=== PATIENT | female | born 2000 | race Caucasian/White ===

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

== ENCOUNTER 2023-08-31 21:05 | Emergency (ER) | payer OTHER, SELFPAY ==
[2023-08-31 21:06] VITALS: BP 123/74; PULSE 107; RESP 18; TEMP 35.8; O2SAT 98; BMI 25.9
--- NOTE | 2023-08-31 22:01 | EDS_ITS ---
HPI History of Present Illness Chief Complaint: Abd Pain PFSH PFSH Medical History Asperger syndrome Gastroparesis IBS (irritable bowel syndrome) Home Medications ergocalciferol (vitamin D2) 1,250 mcg (50,000 unit) capsule (Vitamin D2) 1,000 unit PO Q7D 09/26/18 [History Last Taken 09/20/18] melatonin 1 mg tablet 10 mg PO QHS PRN sleep 09/26/18 [History Last Taken 09/25/18] omega-3 fatty acids-fish oil 300 mg-1,000 mg capsule 1 ea PO QHS 09/26/18 [History Last Taken 09/25/18] tizanidine 4 mg tablet 4 mg PO QHS 09/26/18 [History Last Taken 09/25/18] vitamin B complex (Vitamins B Complex capsule) 1 ea PO QHS 09/26/18 [History Last Taken 09/25/18] hydroxyzine HCl 25 mg tablet 25 mg Q6H PRN PRN Anxiety 09/26/21 [History Last Taken Unknown] Allergy/AdvReac Type Severity Reaction Status Date / Time honey Allergy Unknown Verified 08/31/23 21:06 prochlorperazine Allergy Vomiting Verified 08/31/23 21:06 [From Compazine] nitrofurantoin AdvReac Vomiting Verified 08/31/23 21:06 [From Macrobid] Surgical History Hx of appendectomy Social History current occupational status: student Smoking Status: Never smoker EXAM Physical Exam Const Vital Signs: 08/31/23 21:06 08/31/23 23:05 Temperature 96.5 F L Temperature Source Temporal Pulse Rate 107 H 95 Respiratory Rate 18 16 Blood Pressure 123/74 H Blood Pressure Mean 90 Pulse Ox 98 97 Oxygen Delivery Method Room Air Room Air MDM MDM MDM Narrative Medical decision making narrative: HISTORY OF PRESENT ILLNESS: 23-year-old female presents with abdominal pain. Patient states she thinks her IUD may be displaced. States she got her IUD placed in [place] in the summer. States she has got lower pelvic pain that occurred today. No trauma. No recent sexual intercourse. No vaginal bleeding or discharge. No dysuria, hematuria, frequency or urgency. Denies any back pain. Denies any fever. Reports history of appendectomy in the past REVIEW OF SYSTEMS: Pertinent positives: Abdominal pain Pertinent negatives: Nausea, vomiting, fever, bowel or bladder changes, vaginal bleeding or discharge, sexual activity PHYSICAL EXAM: Nursing triage notes reviewed, Vital signs reviewed Constitutional: please see mdm HENT: MMM Eyes: Pupils equal round and reactive to light, Extraocular muscles intact Neck: No stridor, no JVD, full neck ROM Lungs: Clear to auscultation, No wheezing or rales. No increased work of breathing, no conversational dyspnea, no accessory muscle use, no nasal flaring. No respiratory distress noted Heart: Regular rate and rhythm, No murmurs, No rubs and No gallops, 2+ distal pulses (radial, femoral, posterior tibial) in all extremities Abdomen: Soft, there is no tenderness, rigidity, rebound or guarding, no obvious peritoneal signs, no palpable pulsatile abdominal masses, no auscultated ab dominal bruit : No CVAT, pelvic exam performed with electric frying pan repairer nurse Gurdeep RN present. Pelvic exam with white vaginal discharge, normal-appearing vaginal mucosa, cervical os closed, noted blue string of IUD hanging out of cervical os. No bleeding or trauma noted. Swabs were obtained. Extremities: No edema Neuro: No focal neurological deficits, cranial nerves II through XII intact, 5/5 strength in all extremities. Intact sensation to light touch in all extremities, 2+ reflexes bilateral patella tendons. Normal gait. No ataxia. Skin: No rash or lesions noted MEDICAL DECISION MAKING: Chief Complaint: Abdominal pain External records reviewed: CT scan of the abdomen pelvis in 2019 shows acute appendicitis Factors affecting care: History of appendicitis [facility] Narrative: Patient was initially hemodynamically stable, afebrile, nontoxic-appearing. Exam unremarkable for obvious peritoneal signs. Pelvic exam showed no evidence of infections, bleeding trauma, showed blue string of IUD. I considered the following differential diagnosis: Nephrolithiasis, , pyelonephritis, uterine rupture ALL IMAGES (IF OBTAINED) HAVE BEEN PERSONALLY REVIEWED AND INTERPRETED BY MYSELF. CBC without leukocytosis to suggest severe systemic inflammation, severe anemia, no thrombocytopenia. BMP without evidence of significant electrolyte abnormalities, no anion gap, no acute kidney injury. No evidence of metabolic acidosis. No evidence of endorgan hypoperfusion LFTs show no evidence of hepatobiliary pathology. Urine test is negative Urinalysis shows no evidence of urinary inflammation suggestive of UTI CT scan of the abdomen pelvis reveals no acute process I would have obtained a pelvic ultrasound to further characterize position of IUD however would not have ultrasound available at this [facility] The synthesis of the patient's history, physical exam, labs images suggest no acute life or limb threatening etiology. Strict return precaution discussed the patient Outpatient [facility] follow-up was arranged. Will communicate patient if results of gonorrhea chlamydia testing are positive. Patient is often sexually active since May and as such I have a low suspicion for STD. The patient and/or family, caregivers express understanding. The patient and/or family, caregivers agrees with the plan. Shared decision making: I will have a discussion with the patient and or visitors regarding risk/benefits of further testing or admission. They will be made aware of of the risk/benefits inherent in this decision they will be given the opportunity to voice understanding. Total critical care time today provided was at least 0 minutes. This excludes separately billable procedures. Critical care time (if documented) is secondary to the patient having high probability of clinically significant/life threatening deterioration in the patient's condition which required my urgent intervention. Impression: 1. Pelvic pain 2. History of IUD Dispo: Discharge home This note was generated with [employer] dictation software. It may contain incorrect words, spelling, and punctuation that were not noted in review of the chart prior to signing. Lab Data Labs: Laboratory Results - last 24 hr 08/31/23 08/31/23 22:12 22:30 WBC 9.4 RBC 4.31 Hgb 12.7 Hct 38.6 MCV 89.6 MCH 29.5 MCHC 32.9 RDW Std Deviation 39.3 RDW Coeff of Jake 11.9 Plt Count 280 MPV 9.4 Immature Gran % (Auto) 0.300 Neut % (Auto) 66.8 Lymph % (Auto) 24.8 [place] % (Auto) 6.2 Eos % (Auto) 1.3 Baso % (Auto) 0.6 Absolute Neuts (auto) 6.3 Absolute Lymphs (auto) 2.32 Nucleated RBC % 0 Sodium 139 Potassium 3.6 Chloride 107 Carbon Dioxide 27.0 Anion Gap 5 BUN 8 Creatinine 0.68 Estim Creat Clear Calc 124.59 Est GFR (MDRD) Af Amer 140 Est GFR (MDRD) Non-Af 115 BUN/Creatinine Ratio 11.7 Glucose 107 H Calcium 9.0 Total Bilirubin 0.50 AST 11 L ALT 18 Alkaline Phosphatase 82 Total Protein 7.3 Albumin 3.8 Globulin 3.5 Albumin/Globulin Ratio 1.1 Serum , Qual NEGATIVE Urine Color Yellow Urine Clarity Clear Urine pH 7.0 Ur Specific [place] 1.005 Urine Protein Negative Urine Glucose (UA) Normal Urine Ketones Negative Urine Occult Blood Negative Urine Nitrite Negative Urine Bilirubin Negative Urine Urobilinogen Normal Ur Leukocyte Esterase 25 H Urine RBC 0 SEEN Urine WBC 0-5 SEEN Ur Squamous Epith Cells 0-5 SEEN Urine Bacteria 0 SEEN Urine Mucus 0 SEEN Radiography Diagnostic Testing: Clinical Impression(s) from Imaging Studies Abdomen/Pelvis CT 08/31/23 22:19 IMPRESSION: Increased stool. No acute disease. Electronically Signed: Sampson Patel MD at 0:17 EST Reading Location ID and State: [facility] / [place] Tel , Service support , Discharge Plan Triage Chief Complaint: Abd Pain ED Provider: Norbert Gold Dx/Rx/DC Orders Instructions: ED Pelvic Pain, Unknown Cause Prescriptions: No Action tizanidine 4 MG tablet 4 mg PO QHS ergocalciferol (vitamin D2) [Vitamin D2] 50,000 UNIT capsule 1,000 unit PO Q7D vitamin B complex [Vitamins B Complex] 1 EACH capsule 1 ea PO QHS melatonin 1 MG tablet 10 mg PO QHS PRN (Reason: sleep) omega-3 fatty acids-fish oil 1 EACH capsule 1 ea PO QHS hydroxyzine HCl 25 mg tablet 25 mg Q6H PRN PRN (Reason: Anxiety) Primary Care Provider: Travis Siddiqi Referrals: Tricia Barnes MD [Med Staff - Active Staff] - Activity Restrictions/Additional Instructions: Thank you for trusting us with your care today! Please take Tylenol (2 pills, 650 mg), ibuprofen (2 pills, 400 mg) every 6 hours as needed for pain and fever control. Please return to the emergency department if your symptoms change or worsen. Please follow with OBGYN (Dr. Barnes) at the number and location provided for further outpatient evaluation and management. Disposition Disposition: Home, Self Care
--- NOTE | 2023-08-31 22:19 | CT_ITS ---
STUDY: CT ABDOMEN AND PELVIS WITH CONTRAST REASON FOR EXAM: Female, 23 years old. lower abdominal pain RADIATION DOSAGE (If Supplied By Facility): CTDIvol = ( 10.18 ) mGy, DLP = ( 830.99 ) mGycm TECHNIQUE: Transaxial images were obtained from the dome of the diaphragm to the symphysis pubis without oral contrast. IV 100mL Isovue-370 was administered. Sagittal and coronal images were reconstructed. Individualized dose optimization techniques were used for this CT. COMPARISON: Abdominal ultrasound October 25, 2018. CT abdomen and pelvis September 26, 2018. FINDINGS: The visualized lung bases are unremarkable. The visualized portions of the heart are within normal limits. Normal liver. Normal gallbladder and extrahepatic biliary system. Normal spleen. Normal pancreas. Normal bilateral adrenal glands. Normal right kidney. Normal left kidney. Normal visualized stomach. Normal small intestine. Increased stool in the colon. Appendix appears to be surgically absent. Normal abdominal aorta. Normal inferior vena cava. Normal retroperitoneum. Normal urinary bladder. IUD in the body of the uterus. 2 cm left adnexal cyst. Normal abdominal wall. 11 millimeters sclerotic lesion left iliac bone. CT/Abdomen/Pelvis W IV Cont ONLY IMPRESSION: Increased stool. No acute disease. Electronically Signed: Sampson Patel MD at 0:17 EST ,
[2023-08-31 22:20] LABS: Bacteria 0 SEEN /hpf (None Seen); Mucous, Urine 0 SEEN /hpf (<or=2+); Red Blood Cells-Urine 0 SEEN /hpf (0-5)
[2023-08-31 22:21] LABS: Color, Urine Yellow (Yellow); Glucose, Dipstick Normal (Normal); Ketone-Dipstick Negative (Negative); Leukocyte Esterase-Dipstick 25 /ul (Negative); Nitrite-Dipstick Negative (Negative); Occult Blood-Urine Negative /ul (Negative); Protein-Dipstick Negative (Negative); Specific Gravity, Urine 1.005 (1.002-1.030); Urine Bilirubin Dipstick Negative (Negative); Urine Clarity Clear (Clear); Urine Urobilinogen Normal (Normal)
[2023-08-31] MEDS: Acetaminophen 325 MG Tablet 650 MG PO (22:29)
[2023-08-31 22:31] LABS: Squamous Epithelial Cells - UA 0-5 SEEN /hpf (5-10); White Blood Cells 0-5 SEEN /hpf (0-5)
[2023-08-31] MEDS: 0.9% Normal Saline (500mL Bag) 500 ML 999 ML IV (22:32)
--- OUTSIDE RECORDS SUMMARY | 2023-08-31 22:34 | XMS RPT_ITS | CCD ---
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
[2023-08-31 22:37] LABS: Absolute Lymphocyte Count 2.32 X10^3/uL (0.83-4.51); Absolute Neutrophil Count 6.3 X10^3/uL (2.0-7.7); Basophil# 0.06 X10^3/uL; Basophil% 0.6 % (0-1); Eosinophil# 0.12 X10^3/uL; Eosinophils% 1.3 % (0-5); Hematocrit 38.6 % (37-47); Hemoglobin 12.7 g/dL (12.0-15.0); Lymphocyte # 2.32 X10^3/ul (0.83-4.51); Lymphocyte % 24.8 % (19-41); Mean Corp Hgb Conc 32.9 g/dL (32-36); Mean Corpuscular Hgb 29.5 pg (27.0-32.0); Mean Corpuscular Volume 89.6 fL (81-99); Mean Platelet Vol. 9.4 fl (6.2-12.0); Monocyte# 0.58 X10^3/uL; Monocyte% 6.2 % (0-10); NRBC Flagged by Analyzer 0 % (0-5); Neutrophil # 6.26 X10^3/uL (2.7-7.7); Neutrophil % 66.8 % (47-70); Platelet Count 280 K/mm3 (150-450); RBC Distribution Width CV 11.9 % (11.6-14.6); RBC Distribution Width SD 39.3 fl (35.1-43.9); Red Blood Count 4.31 M/mm3 (4.2-5.4); White Blood Count 9.4 K/mm3 (4.4-11.0)
[2023-08-31 22:47] LABS: Internal QC Validated? YES +Cl - CLEAR BKGD; Pregnancy, Serum, hCG Quali. NEGATIVE Negative
[2023-08-31 22:54] LABS: ALB/GLOB Ratio 1.1 RATIO (0.9-2.4); AST(SGOT) 11 U/L (15-37); Alanine Aminotransfer ALT/SGPT 18 U/L (13-56); Albumin, Serum 3.8 g/dL (3.2-5.0); Alkaline Phosphatase 82 U/L (45-117); Anion Gap 5 (5-15); BUN 8 mg/dL (7-18); BUN/Creat Ratio 11.7 RATIO (10-20); Chloride 107 mmol/L (98-107); Creatinine, Serum 0.68 mg/dL (0.55-1.02); EST Glomerular Filtration Rate 115 mL/min (>60); Est Glom Filt Rate - Afr Amer 140 mL/min (>60); Estimated Creatinine Clearance 124.59 ml/min; Globulin 3.5 g/dL (2.2-4.2); Glucose 107 mg/dL (74-106); Potassium 3.6 mmol/L (3.5-5.1); Protein, Total 7.3 g/dL (6.4-8.2); Sodium Level 139 mmol/L (136-145)
[2023-08-31] MEDS: Ketorolac 15 MG/ML Vial IV (22:58)
[2023-08-31 23:05] VITALS: PULSE 95; RESP 16; O2SAT 97
[2023-09-01 00:58] VITALS: BP 120/76; PULSE 81; RESP 16; TEMP 36.6; O2SAT 99
== END 2023-09-01 00:59 | disposition home or self-care (01) ==
PROVIDERS: Emergency Provider Emergency Medicine; PCP Family Medicine; Visit Provider Emergency Medicine
DX: R10.2 Pelvic and perineal pain (principal); Z90.49 Acquired absence of other specified parts of digestive tract; Z97.5 Presence of (intrauterine) contraceptive device
CPT/HCPCS: 74177; 80053; 81001; 84703; 85025; 87210; 87491; 87591; 96361; 96374; 99283; J7030; Q9967; A4216

== ENCOUNTER 2023-09-22 14:34 | Emergency (ER) | payer OTHER, SELFPAY ==
[2023-09-22 14:37] VITALS: BP 145/127; PULSE 80; RESP 18; TEMP 36.3; O2SAT 95; BMI 26.2
--- NOTE | 2023-09-22 14:45 | EDS_ITS ---
<Statement entered by Chelo Welsh MD - 09/22/23 15:22> I have personally performed a face to face assessment of the patient and have reviewed the WILLIE Note. Patient presents with urinary frequency and burning consistent with UTI. She states symptoms started this morning. She states this does feel similar to prior UTIs. She has had no fever or chills. No significant back pain. Patient sitting upright in bed no acute distress. Nontoxic-appearing. Head and neck examination unremarkable. Heart is regular rate and rhythm. Lung sounds are clear. Abdomen is soft and nontender. Back examination reveals no CVA tenderness. Urinalysis reveals 2+ bacteria and positive nitrites. Urine test is negative. Patient will be treated with a course of Keflex, first dose given here. Urine has been sent for culture. Return instructions given. HPI History of Present Illness Chief Complaint: Complaint Narrative Narrative: Patient is a 23-year-old female with history of IBS, who presents to the emergency department for concern for UTI. Patient's last menstrual cycle was 2 weeks ago, patient does have IUD placed. Patient states that she had sexual intercourse yesterday, she states she did not clean herself well enough. Patient states she is having burning, frequency and is here for evaluation. She denies any back pain, nausea or vomiting or fever or chills [facility] Medical History (Updated 09/22/23 @ 15:17 by PATRICIA Pratt) Asperger syndrome Gastroparesis IBS (irritable bowel syndrome) Recurrent urinary tract infection Home Medications ergocalciferol (vitamin D2) 1,250 mcg (50,000 unit) capsule (Vitamin D2) 1,000 unit PO Q7D 09/26/18 [History Last Taken 09/20/18] omega-3 fatty acids-fish oil 300 mg-1,000 mg capsule 1 ea PO QHS 09/26/18 [History Last Taken 09/25/18] tizanidine 4 mg tablet 4 mg PO QHS 09/26/18 [History Last Taken 09/25/18] vitamin B complex (Vitamins B Complex capsule) 1 ea PO QHS 09/26/18 [History Last Taken 09/25/18] cephalexin 500 mg capsule 500 mg PO BID #10 caps 09/22/23 [Rx Last Taken Unknown] Allergy/AdvReac Type Severity Reaction Status Date / Time Food Allergies: Uncoded Allergy Other Verified 09/22/23 14:36 honey Allergy Rash Verified 09/22/23 14:36 prochlorperazine Allergy Vomiting Verified 09/22/23 14:36 [From Compazine] nitrofurantoin AdvReac Vomiting Verified 09/22/23 14:36 [From Macrobid] Surgical History Hx of appendectomy Social History (Updated 09/22/23 @ 14:55 by Alis Deshpande) household members: none housing: other current occupational status: student Smoking Status: Never smoker ROS ROS ED ROS Narrative Constitutional: Negative for fever, chills, weight loss, weakness Eyes: Negative for vision loss, vision change, double vision ENT: Negative for any sore throat, ear pain, congestion Cardiovascular: Negative for any chest pain, tightness, palpitations Respiratory: Negative for any cough, sputum production, hemoptysis, dyspnea, dyspnea on exertion, orthopnea Gastrointestinal: Negative for any abdominal pain, nausea, vomiting, diarrhea, constipation, blood in stool, blood in vomit : Negative for any retention, blood in urine. Positive urinary frequency, Muscle skeletal: Negative for any neck pain, back pain Neurological: Negative for any headache, syncope, dizziness Skin: Negative for any rashes, itching, abrasions, lacerations Psychiatric: Negative for any depression, anxiety, stress, suicidal ideation, homicidal ideation Hematologic: Negative for any excessive bruising, easy bleeding EXAM Physical Exam Narrative Exam Narrative: Vital signs reviewed. HEET: Head normocephalic atraumatic, TMs clear bilaterally. Posterior pharynx is clear, moist mucous membranes. Nares clear bilaterally. Neck: Supple with no lymphadenopathy or tenderness. No signs of meningismus. Cardiac: Regular rate and rhythm no murmurs gallops or rubs, equal peripheral pulses bilaterally. Respiratory: Lungs clear to auscultation bilaterally. No chest tenderness. Abdomen: Soft, nontender, nondistended. No abdominal bruit or pulsatile masses. No hepatosplenomegaly Extremities: No peripheral edema, no signs of gross trauma or deformity. Active full range of motion of all extremities. Neuro: Cranial nerves II through XII intact, no focal neurological deficits. Skin: Clean dry and intact with no rash, purpura, petechiae, vesicles or pustules. Backs/flank: No CVA tenderness, no midline spinal tenderness, no deformity. Psych: Normal mood and affect. No SI, HI or acute psychosis. Const Vital Signs: 09/22/23 14:37 Temperature 97.3 F L Temperature Source Temporal Pulse Rate 80 Respiratory Rate 18 Blood Pressure 145/127 H Blood Pressure Mean 133 Pulse Ox 95 Oxygen Delivery Method Room Air Positive well nourished and well developed General Appearance ED: well developed [facility] Lab Data Labs: Laboratory Results - last 24 hr 09/22/23 14:45 Urine Color Yellow Urine Clarity Clear Urine pH 7.0 Ur Specific [place] 1.005 Urine Protein Negative Urine Glucose (UA) Normal Urine Ketones Negative Urine Occult Blood Negative Urine Nitrite Positive H Urine Bilirubin 1 H Urine Urobilinogen 1 H Ur Leukocyte Esterase Negative Urine RBC 0 SEEN Urine WBC 0-5 SEEN Ur Squamous Epith Cells 0 SEEN Ur Transition Epith Cell 0-5 SEEN Urine Bacteria 2+ Urine Mucus 0 SEEN Urine Test Negative Treatment and Re-Evaluation :: Differential diagnosis includes however is not limited to: Pyelonephritis, obstructing uropathy, UTI, STD Patient appears to be in no obvious respiratory distress, patient's vital signs are stable. Patient presents to the emergency department with complaints of dysuria, urinary frequency, UTI-like symptoms. She believes this is secondary to not cleansing herself enough after sexual intercourse. She is not concerned for any STDs. Patient states that she would like her urine tested. Patient will receive a urinalysis, urine . Patient will be reevaluated Patient's urinalysis was positive for infection with 2+ bacteria, positive n itrites. This will be sent for culture. Patient's not . Patient be started on Keflex, she will be given her first dose here prior to discharge. If the culture does come back that the Keflex is not sensitive, she will get a different antibiotic. All questions were answered, she was given red flag signs and reasons to return, patient stable for discharge Discharge Plan Triage Chief Complaint: Complaint ED Midlevel Provider: Eder Johnson ED Provider: Chelo Welsh Dx/Rx/DC Orders Clinical Impression: UTI (urinary tract infection) Instructions: Urinary Tract Infections in Women Prescriptions: New cephalexin 500 mg capsule 500 mg PO BID Qty: 10 0RF No Action tizanidine 4 MG tablet 4 mg PO QHS ergocalciferol (vitamin D2) [Vitamin D2] 50,000 UNIT capsule 1,000 unit PO Q7D vitamin B complex [Vitamins B Complex] 1 EACH capsule 1 ea PO QHS omega-3 fatty acids-fish oil 1 EACH capsule 1 ea PO QHS Primary Care Provider: Travis Siddiqi Referrals: Travis Siddiqi, [Primary Care Provider] - Activity Restrictions/Additional Instructions: Take antibiotics until finished Disposition Disposition: Home, Self Care
[2023-09-22 15:04] LABS: Mucous, Urine 0 SEEN /hpf (<or=2+); Red Blood Cells-Urine 0 SEEN /hpf (0-5); Squamous Epithelial Cells - UA 0 SEEN /hpf (5-10)
[2023-09-22 15:08] LABS: Color, Urine Yellow (Yellow); Glucose, Dipstick Normal (Normal); Ketone-Dipstick Negative (Negative); Leukocyte Esterase-Dipstick Negative /ul (Negative); Nitrite-Dipstick Positive (Negative); Occult Blood-Urine Negative /ul (Negative); Protein-Dipstick Negative (Negative); Specific Gravity, Urine 1.005 (1.002-1.030); Urine Clarity Clear (Clear); Urine Urobilinogen 1 mg/dl (Normal)
[2023-09-22 15:10] LABS: Urine Bilirubin Dipstick 1 mg/dL (Negative)
[2023-09-22 15:13] LABS: Bacteria 2+ /hpf (None Seen); Internal QC Validated? YES +Cl - CLEAR BKGD; Pregnancy, Urine Negative Negative; Record Kit Lot#,Urine Preg 718086; Transitional Epithelial - Ur 0-5 SEEN /hpf (0-5); White Blood Cells 0-5 SEEN /hpf (0-5)
[2023-09-22] MEDS: Cephalexin 250 MG Capsule 500 MG PO (15:31)
[2023-09-22 15:33] VITALS: BP 111/72; PULSE 70; RESP 16; TEMP 37; O2SAT 99
== END 2023-09-22 15:34 | disposition home or self-care (01) ==
PROVIDERS: Nurse Practitioner; Emergency Provider Emergency Medicine; PCP Family Medicine; Visit Provider Emergency Medicine
DX: N39.0 Urinary tract infection, site not specified (principal); Z97.5 Presence of (intrauterine) contraceptive device
CPT/HCPCS: 81001; 81025; 87086; 87088; 99282

== ENCOUNTER 2023-10-22 20:58 | Emergency (ER) | payer OTHER, SELFPAY ==
[2023-10-22 20:59] VITALS: BP 124/84; PULSE 73; RESP 16; TEMP 36.6; O2SAT 98; BMI 20.7
--- NOTE | 2023-10-22 21:46 | EDS_ITS ---
HPI History of Present Illness Chief Complaint: Ear Problem Detail of Chief Complaint: Bilateral ear pain right greater than left Informant: patient Onset/Context/Timing Onset: Weeks Context: Sudden Onset Timing: Continuous and Waxes and wanes Quality: Pain Location: Both ears Current Severity: Mild Maximum Severity: Moderate Worsened by: Nothing specific Relieved by: Nothing Associated Symptoms Associated Symptoms: History of grinding teeth and completed 2 courses of antibiotics Narrative Narrative: Patient is a 23-year-old female who presents with bilateral ear pain. Right is greater than left. She denies fever, chills night sweats (rheumatic fever, heart murmur mitral prolapse. She does have problems with the enamel of her teeth diagnosed by a dentist. She does grind her teeth. Prior similar symptoms: Yes Recent Illness/Hospitalization: Yes PFSH PFSH Medical History Asperger syndrome Gastroparesis IBS (irritable bowel syndrome) Lichen sclerosus Marijuana use Recurrent urinary tract infection Home Medications tizanidine 4 mg tablet 4 mg PO QHS 09/26/18 [History Last Taken 09/25/18] albuterol sulfate 90 mcg/actuation aerosol inhaler 2 inh inhalation Q4H PRN shortness of breath or wheezing 10/22/23 [History Last Taken Unknown] clobetasol 0.025 % topical cream 1 applic topical DAILY 10/22/23 [History Last Taken Unknown] diphenhydramine HCl 25 mg capsule (Allergy (diphenhydramine)) 12.5 mg PO QHS sleep 10/22/23 [History Last Taken Unknown] vitamin A 2,500 unit-vit C 100 mg-biotin 2,500 [id number] capsule (Esdx-Bttl-Fdhn (vit A,G-dvpajt-Rl-Cu)) 1 cap PO DAILY 10/22/23 [History Last Taken Unknown] Allergy/AdvReac Type Severity Reaction Status Date / Time Food Allergies: Uncoded Allergy Other Verified 10/22/23 20:59 honey Allergy Rash Verified 10/22/23 20:59 prochlorperazine Allergy Vomiting Verified 10/22/23 20:59 [From Compazine] nitrofurantoin AdvReac Vomiting Verified 10/22/23 20:59 [From Macrobid] Surgical History Hx of appendectomy Social History household members: none housing: other current occupational status: student Smoking Status: Current every day smoker tobacco type: cigarettes and e-cigare ttes ROS ROS ED Constitutional Constitutional ED: Denies chills, fever(s) or subjective Eyes Eyes: Denies blurry vision, change in vision or diplopia ENT ENT ED: Reports other Details: Does complain of congestion has history of allergies. ; Denies ear pain, rhinorrhea or sore throat Gastrointestinal Gastrointestinal: Reports nausea and vomiting Neurologic Neurologic: Denies headache(s) EXAM Physical Exam Const Vital Signs: 10/22/23 20:59 Temperature 97.8 F Temperature Source Temporal Pulse Rate 73 Respiratory Rate 16 Blood Pressure 124/84 H Blood Pressure Mean 97 Pulse Ox 98 Positive well nourished and well developed General Appearance ED: well developed and NAD HEENT Reports moist mucous membranes HEENT Narrative: Ears normal. TMs normal. External auditory canal normal. No discomfort with opening closing of her mouth over the TMJ joint. Patient does have dental caries noted. There is no peridental swelling. There is no abnormality the posterior pharynx. There is no tenderness with palpation of the mandible. There is no cervical or submandibular lymphadenopathy. Trachea is midline. Eyes PERRL and EOMs intact bilaterally Neck no lymphadenopathy, supple and no JVD Neck Narrative: There is no stridor. Resp normal respiratory effort Cardio regular rate, regular rhythm, S1 normal heart sound, S2 normal heart sound and no murmurs Extremity normal to inspection Neuro oriented x3 and CN's II-XII intact bilaterally Skin no rashes or lesions noted, no wounds and skin turgor normal MDM MDM MDM Narrative Medical decision making narrative: Patient was told she has dental caries. This may be due to grinding of her teeth. She see her dentist to have a mouth block made. There is no abnormality of her ears. Discharge Plan Triage Chief Complaint: Ear Problem ED Provider: Brian Chavez Dx/Rx/DC Orders Clinical Impression: Bruxism (teeth grinding), Acute pain of both ears, Dental caries extending into dentine Instructions: Bruxism, ED Dental Cavity, ED Pain, Acute, Uncertain Cause Prescriptions: No Action tizanidine 4 MG tablet 4 mg PO QHS Yttz-Fvrx-Jzvi(vit A,C-biotin) 2,500 unit-100 mg-2,500 mcg capsule 1 cap PO DAILY albuterol sulfate 90 mcg/actuation HFA aerosol inhaler 2 inh inhalation Q4H PRN (Reason: shortness of breath or wheezing) clobetasol 0.025 % cream 1 applic topical DAILY Patient Comments: takes every other day diphenhydramine HCl [Allergy (diphenhydramine)] 25 mg capsule 12.5 mg PO QHS Primary Care Provider: Travis Siddiqi Referrals: Travis Siddiqi DO [Primary Care Provider] - Dentist,Your [STAFF PHYSICIAN] - 1 Week Disposition Disposition: Home, Self Care
[2023-10-22 21:55] VITALS: BP 110/80; PULSE 60; RESP 14; TEMP 36.8; O2SAT 100
== END 2023-10-22 21:57 | disposition home or self-care (01) ==
PROVIDERS: Emergency Provider Emergency Medicine; PCP Family Medicine; Visit Provider Emergency Medicine
DX: K02.9 Dental caries, unspecified (principal); F45.8 Other somatoform disorders; H92.03 Otalgia, bilateral; F17.210 Nicotine dependence, cigarettes, uncomplicated; F17.290 Nicotine dependence, other tobacco product, uncomplicated
CPT/HCPCS: 99282

== ENCOUNTER → 2024-02-18 | Outpatient (CLI) | payer OTHER, SELFPAY ==
[2024-02-18 15:04] LABS: ALB/GLOB Ratio 1.1 RATIO (0.9-2.4); AST(SGOT) 14 U/L (15-37); Alanine Aminotransfer ALT/SGPT 22 U/L (13-56); Albumin, Serum 3.8 g/dL (3.2-5.0); Alkaline Phosphatase 77 U/L (45-117); Anion Gap 8 (5-15); BUN 10 mg/dL (7-18); BUN/Creat Ratio 15.1 RATIO (10-20); Calcium,Total 9.4 mg/dL (8.5-10.1); Chloride 103 mmol/L (98-107); Cholesterol 162 mg/dL (200); Creatinine, Serum 0.66 mg/dL (0.55-1.02); EST Glomerular Filtration Rate 118 mL/min (>60); Est Glom Filt Rate - Afr Amer 143 mL/min (>60); Globulin 3.5 g/dL (2.2-4.2); Glucose 100 mg/dL (74-106); High Density Lipoprotein 52 mg/dL; Protein, Total 7.3 g/dL (6.4-8.2); Sodium Level 135 mmol/L (136-145); Triglycerides 82 mg/dL; Very Low Density Lipoprotein 16 mg/dL (5-40)
== END | disposition home or self-care (01) ==
LOC: LAB 12:27
PROVIDERS: PCP Family Medicine; Referring Provider Family Medicine; Visit Provider Family Medicine
DX: Z00.00 Encounter for general adult medical examination without abnormal findings (principal)
CPT/HCPCS: 36415; 80053; 80061

== ENCOUNTER 2024-03-19 11:53 | Emergency (ER) | payer OTHER, SELFPAY ==
[2024-03-19 11:56] VITALS: BP 109/85; PULSE 84; RESP 16; TEMP 36.9; O2SAT 98; BMI 29.4
--- NOTE | 2024-03-19 12:33 | EDS_ITS ---
HPI History of Present Illness Chief Complaint: Cold Sx Informant: patient [facility] Medical History Asperger syndrome Gastroparesis IBS (irritable bowel syndrome) Lichen sclerosus Marijuana use Recurrent urinary tract infection Home Medications ?Medication ?Instructions ?Recorded ?Last Taken ?Type tizanidine 4 mg tablet 4 mg PO QHS 09/26/18 09/25/18 History albuterol sulfate 90 mcg/actuation 2 inh inhalation Q4H PRN shortness 10/22/23 Unknown History aerosol inhaler of breath or wheezing clobetasol 0.025 % topical cream 1 applic topical DAILY 10/22/23 Unknown History diphenhydramine HCl 25 mg capsule 12.5 mg PO QHS sleep 10/22/23 Unknown History (Allergy (diphenhydramine)) vitamin A 2,500 unit-vit C 100 1 cap PO DAILY 10/22/23 Unknown History mg-biotin 2,500 yzu-jfek-namyov capsule (Plkb-Efwe-Goyd (vit A,D-jahgqs-Vf-Cu)) Allergy/AdvReac Type Severity Reaction Status Date / Time Food Allergies: Uncoded Allergy Other Verified 03/19/24 11:55 honey Allergy Rash Verified 03/19/24 11:55 prochlorperazine (From Allergy Vomiting Verified 03/19/24 11:55 Compazine) nitrofurantoin (From AdvReac Vomiting Verified 03/19/24 11:55 Macrobid) Surgical History Hx of appendectomy Social History household members: none housing: other current occupational status: student Smoking Status: Former smoker EXAM Physical Exam Const Vital Signs: 03/19/24 11:54 03/19/24 11:56 Temperature 98.4 F Temperature Source Oral Pulse Rate 84 Respiratory Rate 16 Respiratory Effort Normal Non-Labored Respiratory Pattern Normal Blood Pressure 109/85 H Blood Pressure Mean 93 Pulse Ox 98 Oxygen Delivery Method Room Air Discharge Plan Triage Chief Complaint: Cold Sx ED Provider: Izabela Harrison Dx/Rx/DC Orders Prescriptions: No Action tizanidine 4 MG tablet 4 mg PO QHS Uhhf-Mlsi-Xwjt(vit A,C-biotin) 2,500 unit-100 mg-2,500 mcg capsule 1 cap PO DAILY albuterol sulfate 90 mcg/actuation HFA aerosol inhaler 2 inh inhalation Q4H PRN (Reason: shortness of breath or wheezing) clobetasol 0.025 % cream 1 applic topical DAILY Patient Comments: takes every other day diphenhydramine HCl [Allergy (diphenhydramine)] 25 mg capsule 12.5 mg PO QHS Primary Care Provider: Travis Siddiqi Referrals: Travis Siddiqi DO [Primary Care Provider] - Print Language: Indonesian
--- NOTE | 2024-03-19 12:33 | EX.ED.DYSGE1 ---
HPI History of Present Illness Chief Complaint: Cold Sx Informant: patient Narrative Narrative: Patient is a 23-year-old female with history of some long COVID complications (patient states she most recent COVID in November or December of this year and now she has purposely take deep breaths to get her lungs open up all of the way). She is presenting with a couple days of URI symptoms now worsening cough and sputum production. Patient states on Saturday she had a sore throat and laryngitis. This was 5 days ago. Yesterday she developed a dry cough. This morning she woke up with severe hacking cough and has been productive of green sputum. She denies any fever. Has been complaining of nausea from her coughing as well as headache. Denies any vomiting or diarrhea. Does feel short of breath. Came in via EMS. No other complaints or concerns at this time. [facility] Medical History Lichen sclerosus Marijuana use Recurrent urinary tract infection Asperger syndrome IBS (irritable bowel syndrome) Gastroparesis Home Medications ?Medication ?Instructions ?Recorded ?Last Taken ?Type tizanidine 4 mg tablet 4 mg PO QHS 09/26/18 09/25/18 History albuterol sulfate 90 mcg/actuation 2 inh inhalation Q4H PRN shortness 10/22/23 Unknown History aerosol inhaler of breath or wheezing clobetasol 0.025 % topical cream 1 applic topical DAILY 10/22/23 Unknown History diphenhydramine HCl 25 mg capsule 12.5 mg PO QHS sleep 10/22/23 Unknown History (Allergy (diphenhydramine)) vitamin A 2,500 unit-vit C 100 1 cap PO DAILY 10/22/23 Unknown History mg-biotin 2,500 jth-cccf-qeeyzr capsule (Ntas-Odvk-Rzls (vit A,V-naegso-Mj-Cu)) benzonatate 100 mg capsule 200 mg (2 x 100 mg) PO TID PRN 03/19/24 Unknown Rx cough #20 caps Allergy/AdvReac Type Severity Reaction Status Date / Time Food Allergies: Uncoded Allergy Other Verified 03/19/24 11:55 honey Allergy Rash Verified 03/19/24 11:55 prochlorperazine (From Allergy Vomiting Verified 03/19/24 11:55 Compazine) nitrofurantoin (From AdvReac Vomiting Verified 03/19/24 11:55 Macrobid) Surgical History Hx of appendectomy Social History household members: none housing: other current occupational status: student Smoking Status: Former smoker ROS ROS ED Constitutional Constitutional ED: Denies chills or fever(s) Eyes Eyes: Denies change in vision ENT ENT ED: Reports sore throat and other Details: Nasal congestion ; Denies rhinorrhea Cardiovascular Cardiovascular: Reports other Details: Reports lung pain ; Denies chest pain Respiratory/Chest Respiratory/Chest: Reports cough and dyspnea Gastrointestinal Gastrointestinal: Reports nausea; Denies abdominal pain, diarrhea or vomiting Musculoskeletal Musculoskeletal: Denies arthralgias or myalgias Neurologic Neurologic: Reports headache(s); Denies paresthesias or weakness Psychiatric Psychiatric: Reports anxiety EXAM Physical Exam Const Vital Signs: 03/19/24 11:54 03/19/24 11:56 03/19/24 12:49 Temperature 98.4 F Temperature Source Oral Pulse Rate 84 88 Respiratory Rate 16 18 Respiratory Effort Normal Non-Labored Respiratory Pattern Normal Normal Blood Pressure 109/85 H Blood Pressure Mean 93 Pulse Ox 98 Oxygen Delivery Method Room Air Positive well nourished and well developed General Appearance ED: well developed and NAD HEENT Reports moist mucous membranes HEENT Narrative: Normal external ears. Normal oropharynx. Normal tonsils. Eyes PERRL and EOMs intact bilaterally Neck supple and no JVD Chest Wall inspection of chest normal and palpation of chest normal Resp normal respiratory effort Resp Narrative: Intermittent harsh cough. Mildly coarse breath sounds more pronounced at the right lung base Auscultation: Negative for rhonchi, wheezes or diminished lung sounds Cardio regular rate and regular rhythm GI normal to inspection, nondistended, normoactive bowel sounds and non-tender Palpation: Negative for tender or guarding Extremity normal to inspection Neuro oriented x3 Sensorium / Orientation: alert Motor Exam: Negative for general weakness Psych mental status grossly normal Mood & Affect: anxious Skin no rashes or lesions noted and no wounds MDM MDM MDM Narrative Medical decision making narrative: Patient is evaluated for worsening cough and sputum production. She is nontoxic-appearing looks like she does not feel good. Differential includes viral syndrome, COVID-19 infection, pneumonia, pneumothorax and pleural effusion. Patient be given Motrin (states she is active for ) as well as an albuterol treatment. Patient feels significantly improved after albuterol treatment. She does have albuterol inhaler at home. I do not appreciate any wheezing I wonder she does have a component of cough variant asthma/reactive airway. She states she prefers not have a steroids as it messes with her mood. Given that she is not wheezing I feel be fine to defer steroids at this time. Her COVID test is negative. Two-view chest x-ray viewed by myself as well as radiology does not show any acute infiltrate. Patient was discharged home with a prescription for Tessalon Perles for her cough. Counseled that I believe this is viral and I do not think she requires antibiotics. She will follow-up outpatient with her primary care doctor. Is given return precautions. Discharged home in stable condition Lab Data Attestation: I reviewed the patient's lab results. Radiography Diagnostic Testing: Clinical Impression(s) from Imaging Studies Chest X-Ray 03/19/24 13:00 IMPRESSION: Normal x-ray examination of the chest. Electronically Signed: Shane Huddleston MD at 13:26 EDT , Discharge Plan Triage Chief Complaint: Cold Sx ED Provider: Izabela Harrison Dx/Rx/DC Orders Clinical Impression: Cough, Bronchitis, Acute viral syndrome Instructions: ED Bronchitis, No Antibiotic (Adult), ED URI, Viral, No Abx (Adult) Prescriptions: New benzonatate 100 mg capsule 200 mg PO TID PRN (Reason: cough) Qty: 20 0RF No Action tizanidine 4 MG tablet 4 mg PO QHS Qenb-Pmtu-Flag(vit A,C-biotin) 2,500 unit-100 mg-2,500 mcg capsule 1 cap PO DAILY albuterol sulfate 90 mcg/actuation HFA aerosol inhaler 2 inh inhalation Q4H PRN (Reason: shortness of breath or wheezing) clobetasol 0.025 % cream 1 applic topical DAILY Patient Comments: takes every other day diphenhydramine HCl [Allergy (diphenhydramine)] 25 mg capsule 12.5 mg PO QHS Primary Care Provider: Travis Siddiqi Referrals: Travis Siddiqi DO [Primary Care Provider] - Activity Restrictions/Additional Instructions: Alternate ibuprofen and Tylenol for discomfort associated with coughing or your symptoms. I suspect you have a viral syndrome however your COVID test is negative today thankfully. There is no signs of pneumonia on your chest x-ray or based on your lab work. Please use your inhaler at home as needed for shortness of breath or coughing. Follow-up with your primary care doctor. Return if you have a progression or worsening your symptoms or further concerns. Not be surprised if this developing into a bronchitis. If that is the case you can expect to have cough for 2 to 3 weeks Print Language: Romansh Disposition Disposition: Home, Self Care
[2024-03-19] MEDS: Albuterol 2.5 MG/3 ML VIAL.NEB. INHALATION (12:45)
[2024-03-19] MEDS: Ibuprofen 600 MG Tablet PO (12:48)
[2024-03-19 12:49] VITALS: PULSE 88; RESP 18
--- NOTE | 2024-03-19 12:49 | ED.RN ---
this rn attempts to medicate patient with prescribed ibuprofen 600 mg. pt states i get really sick if i dont take it with food. this rn states understanding and says that staff can get her some crackers to eat as well. this rn asks if pt can take the med while this rn is at bedside and this rn states it shouldn't matter if you take the pill before or after the crackers as long as there is something in your stomach. pt replies rudely it does matter- i take ibuprofen every single day for pain. this rn obtains saltine crackers for pt. respiratory at bedside attempting to administer breathing treatment as pt is eating crackers. pt still does not take medication and RT Winnie asks pt if she can take the medication to start her breathing tx. pt states to RT i dont think her response was very justified. What do you think? RT notifies this rn of encounter.
--- NOTE | 2024-03-19 13:00 | RAD_ITS ---
STUDY: X-RAY CHEST REASON FOR EXAM: Female, 23 years old. Cough TECHNIQUE: PA and lateral views of the chest. COMPARISON: Comparison is made with prior study dated October 29, 2021. FINDINGS: The lungs are clear and expanded. There is no demonstrated pleural abnormality. Normal size heart. Normal mediastinum and amadeo. Normal visualized pulmonary arteries. Normal visualized aortic arch and descending thoracic aorta. Normal visualized thoracic spine. Normal visualized ribs, clavicles, and shoulders. There is no demonstrated abnormality of the visualized soft tissue structures of the upper abdomen. RAD/Chest PA and Lateral IMPRESSION: Normal x-ray examination of the chest. Electronically Signed: Shane Huddleston MD at 13:26 EDT ,
[2024-03-19 14:43] VITALS: BP 126/74; PULSE 86; RESP 18; TEMP 36.5; O2SAT 99
== END 2024-03-19 14:43 | disposition home or self-care (01) ==
PROVIDERS: Emergency Provider Emergency Medicine; PCP Family Medicine; Referring Provider Emergency Medicine; Visit Provider Emergency Medicine
DX: J20.8 Acute bronchitis due to other specified organisms (principal); U09.9 Post COVID-19 condition, unspecified; R51.9 Headache, unspecified; R11.0 Nausea; Z11.52 Encounter for screening for COVID-19; K58.9 Irritable bowel syndrome, unspecified; Z79.899 Other long term (current) drug therapy; Z87.891 Personal history of nicotine dependence
CPT/HCPCS: 71046; 87631; 94640; 99282

== ENCOUNTER 2024-04-26 17:25 | Emergency (ER) | payer OTHER, SELFPAY ==
[2024-04-26 17:26] VITALS: BP 143/89; PULSE 68; RESP 16; TEMP 36.8; O2SAT 98; BMI 28.2
--- NOTE | 2024-04-26 17:31 | EX.ED.GENINJ ---
HPI History of Present Illness Chief Complaint: Head Injury [facility] Medical History Lichen sclerosus Marijuana use Recurrent urinary tract infection Asperger syndrome IBS (irritable bowel syndrome) Gastroparesis Home Medications ?Medication ?Instructions ?Recorded ?Last Taken ?Type tizanidine 4 mg tablet 4 mg PO QHS 09/26/18 09/25/18 History albuterol sulfate 90 mcg/actuation 2 inh inhalation Q4H PRN shortness 10/22/23 Unknown History aerosol inhaler of breath or wheezing clobetasol 0.025 % topical cream 1 applic topical DAILY 10/22/23 Unknown History diphenhydramine HCl 25 mg capsule 12.5 mg PO QHS sleep 10/22/23 Unknown History (Allergy (diphenhydramine)) vitamin A 2,500 unit-vit C 100 1 cap PO DAILY 10/22/23 Unknown History mg-biotin 2,500 hjm-lqoh-kdsawz capsule (Twhi-Jccj-Agkl (vit A,B-djtini-Ib-Cu)) benzonatate 100 mg capsule 200 mg (2 x 100 mg) PO TID PRN 03/19/24 Unknown Rx cough #20 caps metoclopramide HCl 5 mg tablet 5 mg PO Q8H PRN headache #20 tabs 04/26/24 Unknown Rx (Reglan) Allergy/AdvReac Type Severity Reaction Status Date / Time Food Allergies: Uncoded Allergy Other Verified 04/26/24 17:25 honey Allergy Rash Verified 04/26/24 17:25 prochlorperazine (From Allergy Vomiting Verified 04/26/24 17:25 Compazine) nitrofurantoin (From AdvReac Vomiting Verified 04/26/24 17:25 Macrobid) Surgical History Hx of appendectomy Social History household members: none housing: other current occupational status: student Smoking Status: Former smoker EXAM Physical Exam Const Vital Signs: 04/26/24 17:26 Temperature 98.2 F Temperature Source Oral Pulse Rate 68 Respiratory Rate 16 Blood Pressure 143/89 H Blood Pressure Mean 107 Pulse Ox 98 Oxygen Delivery Method Room Air MDM MDM MDM Narrative Medical decision making narrative: HISTORY OF PRESENT ILLNESS: 24-year-old female presents with concern for head injury. She states she was attempting her pants and hit her head against a brick wall. No loss of conscious or vomiting noted. No blood thinners. No history of brain bleeding. No focal numbness weakness or loss sensation. She complains of nausea, headache and photophobia. REVIEW OF SYSTEMS: Pertinent positives: Head injury Pertinent negatives: Focal weakness, loss of vision, slurred speech PHYSICAL EXAM: Nursing triage notes reviewed, Vital signs reviewed Primary Survey Airway: Intact Breathing: Bilateral breath sounds Circulation: Palpable bilateral femorals, Palpable bilateral radial, Palpable bilateral DP and Palpable bilateral PT Disability / Spine precautions GCS Score: Eye Openin Verbal Response: 5 Motor Response: 6 Secondary Survey Constitutional: Please see MDM Head: Atraumatic, Midface stable, NO jaw malocclusion, No Cephalohematoma, and No Lacerations noted Eye: Pupils equal round and reactive to light, Extraocular muscles intact and No periorbital ecchymosis or stepoff, no evidence of entrapment ENT: Oropharynx clear, no lacerations, no hemotympanum, no raccoon eyes or persaud sign Cervical spine / Neck: No cervical spine bony tenderness, crepitance, or stepoff deformity Trachea midline Lungs: Clear to auscultation, No asymmetric rise and No crepitus, no flail chest Cardiac: Regular rate and rhythm and No murmurs Abdomen: Soft, Nontender and No rebound Pelvis: Pelvis stable to compression : No evidence of genital injury Back: No midline bony tenderness to thoracic/lumbar/sacral spines Neuro: At baseline, intact strength and sensation in bilateral upper and lower extremities. 2+ patellar reflexes bilaterally. Extremities: NO gross Deformities Psych: Normal affect Nursing triage notes reviewed, Vital signs reviewed MEDICAL DECISION MAKING: Chief Complaint: Head injury External records reviewed: Reviewed medications, no blood thinners noted Factors affecting care: None Social determinants of health: none History obtained from others: friends Consults: none [facility] Narrative: Patient was hemodynamically stable, afebrile and nontoxic-appearing. Primary secondary trauma surveys concern for the fall I considered the following differential diagnosis: ICH, concussion, GCS was greater than 14, no signs of basilar skull fracture, no palpable skull fracture, no altered mental status, no scalp hematoma noted, no loss conscious, no vomiting, no severe headache, there is no severe mechanism (ie MVC with patient ejection, of another passenger, rollover, fall from >3 feet). Advanced imaging of the brain is not indicated at this time. The patient's history and physical exam were not consistent with ICH or other intracranial bleeding. No indication for advanced imaging per DONTAEARN. Discussed risk and benefits with patient and her friend. Patient was alert and orient x 3 neck past medical medicines and agreed with foregoing imaging at this time. Patient was treated with oral Reglan and given Reglan for home-going to treat headache. Given school excuse. Strict return precautions were discussed. The patient and/or family, caregivers express understanding. The patient and/or family, caregivers agrees with the plan. Shared decision making: I will have a discussion with the patient and or visitors regarding risk/benefits of further testing or admission. They will be made aware of of the risk/benefits inherent in this decision they will be given the opportunity to voice understanding. Total critical care time today provided was at least 0 minutes. This excludes separately billable procedures. Critical care time (if documented) is secondary to the patient having high probability of clinically significant/life threatening deterioration in the patient's condition which required my urgent intervention. Impression: 1. Acute headache 2. Closed head injury 3. Concussion Dispo: Discharge This note was generated with [employer] dictation software. It may contain incorrect words, spelling, and punctuation that were not noted in review of the chart prior to signing. Discharge Plan Triage Chief Complaint: Head Injury ED Provider: Norbert Gold Dx/Rx/DC Orders Instructions: ED Concussion, ED Head Injury (Adult) Prescriptions: New metoclopramide HCl [Reglan] 5 mg tablet 5 mg PO Q8H PRN Qty: 20 0RF No Action tizanidine 4 MG tablet 4 mg PO QHS Mexf-Gzyn-Tqzo(vit A,C-biotin) 2,500 unit-100 mg-2,500 mcg capsule 1 cap PO DAILY albuterol sulfate 90 mcg/actuation HFA aerosol inhaler 2 inh inhalation Q4H PRN (Reason: shortness of breath or wheezing) clobetasol 0.025 % cream 1 applic topical DAILY Patient Comments: takes every other day diphenhydramine HCl [Allergy (diphenhydramine)] 25 mg capsule 12.5 mg PO QHS benzonatate 100 mg capsule 200 mg PO TID PRN (Reason: cough) Qty: 20 0RF Stand Alone Forms: ED Work / School Excuse Primary Care Provider: Travis Siddiqi Referrals: Travis Siddiqi, [Primary Care Provider] - Activity Restrictions/Additional Instructions: Thank you for trusting us with your care today! Your history and physical exam were not consistent with a life-threatening intracranial process such as bleeding in the brain. Please take Tylenol (2 pills, 650 mg), ibuprofen (2 pills, 400 mg) every 6 hours as needed for pain and fever control. Please take Reglan as needed for nausea and vomiting. Please return to the emergency department if your symptoms change or worsen. Please follow with your primary care physician for further outpatient evaluation and management. Print Language: Slovenian Disposition Disposition: Home, Self Care Discharge Date/Time: 04/26/24 17:59
[2024-04-26] MEDS: Ibuprofen 200 MG Tablet 400 MG PO (17:53)
[2024-04-26] MEDS: Metoclopramide 5 MG TABLET PO (17:53)
== END 2024-04-26 17:59 | disposition home or self-care (01) ==
PROVIDERS: Emergency Provider Emergency Medicine; PCP Family Medicine; Visit Provider Emergency Medicine
DX: S06.0X0A Concussion without loss of consciousness, initial encounter (principal); W22.01XA Walked into wall, initial encounter; Z79.899 Other long term (current) drug therapy; Z87.891 Personal history of nicotine dependence
CPT/HCPCS: 99283

== ENCOUNTER 2024-04-30 18:28 | Emergency (ER) | payer OTHER, SELFPAY ==
[2024-04-30 18:29] VITALS: BP 122/83; PULSE 74; RESP 18; TEMP 35.8; O2SAT 99; BMI 28.2
--- OUTSIDE RECORDS SUMMARY | 2024-04-30 21:04 | XMS RPT_ITS | CCD ---
Author Organization [facility] Care Team Providers Care Talent Acquisition Director Name Role Phone Zoe Meier Primary Care Provider [phone] KATLYN GIBSON Attending Unavailable KATLYN GIBSON Primary Care Unavailable KATLYN GIBSON Admitting Unavailable Doc RECEIVING CHECKER-TURBINE OPERATOR, [facility] Primary Care Provider Unavail able Zoe Meier MD Primary Care Provider SELF Referring Unavailable ZOE MEIER Primary Care Unavailable Unavailable Primary Care Provider Unavailabl e Allergies Allergy Classification Reported Allergen(s) Allergy Type Date of Onset Reaction(s) Facility (6 sources) Honey; Translations: [HONEY] Drug Allergy 10-25-19 12 Unknown, Other: See Comments, Other (See Comments) [facility] (5 sources) Nitrofurantoin; Translations: [NITROFURANTOIN] Drug Allergy 11-27-19 19 Vomiting [facility] (5 sources) Prochlorperazine; Translations: [PROCHLORPERAZINE] Drug Allergy 02-17-20 19 Dystonia [facility] (1 source) Lactose (non-medical use) Propensity to adverse reactions 12-02-19 19 Other (See Comments) [facility] (1 source) Nitrofurantoin Drug Allergy 11-27-19 19 Nausea And Vomiting [facility] (1 source) Prochlorperazine Edisylate Propensity to adverse reactions 02-17-20 19 Dystonia [facility] Work Phone: Medications Current Medications Medication Drug Class(es) Dates Sig (Normalized) Sig (Original) acetaminophen 325 mg oral tablet (1 source) Start: 09-27-2018 take 2 tablets by mouth every six hours as needed for pain acetaminophen (TYLENOL) 325 MG tablet Take 2 Tabs (650 mg) by mouth every 6 hours as needed for Pain Do not take with percocet 0 09/27/2018 Active [id number] 200 actuat albuterol 0.09 mg/actuat metered dose inhaler (3 sources) beta2-Adrenergic Agonist Start: 10-27-2020 albuterol HFA (PROVENTIL HFA, VENTOLIN HFA) 90 mcg/actuation inhaler 10/27/2020 Active Start: 10-27-2020 take 2 puff(s) by in halation every four hours as needed for cough albuterol 108 (90 Base) MCG/ACT inhaler Inhale 2 Puffs into the lungs every 4 hours as needed for Wheezing, Shortness of Breath or Cough Use with spacer. 1 Each 0 10/27/2020 Active ascorbic acid 500 mg oral tablet (1 source) Vitamin C take 1 tablet by mouth twice daily ascorbic acid (VITAMIN C) 500 MG tablet Take 500 mg by mouth 2 times daily 0 Active B Complex Vitamins (B COMPLEX 100 PO) (1 source) B Complex Vitami ns (B COMPLEX 100 PO) Take by mouth 0 Active Calcium Citrate (1 source) End: CALCIUM CITRATE PO Take by mouth 0 09/28/2021 Discontinued (* Remove (Not on AVS)) CALCIUM CITRATE-VITAMIN D3 PO (1 source) End: CALCIUM CITRATE-VITAMIN D3 PO Take 375 mg by mouth Takes two of these to equal 750 mg- this pill has magnesium and vitamin d 0 09/28/2021 Discontinued (* Remove (Not on AVS)) cetirizine hydrochloride 10 mg oral tablet (3 sources) Histamine-1 Receptor Antagonist Start: take 1 tablet by mouth once daily as needed cetirizine (ZYRTEC) 10 mg tablet TAKE 1 TABLET BY MOUTH ONCE DAILY NEEDED FOR ALLERGIES 10/24/2020 Active ferrous sulfate 325 mg oral tablet (2 sources) take 1 tablet by mouth once daily at breakfast ferrous sulfate 325 mg (65 mg iron) tablet Take 325 mg by mouth daily with breakfast. Active fluticasone / salmeterol (2 sources) Corticosteroid, beta2-Adrenergic Agonist Start: fluticasone-salmetero l (WIXELA INHUB) 250-50 mcg/dose inhaler 11/06/2023 Active gabapentin 100 mg oral capsule (2 sources) Anti-epileptic Agent take 3 capsules by mouth once daily at bedtime gabapentin (NEURONTIN) 100 mg capsule Take 300 mg by mouth daily at bedtime. Active 12 hr guaiFENesin 600 mg extended release oral tablet (1 source) Start: End: take 1 tablet by mouth twice daily as needed guaiFENesin (MUCINEX) 600 mg 12 hr tablet Indications: URI, acute Take 1 tablet by mouth two times a day as needed for cold/allergy symptoms (cough) for up to 7 days. 14 tablet 03/18/2024 03/25/2024 Active ibuprofen 400 mg oral tablet (1 source) Nonsteroidal Anti-inflammatory Drug Start: take 1 tablet by mouth every six hours as needed for pain Ibuprofen (MOTRIN) 400 MG tablet Take 1 Tab (400 mg) by mouth every 6 hours as needed for Pain or Fever 0 09/27/2018 Active levonorgestrel 0.811037 mg/hr intrauterine system (3 sources) Progestin, Progestin-containin g Intrauterine Device levonorgestrel (KYLEENA) 17.5 mcg/24 hr (5 yrs) 19.5 mg IUD Take by intrauterine route. Active Levonorgestrel ( KYLEENA) 19.5 MG IUD by Intrauterine route 0 Active magnesium gluconate 250 mg oral tablet (1 source) magnesium glucon ate (MAGONATE) 250 MG TABS Take 250 mg by mouth 0 Active melatonin 10 mg oral tablet (1 source) take 1 tablet by mouth at bedtime melatonin 10 MG TABS tablet Take 10 mg by mouth At bedtime 0 Active 24 hr mirabegron 25 mg extended release oral tablet (4 sources) beta3-Adrenergic Agonist Start: 2019 take 1 tablet by mouth once daily mirabegron (MYRBETRIQ) 25 mg Tb24 Take 1 tablet by mouth once daily. 30 tablet 11 04/06/2020 Active Comment on above: Take 1 tablet by radha th once daily. mometasone furoate 0.05 mg/actuat metered dose nasal spray (1 source) Corticosteroid Start: 2018 End: 2021 take 1 spray(s) by inhalation once daily as needed mometasone (NASONEX) 50 MCG/ACT nasal spray 1 [place] by Each Nare route daily as needed for Other (allergies) 1 Inhaler 11 05/27/2019 09/28/2021 Discontinued (* Remove (Not on AVS)) montelukast 10 mg oral tablet (1 source) Leukotriene Receptor Antagonist Start: 2020 End: 2021 take 1 tablet by mouth once daily montelukast (SINGULAIR) 10 MG tablet Take 1 Tablet (10 mg) by mouth daily 30 Tablet 5 01/04/2021 09/28/2021 Discontinued (* Remove (Not on AVS)) Multiple Vitamin (MULTI-VITAMIN DAILY PO) (1 source) Multiple Vitamin (MULTI-VITAMIN DAILY PO) Take by mouth daily. 0 Active Multiple Vitamins-Minerals (ZINC PO) (1 source) Multiple Vitamins-Minerals (ZINC PO) Take 50 mg by mouth 0 Active olopatadine 1 mg/ml ophthalmic solution (1 source) Histamine-1 Receptor Inhibitor Start: 2018 End: 2021 take 1 drop(s) into the eye(s) twice daily as needed olopatadine (PATANOL) 0.1 % ophthalmic solution instill 1 Drop into both eyes 2 times daily as needed for Allergies 5 mL 11 05/27/2019 09/28/2021 Discontinued (* Remove (Not on AVS)) [place] 3 1200 MG CAPS (1 source) [place] 3 1200 MG CAPS Take 500 mg by mouth 0 Active pentosan polysulfate 100 mg oral capsule (1 source) Glycosaminoglycan Start: 2019 End: 2021 take 1 capsule by mouth once daily Pentosan Polysulfate Sodium (ELMIRON) 100 MG CAPS Take 100 mg by mouth daily 90 Each 3 07/08/2019 09/28/2021 Discontinued (* Remove (Not on AVS)) plecanatide 3 mg oral tablet (1 source) Start: 2018 End: 2021 take 1 tablet by mouth once daily Plecanatide 3 MG TABS Take 3 mg by mouth daily 30 Tab 2 06/22/2019 09/28/2021 Discontinued (* Remove (Not on AVS)) Probiotic Product (PROBIOTIC FORMULA PO) (1 source) Probiotic Produc t (PROBIOTIC FORMULA PO) Take by mouth daily. 0 Active Spacer/Aero-Holding Chambers (OPTICHAMBER CHELSEA) MISC DEVICE (1 source) Start: 2020 Spacer/Aero-Holding Chambers (RAMONAHAMBER CHELSEA) MISC DEVICE 1 Each by Other route Use as directed with metered-dose inhaler. 1 Each 0 10/27/2020 Active SUMAtriptan 25 mg oral tablet (3 sources) Serotonin-1b and Serotonin-1d Receptor Agonist Start: 2018 SUMAtriptan (IMITREX) 25 mg tablet 07/31/2018 Active tiZANidine 4 mg oral tablet (3 sources) Central alpha-2 Adrenergic Agonist Start: 2016 tiZANidine (ZANAFLEX) 4 mg tablet Take 4 mg by mouth. 02/12/2017 Active triamcinolone acetonide 0.001 mg/mg topical ointment (1 source) Corticosteroid Start: 2017 triamcinolone (KENALOG) 0.1 % ointment Apply by topical route BID to affected area x 2 weeks, then qd x 2 weeks, then 2x/week 0 03/17/2018 Active UNABLE TO FIND (1 source) End: 2021 UNABLE TO FIND Cranberry supplement 0 09/28/2021 Discontinued (* Remove (Not on AVS)) VITAMIN D PO (1 source) VITAMIN D PO Nick e by mouth 0 Active Completed/Discontinued Medications Medication Drug Class(es) Dates Sig (Normalized) Sig (Original) predniSONE 20 mg oral tablet (2 sources) Start: 03-14-2024 End: 03-19-2024 take 2 tablets by mouth once daily predniSONE (DELTASONE) 20 mg tablet Indications: URI, acute Take 2 tablets by mouth once daily for 5 days. 10 tablet 03/14/2024 03/18/2024 Discontinued (Adverse Reaction) Problems Active Problems Problem Classification Problem Date Documented Da te Episodic/Chronic Anxiety disorders (1 source) Anxiety state; Translations: [Generalized anxiety disorder] Chronic Genitourinary symptoms and ill-defined conditions (1 source) Increased frequency of urination; Translations: [Urinary frequency] Episodic Headache; including migraine (1 source) Migraine with aura; Translations: [Migraine with aura, not intractable, without status migrainosus] Onset: 12-29-2018 12-29-2018 Chronic Lymphadenitis (1 source) Generalized enlarged lymph nodes; Translations: [GENERALIZED ENLARGED LYMPH NODES] Onset: 01-11-2021 Episodic Malaise and fatigue (2 sources) Other fatigue; Translations: [OTHER FATIGUE] Onset: 01-11-2021 Episodic Mood disorders (1 source) Dysthymia; Translations: [Dysthymic disorder] Onset: 12-12-2017 12-12-2017 Chronic Nausea and vomiting (1 source) Nausea; Translations: [Nausea] Episodic Other gastrointestinal disorders (1 source) Irritable bowel syndrome; Translations: [Irritable bowel syndrome without diarrhea] Onset: 12-12-2017 12-12-2017 Chronic Other nervous system disorders (1 source) Numbness; Translations: [Anesthesia of skin] Episodic Other non-traumatic joint disorders (1 source) Pain in right hip; Translations: [PAIN IN RIGHT HIP] Onset: 01-11-2021 Episodic Other nutritional; endocrine; and metabolic disorders (1 source) Lactase deficiency; Translations: [Lactose intolerance, unspecified] Onset: 12-01-2018 12-01-2018 Chronic Other upper respiratory infections (2 sources) Acute upper respiratory infection; Translations: [Acute upper respiratory infection, unspecified] 03-14-2024 Episodic Spondylosis; intervertebral disc disorders; other back problems (3 sources) Backache; Translations: [Other dorsalgia] Onset: 09-01-2018 Episodic Urinary tract infections (1 source) Chronic interstitial cystitis; Translations: [Interstitial cystitis] Chronic Past or Other Problems Problem Classification Problem Date Documented Da te Episodic/Chronic Abdominal pain (1 source) Abdominal pain; Translations: [Unspecified abdominal pain] Onset: 11-20-2018 11-20-2018 Episodic Appendicitis and other appendiceal conditions (2 sources) Appendicitis; Translations: [Unspecified appendicitis] Onset: 09-26-2018 Resolved: 11-20-2018 09-27-2018 Episodic Other gastrointestinal disorders (1 source) Small bowel bacterial overgrowth syndrome; Translations: [Other specified diseases of intestine] Onset: 07-01-2018 07-01-2018 Episodic Other nutritional; endocrine; and metabolic disorders (1 source) Overweight in childhood; Translations: [Body mass index (BMI) pediatric, 85th percentile to less than 95th percentile for age] Onset: 12-12-2017 12-12-2017 Episodic Results Test Name Value Interpretation Reference Range Facility CNOVon 03-14-2024 CNOV Office Visit ([facility] ) -------- DEBORAH JAMISON ([id number]) 4 F Date Time Provider Department 03/14/24 2:45 PM BRUNO RAMOS [facility] During your visit today, we recorded the following information about you: Temperature Pulse Respiration Blood pressure 98.7 degrees 99/minute 18/minute 110/78 Weight 72.8 kg Bruno Ramos APRN.[facility] 03/14/2024 3:06 PM Signed Subjective HPI HPI Deborah Jamison is a 23 year old female who presents today for CC of cough, congestion, loss voice. This started 2 days ago. Has tried otc medication for relief. Symptoms are worsened by nothing. Risk factors hx of long covid. Denies possibility of being . nonsmoker. .Patient presents with: Cough: Cough and no voice x 2 days PAST MEDICAL HISTORY Diagnosis Date Anxiety Asperger's disorder Bladder infection GERD (gastroesophageal reflux disease) IBS (irritable bowel syndrome) IC (interstitial cystitis) Migraines UTI (urinary tract infection) PAST SURGICAL HISTORY Procedure Laterality Date APPENDECTOMY 2019 EXCISION LINGUAL FRENUM FRENECTOMY ALLERGIES Honey, Nitrofurantoin, and Prochlorperazine MEDICATIONS gabapentin (NEURONTIN) 100 mg capsule Take 300 mg by mouth daily at bedtime. tiZANidine (ZANAFLEX) 4 mg tablet Take 4 mg by mouth. SUMAtriptan (IMITREX) 25 mg tablet levonorgestrel (KYLEENA) 17.5 mcg/24 hr (5 yrs) 19.5 mg IUD Take by intrauterine route. fluticasone-salmeterol (WIXELA INHUB) 250-50 mcg/dose inhaler ferrous sulfate 325 mg (65 mg iron) tablet Take 325 mg by mouth daily with breakfast. albuterol HFA (PROVENTIL HFA, VENTOLIN HFA) 90 mcg/actuation inhaler cetirizine (ZYRTEC) 10 mg tablet TAKE 1 TABLET BY MOUTH ONCE DAILY NEEDED FOR ALLERGIES predniSONE (DELTASONE) 20 mg tablet Take 2 tablets by mouth once daily for 5 days. mirabegron (MYRBETRIQ) 25 mg Tb24 Take 1 tablet by mouth once daily. (Patient not taking: Reported on 03/14/2024) FAMILY HISTORY Problem Relation Age of Onset Hypertension Maternal Grandmother Hypertension Maternal Grandfather Breast Cancer Paternal Grandmother Hypertension Paternal Grandmother Prostate Cancer Paternal Grandfather Thyroid Cancer Paternal Grandfather Diabetes Paternal Grandfather Hypertension Paternal Grandfather Social History Tobacco Use Smoking status: Never Smokeless tobacco: Never Vaping Use Vaping status: Never Used Substance Use Topics Alcohol use: Never Review of Systems Constitutional: Negative for fever. HENT: Positive for congestion. Negative for ear pain, nosebleeds and sore throat. Respiratory: Positive for cough. Negative for shortness of breath and wheezing. Musculoskeletal: Negative for neck pain. Skin: Negative for itching and rash. Objective Blood pressure 110/78, pulse 99, temperature 37.1 ?C (98.7 ?F), temperature source Tympanic, resp. rate 18, weight 72.8 kg (160 lb 7.9 oz), SpO2 97%. Physical Exam Constitutional: General: She is not in acute distress. Appearance: She is not toxic-appearing or diaphoretic. HENT: Head: Normocephalic and atraumatic. Cardiovascular: Rate and Rhythm: Normal rate and regular rhythm. Heart sounds: Normal heart sounds, S1 normal and S2 normal. Pulmonary: Effort: Pulmonary effort is normal. Breath sounds: Normal breath sounds. Lymphadenopathy: Cervical: No cervical adenopathy. Right cervical: No superficial cervical adenopathy. Left cervical: No superficial cervical adenopathy. Neurological: Mental Status: She is alert and oriented to person, place, and time. Gait: Gait is intact. ASSESSMENT/PLAN: 1. URI, acute - ICD9: 465.9, ICD10: J06.9 - Discussed viral etiology and rationale for treatment. - Symptomatic treatment with prn analgesia - Supportive care with fluids and rest - Follow up in 3-5 days if symptoms persist or sooner if worsening of symptoms Declines covid testing. - PREDNISONE 20 MG TABLET Bruno Ramos APRN.TURBINE OPERATOR Referring Provider: SELF [200] Allergies As of Date: 03/14/2024 Noted Allergy Reaction HONEY 10/25/2011 16 - Unknown 14 - Other: See Comments Comments: + on allergy testing + on allergy testing NITROFURANTOIN 11/26/2018 11 - Vomiting Comments: FEVER, MUSCLE SPASMS FEVER, MUSCLE SPASMS PROCHLORPERAZINE 02/16/2019 13 - Dystonia Comments: Other reaction(s): Dystonia Per mother @ 02/16/49 GI visit. Per mother @ 02/16/49 GI visit. Date Reviewed: 03/14/2024 Reviewed by: Tatianna Bertrand LPN - Fully Assessed Reason for Visit: Cough [28] Cmt: Cough and no voice x 2 days Primary Visit Diagnosis:URI, acute [J06.9] Order(s):predniSONE (DELTASONE) 20 mg tabletTake 2 tablets by mouth once daily for 5 days.Disp: 10 tabletRfl: 0 Prescriptions as of 03/14/2024 - gabapentin (NEURONTIN) 100 mg capsule Take 300 mg by mouth daily at bedtime. - tiZANidine (ZANAFLEX) 4 mg tablet Take 4 mg by mouth. - SUMAtripta (more content not included)... Normal [facility] US THYROIDon 10-16-2021 US THYROID ORIGINAL EXAMINATION: ULTRASOUND OF THE THYROID WITH COLOR DOPPLER FLOW EVALUATION10/14/2021 4:07 pm ULTRASOUND OF THE THYROID: COMPARISON: None HISTORY: ORDERING SYSTEM PROVIDED HISTORY: Reason for Exam: right side neck/thyroid pain., chills and fatigue FINDINGS: The right and left lobes are 4.1 x 1.1 x 1.1 cm and 3.8 x 1.3 x 1.1 cm. The isthmus is 0.2 cm. The gland is homogeneous with normal vascularity. No suspicious focal thyroid abnormality is seen. Estimated total number of nodules greater than or equal to 1 cm: 0 IMPRESSION: Normal thyroid ultrasound. Interpreted by: Lb Wilson MD Preliminary Report By: Lb Wilson MD Electronically signed By Lb Wilson MD Dictated Date: 10/16/2021 9:51:40 AM Prelim Date: 10/16/2021 9:54:04 AM Sign Date: 10/16/2021 9:54:04 AM Ordering Provider: EDMAR Love [facility] [place] Comp Metabolic Panelon 09-28 Albumin [Mass/Vol] 4.9 g/dL Normal 3.5-5.0 [facility] Comment on above: Order Comment: Relea se to patient->[id number]&BloodReason for preventing automatic release->OtherRelease to patient->Manual release [id number]&UrineRelease to patient->[id number]&Urine Performed By: #### C MP ####[address] [phone] ALP [Catalytic activity/Vol] 97 U/L Normal 35-104 [facility] Comment on above: Order Comment: Relea se to patient->[id number]&BloodReason for preventing automatic release->OtherRelease to patient->Manual release [id number]&UrineRelease to patient->[id number]&Urine Performed By: #### C MP ####[address] [phone] ALT [Catalytic activity/Vol] 11 U/L Normal 0-34 [facility] Comment on above: Order Comment: Relea se to patient->[id number]&BloodReason for preventing automatic release->OtherRelease to patient->Manual release [id number]&UrineRelease to patient->[id number]&Urine Performed By: #### C MP ####[address] [phone] AST [Catalytic activity/Vol] 16 U/L Normal 0-31 [facility] Comment on above: Order Comment: Relea se to patient->[id number]&BloodReason for preventing automatic release->OtherRelease to patient->Manual release [id number]&UrineRelease to patient->[id number]&Urine Performed By: #### C MP ####[address] [phone] Bili,Total 0.2 mg/dL Normal 0.0-1.0 [facility] Comment on above: Order Comment: Relea se to patient->[id number]&BloodReason for preventing automatic release->OtherRelease to patient->Manual release [id number]&UrineRelease to patient->[id number]&Urine Performed By: #### C MP ####[address] [phone] Calcium [Mass/Vol] 9.5 mg/dL Normal 7.6-11.0 [facility] Comment on above: Order Comment: Relea se to patient->[id number]&BloodReason for preventing automatic release->OtherRelease to patient->Manual release [id number]&UrineRelease to patient->[id number]&Urine Performed By: #### C MP ####[address] [phone] CO2 [Moles/Vol] 21.8 mmol/L Low 22.0-29.0 [facility] Comment on above: Order Comment: Relea se to patient->[id number]&BloodReason for preventing automatic release->OtherRelease to patient->Manual release [id number]&UrineRelease to patient->[id number]&Urine Performed By: #### C MP ####[address] [phone] Creatinine [Mass/Vol] 0.57 mg/dL Normal 0.50-1.00 [facility] Comment on above: Order Comment: Relea se to patient->[id number]&BloodReason for preventing automatic release->OtherRelease to patient->Manual release [id number]&UrineRelease to patient->Sfdpvkfzz58585&Urine Performed By: #### C MP ####[address] [phone] Glucose [Mass/Vol] 103 mg/dL High 70-99 [facility] Comment on above: Order Comment: Relea se to patient->[id number]&BloodReason for preventing automatic release->OtherRelease to patient->Manual release [id number]&UrineRelease to patient->[id number]&Urine Result Comment: Bridgettet fatou for Diagnosis of Diabetes: Fasting Specimen (no caloric intake for at least 8 hours): <100 mg/dL Normal 100-125 mg/dL Increased risk for Diabetes >125 mg/dL Diagnostic for Diabetes Random Glucose (any time of day without regard to last meal): > or = 200 mg/dL plus Classic Symptoms of Diabetes Performed By: #### C MP ####[address] [phone] Protein [Mass/Vol] 7.7 g/dL Normal 5.9-8.4 [facility] Comment on above: Order Comment: Relea se to patient->[id number]&BloodReason for preventing automatic release->OtherRelease to patient->Manual release [id number]&UrineRelease to patient->[id number]&Urine Performed By: #### C MP ####[address] [phone] Urea nitrogen [Mass/Vol] 6 mg/dL Normal 4-19 [facility] Comment on above: Order Comment: Relea se to patient->Ucfluhret72868&BloodReason for preventing automatic release->OtherRelease to patient->Manual release [id number]&UrineRelease to patient->Jkjahotfv27815&Urine Performed By: #### C MP ####[address] [phone] Chloride [Moles/Vol] 105 mmol/L Normal 96-108 [facility] Comment on above: Order Comment: Relea se to patient->Lvwsybxda63376&BloodReason for preventing automatic release->OtherRelease to patient->Manual release [id number]&UrineRelease to patient->Mvhakwcyd02790&Urine Performed By: #### C MP ####[address] [phone] Potassium [Moles/Vol] 4.0 mmol/L Normal 3.3-5.1 [facility] Comment on above: Order Comment: Relea se to patient->Oaapgnpql98914&BloodReason for preventing automatic release->OtherRelease to patient->Manual release [id number]&UrineRelease to patient->Fhmdsgnau89794&Urine Performed By: #### C MP ####[address] [phone] Sodium [Moles/Vol] 139 mmol/L Normal 133-145 [facility] Comment on above: Order Comment: Relea se to patient->Dxkvejkmg80829&BloodReason for preventing automatic release->OtherRelease to patient->Manual release [id number]&UrineRelease to patient->Ulkbvmjcw11508&Urine Performed By: #### C MP ####[address] [phone] Complete Blood Counton 09-28 Differential Complete Automated Normal [facility] Comment on above: Order Comment: Relea se to patient->Automatic 76936&Blood Reason for preventing automatic release->Other Release to patient->Manual release only [id number]&Urine Release to patient->Automatic [id number]&Urine Performed By: #### C BC #### [address] [address] Basophils/100 WBC (Bld) 0.50 % Normal 0.00-1.00 [facility] Comment on above: Order Comment: Relea se to patient->Automatic 86891&Blood Reason for preventing automatic release->Other Release to patient->Manual release only 31951&Urine Release to patient->Automatic 86065&Urine Performed By: #### C BC #### [address] [address] Eosinophils/100 WBC (Bld) 1.60 % Normal 0.00-3.00 [facility] Comment on above: Order Comment: Relea se to patient->Automatic 47604&Blood Reason for preventing automatic release->Other Release to patient->Manual release only 04571&Urine Release to patient->Automatic 91217&Urine Performed By: #### C BC #### [address] [address] Erythrocyte distribution width (RBC) [Ratio] 12.1 % Normal 0.0-14.4 [facility] Comment on above: Order Comment: Relea se to patient->Automatic 40587&Blood Reason for preventing automatic release->Other Release to patient->Manual release only 25305&Urine Release to patient->Automatic 53049&Urine Performed By: #### C BC #### [place] [address] Hematocrit (Bld) [Volume fraction] 40.9 % Normal 36.0-44.0 [facility] Comment on above: Order Comment: Relea se to patient->Automatic 26536&Blood Reason for preventing automatic release->Other Release to patient->Manual release only 83396&Urine Release to patient->Automatic 90449&Urine Performed By: #### C BC #### [place] [address] Hemoglobin (Bld) [Mass/Vol] 13.8 g/dL Normal 12.0-15.0 [facility] Comment on above: Order Comment: Relea se to patient->Automatic 21027&Blood Reason for preventing automatic release->Other Release to patient->Manual release only 82943&Urine Release to patient->Automatic 23577&Urine Performed By: #### C BC #### [place] [address] Immature granulocytes/100 WBC (Bld) 0.30 % Normal [facility] Comment on above: Order Comment: Relea se to patient->Automatic 52731&Blood Reason for preventing automatic release->Other Release to patient->Manual release only 94231&Urine Release to patient->Automatic 11893&Urine Result Comment: [place] ture Granulocyte Percent includes promyelocytes, myelocytes, and metamyelocytes. IG% > 1.0 indicates a left shift is present. With automated differentials, bands are included in the neutrophil count and not in the Immature Granulocyte Percent. Performed By: #### C BC #### [place] [id number] Lymphocytes/100 WBC (Bld) 27.8 % Normal 24.0-44.0 [facility] Comment on above: Order Comment: Relea se to patient->Automatic 56146&Blood Reason for preventing automatic release->Other Release to patient->Manual release only 70775&Urine Release to patient->Automatic 30640&Urine Performed By: #### C BC #### [place] [phone] MCH (RBC) [Entitic mass] 29.7 pg Normal 26.0-34.0 [facility] Comment on above: Order Comment: Relea se to patient->Automatic 10606&Blood Reason for preventing automatic release->Other Release to patient->Manual release only 62908&Urine Release to patient->Automatic 92706&Urine Performed By: #### C BC #### [place] [id number] MCHC 33.7 % Normal 31.0-37.0 [facility] Comment on above: Order Comment: Relea se to patient->Automatic 37930&Blood Reason for preventing automatic release->Other Release to patient->Manual release only 19928&Urine Release to patient->Automatic 47295&Urine Performed By: #### C BC #### [place] [address] MCV (RBC) [Entitic vol] 88.0 fL Normal 80.0-100.0 [facility] Comment on above: Order Comment: Relea se to patient->Automatic 23944&Blood Reason for preventing automatic release->Other Release to patient->Manual release only 12695&Urine Release to patient->Automatic 14971&Urine Performed By: #### C BC #### [address] [id number] Monocytes/100 WBC (Bld) 5.40 % Normal 3.00-6.00 [facility] Comment on above: Order Comment: Relea se to patient->Automatic 80476&Blood Reason for preventing automatic release->Other Release to patient->Manual release only 17954&Urine Release to patient->Automatic 84686&Urine Performed By: #### C BC #### [address] [id number] Neutrophils (Bld) [#/Vol] 6.4 10*3/uL Normal 2.0-7.2 [facility] Comment on above: Order Comment: Relea se to patient->Automatic 30249&Blood Reason for preventing automatic release->Other Release to patient->Manual release only 59632&Urine Release to patient->Automatic 41494&Urine Performed By: #### C BC #### [address] [id number] Neutrophils/100 WBC (Bld) 64.4 % Normal 35.0-66.0 [facility] Comment on above: Order Comment: Relea se to patient->Automatic 58947&Blood Reason for preventing automatic release->Other Release to patient->Manual release only 71842&Urine Release to patient->Automatic 68131&Urine Performed By: #### C BC #### [place] [address] Nucleated RBC/100 WBC (Bld) [Ratio] 0.0 % Normal -1.0-0.0 [facility] Comment on above: Order Comment: Relea se to patient->Automatic 80478&Blood Reason for preventing automatic release->Other Release to patient->Manual release only 35167&Urine Release to patient->Automatic 71590&Urine Performed By: #### C BC #### [address] [address] Platelet mean volume (Bld) [Entitic vol] 9.7 fL Normal [facility] Comment on above: Order Comment: Relea se to patient->Automatic 82589&Blood Reason for preventing automatic release->Other Release to patient->Manual release only 87849&Urine Release to patient->Automatic 07452&Urine Result Comment: MPV is platelet range and age dependent Performed By: #### C BC #### [facility] [place] [address] [place] [address] Platelets (Bld) [#/Vol] 314 10*3/uL Normal 150-450 [facility] Comment on above: Order Comment: Relea se to patient->Automatic 64303&Blood Reason for preventing automatic release->Other Release to patient->Manual release only 63280&Urine Release to patient->Automatic 09367&Urine Performed By: #### C BC #### [place] [address] RBC 4.65 10E12/L Normal 4.00-4.90 [facility] Comment on above: Order Comment: Relea se to patient->Automatic 42707&Blood Reason for preventing automatic release->Other Release to patient->Manual release only 63017&Urine Release to patient->Automatic 26315&Urine Performed By: #### C BC #### [place] [address] WBC (Bld) [#/Vol] 9.9 10*3/uL Normal 4.5-11.0 [facility] Comment on above: Order Comment: Relea se to patient->Automatic 33923&Blood Reason for preventing automatic release->Other Release to patient->Manual release only 95713&Urine Release to patient->Automatic 21742&Urine Performed By: #### C BC #### [place] [address] ED Provider Progress Noteon 09-28-2021 [employer] Adjuster Authentication Interface Message Text Deborah Jamison : 2000 No chief complaint on file. Allergies Allergen Reactions Compazine [Prochlorperazine Edisylate] Dystonia Per mother @ 02/16/49 GI visit. Honey Other (See Comments) + on allergy testing Lactose Intolerance (Gi) Other (See Comments) Lactase deficiency Macrobid [Nitrofurantoin Monohyd Macro] Nausea And Vomiting FEVER, MUSCLE SPASMS DOS: 09/27/2021 Deborah is a 21 yo F with a history of ASD (high functioning), IBS, chronic pain, anxiety, depression, migraine DONALD who presents with her mother with several complaints which have come and gone since yesterday. 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 She was taken to the ED in [place] via squad and was treated with Ativan for a panic attack and discharged home. She feels like she has been more irritable in general recently and her mom agrees. Today she has experienced a lot symptoms inc: palpitations, intermittent abdominal pain, numbness in UE and LE, neck pain/pressure, chattering of her teeth, uncontrolled movement in UE and LE. Review of Systems Constitutional: Positive for activity change and fatigue. Negative for fever. HENT: Positive for facial swelling and trouble swallowing. Negative for congestion. Eyes: Negative for photophobia, discharge and visual disturbance. Respiratory: Negative for cough, chest tightness and shortness of breath. Cardiovascular: Positive for palpitations. Negative for leg swelling. Gastrointestinal: Positive for abdominal pain. Negative for abdominal distention, diarrhea and nausea. Endocrine: Negative. Genitourinary: Negative. Musculoskeletal: Positive for myalgias and neck pain. Negative for neck stiffness. Skin: Negative. Neurological: Positive for tremors, light-headedness and numbness. Negative for seizures, syncope and weakness. Hematological: Negative for adenopathy. Does not bruise/bleed easily. Psychiatric/Behavioral: Positive for agitation and dysphoric mood. Negative for hallucinations, self-injury and suicidal ideas. The patient is not hyperactive. Past Medical History: Diagnosis Date Acute appendicitis 09/27/2018 Anxiety Asperger syndrome Autism Chronic constipation Constipation Depression Gastroparesis Headache Irritable bowel syndrome Lichen sclerosus of female genitalia Lyme disease [place] eye Small intestinal bacterial overgrowth Urinary tract infection Past Surgical History: Procedure Laterality Date ESOPHAGOSCOPY N/A 11/26/2018 ENDOSCOPY (UPPER AND COLONOSCOPY) with biopsies and disaccharidases [place] [facility] [place] LAPAROSCOPIC APPENDECTOMY N/A 09/27/2018 LAPAROSCOPIC APPENDECTOMY performed by Lemuel Iyer MD at [facility] OR TONGUE SURGERY Pediatric History Patient Parents/Guardians Deborah Jamison (Self/Guardian) Shelley Marr (Mother) ESTELA JAMISON (Father) Other Topics Concern Interpersonal relationships Not Asked Poor school performance Not Asked Reading difficulties Not Asked Speech difficulties Not Asked Writing difficulties Not Asked Inadequate sleep Not Asked Excessive TV viewing Not Asked Excessive video game use Not Asked Inadequate exercise Not Asked Sports related Not Asked Poor diet Not Asked Second-hand smoke exposure Not Asked Alcohol/drug concerns Not Asked Violence concerns Not Asked Poor oral hygiene Not Asked Bike safety Not Asked Vehicle safety Not Asked Behavioral problems Not Asked Sad or not enjoying activities Not Asked Suicidal thoughts Not Asked Social History Narrative Lives at home with mother, two siblings, and pets (2 dogs, 3 cats, a rabbit, 6 chickens, and a snake) ED Triage Vitals Date and Time Temp Temp src Pulse Resp BP SpO2 Weight User 09/27/21 2102 36.8 C (98.2 F) Temporal 86 16 122/70 100 % 73 kg MJS Physical Exam Constitutional: General: She is not in acute distress. Appearance: She is normal weight. She is not ill-appearing, toxic-appearing or diaphoretic. HENT: Head: Normocephalic and atraumatic. Right Ear: External ear normal. Left Ear: External ear normal. Nose: Nose normal. Mouth/Throat: Mouth: Mucous membranes are moist. Eyes: General: No scleral icterus. Conjunctiva/sclera: Conjunctivae normal. Neck: Musculoskeletal: Normal range of motion and neck supple. No muscular tenderness. Vascular: No carotid bruit. Cardiovascular: Rate and Rhythm: Normal rate and regular rhythm. Heart sounds: No murmur heard. Pulmonary: Effort: Pulmonary effort is normal. No respiratory distress. Breath sounds: No wheezing. There is no cough present. Abdominal: General: Abdomen is flat. Bowel sounds are normal. There is no distension. Palpations: Abdomen is soft. There is no mass. Tenderness: There is no abdominal tenderness. There is no guarding. Musculoskeletal: Genera (more content not included)... Normal [facility] HCG,Urineon 09-28-2021 Beta HCG ( test) Ql (U) Negative Normal [facility] Comment on above: Order Comment: Relea se to patient->Automatic 66103&Blood Reason for preventing automatic release->Other Release to patient->Manual release only 86526&Urine Release to patient->Automatic 34661&Urine Result Comment: Nonp regnant females and males-Negative females-Positive Performed By: #### H CGUR #### [place] [id number] RFILM Respiratory Panel Film Arrayon 09-28-2021 Respiratory Panel Film Array SNOMED code Not detected Normal [facility] Comment on above: Order Comment: Is th is a pre-procedure screening test?- >NoRelease to patient->[id number]&Nasopharyngeal Performed By: #### R FILE ####[place] [phone] Date of Symptom Onset [id number] Normal [facility] Comment on above: Order Comment: Is th is a pre-procedure screening test?- >NoRelease to patient->[id number]&Nasopharyngeal Performed By: #### R FILE ####[place] [phone] Employed in Healthcare setting? No Normal [facility] Comment on above: Order Comment: Is th is a pre-procedure screening test?- >NoRelease to patient->Mtomikuxz57084&Nasopharyngeal Performed By: #### R FILE ####[place] [phone] Hospitalized? Yes Normal [facility] Comment on above: Order Comment: Is th is a pre-procedure screening test?- >NoRelease to patient->Janhsnswp13897&Nasopharyngeal Performed By: #### R FILE ####[place] [phone] ICU? No Normal [facility] Comment on above: Order Comment: Is th is a pre-procedure screening test?- >NoRelease to patient->Eotoziylx15196&Nasopharyngeal Performed By: #### R FILE ####[place] [phone] ? Unknown Normal [facility] Comment on above: Order Comment: Is th is a pre-procedure screening test?- >NoRelease to patient->Bkrgqljvq31940&Nasopharyngeal Performed By: #### R FILE ####[address] [phone] Resident in congrega care setting? No Normal [facility] Comment on above: Order Comment: Is th is a pre-procedure screening test?- >NoRelease to patient->Csdlqhkua73723&Nasopharyngeal Performed By: #### R FILE ####[address] [phone] SARS-CoV-2 (COVID-19) RNA [place]+probe Ql (Unsp spec) No Normal [facility] Comment on above: Order Comment: Is th is a pre-procedure screening test?- >NoRelease to patient->Gbboelvuv64975&Nasopharyngeal Performed By: #### R FILE ####[address] [phone] Symptomatic as defined by CDC? Yes Normal [facility] Comment on above: Order Comment: Is th is a pre-procedure screening test?- >NoRelease to patient->[id number]&Nasopharyngeal Performed By: #### R FILE ####[address] [phone] Respiratory Panel Film Array on 09-28-2021 Respiratory pathogens DNA and RNA panel [place]+non-probe (Nph) See Below [facility] Comment on above: Source: NPH Collect ed: 09/27/21 23:07 Site: Received : 09/28/21 00:16 Respiratory Panel Film Array FINAL 09/28/21 01:23 - NEGATIVE: No SARS-CoV-2 detected. NEGATIVE: No respiratory pathogens were detected. - The Film Array Respiratory Panel detects DNA or RNA for the following organisms: Adenovirus HWWO-2-AkQ-2 Coronavirus 229E Coronavirus HKU1 Coronavirus NL63 Coronavirus OC43 Human metapneumovirus Rhinovirus/Enterovirus Influenza A virus(targets H1, H3, and H1-2009) Influenza B virus Parainfluenza Virus 1 Parainfluenza Virus 2 Parainfluenza Virus 3 Parainfluenza Virus 4 Respiratory Syncytial virus (RSV) Bordetella parapertussis Bordetella pertussis Chlamydia pneumoniae Mycoplasma pneumoniae - Comment: Negative results do not preclude SARS-CoV-2 infection and should not be used as the sole basis for treatment or other patient management decisions. Negative results must be combined with clinical observations, patient history, and epidemiological information. - Method: The [employer] Respiratory Panel 2.1 (RP2.1) is a multiplexed nucleic acid test intended for the simultaneous qualitative detection and differentiation of nucleic acids from multiple viral and bacterial respiratory organisms, including nucleic acid from Severe Acute Respiratory Syndrome Coronavirus 2 (SARS-CoV-2). This test is FDA [place] authorized. [facility] TSHon 09-28-2021 TSH 2.450 uIU/mL Normal 0.500-4.300 [facility] Comment on above: Order Comment: Relea se to patient->[id number]&BloodReason for preventing automatic release->OtherRelease to patient->Manual release [id number]&UrineRelease to patient->[id number]&Urine Performed By: #### T SH ####[address] [phone] Urinalysis,Automatedon 09-28 Bacteria Moderate Normal [facility] Comment on above: Order Comment: Relea se to patient->Kuurlmrtl48666&BloodReason for preventing automatic release->OtherRelease to patient->Manual release [id number]&UrineRelease to patient->Vsenqmuvl88745&Urine Performed By: #### U FMIC ####[address] [phone] Mucous Small Normal [facility] Comment on above: Order Comment: Relea se to patient->Mnbmdddjp50050&BloodReason for preventing automatic release->OtherRelease to patient->Manual release cits64639&UrineRelease to patient->Wguqrtuep95003&Urine Performed By: #### U FMIC ####[address] [phone] RBC (U) [#/Vol] 0.0 /uL Normal 0.0-20.0 [facility] Comment on above: Order Comment: Relea se to patient->Tfjjlxmvd62581&BloodReason for preventing automatic release->OtherRelease to patient->Manual release [id number]&UrineRelease to patient->Gdxfzzgpr39178&Urine Performed By: #### U FMIC ####[address] [phone] Squamous Epithelial Cells 12 /uL Normal 0-20 [facility] Comment on above: Order Comment: Relea se to patient->Xuwimljyv37672&BloodReason for preventing automatic release->OtherRelease to patient->Manual release nwrw12395&UrineRelease to patient->Vvngwvapg41439&Urine Performed By: #### U FMIC ####[address] [phone] WBC (U) [#/Vol] 0.0 /uL Normal 0.0-20.0 [facility] Comment on above: Order Comment: Relea se to patient->Sjjwmxnwv81057&BloodReason for preventing automatic release->OtherRelease to patient->Manual release [id number]&UrineRelease to patient->Eittvtiry22686&Urine Performed By: #### U FMIC ####[address] [phone] Urinalysis,Completeon 2021 Volume 12 ml Normal 12 [facility] Comment on above: Order Comment: Relea se to patient->Automatic 14433&Blood Reason for preventing automatic release->Other Release to patient->Manual release only 60820&Urine Release to patient->Automatic 63998&Urine Performed By: #### U ACOM #### [address] [phone] Bilirubin,urine Negative Normal Negative [facility] Comment on above: Order Comment: Relea se to patient->Automatic 99014&Blood Reason for preventing automatic release->Other Release to patient->Manual release only 48233&Urine Release to patient->Automatic 42754&Urine Performed By: #### U ACOM #### [address] [address] Character Clear Normal [facility] Comment on above: Order Comment: Relea se to patient->Automatic 79670&Blood Reason for preventing automatic release->Other Release to patient->Manual release only 35382&Urine Release to patient->Automatic 76734&Urine Performed By: #### U ACOM #### [place] [address] Color (U) Straw Normal [facility] Comment on above: Order Comment: Relea se to patient->Automatic 53756&Blood Reason for preventing automatic release->Other Release to patient->Manual release only 95862&Urine Release to patient->Automatic 65067&Urine Performed By: #### U ACOM #### [place] [address] Glucose Ql (U) Negative Normal Negative [facility] Comment on above: Order Comment: Relea se to patient->Automatic 86881&Blood Reason for preventing automatic release->Other Release to patient->Manual release only 73190&Urine Release to patient->Automatic 87743&Urine Performed By: #### U ACOM #### [place] [address] Ketones Ql (U) Negative Normal Negative [facility] Comment on above: Order Comment: Relea se to patient->Automatic 58459&Blood Reason for preventing automatic release->Other Release to patient->Manual release only 85602&Urine Release to patient->Automatic 27213&Urine Performed By: #### U ACOM #### [address] [address] Leukocyte esterase Test strip Ql (U) Negative Normal Negative [facility] Comment on above: Order Comment: Relea se to patient->Automatic 31552&Blood Reason for preventing automatic release->Other Release to patient->Manual release only 64074&Urine Release to patient->Automatic 82314&Urine Performed By: #### U ACOM #### [place] [address] Nitrite Ql (U) Negative Normal Negative [facility] Comment on above: Order Comment: Relea se to patient->Automatic 39451&Blood Reason for preventing automatic release->Other Release to patient->Manual release only 70131&Urine Release to patient->Automatic 85142&Urine Performed By: #### U ACOM #### [place] [address] pH, Urine 8.0 Normal 5.0-8.0 [facility] Comment on above: Order Comment: Relea se to patient->Automatic 94959&Blood Reason for preventing automatic release->Other Release to patient->Manual release only 81449&Urine Release to patient->Automatic 60262&Urine Performed By: #### U ACOM #### [place] [address] Protein,Ur Negative Normal Neg.-Trace [facility] Comment on above: Order Comment: Relea se to patient->Automatic 45140&Blood Reason for preventing automatic release->Other Release to patient->Manual release only 46985&Urine Release to patient->Automatic 05707&Urine Performed By: #### U ACOM #### [place] [address] Specific gravity (U) [Rel density] 1.002 Low 1.005-1.030 [facility] Comment on above: Order Comment: Relea se to patient->Automatic 09270&Blood Reason for preventing automatic release->Other Release to patient->Manual release only 61143&Urine Release to patient->Automatic 23245&Urine Performed By: #### U ACOM #### [place] [address] Urobilinogen (U) [Mass/Vol] 0.2 mg/dL Normal Negative [facility] Comment on above: Order Comment: Relea se to patient->Automatic 82110&Blood Reason for preventing automatic release->Other Release to patient->Manual release only 03699&Urine Release to patient->Automatic 93318&Urine Performed By: #### U ACOM #### [place] [phone] Complete Blood Counton 09-27 Basophils/100 WBC (Bld) 0.5 % 0.00 - 1.00 % [facility] Differential Complete Automated [facility] Eosinophils/100 WBC (Bld) 1.60 % 0.00 - 3.00 % [facility] Erythrocyte distribution width (RBC) [Ratio] 12.1 % 0.0 - 14.4 % [facility] Hematocrit (Bld) [Volume fraction] 40.9 % 36.0 - 44.0 % [facility] Hemoglobin (Bld) [Mass/Vol] 13.8 g/dL 12.0 - 15.0 g/dl [facility] Immature granulocytes/100 WBC (Bld) 0.3 % [facility] Comment on above: Immature Granulocyte Percent includes promyelocytes, myelocytes, and metamyelocytes. IG% > 1.0 indicates a left shift is present. With automated differentials, bands are included in the neutrophil count and not in the Immature Granulocyte Percent. Lymphocytes/100 WBC (Bld) 27.8 % 24.0 - 44.0 % [facility] MCH (RBC) [Entitic mass] 29.7 pg 26.0 - 34.0 pg [facility] MCHC 33.7 % 31.0 - 37.0 % [facility] MCV (RBC) [Entitic vol] 88.0 fL 80.0 - 100.0 fl [facility] Monocytes/100 WBC (Bld) 5.40 % 3.00 - 6.00 % [facility] Neutrophils (Bld) [#/Vol] 6.4 10*3/uL [facility] Neutrophils/100 WBC (Bld) 64.4 % 35.0 - 66.0 % [facility] Nucleated RBC/100 WBC (Bld) [Ratio] 0 % -1.0 - 0.0 % [facility] Platelet mean volume (Bld) [Entitic vol] 9.7 fL [facility] Comment on above: MPV is platelet range and age dependent Platelets (Bld) [#/Vol] 314 10*3/uL [facility] RBC (Bld) [#/Vol] 4.65 10*6/uL [facility] WBC (Bld) [#/Vol] 9.9 10*3/uL [facility] Release to patient->Automatic Reason for preventing automatic release->Other Release to patient->Manual release only Release to patient->Automatic ACH LAB [facility] Comprehensive metabolic pane angelina 09-27-2021 Albumin [Mass/Vol] 4.9 g/dL 3.5 - 5.0 g/dL [facility] ALP [Catalytic activity/Vol] 97 U/L 35 - 104 U/L [facility] ALT [Catalytic activity/Vol] 11 U/L 0 - 34 U/L [facility] AST [Catalytic activity/Vol] 16 U/L 0 - 31 U/L [facility] Bilirubin [Mass/Vol] 0.2 mg/dL 0.0 - 1.0 mg/dL [facility] Calcium [Mass/Vol] 9.5 mg/dL 7.6 - 11. 0 mg/dL [facility] Chloride [Moles/Vol] 105 mmol/L 96 - 108 mmol/L [facility] CO2 [Moles/Vol] 21.8 mmol/L Low 22.0 - 29.0 mmol/L [facility] Creatinine [Mass/Vol] 0.57 mg/dL 0.50 - 1.00 mg/dL [facility] Glucose [Mass/Vol] 103 mg/dL High 70 - 99 mg/dL [place] Comment on above: Criteria for Diagnos is of Diabetes: Fasting Specimen (no caloric intake for at least 8 hours): <100 mg/dL Normal 100-125 mg/dL Increased risk for Diabetes >125 mg/dL Diagnostic for Diabetes Random Glucose (any time of day without regard to last meal): > or = 200 mg/dL plus Classic Symptoms of Diabetes Interpretation and review of laboratory results Abnormal [facility] Potassium [Moles/Vol] 4.0 mmol/L 3.3 - 5.1 mmol/L [facility] Protein [Mass/Vol] 7.7 g/dL 5.9 - 8.4 g/dL [facility] Sodium [Moles/Vol] 139 mmol/L 133 - 145 mmol/L [facility] Urea nitrogen [Mass/Vol] 6 mg/dL 4 - 19 mg/dL [facility] Release to patient->Automatic Reason for preventing automatic release->Other Release to patient->Manual release only Release to patient->Automatic [facility] HCG, Urineon 09-27-2021 Beta HCG ( test) Ql (U) Negative mIU/mL [facility] Comment on above: Non females and males-Negative females-Positive Release to patient->Automatic Reason for preventing automatic release->Other Release to patient->Manual release only Release to patient->Automatic [facility] No Panel Informationon 09-27 Release to patient->Automatic Reason for preventing automatic release->Other Release to patient->Manual release only Release to patient->Automatic [facility] TSHon 09-27-2021 TSH Qn 2.450 m[IU]/L [facility] Release to patient->Automatic Reason for preventing automatic release->Other Release to patient->Manual release only Release to patient->Automatic [facility] Urinalysis, Automated-[place] n 09-27-2021 Bacteria Ur Moderate /uL [facility] Mucous Ur Small [facility] RBC, Urine 0.0 /uL 0.0 - 20.0 /uL [facility] Squamous Epithelial Cells Ur 12 /uL 0 - 20 /uL [facility] WBC UR 0.0 /uL 0.0 - 20.0 /uL [facility] Urinalysis, Complete (Chemis try & Micro)on 09-27-2021 Bilirubin Ur Negative Negative mg/dL [facility] Character Clear [facility] Color Ur Straw [facility] Glucose Ur Negative Negative mg/dL [facility] Hemoglobin Ur 2+ Abnormal Negative RBC's/uL [facility] Interpretation and review of laboratory results Abnormal [facility] Ketones Ur Negative Negative mg/dL [facility] Leukocyte Esterase Ur Negative Negative leuk/ul [facility] Nitrite Ql (U) Negative Negative mg/dl [facility] pH Ur 8.0 [facility] Protein Ur Negative Neg.-Trace mg/dL [facility] Specific gravity (U) [Rel density] 1.002 Low [facility] Urobilinogen (U) [Mass/Vol] 0.2 mg/dL Negative [facility] Volume Ur 12 ml 12 [facility] XR Chest PA and Lateral and AP lateral-decubituson 09-27-2021 IMPRESSION: No acute radiographic abnormality. Yarn Examiner: VALE Transcribe Date/Time: Sep 27 2021 10:57P Dictated by : MARYELLEN TIM DO This examination was interpreted and the report reviewed and electronically signed by: MARYELLEN TIM DO on Sep 27 2021 11:03PM EST [id number] [facility] * * *Final Report* * * DATE OF EXAM: Sep 27 2021 10:21PM RODRIGUEZ 5291 - XR CHEST 2V FRONTAL/LAT C / PROCEDURE REASON: shortness of breath * * * * Physician Interpretation * * * * EXAMINATION: CHEST RADIOGRAPH (2 VIEW FRONTAL \T\ LATERAL) CLINICAL HISTORY: Shortness of breath. MQ: XC2_6 EXAM DATE/TIME: 09/27/2021 10:21 PM COMPARISON: No relevant prior studies available. RESULT: Lines, tubes, and devices: None. Lungs and pleura: No consolidation. No pleural effusion. No pneumothorax. Cardiomediastinal silhouette: Normal cardiomediastinal silhouette. Bones and soft tissues: Unremarkable. [facility] Maryellen Tim D O - 09/27/2021 * * *Final Report* * * DATE OF EXAM: Sep 27 2021 10:21PM RODRIGUEZ 5291 - XR CHEST 2V FRONTAL/LAT C / PROCEDURE REASON: shortness of breath * * * * Physician Interpretation * * * * EXAMINATION: CHEST RADIOGRAPH (2 VIEW FRONTAL \T\ LATERAL) CLINICAL HISTORY: Shortness of breath. MQ: XC2_6 EXAM DATE/TIME: 09/27/2021 10:21 PM COMPARISON: No relevant prior studies available. RESULT: Lines, tubes, and devices: None. Lungs and pleura: No consolidation. No pleural effusion. No pneumothorax. Cardiomediastinal silhouette: Normal cardiomediastinal silhouette. Bones and soft tissues: Unremarkable. IMPRESSION: No acute radiographic abnormality. Yarn Examiner: VALE Transcribe Date/Time: Sep 27 2021 10:57P Dictated by : MARYELLEN TIM DO This examination was interpreted and the report reviewed and electronically signed by: MARYELLEN TIM DO on Sep 27 2021 11:03PM EST [id number] [facility] Radiology Study observation (narrative) [facility] XR Chest PA and Lateral and AP lateral-decubitusOrdered By: Maryellen Tim on 09-27-2021 [facility] Work Phone: Progress Noteon 09-19-2021 Crop Adjuster Authentication Interface Message Text Deborah Jamison is a 21 y.o. female here for follow-up. History of Present Illness 10/18/2020 Neck 70% better after PT. Worked the knots out. Tizanidine helps too. She takes ibuprofen once every other day for numbness in trap. Fatigue is better too. Headaches stable, 1x/month. Better with sumatriptan and ibuprofen. [place] teeth out within last 3 months and that did aggravate things a little. 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 Applied to college ([employer]) and got accepted. Wants to get degree in neuroscience and molecular biology. Wants to do research in pain management. New symptoms she told me about she's been having -- Nausea, fatigue, facial rash - rheum referral was made by her PCP. Today: Feels like she's managing okay. Walking campus and getting out of bed can get hard. PS 5-12/01. Is it a bed issue. Started using icy hot, lavender oil, heating pad. Tizanidine 4 mg qhs is working. It's a night and day difference. Sleep issues because of anxiety. Anxiety not well managed. Afraid it will get worse again. Natalya of like a partial panic attack, makes her neck work. Hydroxyzine p[rescribed by PCP. Just got on it 3-4 months ago. Trouble finding therapists, looked mostly in [place]. Looking to get set up elsewhere for Rheum - scheduled with Dr. Cadena in [place]. Neck is better and it's the first winter the joint hasn't come out of place. Scheduled with for headaches. Sumatriptan works well. History History Length: 53.3 cm Weight: 3.856 kg One: 9 Five: 9 Delivery Method: , Unspecified Gestation Age: 40 wks Hospital Name: [place], [place] -no NICU stay Past Medical History Past Medical History: Diagnosis Date Acute appendicitis 09/27/2018 Anxiety Asperger syndrome Autism Chronic constipation Constipation Depression Gastroparesis Headache Irritable bowel syndrome Lichen sclerosus of female genitalia Lyme disease [place] [facility] Small intestinal bacterial overgrowth Urinary tract infection Past Surgical History Past Surgical History: Procedure Laterality Date ESOPHAGOSCOPY N/A 11/26/2018 ENDOSCOPY (UPPER AND COLONOSCOPY) with biopsies and disaccharidases [place] [facility] [place] LAPAROSCOPIC APPENDECTOMY N/A 09/27/2018 LAPAROSCOPIC APPENDECTOMY performed by Lemuel Iyer MD at [facility] OR TONGUE SURGERY Allergies Allergies Allergen Reactions Compazine [Prochlorperazine Edisylate] Dystonia Per mother @ 02/16/49 GI visit. Honey Other (See Comments) + on allergy testing Lactose Intolerance (Gi) Other (See Comments) Lactase deficiency Macrobid [Nitrofurantoin Monohyd Macro] Nausea And Vomiting FEVER, MUSCLE SPASMS Medications Outpatient Encounter Medications as of 09/19/2021 Medication Sig Dispense Refill tiZANidine (ZANAFLEX) 2 MG tablet TAKE 1 TABLET AT BEDTIME (Patient taking differently: 4 mg TAKE 1 TABLET AT BEDTIME) 90 Tablet 3 albuterol 108 (90 Base) MCG/ACT inhaler Inhale 2 Puffs into the lungs every 4 hours as needed for Wheezing, Shortness of Breath or Cough Use with spacer. 1 Each 0 Spacer/Aero-Holding Chambers (ARJUN TRAN) MISC DEVICE 1 Each by Other route Use as directed with metered-dose inhaler. 1 Each 0 cetirizine (ZYRTEC) 10 MG tablet TAKE 1 TABLET BY MOUTH ONCE DAILY NEEDED FOR ALLERGIES 30 Tablet 11 Multiple Vitamins-Minerals (ZINC PO) Take 50 mg by mouth ascorbic acid (VITAMIN C) 500 MG tablet Take 500 mg by mouth 2 times daily VITAMIN D PO Take by mouth Levonorgestrel (KYLEENA) 19.5 MG IUD by Intrauterine route acetaminophen (TYLENOL) 325 MG tablet Take 2 Tabs (650 mg) by mouth every 6 hours as needed for Pain Do not take with percocet Ibuprofen (MOTRIN) 400 MG tablet Take 1 Tab (400 mg) by mouth every 6 hours as needed for Pain or Fever SUMAtriptan (IMITREX) 25 MG tablet Take 1 Tab (25 mg) by mouth as needed for Migraine 16 Each 3 magnesium gluconate (MAGONATE) 250 MG TABS Take 250 mg by mouth [place] 3 1200 MG CAPS Take 500 mg by mouth B Complex Vitamins (B COMPLEX 100 PO) Take by mouth triamcinolone (KENALOG) 0.1 % ointment Apply by topical route BID to affected area x 2 weeks, then qd x 2 weeks, then 2x/week melatonin 10 MG TABS tablet Take 10 mg by mouth At bedtime Multiple Vitamin (MULTI-VITAMIN DAILY PO) Take by mouth daily. Probiotic Product (PROBIOTIC FORMULA PO) Take by mouth daily. montelukast (SINGULAIR) 10 MG tablet Take 1 Tablet (10 mg) by mouth daily (Patient not taking: Reported on 09/19/2021) 30 Tablet 5 Pentosan Polysulfate Sodium (ELMIRON) 100 MG CAPS Take 100 mg by mouth daily (Patient not taking: Reported on 09/19/2021) 90 Each 3 Plecanatide 3 MG TABS Take 3 mg by mouth daily (Patient not taking: Reported on 09/19/2021) 30 Tab 2 mometasone (NASONEX) 50 MCG/ACT nasal spray 1 [place] by Each Nare route daily as needed for Other (allergies) (Patient not taking: Reported on 09/19/2021) 1 (more content not included)... Normal [facility] ENA1on 01-19-2021 Centromere <0.2 Normal <1.0 [facility] ([place]) Comment on above: Result Comment: Nega tive Negative: <1.0 AI Positive: >0.9 AI Test performed using the Multiplex Flow Immunoassay technology. Performed By: [place] [address] Certified Nurse Operating Room: Brett Ordonez III, M.D. CLIA#: [id number] Phone#: Performed By: #### T HYAB, C3C4A, DNA, ENA1 #### [address] [address] Chromatin Antibody <0.2 Normal <1.0 [facility] ([place]) Comment on above: Result Comment: Nega tive Negative: <1.0 AI Positive: >0.9 AI Test performed using the Multiplex Flow Immunoassay technology. Performed By: [place] [address] Certified Nurse Operating Room: Brett Ordonez III, M.D. CLIA#: [id number] Phone#: Performed By: #### T HYAB, C3C4A, DNA, ENA1 #### [address] [address] CARLEEN-1 Ab <0.2 Normal <1.0 [facility] ([place]) Comment on above: Result Comment: Nega tive Negative: <1.0 AI Positive: >0.9 AI Test performed using the Multiplex Flow Immunoassay technology. Performed By: [place] [address] Certified Nurse Operating Room: Brett Ordonez III, M.D. CLIA#: [id number] Phone#: Performed By: #### T HYAB, C3C4A, DNA, ENA1 #### [address] [address] Ribosomal VMWARE ENGINEER 0.2 AI Normal <1.0 [facility] ([place]) Comment on above: Result Comment: Nega tive Negative: <1.0 AI Positive: >0.9 AI Test performed using the Multiplex Flow Immunoassay technology. Performed By: [place] [address] Certified Nurse Operating Room: Brett Ordonez III, M.D. CLIA#: [id number] Phone#: Performed By: #### T HYAB, C3C4A, DNA, ENA1 #### [address] [address] VMWARE ENGINEER Antibody <0.2 Normal <1.0 [facility] ([place]) Comment on above: Result Comment: Nega tive Negative: <1.0 AI Positive: >0.9 AI Test performed using the Multiplex Flow Immunoassay technology. Performed By: [place] [address] Certified Nurse Operating Room: Brett Ordonez III, M.D. CLIA#: [id number] Phone#: Performed By: #### T HYAB, C3C4A, DNA, ENA1 #### [place] [id number] Scleroderma IgG Ab <0.2 Normal <1.0 [facility] ([place]) Comment on above: Result Comment: Nega tive Negative: <1.0 AI Positive: >0.9 AI Test performed using the Multiplex Flow Immunoassay technology. Performed By: [place] [address] Certified Nurse Operating Room: Brett Ordonez III, M.D. CLIA#: [id number] Phone#: Performed By: #### T HYAB, C3C4A, DNA, ENA1 #### [address] [address] Sm Antibody <0.2 Normal <1.0 [facility] ([place]) Comment on above: Result Comment: Nega tive Negative: <1.0 AI Positive: >0.9 AI Test performed using the Multiplex Flow Immunoassay technology. Performed By: [place] [address] Certified Nurse Operating Room: Brett Ordonez III, M.D. CLIA#: [id number] Phone#: Performed By: #### T HYAB, C3C4A, DNA, ENA1 #### [address] [address] SS-A Ab <0.2 Normal <1.0 [facility] ([place]) Comment on above: Result Comment: Nega tive Negative: <1.0 AI Positive: >0.9 AI Test performed using the Multiplex Flow Immunoassay technology. Performed By: [place] [id number] Certified Nurse Operating Room: Brett Ordonez III, M.D. CLIA#: [id number] Phone#: Performed By: #### T HYAB, C3C4A, DNA, ENA1 #### [address] [address] SS-B Ab <0.2 Normal <1.0 [facility] ([place]) Comment on above: Result Comment: Nega tive Negative: <1.0 AI Positive: >0.9 AI Test performed using the Multiplex Flow Immunoassay technology. Performed By: [address] [address] Certified Nurse Operating Room: Brett Ordonez III, M.D. CLIA#: [id number] Phone#: Performed By: #### T HYAB, C3C4A, DNA, ENA1 #### [address] [address] DNAon 01-18-2021 ds DNA Ab Neg 10 Normal Neg 10 [facility] ([place]) Comment on above: Result Comment: DNA Screen and Titer methodology is an immunofluorescent technique utilizing Crithidia luciliae Substrate. Performed By: #### T HYAB, C3C4A, DNA, ENA1 #### [address] [address] XR PELVIS 1 OR 2 VIEWSon XR PELVIS 1 OR 2 VIEWS ORIGINAL EXAMINATION: ONE XRAY VIEW OF THE PELVIS01/17/2021 1:59 pm PELVIS 1 or 2 VIEWS HISTORY: ORDERING SYSTEM PROVIDED HISTORY: Reason for Exam: RIGHT HIP PAIN FINDINGS: The pelvic ring is intact. The sacral wings and SI joints are intact. The iliac, ischial, and pubic bones show no disruption. The hips as seen on the AP views of the pelvis are unremarkable. An IUD is incidentally noted. IMPRESSION: No fracture or other acute postraumatic changes. Interpreted by: Alejandro Amin Preliminary Report By: Alejandro Amin Electronically signed By Alejandro Amin Dictated Date: 01/17/2021 9:57:11 PM Prelim Date: 01/17/2021 10:00:06 PM Sign Date: 01/17/2021 10:00:06 PM Ordering Provider: KATLYN Love [facility] ([place]) [id number] 01-17-2021 Complement C3A 140.0 mg/dL Normal 82.0-160.0 [facility] ([place]) Comment on above: Result Comment: No te - New Reference Range in effect 20 Performed By: #### T HYAB, C3C4A, DNA, ENA1 #### [address] [address] Complement C4A 30.0 mg/dL Normal 16.0-38.0 [facility] ([place]) Comment on above: Performed By: #### T HYAB, C3C4A, DNA, ENA1 #### [address] [address] THYABon 01-17-2021 anti-Thyroid Peroxidase <28 Normal 0-60 [facility] ([place]) Comment on above: Result Comment: No te - New Reference Range in effect 20 Performed By: #### T HYAB, C3C4A, DNA, ENA1 #### [address] [address] Thyroglobulin Ab Qn [IU]/mL Normal 15-60 [facility] ([place]) Comment on above: Result Comment: No te - New Reference Range in effect 20 Performed By: #### T HYAB, C3C4A, DNA, ENA1 #### [address] [address] CCP IgG Abon 01-12-2021 Cyclic Citrullinated Peptide AB 4 Units Normal 0-19 [facility] Comment on above: Result Comment: INTE RPRETIVE INFORMATION: Cyclic Citrullinated Peptide Antibody, IgG 19 Units or less ................... Negative 20-39 Units ........................ Weak Positive 40-59 Units ........................ Moderate Positive 60 Units or greater ................ Strong Positive Anti-cyclic citrullinated peptide (anti-CCP), IgG antibodies are present in about 69-83 percent of patients with rheumatoid arthritis (RA) and have specificities of 93-95 percent. These autoantibodies may be present in the preclinical phase of disease, are associated with future RA development, and may predict radiographic joint destruction. Patients with weak positive results should be monitored and testing repeated. Performed By: [facility] [address] [place] [address] [employer] Worker: Simi Lakhani MD Performed By: #### C CPIGG #### [facility] [address] [place] [address] ANAon 01-11-2021 Antinuclear Antibodies, IFA Positive Abnormal [facility] Comment on above: Order Comment: Perfo rmed at: [facility] [id number] Certified Nurse Operating Room: Juan Jose Thomas PhD, Phone: [phone] Result Comment: Nega tive <1:80 Borderline 1:80 Positive >1:80 Performed By: #### A NA #### [facility] RESULTS Centriole Pattern Normal [facility] Comment on above: Order Comment: Perfo rmed at: [facility] [id number] Certified Nurse Operating Room: Juan Jose Thomas PhD, Phone: [phone] Performed By: #### A NA #### [facility] RESULTS Centromere Pattern Normal [facility] Comment on above: Order Comment: Perfo rmed at: [facility] [id number] Certified Nurse Operating Room: Juan Jose Thomas PhD, Phone: [phone] Performed By: #### A NA #### [facility] RESULTS Homogeneous Pattern Normal [facility] Comment on above: Order Comment: Perfo rmed at: [facility] [id number] Certified Nurse Operating Room: Juan Jose Thomas PhD, Phone: [phone] Performed By: #### A NA #### [facility] RESULTS Midbody Pattern [facility] Comment on above: Order Comment: Perfo rmed at: [facility] [place] [address] Certified Nurse Operating Room: Juan Jose Thomas PhD, Phone: [phone] Performed By: #### A NA #### [facility] RESULTS Note: Comment [facility] Comment on above: Order Comment: Perfo rmed at: [facility] [place] [id number] Certified Nurse Operating Room: Juan Jose Thomas PhD, Phone: [phone] Result Comment: A po sitive SUNNI result may occur in healthy individuals (low titer) or be associated with a variety of diseases. See interpretation chart which is not all inclusive: . Pattern Antigen Detected Suggested Disease Association Homogeneous DNA(ds,ss), SLE - High titers Nucleosomes, Histones Drug-induced SLE Speckled Sm, VMWARE ENGINEER, SCL-70, SLE,MCTD,PSS (diffuse form), SS-A/SS-B Sjogrens Nucleolar SCL-70, PM-1/SCL High titers Scleroderma, PM/DM Centromere Centromere PSS (limited form) w/Crest syndrome variable Nuclear Dot [id number] Primary Biliary Cirrhosis Nuclear GP210, Primary Biliary Cirrhosis Membrane murali A,B,C Performed By: #### A NA #### [facility] RESULTS Nucear Membrane Pattern [facility] Comment on above: Order Comment: Perfo rmed at: [facility] [id number] Certified Nurse Operating Room: Juan Jose Thomas PhD, Phone: [phone] Performed By: #### A NA #### [facility] RESULTS Nuceolar Pattern [facility] Comment on above: Order Comment: Perfo rmed at: [facility] LabWeixinhai[address] [id number] Certified Nurse Operating Room: Juan Jose Thomas PhD, Phone: [phone] Performed By: #### A NA #### [facility] RESULTS Nuclear Dot Pattern Normal [facility] Comment on above: Order Comment: Perfo rmed at: [facility] [id number] Certified Nurse Operating Room: Juan Jose Thomas PhD, Phone: [phone] Performed By: #### A NA #### [facility] RESULTS PCNA Pattern [facility] Comment on above: Order Comment: Perfo rmed at: [facility] [id number] Certified Nurse Operating Room: Juan Jose Thomas PhD, Phone: [phone] Performed By: #### A NA #### [facility] RESULTS Speckled Pattern 1:[address] [facility] Comment on above: Order Comment: Perfo rmed at: [place] [address] Certified Nurse Operating Room: Juan Jose Thomas PhD, Phone: [phone] Result Comment: Dens e Fine Speckled pattern is noted. This pattern suggests the presence of DFS70 antibody which has a low prevalence in systemic autoimmune rheumatic diseases. Performed By: #### A NA #### [facility] RESULTS Spindle Apparatus Pattern Normal [facility] Comment on above: Order Comment: Perfo rmed at: [place] [address] Certified Nurse Operating Room: Juan Jose Thomas PhD, Phone: [phone] Performed By: #### A NA #### [facility] RESULTS Sjogrens Abs SS-A/SS-Bon Sjogren's Anti-SS-A <0.2 Normal 0.0-0.9 [facility] Comment on above: Order Comment: Perfo rmed at: [facility] [place] [address] Certified Nurse Operating Room: Juan Jose Thomas PhD, Phone: [phone] Performed By: #### S RAO #### [facility] RESULTS Sjogren's Anti-SS-B <0.2 Normal 0.0-0.9 [facility] Comment on above: Order Comment: Perfo rmed at: [facility] [place] [address] Certified Nurse Operating Room: Juan Jose Thomas PhD, Phone: [phone] Performed By: #### S RAO #### [facility] RESULTS C-Reactive Proteinon 021 CRP [Mass/Vol] mg/L Normal <=9.9 [facility] Comment on above: Performed By: #### F REET4, TSH, CRPR #### [facility] [address] [place] [address] CBC with Diffon 01-09-2021 BA# 0.1 x(10)3/cumm Normal 0.0-0.1 [facility] Comment on above: Performed By: #### R F #### [facility] [address] [place] [address] Basophils/100 WBC (Bld) 0.9 % Normal 0.0-1.0 [facility] Comment on above: Performed By: #### R F #### [facility] [address] [place] [address] EO# 0.0 x(10)3/cumm Normal 0.0-0.4 [facility] Comment on above: Performed By: #### R F #### [facility] [address] [place] [address] Eosinophils/100 WBC (Bld) 0.7 % Normal 0.0-6.1 [facility] Comment on above: Performed By: #### R F #### [facility] [address] [place], [place] [id number] Erythrocyte distribution width (RBC) [Ratio] 12.6 % Normal 11.1-15.3 [facility] Comment on above: Performed By: #### R F #### [facility] [address] [place] [address] Hematocrit (Bld) [Volume fraction] 40.2 % Normal 34.6-45.0 [facility] Comment on above: Performed By: #### R F #### [facility] [address] [place] [address] Hemoglobin (Bld) [Mass/Vol] 13.9 g/dL Normal 11.5-15.5 [facility] Comment on above: Performed By: #### R F #### [facility] [address] [place] [address] LY# 1.3 x(10)3/cumm Normal 0.8-2.9 [facility] Comment on above: Performed By: #### R F #### [facility] [address] [place] [address] Lymphocytes/100 WBC (Bld) 19.9 % Normal 12.2-42.6 [facility] Comment on above: Performed By: #### R F #### [facility] [address] [place], [place] [id number] MCH (RBC) [Entitic mass] 30.9 pg Normal 27.2-33.6 [facility] Comment on above: Performed By: #### R F #### [facility] [address] [place] [address] [id number] MCHC (RBC) [Mass/Vol] 34.5 g/dL Normal 32.9-35.3 [facility] Comment on above: Performed By: #### R F #### [facility] [address] [place], [place] [phone] MCV (RBC) [Entitic vol] 89.5 fL Normal 81.3-96.7 [facility] Comment on above: Performed By: #### R F #### [facility] [address] [place], [place] [phone] MO# 0.3 x(10)3/cumm Normal 0.2-0.8 [facility] Comment on above: Performed By: #### R F #### [facility] [address] [place] [address] 29180 Monocytes/100 WBC (Bld) 4.1 % Normal 3.3-11.6 [facility] Comment on above: Performed By: #### R F #### [facility] [address] [place], [place] [phone] NE# 4.9 x(10)3/cumm Normal 1.3-7.4 [facility] Comment on above: Performed By: #### R F #### [facility] [address] [place], [place] [phone] Neutrophils/100 WBC (Bld) 74.4 % Normal 44.9-78.8 [facility] Comment on above: Performed By: #### R F #### [facility] [address] [place] [address] 98342 Platelet mean volume (Bld) [Entitic vol] 8.2 fL Normal 6.4-10.0 [facility] Comment on above: Performed By: #### R F #### [facility] [address] [place], [place] [id number] PLT 261 x(10)3/cumm Normal 138-367 [facility] Comment on above: Performed By: #### R F #### [facility] [address] [place] [address] [facility] Comment on above: Performed By: #### R F #### [facility] [address] [place], [place] [id number] RBC 4.49 X(10)6/cumm Normal 3.90-5.10 [facility] Comment on above: Performed By: #### R F #### [facility] [address] [place], [place] [phone] RBC Morph cont Normal [facility] Comment on above: Performed By: #### R F #### [facility] [address] [place] [address] RBC morphology finding Nom (Bld) Normal [facility] Comment on above: Performed By: #### R F #### [facility] [address] [place], [place] [phone] WBC 6.6 x(10)3/cumm Normal 3.6-10.3 [facility] Comment on above: Performed By: #### R F #### [facility] [address] [place], [place] [phone] WBC Morph Normal [facility] Comment on above: Performed By: #### R F #### [facility] [address] [place], [place] [phone] Comprehensive Metabolic Pane angelina 01-09-2021 Albumin [Mass/Vol] 5.0 g/dL Normal 3.5-5.2 [facility] Comment on above: Performed By: #### C MP #### [facility] [address] [place], [place] [phone] ALP [Catalytic activity/Vol] 83 U/L Normal 35-129 [facility] Comment on above: Performed By: #### C MP #### [facility] [address] [place] [address] [phone] ALT [Catalytic activity/Vol] 11 U/L Normal <=41 [facility] Comment on above: Performed By: #### C MP #### [facility] [address] [place] [address] 43664 Anion gap [Moles/Vol] 12 mmol/L Normal 8-15 [facility] Comment on above: Performed By: #### C MP #### [facility] [address] [place] [address] 79209 AST [Catalytic activity/Vol] 16 U/L Normal <=40 [facility] Comment on above: Performed By: #### C MP #### [facility] [address] [place] [address] 28472 Bili, Total 0.4 mg/dL Normal <=1.2 [facility] Comment on above: Performed By: #### C MP #### [facility] [address] [place] [address] 61228 Calcium [Mass/Vol] 10.0 mg/dL Normal 8.6-10.6 [facility] Comment on above: Performed By: #### C MP #### [facility] [address] [place] [address] 35140 Chloride [Moles/Vol] 103 mmol/L Normal 98-107 [facility] Comment on above: Performed By: #### C MP #### [facility] [address] [place] [address] 21868 CO2 [Moles/Vol] 23 mmol/L Normal 22-29 [facility] Comment on above: Performed By: #### C MP #### [facility] [address] [place] [address] 44825 Creatinine [Mass/Vol] 0.6 mg/dL Normal 0.5-1.2 [facility] Comment on above: Performed By: #### C MP #### [facility] [address] [place] [address] 96384 eGFR Normal >=60 [facility] Comment on above: Performed By: #### C MP #### [facility] [address] [place] [address] 50561 eGFR -Amer Normal >=60 [facility] Comment on above: Performed By: #### C MP #### [facility] [address] [place], [place] [phone] Glucose [Mass/Vol] 101 mg/dL Normal 74-109 [facility] Comment on above: Performed By: #### C MP #### [facility] [address] [place], [place] [phone] Potassium [Moles/Vol] 4.7 mmol/L Normal 3.4-5.1 [facility] Comment on above: Performed By: #### C MP #### [facility] [address] [place], [place] [phone] Prot Total 7.6 g/dL Normal 6.4-8.3 [facility] Comment on above: Performed By: #### C MP #### [facility] [address] [place], [place] [phone] Sodium [Moles/Vol] 138 mmol/L Normal 136-145 [facility] Comment on above: Performed By: #### C MP #### [facility] [address] [place], [place] [phone] Urea nitrogen [Mass/Vol] 8 mg/dL Normal 6-23 [facility] Comment on above: Performed By: #### C MP #### [facility] [address] [place], [place] [phone] Free T4on 01-09-2021 Biotin Interference Samples should not b e taken from patients receiving therapy with high biotin doses (i.e. >5mg/day) until at least 8 hours following the last biotin administration. Normal [facility] Comment on above: Performed By: #### F REET4, TSH, CRPR #### [place] [id number] Free T4 [Mass/Vol] 1.28 ng/dL Normal 0.93-1.70 [facility] Comment on above: Performed By: #### F REET4, TSH, CRPR #### [place] [id number] Rheumatoid Factor (Quant)on 01-09-2021 Rheumatoid Factor <12 Normal <=13 [facility] Comment on above: Performed By: #### R F #### [place] [address] Sed Rate - Westergrenon 07- Sed Rate 12 mm/hr Normal 0-20 [facility] Comment on above: Performed By: #### E SR #### [place] [address] TSHon 01-09-2021 TSH 2.29 uIU/mL Normal 0.27-4.20 [facility] Comment on above: Performed By: #### F REET4, TSH, CRPR #### [place] [address] Urinalysison 01-09-2021 Bili Qual Negative Normal [facility] Comment on above: Performed By: #### U A #### [place] [address] [facility] Comment on above: Performed By: #### U A #### [place] [address] Color (U) Yellow Normal [facility] Comment on above: Performed By: #### U A #### [place] [id number] Glucose Ql (U) Norm Normal [facility] Comment on above: Performed By: #### U A #### [place] [address] Hemoglobin Ql (U) 10 Farahn/uL Abnormal NEGATIVE [facility] Comment on above: Performed By: #### U A #### [place] [id number] Ketones Ql (U) Negative Normal [facility] Comment on above: Performed By: #### U A #### [place] [address] Leukocytes 100 Leuk/uL Abnormal NEGATIVE [facility] Comment on above: Performed By: #### U A #### [facility] [address] [place] [address] Nitrite Ql (U) Negative Normal NEGATIVE [facility] Comment on above: Performed By: #### U A #### [facility] [address] [place] [address] pH (U) 7 [pH] Normal 5.0-9.0 [facility] Comment on above: Performed By: #### U A #### [facility] [address] [place] [address] Prot Urine Negative Normal NEGATIVE [facility] Comment on above: Performed By: #### U A #### [place] [address] SG 1.005 Normal 1.005-1.030 [facility] Comment on above: Performed By: #### U A #### [place] [address] Urobilinogen Norm Normal NORMAL [facility] Comment on above: Performed By: #### U A #### [place] [address] XR CHEST 2 VIEWSon XR CHEST 2 VIEWS ORIGINAL XR XR CHEST 2 VIEWS, Clinical Statement: CHEST PAIN SOB, Comparison: 05/27/2020 Findings: No consolidation, pneumothorax, pleural fluid, or vascular congestion is seen. Heart size and mediastinal contours are within normal limits for age and projection. No acute skeletal abnormality. IMPRESSION: No acute cardiopulmonary process. Interpreted By: Lb Wilson MD Preliminary Report By: Lb Wilson MD Electronically Signed By: Lb Wilson MD Dictated Date: 11/02/2020 1:28:22 PM Prelim Date: 11/02/2020 1:28:22 PM Sign Date: 11/02/2020 1:28:36 PM Ordering Provider:Deisy Mtz [facility] [place] Progress Noteon 10-27-2020 Crop Adjuster Authentication Interface Message Text Patient ID: Deborah Jamison is a 20 y.o. female. Her chief complaint(s) include: Cough (sick x 8 days total, seen 5/3for cough, headache, congested, runny nose, cough is worse, short of breath this am, has had SOB for 4 years but getting worse) Assessment 1. Reactive airway disease with acute exacerbation, unspecified asthma severity, unspecified whether persistent 2. Disorder of respiratory system 3. Cough 4. Chest discomfort Plan Deborah was seen today for cough. Diagnoses and all orders for this visit: Reactive airway disease with acute exacerbation, unspecified asthma severity, unspecified whether persistent - Discontinue: albuterol 108 (90 Base) MCG/ACT inhaler; Inhale 2 Puffs into the lungs every 4 hours as needed for Wheezing, Shortness of Breath or Cough Use with spacer. - Discontinue: Spacer/Aero-Holding Chambers (OPTICHAMBER CHESLEA) MISC DEVICE; 1 Each by Other route Use as directed with metered-dose inhaler. - Aerosol/OptiChamber/Disk us Teaching - X-Ray Chest Pa(ap) & Lateral; Future - AMB Referral To Pulmonary Medicine; Future - albuterol 108 (90 Base) MCG/ACT inhaler; Inhale 2 Puffs into the lungs every 4 hours as needed for Wheezing, Shortness of Breath or Cough Use with spacer. - Spacer/Aero-Holding Chambers (OPTICHAMBER CHELSEA) MISC DEVICE; 1 Each by Other route Use as directed with metered-dose inhaler. Disorder of respiratory system - Pulse Ox, Single Cough - Discontinue: albuterol 108 (90 Base) MCG/ACT inhaler; Inhale 2 Puffs into the lungs every 4 hours as needed for Wheezing, Shortness of Breath or Cough Use with spacer. - Discontinue: Spacer/Aero-Holding Chambers (OPTICHAMBER CHELSEA) MISC DEVICE; 1 Each by Other route Use as directed with metered-dose inhaler. - Aerosol/OptiChamber/Disk us Teaching - X-Ray Chest Pa(ap) & Lateral; Future - AMB Referral To Pulmonary Medicine; Future - albuterol 108 (90 Base) MCG/ACT inhaler; Inhale 2 Puffs into the lungs every 4 hours as needed for Wheezing, Shortness of Breath or Cough Use with spacer. - Spacer/Aero-Holding Chambers (OPTICHAMBER CHELSEA) MISC DEVICE; 1 Each by Other route Use as directed with metered-dose inhaler. Chest discomfort - Discontinue: albuterol 108 (90 Base) MCG/ACT inhaler; Inhale 2 Puffs into the lungs every 4 hours as needed for Wheezing, Shortness of Breath or Cough Use with spacer. - Discontinue: Spacer/Aero-Holding Chambers (OPTICHAMBER CHELSEA) MISC DEVICE; 1 Each by Other route Use as directed with metered-dose inhaler. - Aerosol/OptiChamber/Disk us Teaching - X-Ray Chest Pa(ap) & Lateral; Future - AMB Referral To Pulmonary Medicine; Future - albuterol 108 (90 Base) MCG/ACT inhaler; Inhale 2 Puffs into the lungs every 4 hours as needed for Wheezing, Shortness of Breath or Cough Use with spacer. - Spacer/Aero-Holding Chambers (OPTICHAMBER CHELSEA) MISC DEVICE; 1 Each by Other route Use as directed with metered-dose inhaler. No follow-ups on file. Family history of Asthma Suspect follow up pulmonology Reviewed differential including anxiety vs RAD Patient feels getting relief from albuterol nebulizer Reviewed signs of distress retractions increase work of breathing no relieve after albuterol increase use of albuterol and when to seek emergency medical care Subjective HPI Comments: Waking up congested in chest the last couple month so short of breath for 45 min could not breath left like passing out. Has had SOB in the past my lungs get agitated in the past that I get short of breath but not this bad. I was tested for asthma but since everything has gotten worse I don't think that was accurate. I want to see a chief of field operations again. She is unaccompanied. No freelance interpreter/translator was used. Chest Pain This problem is recurrent. The duration has been 4 months. The onset has been variable. The course is unchanging. The patient's symptoms have included fatigue, congestion, cough, shortness of breath, wheezing and difficulty breathing. The patient's symptoms have included no decreased appetite, no decreased fluid intake, no difficulty sleeping, no rhinorrhea, no sore throat, no right ear pain, no bilateral ear pain, no abdominal pain, no diarrhea, no rash and no vomiting. The symptoms are described as moderate. The symptoms are aggravated by activity. There have been no previous interventions. Review of Systems Cardiovascular: Positive for chest pain. Objective Vital Signs 10/27/20 1542 Pulse: 82 Resp: 18 Temp: 36.7 C (98.1 F) TempSrc: Temporal SpO2: 98% Weight: 69.8 kg There is no height or weight on file to calculate BMI. Physical Exam Nursing note reviewed. Constitutional: She appears well. She is active. No distress. HENT: Head: Atraumatic. Ears: Right Ear: Tympanic membrane and external ear normal. Left Ear: Tympanic membrane and external ear normal. Nose: Nose normal. Mouth/Throat: Mucous membranes are moist. No phary (more content not included)... Normal [facility] COSAR SARS-CoV-2 (COVID-19) RT-PCR, Qualitativeon 10-26-2020 SARS-CoV-2 (COVID-19) RT-PCR, Qualitative Not detected Normal [facility] Comment on above: Order Comment: Is th is a pre-procedure screening test?->No Is this specimen being sent to an external lab?->No [id number]&Nasopharyngeal^\S\^Nose&Nose Performed By: #### E LRG2 #### [place] [address] COSAR SARS-CoV-2 (COVID-19) RT-PCR, Qualitativeon 10-24-2020 Date of Symptom Onset [id number] Normal [facility] Comment on above: Order Comment: Is th is a pre-procedure screening test?->No Is this specimen being sent to an external lab?->No [id number]&Nasopharyngeal^\S\^Nose&Nose Performed By: #### E LRG2 #### [place] [address] Employed in Healthcare setting? No Normal [facility] Comment on above: Order Comment: Is th is a pre-procedure screening test?->No Is this specimen being sent to an external lab?->No [id number]&Nasopharyngeal^\S\^Nose&Nose Performed By: #### E LRG2 #### [place] [address] First COVID-19 test? No Normal [facility] Comment on above: Order Comment: Is th is a pre-procedure screening test?->No Is this specimen being sent to an external lab?->No [id number]&Nasopharyngeal^\S\^Nose&Nose Performed By: #### E LRG2 #### [place] [address] Hospitalized? No Normal [facility] Comment on above: Order Comment: Is th is a pre-procedure screening test?->No Is this specimen being sent to an external lab?->No [id number]&Nasopharyngeal^\S\^Nose&Nose Performed By: #### E LRG2 #### [place] [address] ICU? No Normal [facility] Comment on above: Order Comment: Is th is a pre-procedure screening test?->No Is this specimen being sent to an external lab?->No [id number]&Nasopharyngeal^\S\^Nose&Nose Performed By: #### E LRG2 #### [place] [address] ? Unknown Normal [facility] Comment on above: Order Comment: Is th is a pre-procedure screening test?->No Is this specimen being sent to an external lab?->No [id number]&Nasopharyngeal^\S\^Nose&Nose Performed By: #### E LRG2 #### [place] [address] [facility] No Normal [facility] Comment on above: Order Comment: Is th is a pre-procedure screening test?->No Is this specimen being sent to an external lab?->No [id number]&Nasopharyngeal^\S\^Nose&Nose Performed By: #### E LRG2 #### [place] [address] Symptomatic as defined by [facility]? Yes Normal [facility] Comment on above: Order Comment: Is th is a pre-procedure screening test?->No Is this specimen being sent to an external lab?->No [id number]&Nasopharyngeal^\S\^Nose&Nose Performed By: #### E LRG2 #### [facility] [address] [place] [id number] Progress Noteon 10-24-2020 Crop Adjuster Authentication Interface Message Text Patient ID: Deborah Jamison is a 20 y.o. female. Her chief complaint(s) include: Cough (nasal congestion ), Headache (nausea ), and Pharyngitis Assessment 1. Acute pharyngitis, unspecified etiology 2. Chills 3. Nausea 4. Sore throat 5. Allergic rhinitis, unspecified seasonality, unspecified trigger Plan Deborah was seen today for cough, headache and pharyngitis. Diagnoses and all orders for this visit: Acute pharyngitis, unspecified etiology - POCT rapid strep A antigen - POCT mononucleosis antibodies (Monospot) - Strep culture (Clinic Collect) Chills - SARS-CoV-2 (COVID-19) RT-PCR, Qual. Nausea - SARS-CoV-2 (COVID-19) RT-PCR, Qual. Sore throat - SARS-CoV-2 (COVID-19) RT-PCR, Qual. Allergic rhinitis, unspecified seasonality, unspecified trigger - cetirizine (ZYRTEC) 10 MG tablet; TAKE 1 TABLET BY MOUTH ONCE DAILY NEEDED FOR ALLERGIES - montelukast (SINGULAIR) 10 MG tablet; Take 1 Tablet (10 mg) by mouth daily No follow-ups on file. Encourage fluids, humidifier Call for temp 100.4 or above Supportive care Watchful waiting Honey, lemon and cinnamon for cough Reviewed signs of distress retractions increase work of breathing and when to seek emergency medical care Subjective HPI Comments: Onset headache sore throat on Saturday and then congestion and then sore throat was worse yesterday. Chills on . Nausea on Saturday. First CoVid shot on 10-05-20. 10/14 [place] and [place] 10/15 She is unaccompanied. No freelance interpreter/translator was used. Cough The onset has been acute. The pattern is persistent. The course is unchanging. The patient's symptoms have included malaise, decreased appetite, congestion, rhinorrhea, sore throat, cough, headaches and nausea. The patient's symptoms have included no fatigue, no fever, no difficulty sleeping, no eye discharge, no eye redness, no trouble swallowing, no shortness of breath, no difficulty breathing, no bilateral ear pain, no abdominal pain, no vomiting, no diarrhea and no rash. The patient has had a maximum temperature of 98 degrees. The temperature was taken orally. The patient has been exposed to no sick contacts at home . No known exposure to contact with COVID-19. The previous evaluations were prior negative test for COVID-19. The patient's past medical history is positive for allergies. The patient's past medical history is negative for wheezing, asthma, pneumonia, eczema and passive smoke exposure/ smoker. The patient's family history is positive for allergies and asthma. The patient's family history is negative for eczema. Review of Systems HENT: Positive for headaches. Objective Vital Signs 10/24/20 0911 Pulse: 92 Resp: 20 Temp: 36.2 C (97.2 F) TempSrc: Temporal Weight: 70.4 kg There is no height or weight on file to calculate BMI. Physical Exam Nursing note reviewed. Constitutional: She appears well. She is active. No distress. HENT: Head: Atraumatic. Ears: Right Ear: Tympanic membrane and external ear normal. Left Ear: Tympanic membrane and external ear normal. Nose: Nose normal. Mouth/Throat: Mucous membranes are moist. Pharynx erythema present. Eyes: Conjunctivae and EOM are normal. Pupils are equal, round, and reactive to light. Neck: Neck supple. Mild posterior cervical Cardiovascular: Normal rate, regular rhythm, S1 normal and S2 normal. Pulses are palpable. Pulmonary/Chest: Effort normal and breath sounds normal. Abdominal: Soft. Bowel sounds are normal. She exhibits no distension and no mass. There is no abdominal tenderness. Musculoskeletal: Cervical back: Neck supple. General: No deformity. Lymphadenopathy: Right posterior cervical adenopathy present. Left posterior cervical adenopathy present. Neurological: She is alert. She has normal strength. She exhibits normal muscle tone. Skin: Skin is warm. Skin is not pale and cyanotic. Findings: No rash. Vitals reviewed: Pulse 92, temperature 36.2 C (97.2 F), temperature source Temporal, resp. rate 20, weight 70.4 kg, last menstrual period 10/23/2020. Last Result POCT rapid strep A antigen Collection Time: 10/24/20 10:18 AM Result Value Ref Range Strep A Antigen None Detected None Detected Yellow Solution *Present Red Control Line *Present Clear Background *Present Lot Number [id number] POCT mononucleosis antibodies (Monospot) Collection Time: 10/24/20 10:14 AM Result Value Ref Range Monospot (Heterophile Antobodies) Negative Negative Red Control Line *Present Clear Background *Present Within Expiration *Yes Lot Number [id number] Normal [facility] Strep Cultureon 10-24-2020 Strep Culture Is this specimen dorothy ng sent to an external lab?->No Release to patient->Automatic [id number]&Throat swab^^^Throat swab&Throat swab Strep Culture: No Beta hemolytic Streptococci isolated. Source: THRSW Collected: 10/24/20 10:56 Site: Throat swab Received : 10/24/20 21:30 Strep Culture FINAL 10/26/20 09:00 No Beta hemolytic Streptococci isolated. Normal [facility] Comment on above: Performed By: #### S TREP #### [place] [address] Progress Noteon 10-18-2020 Crop Adjuster Authentication Interface Message Text Deborah Jamison is a 20 y.o. female here for follow-up. History of Present Illness Today: Neck 70% better after PT. Worked the knots out. Tizanidine helps too. She takes ibuprofen once every other day for numbness in trap. Fatigue is better too. Headaches stable, 1x/month. Better with sumatriptan and ibuprofen. [place] teeth out within last 3 months and that did aggravate things a little. 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 Applied to college ([employer]) and got accepted. Wants to get degree in neuroscience and molecular biology. Wants to do research in pain management. New symptoms she told me about she's been having -- Nausea, fatigue, facial rash - rheum referral was made by her PCP. History History Length: 53.3 cm Weight: 3.856 kg One: 9.0 Five: 9.0 Delivery Method: , Unspecified Gestation Age: 40 wks Hospital Name: [place], [place] -no NICU stay Past Medical History Past Medical History: Diagnosis Date Acute appendicitis 09/27/2018 Anxiety Asperger syndrome Autism Chronic constipation Constipation Depression Gastroparesis Headache Irritable bowel syndrome Lichen sclerosus of female genitalia Lyme disease [place] eye Small intestinal bacterial overgrowth Urinary tract infection Past Surgical History Past Surgical History: Procedure Laterality Date ESOPHAGOSCOPY N/A 11/26/2018 ENDOSCOPY (UPPER AND COLONOSCOPY) with biopsies and disaccharidases [place] [facility] [place] LAPAROSCOPIC APPENDECTOMY N/A 09/27/2018 LAPAROSCOPIC APPENDECTOMY performed by Lemuel Iyer MD at [facility] OR TONGUE SURGERY Allergies Allergies Allergen Reactions Compazine [Prochlorperazine Edisylate] Dystonia Per mother @ 02/16/49 GI visit. Honey Other (See Comments) + on allergy testing Lactose Intolerance (Gi) Other (See Comments) Lactase deficiency Macrobid [Nitrofurantoin Monohyd Macro] Nausea And Vomiting FEVER, MUSCLE SPASMS Medications Outpatient Encounter Medications as of 10/18/2020 Medication Sig Dispense Refill Multiple Vitamins-Minerals (ZINC PO) Take 50 mg by mouth ascorbic acid (VITAMIN C) 500 MG tablet Take 500 mg by mouth 2 times daily cetirizine (ZYRTEC) 10 MG tablet TAKE 1 TABLET BY MOUTH ONCE DAILY NEEDED FOR ALLERGIES 30 Tablet 0 VITAMIN D PO Take by mouth montelukast (SINGULAIR) 10 MG tablet Take 1 tablet by mouth once daily 30 Tablet 0 tiZANidine (ZANAFLEX) 2 MG tablet TAKE 1 TABLET BY MOUTH AT BEDTIME 90 Tab 1 mometasone (NASONEX) 50 MCG/ACT nasal spray 1 [place] by Each Nare route daily as needed for Other (allergies) 1 Inhaler 11 olopatadine (PATANOL) 0.1 % ophthalmic solution instill 1 Drop into both eyes 2 times daily as needed for Allergies 5 mL 11 acetaminophen (TYLENOL) 325 MG tablet Take 2 Tabs (650 mg) by mouth every 6 hours as needed for Pain Do not take with percocet Ibuprofen (MOTRIN) 400 MG tablet Take 1 Tab (400 mg) by mouth every 6 hours as needed for Pain or Fever SUMAtriptan (IMITREX) 25 MG tablet Take 1 Tab (25 mg) by mouth as needed for Migraine 16 Each 3 magnesium gluconate (MAGONATE) 250 MG TABS Take 250 mg by mouth [place] 3 1200 MG CAPS Take by mouth B Complex Vitamins (B COMPLEX 100 PO) Take by mouth triamcinolone (KENALOG) 0.1 % ointment Apply by topical route BID to affected area x 2 weeks, then qd x 2 weeks, then 2x/week melatonin 10 MG TABS tablet Take 10 mg by mouth At bedtime Multiple Vitamin (MULTI-VITAMIN DAILY PO) Take by mouth daily. Probiotic Product (PROBIOTIC FORMULA PO) Take by mouth daily. Pentosan Polysulfate Sodium (ELMIRON) 100 MG CAPS Take 100 mg by mouth daily (Patient not taking: Reported on 01/06/2020) 90 Each 3 Plecanatide 3 MG TABS Take 3 mg by mouth daily (Patient not taking: Reported on 01/06/2020) 30 Tab 2 CALCIUM CITRATE PO Take by mouth (Patient not taking: Reported on 10/07/2020) Levonorgestrel (KYLEENA) 19.5 MG IUD by Intrauterine route CALCIUM CITRATE-VITAMIN D3 PO Take 375 mg by mouth Takes two of these to equal 750 mg- this pill has magnesium and vitamin d (Patient not taking: Reported on 10/18/2020) UNABLE TO FIND Cranberry supplement (Patient not taking: Reported on 10/18/2020) No facility-administered encounter medications on file as of 10/18/2020. Family Medical History Family History Problem Relation Age of Onset ADHD Mother Allergies Mother Arthritis Mother Depression Mother Eye Problems Mother Hearing Loss Mother Muscle Disorder Mother Stomach Cancer Mother Endometriosis Mother Kidney Disease Mother Lupus Mother Raynaud's Mother Miscarriages / Stillbirths Mother ADHD Father Allergies Father Depression Father Eye Problems Father Hearing Loss Father ADHD Brother Allergies Brother High Cholesterol Maternal Aunt Depression Maternal Aunt High Blood Pressure Maternal Aunt Malignancies Maternal Aunt melanoma High Cholesterol Maternal Grandmother (more content not included)... Normal [facility] Progress Noteon 10-07-2020 Crop Adjuster Authentication Interface Message Text Patient ID: Deborah Jamison is a 20 y.o. female. Her chief complaint(s) include: Loss Of Appetite (fatigue, joint pain for the last 2 months. nauseated when eating. not sleeping well. just not feeling well and seems anxious. wondering about a rheumatology referral) Assessment 1. Fatigue, unspecified type 2. Loss of appetite 3. Myalgia 4. Rash and nonspecific skin eruption 5. Acute nonintractable headache, unspecified headache type 6. Difficulty sleeping 7. Nausea 8. Abdominal pain, unspecified abdominal location 9. Swollen lymph nodes Plan Deborah was seen today for loss of appetite. Diagnoses and all orders for this visit: Fatigue, unspecified type - AMB Referral To Rheumatology; Future Loss of appetite - AMB Referral To Rheumatology; Future Myalgia - AMB Referral To Rheumatology; Future Rash and nonspecific skin eruption - AMB Referral To Rheumatology; Future Acute nonintractable headache, unspecified headache type - AMB Referral To Rheumatology; Future Difficulty sleeping - AMB Referral To Rheumatology; Future Nausea - AMB Referral To Rheumatology; Future Abdominal pain, unspecified abdominal location - AMB Referral To Rheumatology; Future Swollen lymph nodes - AMB Referral To Rheumatology; Future Return if symptoms worsen or fail to improve. Chronic fatigue, muscle aches, and stomach issues. / Vague symptoms that may be related to something auto-immune. Discussed labs, but would like for specialist so that they are more direct. Will refer to rheumatology at this time. No weight loss noted, but with appetite issues and variable stool, would like her to touch base with her GI doctor for further testing. Recommended fluid intake and small more frequent meals and snacks. Told her to call with worsening symptoms, fevers, or any new concerns. Subjective HPI Comments: Patient notes that she has been having symptoms for the last 2 months. Better since the weather has changed. She has been having fatigue, muscle aches, and joint pain. Had an episode a month or so ago when she had swollen LAD in her neck. Was using ibuprofen as needed. Lasted 2 days. Has not been eating or drinking well. Pain with eating. Makes her feel nauseous when she does eat. Has been trying to force herself to do small volume more frequently. Anything she eats. At first was wheat and lactose. Has been doing broth some. Urinating ok, but less than normal. Constipated and loose. Will go back and forth. No fevers through all of this. Getting some facial flushing easily. Had some redness across her cheeks and nose. Lasted x 1 day. Worse with any sun exposure. Not sleeping well. Tired but unable to sleep. Mom with lupus. She is unaccompanied. Fatigue This problem is new. The duration has been 2 months. The onset has been gradual. The course is gradually improving. The patient's symptoms have included fatigue, malaise, decreased appetite, decreased fluid intake, difficulty sleeping, headaches, abdominal pain, diarrhea and rash. The patient's symptoms have included no fever, no fussiness, no eye discharge, no eye redness, no congestion, no rhinorrhea, no sore throat, no cough, no shortness of breath, no wheezing, no bilateral ear pain, no difficulty breathing and no vomiting. The location of symptoms have included the total body. The symptoms are described as moderate. The symptoms are aggravated by nothing (cool weather). The previous interventions include alternative treatment (activity and healthy eating). Primary Care Review of Systems Objective Vital Signs 10/07/20 1525 BP: 102/68 Pulse: 90 Resp: 20 Temp: 36.9 C (98.4 F) TempSrc: Temporal Weight: 69.9 kg There is no height or weight on file to calculate BMI. Physical Exam Constitutional: She appears well. She is active. No distress. HENT: Head: Atraumatic. Ears: Right Ear: Tympanic membrane and external ear normal. Tympanic membrane is not erythematous and not bulging. Left Ear: Tympanic membrane and external ear normal. Tympanic membrane is not erythematous and not bulging. Nose: Nose normal. No nasal discharge. Mouth/Throat: Mucous membranes are moist. No pharynx erythema. Oropharynx is clear. Eyes: Conjunctivae and EOM are normal. Red reflex is present bilaterally. Pupils are equal, round, and reactive to light. Right eyelid exhibits no discharge. Left eyelid exhibits no discharge. Right conjunctiva is not injected. Left conjunctiva is not injected. Neck: Neck supple. Cardiovascular: Normal rate, regular rhythm, S1 normal and S2 normal. Pulses are palpable. Heart murmur not heard. Pulmonary/Chest: Effort normal and breath sounds normal. There is normal air entry. No respiratory distress. Air movement is not decreased. She has no wheezes. Abdominal: Soft. Bowel sounds are normal. She exhibits no distension and no mass. There is no hepatosplenomegaly. There is abdominal tenderness (BL LQ, (more content not included)... Normal [facility] Max 04-07-2020 GIO Telephone (DAISY) -------- SHAHEENDEBORAH ([id number]) 4 F Date Time Provider Department 04/07/20 HIREN ORELLANA During your visit today, we recorded the following information about you: Claudette Block Ma 04/07/2020 10:12 AM Signed Deborahmars Jamison called today. : 2000 Allergies: Honey, Nitrofurantoin, and Prochlorperazine (home) Message can be left with: with patient only Reason for call: patient called asking if she get a letter stating she was here yesterday for an appointment faxed to her school. Recent Urology Surgery: None Is the patient experiencing any pain related to this call? no Any nausea/vomitting? Neither Voiding concerns: no problems w/ voiding. Patient last appointment: 04/06/2020 The patients preferred pharmacy has been captured for this encounter? not asked Claudette Haas Cma 04/07/2020 10:47 AM Signed Letter faxed. Francheska Haas Cma Allergies As of Date: 04/07/2020 Noted Allergy Reaction HONEY 10/25/2011 16 - Unknown 14 - Other: See Comments Comments: + on allergy testing + on allergy testing NITROFURANTOIN 11/26/2018 11 - Vomiting Comments: FEVER, MUSCLE SPASMS FEVER, MUSCLE SPASMS PROCHLORPERAZINE 02/16/2019 13 - Dystonia Comments: Other reaction(s): Dystonia Per mother @ 02/16/49 GI visit. Per mother @ 02/16/49 GI visit. Date Reviewed: 04/06/2020 Reviewed by: Hiren Orellana - Fully Assessed Reason for Visit: Return To Work Letter [[id number]] Prescriptions as of 04/07/2020 Sig: MIRABEGRON ER 25 MG TABLET,EX* Take 1 tablet by mouth once d* Problem List As Of Date: 04/07/2020 (None) Encounter Status:Closed by CLAUDETTE BLOCK MA on 04/07/20 [facility] CNOVon 04-06-2020 CNOV Office Visit (URONILO ) -------- DEBORAH JAMISON ([id number]) 4 F Date Time Provider Department 04/06/20 1:15 PM HIREN ORELLANA During your visit today, we recorded the following information about you: Blood pressure Weight Height 138/88 65.8 kg 1.626 m Hiren Orellana MD 04/06/2020 2:01 PM Signed NEW PATIENT HISTORY AND PHYSICAL EXAM HISTORY OF PRESENT ILLNESS: Deborah Jamison is a 20 year old female who presents as a new patient. Diagnosed with IC in [place] About 3 years ago and was placed on Elmiron Symptoms improved with Elmiron but recently stopped. Currently on Bactrim for uti. 1 uti this year. Voiding - every 15 min to an hour. Reduces water in am Nocturia x 1 Pain not leading issue. Has been on Calcium citrate and cranberry pills. History of Lyme disease. Gluten intolerance. She has been double voiding due to feeling of incomplete bladder emptying. We reviewed various treatment options. Will plan cystoscopy and hydrodistention and attempt to precert Myrbetriq. PVR = 12 ml REVIEW OF SYSTEMS: GENERAL:Fatigue, Positive for fever and chills ALLERGIC/IMMUNOLOGIC: drug allergies HEENT:sore throat RESPIRATORY: Severe COPD CARDIOVASCULAR: Negative for chest pain, leg swelling, hypertension, CHF or palpitations GASTROINTESTINAL: Constipation, diarrhea and indigestion GENITOURINARY: See HPI MUSCULOSKELETAL: back pain NEUROLOGIC:Positive for headaches: SKIN:Negative for lesions, rash, and itching MEDICATIONS: mirabegron (MYRBETRIQ) 25 mg Tb24 Take 1 tablet by mouth once daily. HISTORIES History reviewed. No pertinent past medical history. History reviewed. No pertinent family history. PAST SURGICAL HISTORY Procedure Laterality Date - APPENDECTOMY 2019 - EXCISION OF LINGUAL FRENUM (FRENECTOMY) Social History Tobacco Use - Smoking status: Not on file Substance Use Topics - Alcohol use: Not on file - Drug use: Not on file Physical Exam BP 138/88 Ht 162.6 cm (5' 4 ) Wt 65.8 kg (145 lb) BMI 24.89 kg/m? ASSESSMENT/PLAN: (N30.10) Interstitial cystitis (primary encounter diagnosis) (R35.0) Urinary frequency Plan: BLADDER SCAN Return for cystoscopy and hydrodistention. Referring Provider: ZOE MEIER [[id number]] Allergies As of Date: 04/06/2020 Noted Allergy Reaction HONEY 10/25/2011 16 - Unknown 14 - Other: See Comments Comments: + on allergy testing + on allergy testing NITROFURANTOIN 11/26/2018 11 - Vomiting Comments: FEVER, MUSCLE SPASMS FEVER, MUSCLE SPASMS PROCHLORPERAZINE 02/16/2019 13 - Dystonia Comments: Other reaction(s): Dystonia Per mother @ 02/16/49 GI visit. Per mother @ 02/16/49 GI visit. Date Reviewed: 04/06/2020 Reviewed by: Hiren Orellana - Fully Assessed Reason for Visit: New Patient [172] Primary Visit Diagnosis:Interstitial cystitis [N30.10] Other Visit Diagnosis:Urinary frequency [R35.0] Order(s):UA DIP, URINE (POC) [[id number]] Order #: [id number]. #:[id number] 13-LAB BLADDER SCAN [[id number]] Order #: [id number] mirabegron (MYRBETRIQ) 25 mg Gv12Hwih 1 tablet by mouth once daily.Disp: 30 tabletRfl: 11 Prescriptions as of 04/06/2020 Sig: MIRABEGRON ER 25 MG TABLET,EX* Take 1 tablet by mouth once d* Problem List As Of Date: 04/06/2020 (None) Prescriptions ordered this encounter Disp Refills Start End MIRABEGRON ER 25 MG TABLET,EXTENDED * 30 t* 11 04/06/2020 Route: ORAL Sig: Take 1 tablet by mouth once daily. Disposition: Return for cystoscopy and hydrodistention. Follow-up and Disposition History Recorded Encounter Status:Closed by HIREN ORELLANA MD on 04/06/20 [facility] Otheron 04-06-2020 BILIRUBIN UA (POCT) Negative Negative [facility] CLARITY UA (POCT) Clear [facility] COLOR UA (POCT) Yellow [facility] GLUCOSE UA (POCT) Negative Negative mg/dL [facility] HEMOGLOBIN/BLOOD UA (POCT) Negative Negative [facility] KETONE UA (POCT) Negative Negative mg/dL [facility] LEUKOCYTES UA (POCT) Negative Negative [facility] NITRITE UA (POCT) Negative Negative [facility] PH UA (POCT) 7.0 4.5 - 8.0 [facility] Protein Ql (U) Negative Negative mg/dL [facility] SPECIFIC GRAVITY UA (POCT) 1.020 1.005 - 1.030 [facility] UROBILINOGEN UA (POCT) 0.2 E.U./dL Normal E.U./dL [facility] PROGRESSon 04-06-2020 PROGRESS HNO ID: [id number] Author: Hiren Orellana Service: ? Author Type: Physician Type: Progress Notes Filed: 04/06/2020 2:01 PM Note Text: NEW PATIENT HISTORY AND PHYSICAL EXAM HISTORY OF PRESENT ILLNESS: Deborah Jamison is a 20 year old female who presents as a new patient. Diagnosed with IC in [place] About 3 years ago and was placed on Elmiron Symptoms improved with Elmiron but recently stopped. Currently on Bactrim for uti. 1 uti this year. Voiding - every 15 min to an hour. Reduces water in am Nocturia x 1 Pain not leading issue. Has been on Calcium citrate and cranberry pills. History of Lyme disease. Gluten intolerance. She has been double voiding due to feeling of incomplete bladder emptying. We reviewed various treatment options. Will plan cystoscopy and hydrodistention and attempt to precert Myrbetriq. PVR = 12 ml REVIEW OF SYSTEMS: GENERAL:Fatigue, Positive for fever and chills ALLERGIC/IMMUNOLOGIC: drug allergies HEENT:sore throat RESPIRATORY: Severe COPD CARDIOVASCULAR: Negative for chest pain, leg swelling, hypertension, CHF or palpitations GASTROINTESTINAL: Constipation, diarrhea and indigestion GENITOURINARY: See HPI MUSCULOSKELETAL: back pain NEUROLOGIC:Positive for headaches: SKIN:Negative for lesions, rash, and itching MEDICATIONS: mirabegron (MYRBETRIQ) 25 mg Tb24 Take 1 tablet by mouth once daily. HISTORIES History reviewed. No pertinent past medical history. History reviewed. No pertinent family history. PAST SURGICAL HISTORY Procedure Laterality Date - APPENDECTOMY 2019 - EXCISION OF LINGUAL FRENUM (FRENECTOMY) Social History Tobacco Use - Smoking status: Not on file Substance Use Topics - Alcohol use: Not on file - Drug use: Not on file Physical Exam BP 138/88 Ht 162.6 cm (5' 4 ) Wt 65.8 kg (145 lb) BMI 24.89 kg/m? ASSESSMENT/PLAN: (N30.10) Interstitial cystitis (primary encounter diagnosis) (R35.0) Urinary frequency Plan: BLADDER SCAN Return for cystoscopy and hydrodistention. Normal [facility] Jatin 01-04-2019 EMERGENCY PHYSICIAN REPORT This is a preliminary report only, as the practitioner review and authentication has not occurred. Normal [facility] [place] ER PHYSICIAN ASSESSMENT RECORDS : FlexChartData Event Time: 01/04/2019 13:15 [facility] Status: Signed [facility] Deborah Jamison [[id number] ] Mid-Level Chart (V2b) / 2000 Chart created at 01/04/2019 13:09 by Schuyler Hart Chart closed at 01/04/2019 13:11 Entry in Emergency Department at 01/04/2019 11:54, departure at 01/04/2019 13:48 Patient Name: Deborah Jamison Record Number: [id number] Date: 01/04/2019 13:09 Entered Department at: 01/04/2019 11:54 Patient Seen at: 01/04/2019 12:59 Historian: Patient PCP: Dr. Meier Chief Complaint:Cat bite on Saturday on finger, now having neck pain, tingling in hands, dizziness. [facility] Nursing triage/initial assessment reviewed and confirmed and Initial Vital Signs reviewed. Temperature: 98.7 F (37.1 C). Pulse: 98. Respiratory Rate: 16. Blood-pressure: 128/69. Oxygen Saturation: 97%. History of Present Illness: 18-Year-old otherwise healthy female presents after a cat bite on Saturday, was started on Augmentin yesterday at [facility], has some tingling in her hand but no severe pain no drainage no fevers no streaking up into her hands. Mom is not sure if she needs rabies prophylaxis. [facility] PATIENT NAME: DEBORAH JAMISON Iris Nagel MEDICAL REC #: [id number] [place] [address] EMERGENCY DEPARTMENT REPORT EMERGENCY DEPARTMENT PHYSICIAN Review of Systems. Skin: Cat bite All other systems reviewed and negative.. Past History, Medications, Allergies, Social History and Family History reviewed in nurses note. Medications: Reviewed RN Note. ELMIRON 100MG CAPSULE - PO daily, tizanidine 2mg qhs, melatonin 5mg qhs, vitamin d3 71875 iu weekly, cranberry supplement daily, calcium citrate 4000mg daily, omega 3 daily, multivitamin daily, kenalog ointment prn, verified 01/04/19, magnesium daily, phenxophenadine daily Allergies: Reviewed RN Note Compazine(dystonia), Macrobid(Nausea and Vomiting) Social History: Reviewed RN Note. Family History: Reviewed RN Note Physical Examination: General: Alert and Well Developed; Well-appearing nontoxic HEENT: Normal ENT inspection. Eyes: Lids Normal; . Oropharynx / Throat: Normal Pharynx. Neck: Supple Respiratory: No Resp Distress and Normal Breath Sounds Cardio-Vascular: No murmur, No rub and RRR Abdomen: Normal Bowel Sounds, Non-tender and Soft Extremity: No edema Neurological: No Gross Weakness Skin: No rash, No Petechiae, Warm and Dry; Very small punctate puncture wound with no bleeding, no swelling or erythema no pain with passive stretch or range of motion no fusiform swelling of the affected digit Psychological: Mood/Affect Normal and Normal Memory/Judgment Medical Decision Making [facility] PATIENT NAME: DEBORAH JAMISON Iris Nagel MEDICAL REC #: [id number] [place] [address] EMERGENCY DEPARTMENT REPORT EMERGENCY DEPARTMENT PHYSICIAN Patient was bit by cat on Saturday, placed on Augmentin yesterday [facility], mom was concerned about the possibility of need a rabies vaccine. I do not feel this is indicated for a small superficial cat bite to the distal digit. Her tetanus is up-to-date, will continue Augmentin follow-up with handle lathe operator/primary care provider. Clinically no signs of flexor tenosynovitis or developing infection. Additional Information: Discussed Results, Diagnosis and Follow-Up with Patient. Clinical Impression: 1. Acute Cat bite Disposition: Discharged *Home. Condition: Fair Direct patient care supervision and electronic documentation review by Wilton Ghosh on 01/04/2019 18:34. : FlexChartData Event Time: 01/04/2019 13:45 Status: Signed [facility] Deborah Shaheen [[id number] ] Attending Physician / 2000 Addendum (V2b) Chart created at 01/04/2019 13:13 by Wilton Ghosh Chart closed at 01/04/2019 13:14 Entry in Emergency Department at 01/04/2019 11:54 Patient Name: Deborah Jamison Record Number: [id number] Date: 01/04/2019 13:13 Entered Department at: 01/04/2019 11:54 Patient Seen at: 01/04/2019 12:59 PCP: Dr. Meier [facility] PATIENT NAME: DEBORAH JAMISON [address] Nagel MEDICAL REC #: [id number] [place] [address] EMERGENCY DEPARTMENT REPORT EMERGENCY DEPARTMENT PHYSICIAN Chief Complaint:Cat bite on Saturday on finger, now having neck pain, tingling in hands, dizziness. Put on augmentin on Saturday by [facility]. Medical Decision Making Patient has healed over tiny puncture wound without sign of obvious infection. Patient is nontoxic-appearing at this time. Patient was bitten by a kitten in [facility]. I feel risk of rabies at this time is very low risk and she will follow-up in the office. MSE completed. I was the primary ED attending.. I confirm that I have reviewed the mid-level providers documentation and agree with the evaluation, plan of care and disposition.. : Discharge Report Event Time: 01/04/2019 13:12 ===DISCHARGE REPORT=== : FlexChartData Event Time: 01/04/2019 13:15 AUBREYHA : JoshuaDateressa Event Time: 01/04/2019 13:45 : Discharge Report Event Time: 01/04/2019 13:12 Status: Draft Reasons to Return to the ER: You must return to the ER for any new, worsening or changing symptoms, or if you feel more ill or sick in any way. This is the most important thing to remember. Follow-up: The care you received in the ER was given on an emergency basis only, and it is often not possible to completely treat or diagnose a problem in a single ER visit. You must see your follow-up doctor for a [facility] PATIENT NAME: DEBORAH JAMISON [address] Nagel MEDICAL REC #: [id number] [place] [address] EMERGENCY DEPARTMENT REPORT EMERGENCY DEPARTMENT PHYSICIAN recheck within a week unless you receive instructions with a different timeframe for follow-up. Please follow all your discharge instructions. Medications: Unless the ER doctor tells you differently, you should take all your regular medications and any new medications prescribed today. Because it is not possible for the ER doctor to review all of your medication side effects or interactions, you must review possible side effects and interactions with your pharmacist when you get your prescriptions filled. EKG and Radiology Results: A hand sander or radiologist will review any EKG or radiology results provided by the ER doctor. We will contact you if the results in the final EKG or radiology reports require a change in treatment. Culture Results: Cultures may have been ordered during your ER visit. We will contact you if the culture results require a change in treatment. Referrals: Most referrals to specialists come from the on-call list You should make your regular doctor aware of any referrals before you schedule the appointment so that they are aware and can make suggestions DIAGNOSIS: Acute Cat bite INSTRUCTIONS: Continue Augmentin, return to the ER for worsening redness, increased pain, swelling of the finger fevers or any other concerning symptoms. REFERRAL [facility] PATIENT NAME: DEBORAH JAMISON [address] Nagel MEDICAL REC #: [id number] [place] [address] EMERGENCY DEPARTMENT REPORT EMERGENCY DEPARTMENT PHYSICIAN Your regular doctor(s) Please call the above number to schedule a follow-up appointment. 2-3 days MEDICATIONS We have given you these prescriptions that you must fill and start taking: None COMMENTS: Patient Satisfaction: Within the first few days after your visit, you will receive an email and/or phone call regarding your visit. We value your feedback, and would appreciate it if you would take the time to complete this short survey. If you receive a call, it will be between 6p and 8p. My signature below indicates that I have received and understand the oral instructions regarding my medical problem. I also acknowledge receipt of this written instruction sheet including a list of major tests and procedures ordered during my visit. I will arrange for follow-up care as indicated by these instructions and referrals. This signed original will be kept in my medical record. Your signature below indicates consent for Case Management to contact [facility] providers in an effort to meet your ongoing healthcare needs. This will allow forcontinuity of care once you leave the Emergency Department. This exchange of informationwill include, but not be limited to, disclosure of your patient information and possible release of records. ==== DEMOGRAPHICS [employer] Patient: DEBORAH JAMISON Sex: F [facility] PATIENT NAME: DEBORAH JAMISON [address] [place] MEDICAL REC #: [id number] [place] [address] EMERGENCY DEPARTMENT REPORT EMERGENCY DEPARTMENT PHYSICIAN : 2000 Age: 18 yr Account No: [id number] Registration Date: 01/04/2019 Address: [address] [place] [address] Address: [place] [address] REGISTRATION ED Number: [id number] Marital Status: S Financial Class: FED[employer] TRIAGE Priority: 4 - Semi Urgent Complaint: Bite, Hand Stated Complaint: Cat bite on Saturday on finger, now having neck pain, tingling in hands, dizziness. Put on augmentin on Saturday by [facility]. Arrival Date: 01/04/2019 11:54 Triage Date: 01/04/2019 12:02 Mode of Arrival: *Privately Owned Vehicle Transfer From: * Home WC: N Language: Maori Transport: Ambulatory/Walk In BED E39 In: 01/04/2019 12:54:57 01/04/2019 12:54:57 LLP E39 (Removed From) Out: 01/04/2019 12:58:42 01/04/2019 12:58:42 AMLB E40 In: 01/04/2019 12:58:42 01/04/2019 12:58:42 AMLB E40 (Removed From) Out: 01/04/2019 13:48:57 01/04/2019 13:48:57 EALA [facility] PATIENT NAME: DEBORAH JAMISON [address] [place] MEDICAL REC #: [id number] [place] [address] EMERGENCY DEPARTMENT REPORT EMERGENCY DEPARTMENT PHYSICIAN PROVIDERS REGINALDO ESPINO Provider Contact: 01/04/2019 12:58:55 EALA End: ANGELICA Hart Provider Contact: 01/04/2019 12:59:15 SHABANA End: MD Wilton Ghosh Provider Contact: 01/04/2019 12:59:27 MR End: TRIAGE HISTORY ALLERGIES Allergic To: Compazine - dystonia 01/04/2019 12:09 LLP Allergic To: Macrobid - Nausea and Vomiting 01/04/2019 12:09 LLP CURRENT MEDS Name: ELMIRON 100MG CAPSULE - PO daily 01/04/2019 12:09 LLP Name: tizanidine 2mg qhs 01/04/2019 12:09 LLP Name: melatonin 5mg qhs 01/04/2019 12:09 LLP Name: vitamin d3 86134 iu weekly 01/04/2019 12:09 LLP Name: cranberry supplement daily 01/04/2019 12:09 LLP Name: calcium citrate 4000mg daily 01/04/2019 12:09 LLP Name: omega 3 daily 01/04/2019 12:09 LLP Name: multivitamin daily 01/04/2019 12:09 LLP Name: kenalog ointment prn 01/04/2019 12:09 LLP [facility] PATIENT NAME: DEBORAH JAMISON [address] [place] MEDICAL REC #: [id number] [place] [address] EMERGENCY DEPARTMENT REPORT EMERGENCY DEPARTMENT PHYSICIAN Name: verified 01/04/19 01/04/2019 12:09 LLP Name: magnesium daily 01/04/2019 12:09 LLP Name: phenxophenadine daily 01/04/2019 12:09 LLP ILLNESS Illness: Other Medical Asbergers 01/04/2019 12:09 LLP Illness: Other Medical seizure october 29 + EEG 01/04/2019 12:09 LLP Illness: Other Medical Lyme disease 01/04/2019 12:09 LLP Illness: Other Medical interstitial cystitis 01/04/2019 12:09 LLP Illness: Other Medical lilchens sclerosis 01/04/2019 12:09 LLP PAST SURGERY HIST Surgery: tongues clipped 01/04/2019 12:09 LLP Surgery: Appendectomy 01/04/2019 12:09 LLP PAST SOCIAL HIST Social History: Behavior age appropriate 01/04/2019 12:09 LLP Social History: Communicates without difficulty 01/04/2019 12:09 LLP 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 [place] MEDICAL REC #: [id number] [place] [address] EMERGENCY DEPARTMENT REPORT EMERGENCY DEPARTMENT PHYSICIAN ASSESSMENT NOTES 01/04/2019 13:06 pt states she was had a feral kitten bite her lt pinkie, pt states since she hasnt been feeling well and has had tingling in her arm and achy feelings, pt finger has a small pin point black cora on pt has no neuro deficits or respiratory distress noted 01/04/2019 13:09 EALA 01/04/2019 13:47 Pt mother upset at this time about not receiving rabies series, pt mother spoke with ANDREA Hart at time of DC and was informed the series is not necessary at this time and she could follow up with her primary care Dr and the Health department if she felt she needed it, pt informed of symptoms to return to ED if her symptoms worsened or she felt the need to be reevaluated. pt left ED in no physical distress at this time with a steady gait. 01/04/2019 13:48 EALA TREATMENT 01/04/2019 12:09 Trauma Time Activation - 3. Trauma Evaluation Called @ 1209 01/04/2019 12:10 LLP 01/04/2019 13:13 Primary DOC Guide - A. 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 Fall Risk Assessment (Age andlt;65) 01/04/2019 13:14 EALA History of Falling in last 3 months? No (0) Confusion or Disorientation? No (0) [facility] PATIENT NAME: DEBORAH JAMISON [address] [place] MEDICAL REC #: [id number] [place] [address] EMERGENCY DEPARTMENT REPORT EMERGENCY DEPARTMENT PHYSICIAN Intoxicated or Sedated? No (0) Impaired Gait? No (0) Mobility Assist Device Used? No (0) Altered Elimination? No (0) Fall Risk Score 1-2 Points = Low Risk. 3-4 Points = Moderate Risk. 5 or more points = High Risk. 0 Fall Score Greater andgt;= 3? No 01/04/2019 13:14 Primary DOC Guide - D. Psychosocial Assessment 01/04/2019 13:14 EALA Over the Last 2 weeks, how often have you had little interest or pleasure in doing things (0) Not at All Is Psychosocial Assessment Score 3 or more? If score is 3 or more please consult ED Navigator! No Total Psychosocial Assessment Score 0 Over the last 2 weeks, how often have you been feeling down, depressed or hopeless (0) Not at All 01/04/2019 13:14 Primary DOC Guide - E. Family Violence Assessment 01/04/2019 13:14 EALA Within the past year, has anyone ever pushed, shoved, slapped, choked, hit, punched or kicked you: No Within the past year, has anyone ever pressured or forced you to have sexual activities when you did not want to: No Do you feel safe and well cared for: Yes Is there a partner from a previous or current relationship that is making you feel unsafe now: No Family Violence Clinical Observation All Negative Except 01/04/2019 13:48 Admit/Discharge - *Discharge instructions/tests andamp; procedures/med list reviewed and provided; prescriptions given to caregiver 01/04/2019 13:48 EALA 01/04/2019 13:48 Admit/Discharge - Ambulated with steady gait home 01/04/2019 13:48 EALA 01/04/2019 13:48 Admit/Discharge - Discharge 01/04/2019 13:48 EALA MEDICATIONS [facility] PATIENT NAME: DEBORAH JAMISON [address] [place] MEDICAL REC #: [id number] [place] [address] EMERGENCY DEPARTMENT REPORT EMERGENCY DEPARTMENT PHYSICIAN IV I AND O VITALS VS-ROUTINE Time: 01/04/2019 12:02 B/P: 128/69 - Right Upper Arm - Sitting - Machine Pulse: 98 - Monitor Resp: 16 Sa02: 97 Room Air Temp: 98.70 F - Oral 01/04/2019 12:09 LLP VS-Pain Time: 01/04/2019 12:02 Pain Level: 0 01/04/2019 12:09 LLP VS-GCS Time: 01/04/2019 12:02 Visual: 4 Verbal: 5 Motor: 6 GCS Total: 15 01/04/2019 12:09 LLP VS-HT/WT Time: 01/04/2019 12:02 Ht: 69 in. Stated Weight: 156 lbs Stated 01/04/2019 12:09 LLP VS-Visual Time: 01/04/2019 12:02 01/04/2019 12:09 LLP VS-FHT Time: 01/04/2019 12:02 01/04/2019 12:09 LLP VS-Notes Time: 01/04/2019 12:02 map 91 01/04/2019 12:09 LLP VS-ROUTINE Time: 01/04/2019 13:40 B/P: 111/63 - Left Upper Arm - Sitting - Machine Pulse: 87 - Monitor Resp: 18 Sa02: 98 01/04/2019 13:41 EALA VS-Pain Time: 01/04/2019 13:40 Pain Level: 0 01/04/2019 13:41 EALA VS-GCS Time: 01/04/2019 13:40 Visual: 4 Verbal: 5 Motor: 6 GCS Total: 15 01/04/2019 13:41 EALA VS-HT/WT Time: 01/04/2019 13:40 01/04/2019 13:41 EALA VS-Visual Time: 01/04/2019 13:40 01/04/2019 13:41 EALA VS-FHT Time: 01/04/2019 13:40 01/04/2019 13:41 EALA VS-Notes Time: 01/04/2019 13:40 map 82 01/04/2019 13:41 EALA ORDERS Discharge patient 01/04/2019 13:14 N/A Ordered: 01/04/2019 13:12 By . Other [facility] PATIENT NAME: DEBORAH JAMISON [address] MEDICAL REC #: [id number] [place] [address] EMERGENCY DEPARTMENT REPORT EMERGENCY DEPARTMENT PHYSICIAN Reviewed: 01/04/2019 13:14 By . Other DISCHARGE Diagnosis: Acute Cat bite 01/04/2019 13:12 Disposition: Time: 01/04/2019 13:12 Discharge Time: 01/04/2019 13:48 Type: *Discharge Condition: Stable for admission/discharge/diaz sfer after emergency evaluation/treatment Category: *NOT APPLICABLE Referral: 01/04/2019 13:12 Admit Physician: . Other PRESCRIPTIONS CHARGES SIGNATURE [place] [facility] PATIENT NAME: DEBORAH JAMISON Iris [address] MEDICAL REC #: [id number] [place] [address] EMERGENCY DEPARTMENT REPORT EMERGENCY DEPARTMENT PHYSICIAN [facility] Judith Chowdary [facility] Vital Signs Date Time Vital Sign Value Performing Clinician Facility 03-18-2024 16:03-0400 Body temperature 98.49 [degF] Sampson Cespedes MD Work Phone: [facility] 03-18-2024 16:03-0400 Body weight 73.9 kg Sampson Cespedes MD Work Phone: [facility] 03-18-2024 16:03-0400 Diastolic blood pressure 82 mm[Hg] Sampson Cespedes MD Work Phone: [facility] 03-18-2024 16:03-0400 Heart rate 92 /min Sampson Cespedes MD Work Phone: [facility] 03-18-2024 16:03-0400 Respiratory rate 18 /min Sampson Cespedes MD Work Phone: [facility] 03-18-2024 16:03-0400 SaO2% (BldA) [Mass fraction] 99 % Sampson Cespedes MD Work Phone: [facility] 03-18-2024 16:03-0400 Systolic blood pressure 120 mm[Hg] Sampson Cespedes MD Work Phone: [facility] 03-14-2024 14:44-0400 Body temperature 98.71 [degF] Bruno Ramos RECEIVING CHECKER.TURBINE OPERATOR Work Phone: [facility] 03-14-2024 14:44-0400 Body weight 72.8 kg Bruno Ramos RECEIVING CHECKER.TURBINE OPERATOR Work Phone: [facility] 03-14-2024 14:44-0400 Diastolic blood pressure 78 mm[Hg] Bruno Ramos APRN.TURBINE OPERATOR Work Phone: [facility] 03-14-2024 14:44-0400 Heart rate 99 /min Bruno Ramos APRN.TURBINE OPERATOR Work Phone: [facility] 03-14-2024 14:44-0400 Respiratory rate 18 /min Bruno Ramos APRN.TURBINE OPERATOR Work Phone: [facility] 03-14-2024 14:44-0400 SaO2% (BldA) [Mass fraction] 97 % Bruno Ramos APRN.TURBINE OPERATOR Work Phone: [facility] 03-14-2024 14:44-0400 Systolic blood pressure 110 mm[Hg] Bruno Ramos APRN.TURBINE OPERATOR Work Phone: [facility] 09-27-2021 22:44-0400 Body temperature 97.3 [degF] Deandra Chua MD Work Phone: [facility] 09-27-2021 22:44-0400 Diastolic blood pressure 75 mm[Hg] Deandra Chua MD Work Phone: [facility] 09-27-2021 22:44-0400 Heart rate 77 /min Deandra Chua MD Work Phone: [facility] 09-27-2021 22:44-0400 Respiratory rate 18 /min Deandra Chua MD Work Phone: [facility] 09-27-2021 22:44-0400 Systolic blood pressure 121 mm[Hg] Deandra Chua MD Work Phone: [facility] 09-27-2021 21:02-0400 Body weight 73 kg Deandra Chua MD Work Phone: [facility] 09-27-2021 21:02-0400 SaO2% (BldA) [Mass fraction] 100 % Deandra Chua MD Work Phone: [facility] 04-06-2020 13:18-0400 Body weight 65.77 kg [facility] 04-06-2020 13:18-0400 BP Diastolic 88 mm[Hg] [facility] 04-06-2020 13:18-0400 BP Systolic 138 mm[Hg] [facility] 04-06-2020 13:18-0400 Height 162.6 cm [facility] Encounters Encounter Date Encounter Type Care Provider Facility Start: 03-18-2024 End: 03-18-2024 Office outpatient visit 15 minutes Sampson Cespedes MD Work Phone: [facility] Comment on above: URI, acute (Primary Dx) Start: 03-14-2024 End: 03-14-2024 ambulatory SELF Facility:[facility] Start: 03-14-2024 End: 03-14-2024 Patient encounter procedure Bruno Ramos DOE Work Phone: [facility] Comment on above: URI, acute (Primary Dx) Start: 09-27-2021 End: 09-28-2021 Emergency department patient visit Deandra Chua MD Work Phone: [facility] Comment on above: Anxiety state (Prima ry Dx); Pain in right paraspinal region; Nausea without vomiting; Numbness Start: 01-09-2021 End: 01-10-2021 ambulatory [facility] Start: 04-07-2020 End: 04-07-2020 Telephone encounter Hiren Orellana Work Phone: Urology Comment on above: Return To Work Lette r Start: 04-06-2020 End: 04-06-2020 Patient encounter procedure Hiren Orellana Work Phone: Urology Comment on above: Interstitial cystiti s (Primary Dx); Urinary frequency Procedures Date Procedure Procedure Detail Performing Clinician Start: 09-28-2021 Blood count hemoglobin Comment on above: Order Comment: Relea se to patient->Automatic 01303&Blood Reason for preventing automatic release->Other Release to patient->Manual release only 36765&Urine Release to patient->Automatic 13210&Urine Performed By: #### U ACOM #### [facility]'[address] [address] Start: 09-27-2021 RESPIRATORY PANEL FI LM ARRAY Deandra Chua MD Work Phone: Start: 09-27-2021 CBC W Auto Different ial panel - Blood Aditya Bourne DO Work Phone: Start: 09-27-2021 Comprehensive metabo lic 2000 panel - Serum or Plasma Aditya Bourne DO Work Phone: Start: 09-27-2021 HCG, URINE Aditya Bourne DO Work Phone: Start: 09-27-2021 Thyrotropin [Units/v olume] in Serum or Plasma Aditya Bourne DO Work Phone: Start: 09-27-2021 Urinalysis complete panel - Urine Aditya Bourne DO Work Phone: Start: 09-27-2021 URINALYSIS, AUTOMATED-[place] Aditya Bourne DO Work Phone: Start: 09-27-2021 Radiologic exam ches t 2 views Aditya Bourne DO Work Phone: Start: 04-06-2020 BLADDER SCAN Hiren [employer] Work Phone: Start: 04-06-2020 Urnls dip stick/tabl et rgnt auto w/o microscopy Hiren [employer] Work Phone: Plan of Treatment Date Care Activity Detail Author Start: 01-25-2025 Tetanus Diphtheria a nd Pertussis Vaccines (7 - Td or Tdap) Tetanus Diphtheria and Pertussis Vaccines (7 - Td or Tdap) [facility] Start: 01-25-2025 Urine microalbumin profile DTaP,Tdap,Td Vaccine (7 - Td or Tdap) [facility] Start: 2023 Screening for malign ant neoplasm of cervix Cervical Cancer Screening [facility] Start: 03-28-2022 End: 03-28-2022 Patient encounter procedure 03/28/2022 Office Visit [facility] Archie Gibbs MD [place], [place] [id number] Physiat[facility] - [place] Start: 11-23-2021 End: 11-23-2021 ambulatory 11/23/2021 Telehealth Neurology Timmy Hoskins MD [place], [place] [id number] [facility] - [place] Start: 01-19-2021 Well Visit Well Visit [facility] Start: 2020 Anxiety Screening Anxiety Screening [facility] Start: 2020 CHLAMYDIA SCREENING (18-24) CHLAMYDIA SCREENING (18-24) [facility] Start: 2020 Depression Screening Depression Scre ening [facility] Start: 2020 GC (GONORRHEA) SCREE DAVID (18-24) GC (GONORRHEA) SCREENING (18-24) [facility] Start: 2020 Hearing Screening Hearing Screening [facility] Start: 2020 HEPATITIS C SCREENING HEPATITIS C [facility] Start: 2020 Hepatitis C screening Hepatitis C [facility] Start: 2020 HIV SCREENING HIV SCREENING [facility] Start: 2020 HIV screening HIV Screening [facility] Start: 2020 Screening for Chlamy gabriela trachomatis Chlamydia Screening (18) [facility] Start: 2018 MENINGOCOCCAL CONJUG ATE (1 - 2-dose series) MENINGOCOCCAL CONJUGATE (1 - 2-dose series) [facility] Start: 2017 HPV Vaccine (1 - 3-d ose series) HPV Vaccine (1 - 3-dose series) [facility] Start: 2016 Peds To Adult Transi tion Annual Assessment Peds To Adult Transition Annual Assessment [facility] Start: 2014 Peds To Adult Transi tion Initial Discussion Peds To Adult Transition Initial Discussion [facility] Start: 2014 PHQ-A PHQ-A [facility] Start: 2013 HPV (1 - 2-dose series) HPV (1 - 2-d ose series) [facility] Start: 2013 HPV VACCINE (1 - 2-d ose series) HPV VACCINE (1 - 2-dose series) [facility] Start: 2012 MENINGOCOCCAL B: Consider based on risk (1 of 2 - Risk Bexsero 2-dose series) MENINGOCOCCAL B: Consider based on risk (1 of 2 - Risk Bexsero 2-dose series) [facility] Start: 2009 Urine microalbumin profile DTAP,TDAP,TD (1 - Tdap) [facility] Start: 2003 MMR (1 of 2 - Standa rd series) MMR (1 of 2 - Standard series) [facility] Start: 2003 VARICELLA (1 of 2 - 2-dose childhood series) VARICELLA (1 of 2 - 2-dose childhood series) [facility] Start: 2002 HEPATITIS B (1 of 3 - 3-dose primary series) HEPATITIS B (1 of 3 - 3-dose primary series) [facility] End: 09-27-2021 Ecg routine ecg w/least 12 lds i&r only [facility] Work Phone: Comment on above: One Time for 1 Occur renroxana starting 09/27/2021 until 09/27/2021 Immunizations Immunization Date Immunization Notes Care Provider Oleksandr lujan 10-05-2020 PFIZER (purple cap) COVID-19, mRNA, LNP-S, 30mcg/0.3mL dose Deandra Chua MD Work Phone: [facility] 03-31-2020 influenza, injectabl e, quadrivalent, preservative free Deandra Chua MD Work Phone: [facility] 01-20-2020 meningococcal B vacc ine, recombinant, OMV, adjuvanted Deandra Chua MD Work Phone: [facility] 04-06-2019 Influenza Vaccine 0. 5 Ml >= 6 Mo (FLULAVAL)(FLUARIX) Quadrivalent (PF) Deandra Chua MD Work Phone: [facility] 12-31-2018 meningococcal B vacc ine, recombinant, OMV, adjuvanted Deandra Chua MD Work Phone: [facility] 11-19-2018 meningococcal polysaccharide (groups A, C, Y and W-135) diphtheria toxoid conjugate vaccine (MCV4P) Deandra Chua MD Work Phone: [facility] 03-16-2018 Influenza Vaccine 0. 5 Ml >= 6 Mo (FLULAVAL)(FLUARIX) Quadrivalent (PF) Deandra Chua MD Work Phone: [facility] Work Phone: 04-07-2017 hepatitis A vaccine, pediatric/adolescent dosage, 2 dose schedule Deandra Chua MD Work Phone: [facility] 04-28-2015 influenza, injectabl e, quadrivalent, preservative free Deandra Chua MD Work Phone: [facility] 01-25-2015 meningococcal polysaccharide (groups A, C, Y and W-135) diphtheria toxoid conjugate vaccine (MCV4P) Deandra Chua MD Work Phone: [facility] 01-25-2015 tetanus toxoid, redu sonia diphtheria toxoid, and acellular pertussis vaccine, adsorbed Deandra Chua MD Work Phone: [facility] 04-15-2014 influenza, injectabl e, quadrivalent, preservative free Deandra Chua MD Work Phone: [facility] 07-10-2013 influenza, injectabl e, quadrivalent, preservative free Deandra Chua MD Work Phone: [facility] 03-01-2010 varicella virus vaccine Lizbet Chua MD Work Phone: [facility] 01-19-2008 hepatitis A vaccine, pediatric/adolescent dosage, 2 dose schedule Deandra Chua MD Work Phone: [facility] 02-27-2007 diphtheria, tetanus toxoids and acellular pertussis vaccine Deandra Chua MD Work Phone: [facility] 02-27-2007 measles, mumps and rubella virus vaccine Deandra Chua MD Work Phone: [facility] 02-27-2007 poliovirus vaccine, inactivated Deandra Chua MD Work Phone: [facility] 10-08-2003 haemophilus influenz ae type b vaccine, PRP-T conjugate Deandra Chua MD Work Phone: [facility] 10-04-2003 diphtheria, tetanus toxoids and acellular pertussis vaccine Deandra Chua MD Work Phone: [facility] 07-02-2003 measles, mumps and rubella virus vaccine Deandra Chua MD Work Phone: [facility] 2003 pneumococcal conjuga te vaccine, 13 valent Deandra Chua MD Work Phone: [facility] 2003 poliovirus vaccine, inactivated Deandra Chua MD Work Phone: [facility] 2003 varicella virus vaccine Lizbet Chua MD Work Phone: [facility] 2002 diphtheria, tetanus toxoids and acellular pertussis vaccine Deandra Chua MD Work Phone: [facility] 2002 haemophilus influenz ae type b vaccine, PRP-T conjugate Deandra Chua MD Work Phone: [facility] 2002 hepatitis B vaccine, pediatric or pediatric/adolescent dosage Deandra Chua MD Work Phone: [facility] 2002 diphtheria, tetanus toxoids and acellular pertussis vaccine Deandra Chua MD Work Phone: [facility] 2002 haemophilus influenz ae type b vaccine, PRP-T conjugate Deandra Chua MD Work Phone: [facility] 2002 pneumococcal conjuga te vaccine, 13 valent Deandra Chua MD Work Phone: [facility] 2002 poliovirus vaccine, inactivated Deandra Chua MD Work Phone: [facility] 2002 diphtheria, tetanus toxoids and acellular pertussis vaccine Deandra Chua MD Work Phone: [facility] 2002 haemophilus influenz ae type b vaccine, PRP-T conjugate Deandra Chua MD Work Phone: [facility] 2002 pneumococcal conjuga te vaccine, 13 valent Deandra Chua MD Work Phone: [facility] 2002 poliovirus vaccine, inactivated Deandra Chua MD Work Phone: [facility] 2002 hepatitis B vaccine, pediatric or pediatric/adolescent dosage Deandra Chua MD Work Phone: [facility] 2002 hepatitis B vaccine, pediatric or pediatric/adolescent dosage Deandra Chua MD Work Phone: [facility] Payers Date Payer Category Payer Unknown [facility] [id number] 2020-Present Indemnity [id number] 2020 Unknown [facility] [id number] 2020-Present [phone] [place] [id number] Indemnity [id number] 2020 [employer] ( [employer] others) [id number] 2017 [employer] ( and others) [facility] [id number] 2017-Present [phone] [place] [id number] 2002 Unknown [id number] 1959 [employer] ( and others) [id number] Social History Date Type Detail Facility Start: 04-06-2020 Tobacco smoking status NHIS Un known if ever smoked [facility] Start: 2002 Sex Assigned At Not on file [facility] Start: 09-05-2021 End: 09-15-2021 Exposure to SARS-CoV-2 (event) Not sure [facility] Start: 04-07-2020 End: 03-14-2024 Tobacco smoking status NHIS Never smoker [facility] [facility] Start: 04-07-2020 End: 03-14-2024 Tobacco use and exposure Never used [facility] Start: 04-07-2020 End: 03-18-2024 Alcohol intake Lifetime non-drinker (finding) [facility] Start: 04-07-2020 History SDOH Alcohol Frequency 1 [facility] Start: 09-19-2021 Alcohol intake Ex-drinker (finding) [facility] Start: 04-07-2020 End: 05-31-2020 History of Social function [facility] Start: 04-07-2020 End: 05-31-2020 Alcohol Use Disorder Identification Test - Consumption [AUDIT-C] [facility] How often to you hav e a drink containing alcohol? Never [facility] Average Number of Drinks Not on file [facility] Clinical Notes 09-27-2021 to 03-18-2024 Sampson Cespedes MD - 03/18/2024 4:31 PM Bruno Butler APRN.BRAULIO - 03/14/2024 2:58 PM Elis Leon RN - 09/28/2021 12:21 AM Elis Leon RN - 09/28/2021 12:21 AM EDTAttachments Note Date & Type Note Facility 03-18-2024 History of Present illness Narrative Patient presents with: Medication Problem: Reaction to prednisone HPI: Treated here 03/14/2024 for URI. She was prescribed prednisone for hoarse voice. Immediately after her first dose she had hot flashes, nausea, chest pain, fatigue, mental fogginess, and mood swings. She attempted to take 1 pill again yesterday and had similar symptoms. She continues to have upper respiratory symptoms but her hoarse voice has improved. Positive symptoms: Cough, Nasal Congestion, Rhinorrhea, Fatigue, body feels heavy Negative symptoms: Fever, MEDICATIONS: Current Outpatient Medications Medication Sig gabapentin (NEURONTIN) 100 mg capsule Take 300 mg by mouth daily at bedtime. tiZANidine (ZANAFLEX) 4 mg tablet Take 4 mg by mouth. SUMAtriptan (IMITREX) 25 mg tablet levonorgestrel (KYLEENA) 17.5 mcg/24 hr (5 yrs) 19.5 mg IUD Take by intrauterine route. fluticasone-salmeterol (WIXELA INHUB) 250-50 mcg/dose inhaler ferrous sulfate 325 mg (65 mg iron) tablet Take 325 mg by mouth daily with breakfast. albuterol HFA (PROVENTIL HFA, VENTOLIN HFA) 90 mcg/actuation inhaler cetirizine (ZYRTEC) 10 mg tablet TAKE 1 TABLET BY MOUTH ONCE DAILY NEEDED FOR ALLERGIES predniSONE (DELTASONE) 20 mg tablet Take 2 tablets by mouth once daily for 5 days. guaiFENesin (MUCINEX) 600 mg 12 hr tablet Take 1 tablet by mouth two times a day as needed for cold/allergy symptoms (cough) for up to 7 days. mirabegron (MYRBETRIQ) 25 mg Tb24 Take 1 tablet by mouth once daily. (Patient not taking: Reported on 03/14/2024) No current facility-administered medications for this visit. ALLERGIES: ALLERGIES Allergen Reactions Honey Unknown, Other: See Comments + on allergy testing + on allergy testing Nitrofurantoin Vomiting FEVER, MUSCLE SPASMS FEVER, MUSCLE SPASMS Prochlorperazine Dystonia Other reaction(s): Dystonia Per mother @ 02/16/49 GI visit. Per mother @ 02/16/49 GI visit. VITALS: BP 120/82 Pulse 92 Temp 36.9 C (98.5 F) (Tympanic) Resp 18 Wt 73.9 kg (162 lb 14.7 oz) SpO2 99% PHYSICAL EXAM: GEN: mildly ill appearing HEENT: PERRL, EOMI, conjunctiva clear Ears: canals clear. TMs without erythema, bulge, or effusion Sinuses: non-tender frontal sinus, non-tender maxillary sinuses Throat: moist mucous membranes, no erythema, no exudate Neck: supple, no thyromegaly, no lymphadenopathy HEART: borderline fast rate and regular rhythm, no murmurs LUNGS: clear to auscultation, no wheezes or crackles, no increased WOB ASSESSMENT/PLAN: 1. URI, acute - ICD9: 465.9, ICD10: J06.9 Discontinue prednisone. Continue supportive care for viral upper respiratory infection. She requests medication to help with mucus and congestion. - GUAIFENESIN ER 600 MG TABLET, EXTENDED RELEASE 12 HR Avoid decongestant which can elevate heart rate and increase anxiety. Avoid antihistamine which can increase fatigue and mental fogginess. Sampson Cespedes MD documented in this encounter [facility] 03-14-2024 Note HNO ID: [id number] Author: BRUNO RAMOS APRN.TURBINE OPERATOR Service: ? Author Type: Nurse Practitioner Type: Progress Notes Filed: 03/14/2024 15:06 Note Text: Subjective HPI HPI Deborah Jamison is a 23 year old female who presents today for CC of cough, congestion, loss voice. This started 2 days ago. Has tried otc medication for relief. Symptoms are worsened by nothing. Risk factors hx of long covid. Denies possibility of being . nonsmoker. .Patient presents with: Cough: Cough and no voice x 2 days PAST MEDICAL HISTORY Diagnosis Date Anxiety Asperger's disorder Bladder infection GERD (gastroesophageal reflux disease) IBS (irritable bowel syndrome) IC (interstitial cystitis) Migraines UTI (urinary tract infection) PAST SURGICAL HISTORY Procedure Laterality Date APPENDECTOMY 2019 EXCISION LINGUAL FRENUM FRENECTOMY ALLERGIES Honey, Nitrofurantoin, and Prochlorperazine MEDICATIONS gabapentin (NEURONTIN) 100 mg capsule Take 300 mg by mouth daily at bedtime. tiZANidine (ZANAFLEX) 4 mg tablet Take 4 mg by mouth. SUMAtriptan (IMITREX) 25 mg tablet levonorgestrel (KYLEENA) 17.5 mcg/24 hr (5 yrs) 19.5 mg IUD Take by intrauterine route. fluticasone-salmeterol (WIXELA INHUB) 250-50 mcg/dose inhaler ferrous sulfate 325 mg (65 mg iron) tablet Take 325 mg by mouth daily with breakfast. albuterol HFA (PROVENTIL HFA, VENTOLIN HFA) 90 mcg/actuation inhaler cetirizine (ZYRTEC) 10 mg tablet TAKE 1 TABLET BY MOUTH ONCE DAILY NEEDED FOR ALLERGIES predniSONE (DELTASONE) 20 mg tablet Take 2 tablets by mouth once daily for 5 days. mirabegron (MYRBETRIQ) 25 mg Tb24 Take 1 tablet by mouth once daily. (Patient not taking: Reported on 03/14/2024) FAMILY HISTORY Problem Relation Age of Onset Hypertension Maternal Grandmother Hypertension Maternal Grandfather Breast Cancer Paternal Grandmother Hypertension Paternal Grandmother Prostate Cancer Paternal Grandfather Thyroid Cancer Paternal Grandfather Diabetes Paternal Grandfather Hypertension Paternal Grandfather Social History Tobacco Use Smoking status: Never Smokeless tobacco: Never Vaping Use Vaping status: Never Used Substance Use Topics Alcohol use: Never Review of Systems Constitutional: Negative for fever. HENT: Positive for congestion. Negative for ear pain, nosebleeds and sore throat. Respiratory: Positive for cough. Negative for shortness of breath and wheezing. Musculoskeletal: Negative for neck pain. Skin: Negative for itching and rash. Objective Blood pressure 110/78, pulse 99, temperature 37.1 ?C (98.7 ?F), temperature source Tympanic, resp. rate 18, weight 72.8 kg (160 lb 7.9 oz), SpO2 97%. Physical Exam Constitutional: General: She is not in acute distress. Appearance: She is not toxic-appearing or diaphoretic. HENT: Head: Normocephalic and atraumatic. Cardiovascular: Rate and Rhythm: Normal rate and regular rhythm. Heart sounds: Normal heart sounds, S1 normal and S2 normal. Pulmonary: Effort: Pulmonary effort is normal. Breath sounds: Normal breath sounds. Lymphadenopathy: Cervical: No cervical adenopathy. Right cervical: No superficial cervical adenopathy. Left cervical: No superficial cervical adenopathy. Neurological: Mental Status: She is alert and oriented to person, place, and time. Gait: Gait is intact. ASSESSMENT/PLAN: 1. URI, acute - ICD9: 465.9, ICD10: J06.9 - Discussed viral etiology and rationale for treatment. - Symptomatic treatment with prn analgesia - Supportive care with fluids and rest - Follow up in 3-5 days if symptoms persist or sooner if worsening of symptoms Declines covid testing. - PREDNISONE 20 MG TABLET Bruno Ramos APRN.[facility] 03-14-2024 History of Present illness Narrative Subjective HPI HPI Deborah Jamison is a 23 year old female who presents today for CC of cough, congestion, loss voice. This started 2 days ago. Has tried otc medication for relief. Symptoms are worsened by nothing. Risk factors hx of long covid. Denies possibility of being . nonsmoker. .Patient presents with: Cough: Cough and no voice x 2 days PAST MEDICAL HISTORY Diagnosis Date Anxiety Asperger's disorder Bladder infection GERD (gastroesophageal reflux disease) IBS (irritable bowel syndrome) IC (interstitial cystitis) Migraines UTI (urinary tract infection) PAST SURGICAL HISTORY Procedure Laterality Date APPENDECTOMY 2019 EXCISION LINGUAL FRENUM FRENECTOMY ALLERGIES Honey, Nitrofurantoin, and Prochlorperazine MEDICATIONS gabapentin (NEURONTIN) 100 mg capsule Take 300 mg by mouth daily at bedtime. tiZANidine (ZANAFLEX) 4 mg tablet Take 4 mg by mouth. SUMAtriptan (IMITREX) 25 mg tablet levonorgestrel (KYLEENA) 17.5 mcg/24 hr (5 yrs) 19.5 mg IUD Take by intrauterine route. fluticasone-salmeterol (WIXELA INHUB) 250-50 mcg/dose inhaler ferrous sulfate 325 mg (65 mg iron) tablet Take 325 mg by mouth daily with breakfast. albuterol HFA (PROVENTIL HFA, VENTOLIN HFA) 90 mcg/actuation inhaler cetirizine (ZYRTEC) 10 mg tablet TAKE 1 TABLET BY MOUTH ONCE DAILY NEEDED FOR ALLERGIES predniSONE (DELTASONE) 20 mg tablet Take 2 tablets by mouth once daily for 5 days. mirabegron (MYRBETRIQ) 25 mg Tb24 Take 1 tablet by mouth once daily. (Patient not taking: Reported on 03/14/2024) FAMILY HISTORY Problem Relation Age of Onset Hypertension Maternal Grandmother Hypertension Maternal Grandfather Breast Cancer Paternal Grandmother Hypertension Paternal Grandmother Prostate Cancer Paternal Grandfather Thyroid Cancer Paternal Grandfather Diabetes Paternal Grandfather Hypertension Paternal Grandfather Social History Tobacco Use Smoking status: Never Smokeless tobacco: Never Vaping Use Vaping status: Never Used Substance Use Topics Alcohol use: Never Review of Systems Constitutional: Negative for fever. HENT: Positive for congestion. Negative for ear pain, nosebleeds and sore throat. Respiratory: Positive for cough. Negative for shortness of breath and wheezing. Musculoskeletal: Negative for neck pain. Skin: Negative for itching and rash. Objective Blood pressure 110/78, pulse 99, temperature 37.1 C (98.7 F), temperature source Tympanic, resp. rate 18, weight 72.8 kg (160 lb 7.9 oz), SpO2 97%. Physical Exam Constitutional: General: She is not in acute distress. Appearance: She is not toxic-appearing or diaphoretic. HENT: Head: Normocephalic and atraumatic. Cardiovascular: Rate and Rhythm: Normal rate and regular rhythm. Heart sounds: Normal heart sounds, S1 normal and S2 normal. Pulmonary: Effort: Pulmonary effort is normal. Breath sounds: Normal breath sounds. Lymphadenopathy: Cervical: No cervical adenopathy. Right cervical: No superficial cervical adenopathy. Left cervical: No superficial cervical adenopathy. Neurological: Mental Status: She is alert and oriented to person, place, and time. Gait: Gait is intact. ASSESSMENT/PLAN: 1. URI, acute - ICD9: 465.9, ICD10: J06.9 - Discussed viral etiology and rationale for treatment. - Symptomatic treatment with prn analgesia - Supportive care with fluids and rest - Follow up in 3-5 days if symptoms persist or sooner if worsening of symptoms Declines covid testing. - PREDNISONE 20 MG TABLET Bruno Ramos APRN.TURBINE OPERATOR documented in this encounter [facility] 09-28-2021 Note Is this a pre-proced ure screening test?->No Release to patient->[facility] 09-28-2021 Emergency department Note heplock removed, cath intact and bleeding controlled. Discharge paperwork reviewed with Mother. Motherverbalized understanding. No questions or concerns voiced. discharge paperwork given to parents. Patient taken out of hospital in a wheelchair with no incidences. [facility] 09-28-2021 Emergency department Note heplock removed, cath intact and bleeding controlled. Discharge paperwork reviewed with Mother. Motherverbalized understanding. No questions or concerns voiced. discharge paperwork given to parents. Patient taken out of hospital in a wheelchair with no incidences. Pt identified with two identifiers, family at bedside. Procedure explained to pt and family. IV preparation performed per hospital policy. IV attempt successful first attempt. Pt tolerated appropriately. Securement devices applied, blood return noted. Blood drawn and sent to lab per order. Flushes easily with NS. IV at stage 0. Will continue to monitor Pt to xray via cart Deborah Jamison : 2000 No chief complaint on file. Allergies Allergen Reactions Compazine [Prochlorperazine Edisylate] Dystonia Per mother @ 02/16/49 GI visit. Honey Other (See Comments) + on allergy testing Lactose Intolerance (Gi) Other (See Comments) Lactase deficiency Macrobid [Nitrofurantoin Monohyd Macro] Nausea And Vomiting FEVER, MUSCLE SPASMS DOS: 09/27/2021 Deborah is a 21 yo F with a history of ASD (high functioning), IBS, chronic pain, anxiety, depression, migraine DONALD who presents with her mother with several complaints which have come and gone since yesterday. 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 She was taken to the ED in [place] via squad and was treated with Ativan for a panic attack and discharged home. She feels like she has been more irritable in general recently and her mom agrees. Today she has experienced a lot symptoms inc: palpitations, intermittent abdominal pain, numbness in UE and LE, neck pain/pressure, chattering of her teeth, uncontrolled movement in UE and LE. Review of Systems Constitutional: Positive for activity change and fatigue. Negative for fever. HENT: Positive for facial swelling and trouble swallowing. Negative for congestion. Eyes: Negative for photophobia, discharge and visual disturbance. Respiratory: Negative for cough, chest tightness and shortness of breath. Cardiovascular: Positive for palpitations. Negative for leg swelling. Gastrointestinal: Positive for abdominal pain. Negative for abdominal distention, diarrhea and nausea. Endocrine: Negative. Genitourinary: Negative. Musculoskeletal: Positive for myalgias and neck pain. Negative for neck stiffness. Skin: Negative. Neurological: Positive for tremors, light-headedness and numbness. Negative for seizures, syncope and weakness. Hematological: Negative for adenopathy. Does not bruise/bleed easily. Psychiatric/Behavioral: Positive for agitation and dysphoric mood. Negative for hallucinations, self-injury and suicidal ideas. The patient is not hyperactive. Past Medical History: Diagnosis Date Acute appendicitis 09/27/2018 Anxiety Asperger syndrome Autism Chronic constipation Constipation Depression Gastroparesis Headache Irritable bowel syndrome Lichen sclerosus of female genitalia Lyme disease [place] [facility] Small intestinal bacterial overgrowth Urinary tract infection Past Surgical History: Procedure Laterality Date ESOPHAGOSCOPY N/A 11/26/2018 ENDOSCOPY (UPPER AND COLONOSCOPY) with biopsies and disaccharidases [place] [facility] [place] LAPAROSCOPIC APPENDECTOMY N/A 09/27/2018 LAPAROSCOPIC APPENDECTOMY performed by Lemuel Iyer MD at [facility] OR TONGUE SURGERY Pediatric History Patient Parents/Guardians Deborah Jamison (Self/Guardian) Shelley Marr (Mother) SHAHEENESTELA (Father) Other Topics Concern Interpersonal relationships Not Asked Poor school performance Not Asked Reading difficulties Not Asked Speech difficulties Not Asked Writing difficulties Not Asked Inadequate sleep Not Asked Excessive TV viewing Not Asked Excessive video game use Not Asked Inadequate exercise Not Asked Sports related Not Asked Poor diet Not Asked Second-hand smoke exposure Not Asked Alcohol/drug concerns Not Asked Violence concerns Not Asked Poor oral hygiene Not Asked Bike safety Not Asked Vehicle safety Not Asked Behavioral problems Not Asked Sad or not enjoying activities Not Asked Suicidal thoughts Not Asked Social History Narrative Lives at home with mother, two siblings, and pets (2 dogs, 3 cats, a rabbit, 6 chickens, and a snake) ED Triage Vitals Date and Time Temp Temp src Pulse Resp BP SpO2 Weight User 09/27/21 2102 36.8 C (98.2 F) Temporal 86 16 122/70 100 % 73 kg MJS Physical Exam Constitutional: General: She is not in acute distress. Appearance: She is normal weight. She is not ill-appearing, toxic-appearing or diaphoretic. HENT: Head: Normocephalic and atraumatic. Right Ear: External ear normal. Left Ear: External ear normal. Nose: Nose normal. Mouth/Throat: Mouth: Mucous membranes are moist. Eyes: General: No scleral icterus. Conjunctiva/sclera: Conjunctivae normal. Neck: Musculoskeletal: Normal range of motion and neck supple. No muscular tenderness. Vascular: No carotid bruit. Cardiovascular: Rate and Rhythm: Normal rate and regular rhythm. Heart sounds: No murmur heard. Pulmonary: Effort: Pulmonary effort is normal. No respiratory distress. Breath sounds: No wheezing. There is no cough present. Abdominal: General: Abdomen is flat. Bowel sounds are normal. There is no distension. Palpations: Abdomen is soft. There is no mass. Tenderness: There is no abdominal tenderness. There is no guarding. Musculoskeletal: General: No swelling, tenderness, deformity or signs of injury. Normal range of motion. Cervical back: No rigidity. Lymphadenopathy: Cervical: No cervical adenopathy. Skin: General: Skin is warm and dry. Findings: No lesion, rash or wound. Neurological: General: No focal deficit present. Mental Status: She is alert and oriented to person, place, and time. Cranial Nerves: No cranial nerve deficit. Sensory: No sensory deficit. Motor: No weakness. Coordination: Coordination normal. Psychiatric: Attention and Perception: Attention normal. Mood and Affect: Mood is depressed. Speech: Speech normal. Behavior: Behavior normal. Behavior is cooperative. Thought Content: Thought content normal. Cognition and Memory: Cognition normal. Judgment: Judgment normal. Comments: Anxious in appearance. Somatization with ROS, exam Procedures MDM 21 yo presents with mutliple complaints as described in HPI. Her exam in unremarkable and she appears visibly anxious. She was evaluated in the ED in [place] last night and was tx for panic attack with Ativan. We will do basic labs, UA, CXR, EKG to r/o most common causes of her complaints. Denies any SI/HI. She notes a lot of little stressors in her life, but no major cause of her sxs. Re-eval after workup. Labs reviewed: Labs and imaging are unremarkable. No treatment tonight. Patient is scheduled on Saturday with her family doctor to discuss management of anxiety. Return precautions discussed. Mom and patient understand. ED Course: Diagnosis' considered: Acute anxiety, hyperthyroidism Labs/Radiology: Results for orders placed or performed during the hospital encounter of 09/27/21 Complete Blood Count Result Value Ref Range WBC 9.9 4.5 - 11.0 10E9/L Nucleated RBC Percent 0.0 -1.0 - 0.0 % RBC 4.65 4.00 - 4.90 10E12/L Hemoglobin 13.8 12.0 - 15.0 g/dl Hematocrit 40.9 36.0 - 44.0 % MCV 88.0 80.0 - 100.0 fl MCH 29.7 26.0 - 34.0 pg MCHC 33.7 31.0 - 37.0 % RDW 12.1 0.0 - 14.4 % Platelets 314 150 - 450 10E9/L MPV 9.7 fl Differential Complete Automated NA % Neutrophils 64.4 35.0 - 66.0 % % Lymphocytes 27.8 24.0 - 44.0 % % Monocytes 5.40 3.00 - 6.00 % % Eosinophils 1.60 0.00 - 3.00 % Basophils 0.50 0.00 - 1.00 % Neutrophil # 6.4 2.0 - 7.2 10E3/uL % Immature Granulocyte 0.30 % Comprehensive metabolic panel Result Value Ref Range Sodium 139 133 - 145 mmol/L Potassium 4.0 3.3 - 5.1 mmol/L Chloride 105 96 - 108 mmol/L Carbon Dioxide 21.8 (L) 22.0 - 29.0 mmol/L BUN 6 4 - 19 mg/dL Glucose 103 (H) 70 - 99 mg/dL Total Bilirubin 0.2 0.0 - 1.0 mg/dL AST 16 0 - 31 U/L ALT 11 0 - 34 U/L Alkaline Phosphatase 97 35 - 104 U/L Calcium 9.5 7.6 - 11.0 mg/dL Protein, Total 7.7 5.9 - 8.4 g/dL Albumin 4.9 3.5 - 5.0 g/dL Creatinine 0.57 0.50 - 1.00 mg/dL HCG, Urine Result Value Ref Range HCG,Urine Negative mIU/mL Urinalysis, Complete (Chemistry & Micro) Result Value Ref Range Color Ur Straw NA Character Clear NA Specific gravity 1.002 (L) 1.005 - 1.030 NA Leukocyte Esterase Ur NEGATIVE Negative leuk/ul Nitrites NEGATIVE Negative mg/dl pH Ur 8.0 5.0 - 8.0 NA Hemoglobin Ur 2+ (A) Negative RBC's/uL Protein Ur NEGATIVE Neg.-Trace mg/dL Glucose Ur NEGATIVE Negative mg/dL Ketones Ur NEGATIVE Negative mg/dL Urobilinogen 0.2 Negative mg/dl Bilirubin Ur NEGATIVE Negative mg/dL Volume Ur 12 12 ml Urinalysis, Automated-[place] Result Value Ref Range WBC UR 0.0 0.0 - 20.0 /uL RBC, Urine 0.0 0.0 - 20.0 /uL Bacteria Ur Moderate /uL Mucous Ur Small NA Squamous Epithelial Cells Ur 12 0 - 20 /uL TSH Result Value Ref Range TSH 2.450 0.500 - 4.300 uIU/mL X-Ray Chest Pa(ap) & Lateral Final Result IMPRESSION: No acute radiographic abnormality. Yarn Examiner: VALE Transcribe Date/Time: Sep 27 2021 10:57P Dictated by : MARYELLEN TIM DO This examination was interpreted and the report reviewed and electronically signed by: MARYELLEN TIM DO on Sep 27 2021 11:03PM EST [id number] EKG 12 lead (ECG) (Results Pending) Consults: No orders of the defined types were placed in this encounter. Medical Record/Transferring Institution Record: n/a Treatment/Reassessment: below Aditya Bourne DO Encounter Documentation/Handoff: Medical Decision Making as of 09/28/21 0014 SatSep 27, 2021 2157 21yo F with Autism, ISB, Depression, constipation, chronic pain, here with many symptoms starting yesterday. Thought she was having an allergic reaction last night, went to ED and told she was likely having a panic attack, given Ativan, felt better and sent home. Today awoke with abdominal pain intermittently. Numbness from upper arms and then in legs, bilateral. Reports dizziness, palpations, neck pain (similar to pain yesterday with concerns for allergic reaction). Reports many smaller stressors. No meds for anxiety or depression. [CC] 7832 No fevers. Reporting R sided SCM tenderness, no midline neck pain. No sore throat. Reporting R paratracheal neck pain. Alert, active, NAD, PERRL, conjunctiva nl, MMM, no tonsillar exudates, [place] submental and submandibular lymphadenopathy, No midline neck tenderness with flexion, R SCM tenderness with palpation, Breathing comfortably, lungs CTAB. Normal HR, no appreciable murmurs, cap refill <3s Abdomen soft, non-tender, non-distended, +bs throughout. Patient alert, well appearing, NAD. Afebrile. Many different mild symptoms. No evidence of peritonsillar abscess or pharyngitis. No midline neck tenderness or stiffness. No current abdominal pain. Most likely anxiety. Will get screening labs. Will get CXR and EKG. [CC] 2306 X-Ray Chest Pa(ap) & Lateral IMPRESSION: No acute radiographic abnormality. [CC] 2331 Comprehensive metabolic panel(!): Sodium 139 Potassium 4.0 Chloride 105 Carbon Dioxide 21.8(!) BUN 6 Glucose 103(!) Total Bilirubin 0.2 AST 16 ALT 11 Alkaline Phosphatase 97 Calcium 9.5 Protein, Total 7.7 Albumin 4.9 Creatinine 0.57 Grossly nl [CC] 2331 TSH: 2.450 WNL [CC] 2331 Complete Blood Count: WBC 9.9 Nucleated RBC Percent 0.0 RBC 4.65 Hemoglobin 13.8 Hematocrit 40.9 MCV 88.0 MCH 29.7 MCHC 33.7 RDW 12.1 Platelets 314 MPV 9.7 Differential Complete Automated % Neutrophils 64.4 % Lymphocytes 27.8 % Monocytes 5.40 % Eosinophils 1.60 Basophils 0.50 Neutrophil # 6.4 % Immature Granulocyte 0.30 Nl [CC] 2344 Labs reassuring. Well appearing. EKG and CXR reassuring. TSH and RFA pending, patient will follow up those with PCP. Scheduled with family doctor Saturday. Patient well appearing, well hydrated, hemodynamically stable. Patient doesn't appear to have any medical conditions requiring emergent interventions at this time. I feel this patient is safe for discharge home at this time. Discharged home with home care instructions, follow up instructions, and strict return precautions. Family understands and agrees with the plan. [CC] Medical Decision Making User Index [CC] Deandra Chua MD Final Clinical Impression/Diagnosis as of 09/28/21 0014 Anxiety state Pain in right paraspinal region Nausea without vomiting Numbness I personally performed goyal portions of the history and physical examination of this patient and discussed the management plan with the resident. I reviewed the resident's note and agree with the documented findings and plan of care, except as noted by and bold. See my documentation under MDM. Deandra Chua MD 09/28/2021 12:14 AM Patient presents to [facility] ED with vague symptoms of anxiety, tingling sensation, dizziness and discomfort to right side of neck and generalized weakness, fatigue and clouded cognition. Endorses diarrhea and nausea. documented in this encounter [facility] 09-27-2021 Hospital Discharge instructions Aditya Bourne DO - 09/27/2021 11:38 PM EDT Please f/u with your family doctor as scheduled. All labs, imaging were normal tonight. The following attachments cannot be sent through Care Everywhere.Adult Advisor: Anxiety Disorders (Maori)documented in this encounter [facility] 09-27-2021 Emergency department Note Pt identified with two identifiers, family at bedside. Procedure explained to pt and family. IV preparation performed per hospital policy. IV attempt successful first attempt. Pt tolerated appropriately. Securement devices applied, blood return noted. Blood drawn and sent to lab per order. Flushes easily with NS. IV at stage 0. Will continue to monitor [facility] 09-27-2021 Emergency department Note Pt to xray via cart [facility] 09-27-2021 Physician Emergency department Note Deborah Jamison : 2000 No chief complaint on file. Allergies Allergen Reactions Compazine [Prochlorperazine Edisylate] Dystonia Per mother @ 02/16/49 GI visit. Honey Other (See Comments) + on allergy testing Lactose Intolerance (Gi) Other (See Comments) Lactase deficiency Macrobid [Nitrofurantoin Monohyd Macro] Nausea And Vomiting FEVER, MUSCLE SPASMS DOS: 09/27/2021 Deborah is a 21 yo F with a history of ASD (high functioning), IBS, chronic pain, anxiety, depression, migraine DONALD who presents with her mother with several complaints which have come and gone since yesterday. 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 She was taken to the ED in [place] via squad and was treated with Ativan for a panic attack and discharged home. She feels like she has been more irritable in general recently and her mom agrees. Today she has experienced a lot symptoms inc: palpitations, intermittent abdominal pain, numbness in UE and LE, neck pain/pressure, chattering of her teeth, uncontrolled movement in UE and LE. Review of Systems Constitutional: Positive for activity change and fatigue. Negative for fever. HENT: Positive for facial swelling and trouble swallowing. Negative for congestion. Eyes: Negative for photophobia, discharge and visual disturbance. Respiratory: Negative for cough, chest tightness and shortness of breath. Cardiovascular: Positive for palpitations. Negative for leg swelling. Gastrointestinal: Positive for abdominal pain. Negative for abdominal distention, diarrhea and nausea. Endocrine: Negative. Genitourinary: Negative. Musculoskeletal: Positive for myalgias and neck pain. Negative for neck stiffness. Skin: Negative. Neurological: Positive for tremors, light-headedness and numbness. Negative for seizures, syncope and weakness. Hematological: Negative for adenopathy. Does not bruise/bleed easily. Psychiatric/Behavioral: Positive for agitation and dysphoric mood. Negative for hallucinations, self-injury and suicidal ideas. The patient is not hyperactive. Past Medical History: Diagnosis Date Acute appendicitis 09/27/2018 Anxiety Asperger syndrome Autism Chronic constipation Constipation Depression Gastroparesis Headache Irritable bowel syndrome Lichen sclerosus of female genitalia Lyme disease [place] eye Small intestinal bacterial overgrowth Urinary tract infection Past Surgical History: Procedure Laterality Date ESOPHAGOSCOPY N/A 11/26/2018 ENDOSCOPY (UPPER AND COLONOSCOPY) with biopsies and disaccharidases [place] [facility] [place] LAPAROSCOPIC APPENDECTOMY N/A 09/27/2018 LAPAROSCOPIC APPENDECTOMY performed by Lemuel Iyer MD at [facility] OR TONGUE SURGERY Pediatric History Patient Parents/Guardians ShaheenDeborah (Self/Guardian) LalamarytaishaShelley Verito (Mother) ESTELA JAMISON (Father) Other Topics Concern Interpersonal relationships Not Asked Poor school performance Not Asked Reading difficulties Not Asked Speech difficulties Not Asked Writing difficulties Not Asked Inadequate sleep Not Asked Excessive TV viewing Not Asked Excessive video game use Not Asked Inadequate exercise Not Asked Sports related Not Asked Poor diet Not Asked Second-hand smoke exposure Not Asked Alcohol/drug concerns Not Asked Violence concerns Not Asked Poor oral hygiene Not Asked Bike safety Not Asked Vehicle safety Not Asked Behavioral problems Not Asked Sad or not enjoying activities Not Asked Suicidal thoughts Not Asked Social History Narrative Lives at home with mother, two siblings, and pets (2 dogs, 3 cats, a rabbit, 6 chickens, and a snake) ED Triage Vitals Date and Time Temp Temp src Pulse Resp BP SpO2 Weight User 09/27/21 2102 36.8 C (98.2 F) Temporal 86 16 122/70 100 % 73 kg MJS Physical Exam Constitutional: General: She is not in acute distress. Appearance: She is normal weight. She is not ill-appearing, toxic-appearing or diaphoretic. HENT: Head: Normocephalic and atraumatic. Right Ear: External ear normal. Left Ear: External ear normal. Nose: Nose normal. Mouth/Throat: Mouth: Mucous membranes are moist. Eyes: General: No scleral icterus. Conjunctiva/sclera: Conjunctivae normal. Neck: Musculoskeletal: Normal range of motion and neck supple. No muscular tenderness. Vascular: No carotid bruit. Cardiovascular: Rate and Rhythm: Normal rate and regular rhythm. Heart sounds: No murmur heard. Pulmonary: Effort: Pulmonary effort is normal. No respiratory distress. Breath sounds: No wheezing. There is no cough present. Abdominal: General: Abdomen is flat. Bowel sounds are normal. There is no distension. Palpations: Abdomen is soft. There is no mass. Tenderness: There is no abdominal tenderness. There is no guarding. Musculoskeletal: General: No swelling, tenderness, deformity or signs of injury. Normal range of motion. Cervical back: No rigidity. Lymphadenopathy: Cervical: No cervical adenopathy. Skin: General: Skin is warm and dry. Findings: No lesion, rash or wound. Neurological: General: No focal deficit present. Mental Status: She is alert and oriented to person, place, and time. Cranial Nerves: No cranial nerve deficit. Sensory: No sensory deficit. Motor: No weakness. Coordination: Coordination normal. Psychiatric: Attention and Perception: Attention normal. Mood and Affect: Mood is depressed. Speech: Speech normal. Behavior: Behavior normal. Behavior is cooperative. Thought Content: Thought content normal. Cognition and Memory: Cognition normal. Judgment: Judgment normal. Comments: Anxious in appearance. Somatization with ROS, exam Procedures MDM 21 yo presents with mutliple complaints as described in HPI. Her exam in unremarkable and she appears visibly anxious. She was evaluated in the ED in [place] last night and was tx for panic attack with Ativan. We will do basic labs, UA, CXR, EKG to r/o most common causes of her complaints. Denies any SI/HI. She notes a lot of little stressors in her life, but no major cause of her sxs. Re-eval after workup. Labs reviewed: Labs and imaging are unremarkable. No treatment tonight. Patient is scheduled on Saturday with her family doctor to discuss management of anxiety. Return precautions discussed. Mom and patient understand. ED Course: Diagnosis' considered: Acute anxiety, hyperthyroidism Labs/Radiology: Results for orders placed or performed during the hospital encounter of 09/27/21 Complete Blood Count Result Value Ref Range WBC 9.9 4.5 - 11.0 10E9/L Nucleated RBC Percent 0.0 -1.0 - 0.0 % RBC 4.65 4.00 - 4.90 10E12/L Hemoglobin 13.8 12.0 - 15.0 g/dl Hematocrit 40.9 36.0 - 44.0 % MCV 88.0 80.0 - 100.0 fl MCH 29.7 26.0 - 34.0 pg MCHC 33.7 31.0 - 37.0 % RDW 12.1 0.0 - 14.4 % Platelets 314 150 - 450 10E9/L MPV 9.7 fl Differential Complete Automated NA % Neutrophils 64.4 35.0 - 66.0 % % Lymphocytes 27.8 24.0 - 44.0 % % Monocytes 5.40 3.00 - 6.00 % % Eosinophils 1.60 0.00 - 3.00 % Basophils 0.50 0.00 - 1.00 % Neutrophil # 6.4 2.0 - 7.2 10E3/uL % Immature Granulocyte 0.30 % Comprehensive metabolic panel Result Value Ref Range Sodium 139 133 - 145 mmol/L Potassium 4.0 3.3 - 5.1 mmol/L Chloride 105 96 - 108 mmol/L Carbon Dioxide 21.8 (L) 22.0 - 29.0 mmol/L BUN 6 4 - 19 mg/dL Glucose 103 (H) 70 - 99 mg/dL Total Bilirubin 0.2 0.0 - 1.0 mg/dL AST 16 0 - 31 U/L ALT 11 0 - 34 U/L Alkaline Phosphatase 97 35 - 104 U/L Calcium 9.5 7.6 - 11.0 mg/dL Protein, Total 7.7 5.9 - 8.4 g/dL Albumin 4.9 3.5 - 5.0 g/dL Creatinine 0.57 0.50 - 1.00 mg/dL HCG, Urine Result Value Ref Range HCG,Urine Negative mIU/mL Urinalysis, Complete (Chemistry & Micro) Result Value Ref Range Color Ur Straw NA Character Clear NA Specific gravity 1.002 (L) 1.005 - 1.030 NA Leukocyte Esterase Ur NEGATIVE Negative leuk/ul Nitrites NEGATIVE Negative mg/dl pH Ur 8.0 5.0 - 8.0 NA Hemoglobin Ur 2+ (A) Negative RBC's/uL Protein Ur NEGATIVE Neg.-Trace mg/dL Glucose Ur NEGATIVE Negative mg/dL Ketones Ur NEGATIVE Negative mg/dL Urobilinogen 0.2 Negative mg/dl Bilirubin Ur NEGATIVE Negative mg/dL Volume Ur 12 12 ml Urinalysis, Automated-[place] Result Value Ref Range WBC UR 0.0 0.0 - 20.0 /uL RBC, Urine 0.0 0.0 - 20.0 /uL Bacteria Ur Moderate /uL Mucous Ur Small NA Squamous Epithelial Cells Ur 12 0 - 20 /uL TSH Result Value Ref Range TSH 2.450 0.500 - 4.300 uIU/mL X-Ray Chest Pa(ap) & Lateral Final Result IMPRESSION: No acute radiographic abnormality. Yarn Examiner: VALE Transcribe Date/Time: Sep 27 2021 10:57P Dictated by : MARYELLEN TIM DO This examination was interpreted and the report reviewed and electronically signed by: MARYELLEN TIM DO on Sep 27 2021 11:03PM EST [id number] EKG 12 lead (ECG) (Results Pending) Consults: No orders of the defined types were placed in this encounter. Medical Record/Transferring Institution Record: n/a Treatment/Reassessment: below Aditya Bourne DO Encounter Documentation/Handoff: Medical Decision Making as of 09/28/21 0014 SatSep 27, 2021 2157 21yo F with Autism, ISB, Depression, constipation, chronic pain, here with many symptoms starting yesterday. Thought she was having an allergic reaction last night, went to ED and told she was likely having a panic attack, given Ativan, felt better and sent home. Today awoke with abdominal pain intermittently. Numbness from upper arms and then in legs, bilateral. Reports dizziness, palpations, neck pain (similar to pain yesterday with concerns for allergic reaction). Reports many smaller stressors. No meds for anxiety or depression. [CC] 2253 No fevers. Reporting R sided SCM tenderness, no midline neck pain. No sore throat. Reporting R paratracheal neck pain. Alert, active, NAD, PERRL, conjunctiva nl, MMM, no tonsillar exudates, Shotty submental and submandibular lymphadenopathy, No midline neck tenderness with flexion, R SCM tenderness with palpation, Breathing comfortably, lungs CTAB. Normal HR, no appreciable murmurs, cap refill <3s Abdomen soft, non-tender, non-distended, +bs throughout. Patient alert, well appearing, NAD. Afebrile. Many different mild symptoms. No evidence of peritonsillar abscess or pharyngitis. No midline neck tenderness or stiffness. No current abdominal pain. Most likely anxiety. Will get screening labs. Will get CXR and EKG. [CC] 2306 X-Ray Chest Pa(ap) & Lateral IMPRESSION: No acute radiographic abnormality. [CC] 2331 Comprehensive metabolic panel(!): Sodium 139 Potassium 4.0 Chloride 105 Carbon Dioxide 21.8(!) BUN 6 Glucose 103(!) Total Bilirubin 0.2 AST 16 ALT 11 Alkaline Phosphatase 97 Calcium 9.5 Protein, Total 7.7 Albumin 4.9 Creatinine 0.57 Grossly nl [CC] 2331 TSH: 2.450 WNL [CC] 2331 Complete Blood Count: WBC 9.9 Nucleated RBC Percent 0.0 RBC 4.65 Hemoglobin 13.8 Hematocrit 40.9 MCV 88.0 MCH 29.7 MCHC 33.7 RDW 12.1 Platelets 314 MPV 9.7 Differential Complete Automated % Neutrophils 64.4 % Lymphocytes 27.8 % Monocytes 5.40 % Eosinophils 1.60 Basophils 0.50 Neutrophil # 6.4 % Immature Granulocyte 0.30 Nl [CC] 2344 Labs reassuring. Well appearing. EKG and CXR reassuring. TSH and RFA pending, patient will follow up those with PCP. Scheduled with family doctor Saturday. Patient well appearing, well hydrated, hemodynamically stable. Patient doesn't appear to have any medical conditions requiring emergent interventions at this time. I feel this patient is safe for discharge home at this time. Discharged home with home care instructions, follow up instructions, and strict return precautions. Family understands and agrees with the plan. [CC] Medical Decision Making User Index [CC] Deandra Chua MD Final Clinical Impression/Diagnosis as of 09/28/21 0014 Anxiety state Pain in right paraspinal region Nausea without vomiting Numbness I personally performed goyal portions of the history and physical examination of this patient and discussed the management plan with the resident. I reviewed the resident's note and agree with the documented findings and plan of care, except as noted by and bold. See my documentation under MDM. Deandra Chua MD 09/28/2021 12:14 AM [facility] Work Phone: 09-27-2021 Emergency department Triage note Patient presents to [facility] ED with vague symptoms of anxiety, tingling sensation, dizziness and discomfort to right side of neck and generalized weakness, fatigue and clouded cognition. Endorses diarrhea and nausea. [facility] Evaluation note Diagnosis Anxiety state- Primary Anxiety state, unspecified Pain in right paraspinal region Nausea without vomiting Numbness Disturbance of skin sensation [facility] Diagnosis URI, acute- Primary Acute upper respiratory infections of unspecified site [facility] URI, acute- Primary Acute upper respiratory infections of unspecified site documented in this encounter [facility] Summary Purpose Family History No Family History Records FoundNo Family History Records FoundNo Family History Records FoundNo Family History Records FoundNo Family History Records FoundNo Family History Records Found Advance Directives Documents on File Type Date Recorded 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 Diagnosed with IC in [place] About 3 years ago and was placed on Elmiron Symptoms improved with Elmiron but recently stopped. Currently on Bactrim for uti. 1 uti this year. Voiding - every 15 min to an hour. Reduces water in am Nocturia x 1 Pain not leading issue. Has been on Calcium citrate and cranberry pills. History of Lyme disease. Gluten intolerance. She has been double voiding due to feeling of incomplete bladder emptying. We reviewed various treatment options. Will plan cystoscopy and hydrodistention and attempt to precert Myrbetriq. PVR = 12 ml REVIEW OF SYSTEMS: GENERAL:Fatigue, Positive for fever and chills ALLERGIC/IMMUNOLOGIC: drug allergies HEENT:sore throat RESPIRATORY: Severe COPD CARDIOVASCULAR: Negative for chest pain, leg swelling, hypertension, CHF or palpitations GASTROINTESTINAL: Constipation, diarrhea and indigestion GENITOURINARY: See HPI MUSCULOSKELETAL: back pain NEUROLOGIC:Positive for headaches: SKIN:Negative for lesions, rash, and itching MEDICATIONS: mirabegron (MYRBETRIQ) 25 mg Tb24 Take 1 tablet by mouth once daily. HISTORIES History reviewed. No pertinent past medical history. History reviewed. No pertinent family history. PAST SURGICAL HISTORY Procedure Laterality Date APPENDECTOMY 2019 EXCISION OF LINGUAL FRENUM (FRENECTOMY) Social History Tobacco Use Smoking status: Not on file Substance Use Topics Alcohol use: Not on file Drug use: Not on file Physical Exam BP 138/88 Ht 162.6 cm (5' 4 ) Wt 65.8 kg (145 lb) BMI 24.89 kg/m ASSESSMENT/PLAN: (N30.10) Interstitial cystitis (primary encounter diagnosis) (R35.0) Urinary frequency Plan: BLADDER SCAN Return for cystoscopy and hydrodistention. documented in this encounter Assessments Diagnosis Interstitial cystitis- Primary Chronic interstitial cystitis Urinary frequency Additional Source Comments INFORMATION SOURCE (unrecogn ized section and content) DATE CREATED AUTHOR 01/12/2019 [facility] DATE CREATED AUTHOR AUTHOR'S ORGANIZ ATION 04/08/2020 [facility] DATE CREATED AUTHOR AUTHOR'S ORGANIZ ATION 01/28/2021 [facility] DATE CREATED AUTHOR AUTHOR'S ORGANIZ ATION 09/30/2021 [facility] DATE CREATED AUTHOR AUTHOR'S ORGANIZ ATION 10/21/2021 [facility] ([place] DATE CREATED AUTHOR AUTHOR'S ORGANIZ ATION 03/16/2024 [facility] Source Comments (unrecognize d section and content) In the event this informatio n is protected by the Federal Confidentiality of Alcohol and Drug Abuse Patient Records regulations: The Federal rules restrict any use of the information to criminally investigate or prosecute any alcohol or drug abuse patient.[facility] System[facility] the event this information is protected by the Federal Confidentiality of Alcohol and Drug Abuse Patient Records regulations: The Federal rules restrict any use of the information to criminally investigate or prosecute any alcohol or drug abuse patient.[facility] System[facility] the event this information is protected by the Federal Confidentiality of Alcohol and Drug Abuse Patient Records regulations: The Federal rules restrict any use of the information to criminally investigate or prosecute any alcohol or drug abuse patient.[facility] System[facility] the event this information is protected by the Federal Confidentiality of Alcohol and Drug Abuse Patient Records regulations: The Federal rules restrict any use of the information to criminally investigate or prosecute any alcohol or drug abuse patient.[facility] Reason for Visit (unrecogniz ed section and content) Reason Comments New Patient Status Reason Specialty Diagnoses / Procedures Referred By Contact Referred To Contact Authorized UROLOGY Diagnoses IC issues Procedures NEW PATIENT VISIT LEVEL 4 NEW PATIENT Zoe Meier MD [address] [place] [phone] Hiren Orellana [address] [place] [address] Reason Comments Return To Work Letter Reason Comments Cough Cough and no voice x 2 days Reason Comments Medication Problem Reaction to predniso ne Telephone Encounter - Francheska Haas Cma - 04/07/2020 10:47 AM EDTTelephone Encounter - Claudette Block Ma - 04/07/2020 10:11 AM EDT Miscellaneous Notes (unrecog nized section and content) Letter faxed. Francheska Haas Cma Deborah Jamison called today. : 2000 Allergies: Honey, Nitrofurantoin, and Prochlorperazine (home) Message can be left with: with patient only Reason for call: patient called asking if she get a letter stating she was here yesterday for an appointment faxed to her school. Recent Urology Surgery: None Is the patient experiencing any pain related to this call? no Any nausea/vomitting? Neither Voiding concerns: no problems w/ voiding. Patient last appointment: 04/06/2020 The patients preferred pharmacy has been captured for this encounter? not asked Claudette Block Ma documented in this encounter Care Teams (unrecognized sec tion and content) Talent Acquisition Director Relationship Specialty Start Date End Date Doc, Jung, RECEIVING [employer]ER-[place] [address] PCP - General Pediatrics 03/14/21 Talent Acquisition Director Relationship Specialty Start Date End Date Zoe Meier MD [address] [place] [phone] PCP - General Pediatrics 01/28/20 FOR RECORDS PERTAINING TO PATIENTS WHO ARE OR HAVE BEEN ENROLLED IN A CHEMICAL DEPENDENCY/SUBSTANCEABUSE PROGRAM, SOME INFORMATION MAY BE OMITTED. This clinical summary was aggregated from multiple sources. Caution should be exercised in using it in the provision of clinical care. This summary normalizes information from multiple sources, and as a consequence, information in this document may materially change the coding, format and clinical context of patient data. In addition, data may be omitted in some cases. CLINICAL DECISIONS SHOULD BE BASED ON THE PRIMARY CLINICAL RECORDS. [employer] provides no warranty or guarantee of the accuracy or completeness of information in this document.
[2024-04-30] MEDS: Tetracaine 0.5% Ophthalmic Bottle 1 DRP LEFT EYE (22:05)
[2024-04-30 22:28] VITALS: BP 105/86; PULSE 89
[2024-04-30] MEDS: Fluorescein 1 MG STRIP 1 STRIP LEFT EYE (23:28)
--- NOTE | 2024-04-30 23:41 | EDS_ITS ---
HPI History of Present Illness Chief Complaint: Eye Problem Narrative Narrative: Patient is a 24-year-old female with past medical history of Asperger syndrome, IBS, gastroparesis who presented to the emergency department the chief complaint of getting essential oils in her left eye. She states that she has been rinsing her eye with water about every hour secondary to burning pain. Patient states that here in the emergency department her symptoms are improving since being here. States that her vision is normal. Patient states that she was just concerned that there may be some damage and she may require eyedrops. [facility] Medical History Lichen sclerosus Marijuana use Recurrent urinary tract infection Asperger syndrome IBS (irritable bowel syndrome) Gastroparesis Home Medications ?Medication ?Instructions ?Recorded ?Last Taken ?Type tizanidine 4 mg tablet 4 mg PO QHS 09/26/18 09/25/18 History albuterol sulfate 90 mcg/actuation 2 inh inhalation Q4H PRN shortness 10/22/23 Unknown History aerosol inhaler of breath or wheezing clobetasol 0.025 % topical cream 1 applic topical DAILY 10/22/23 Unknown History diphenhydramine HCl 25 mg capsule 12.5 mg PO QHS sleep 10/22/23 Unknown History (Allergy (diphenhydramine)) vitamin A 2,500 unit-vit C 100 1 cap PO DAILY 10/22/23 Unknown History mg-biotin 2,500 lai-valp-pjudgo capsule (Vvqo-Skpy-Clou (vit A,V-vrsvzs-Fq-Cu)) benzonatate 100 mg capsule 200 mg (2 x 100 mg) PO TID PRN 03/19/24 Unknown Rx cough #20 caps metoclopramide HCl 5 mg tablet 5 mg PO Q8H PRN headache #20 tabs 04/26/24 Unknown Rx (Reglan) Allergy/AdvReac Type Severity Reaction Status Date / Time Food Allergies: Uncoded Allergy Other Verified 04/30/24 18:29 honey Allergy Rash Verified 04/30/24 18:29 prochlorperazine (From Allergy Vomiting Verified 04/30/24 18:29 Compazine) nitrofurantoin (From AdvReac Vomiting Verified 04/30/24 18:29 Macrobid) Surgical History Hx of appendectomy Social History household members: none housing: other current occupational status: student Smoking Status: Current some day smoker tobacco type: cigarettes and e- cigarettes ROS ROS ED ROS Narrative Constitutional: Denies fevers, chills, headaches Eyes: Denies changes double vision blurry vision complains of burning in her left eye as noted above however she states that this is improving Cardiovascular: Denies chest pain or palpitations Neurological: Denies any numbness, weakness, tingling Skin: Denies any rashes or lesions EXAM Physical Exam Narrative Exam Narrative: General: Patient was lying in bed rest comfortably did not appear to be acute distress Head: Atraumatic, normocephalic, Eyes: PERRL bilaterally, EOMI bilaterally, no conjunctival injection noted, eye was stained using fluorescein stain no evidence of corneal abrasion, patient states that her vision is normal. Patient denies any contact lens use Neck: Soft, supple, trachea midline Cardiovascular: Regular rate and rhythm no murmurs gallops rubs noted Respiratory: Clear to auscultation bilaterally no rales rhonchi or wheezes noted Neurological: Patient following commands knew that she was at [facility] there is 2023 Skin: Warm, dry, intact no rashes or lesions noted Const Vital Signs: 04/30/24 18:29 04/30/24 22:28 Temperature 96.5 F L Temperature Source Temporal Pulse Rate 74 89 Respiratory Rate 18 Blood Pressure 122/83 H 105/86 H Blood Pressure Mean 96 92 Pulse Ox 99 Oxygen Delivery Method Room Air MDM MDM MDM Narrative Medical decision making narrative: Patient is a 24-year-old female who presented to the emergency department with chief complaint of left eye pain after getting essential oil in her eye. Once again the patient's eye was stained and no evidence of corneal abrasion her vision is normal for herself and her burning had resolved prior to my evaluation here in the emergency department. Patient would like to go home at this point time. She is advised to refrain from getting essential oils in her eye and following up with her primary care physician outpatient setting. She is vies r eturn with worsening symptoms or other concerns. She is agreeable to this plan all question concerns answered she was discharged home in stable condition Discharge Plan Triage Chief Complaint: Eye Problem ED Provider: Eduin Juan Dx/Rx/DC Orders Clinical Impression: Acute left eye pain Prescriptions: No Action tizanidine 4 MG tablet 4 mg PO QHS Fkqk-Cmcy-Flfw(vit A,C-biotin) 2,500 unit-100 mg-2,500 mcg capsule 1 cap PO DAILY albuterol sulfate 90 mcg/actuation HFA aerosol inhaler 2 inh inhalation Q4H PRN (Reason: shortness of breath or wheezing) clobetasol 0.025 % cream 1 applic topical DAILY Patient Comments: takes every other day diphenhydramine HCl [Allergy (diphenhydramine)] 25 mg capsule 12.5 mg PO QHS benzonatate 100 mg capsule 200 mg PO TID PRN (Reason: cough) Qty: 20 0RF metoclopramide HCl [Reglan] 5 mg tablet 5 mg PO Q8H PRN Qty: 20 0RF Primary Care Provider: Travis Siddiqi Referrals: Travis Siddiqi DO [Primary Care Provider] - Activity Restrictions/Additional Instructions: Follow-up with your primary care physician outpatient setting. Return with worsening symptoms or any other concerns. Print Language: German Disposition Disposition: Home, Self Care
== END 2024-04-30 23:53 | disposition home or self-care (01) ==
PROVIDERS: Emergency Provider Emergency Medicine; PCP Family Medicine; Referring Provider Emergency Medicine; Visit Provider Emergency Medicine
DX: H57.12 Ocular pain, left eye (principal); Z77.098 Contact with and (suspected) exposure to other hazardous, chiefly nonmedicinal, chemicals; F84.5 Asperger's syndrome; F17.210 Nicotine dependence, cigarettes, uncomplicated; F17.290 Nicotine dependence, other tobacco product, uncomplicated; Z79.899 Other long term (current) drug therapy; T75.89XA Other specified effects of external causes, initial encounter
CPT/HCPCS: 99283

== ENCOUNTER 2024-05-02 20:06 | Emergency (ER) | payer OTHER, SELFPAY ==
[2024-05-02 20:07] VITALS: BP 137/88; PULSE 80; RESP 16; TEMP 36.7; O2SAT 100
[2024-05-02 20:08] VITALS: BP 137/88; PULSE 82; RESP 18; TEMP 36.7; O2SAT 100; BMI 30.1
[2024-05-02 21:17] LABS: Bacteria 0 SEEN /hpf (None Seen); Mucous, Urine 0 SEEN /hpf (<or=2+); Red Blood Cells-Urine 0 SEEN /hpf (0-5)
[2024-05-02 21:23] LABS: Absolute Lymphocyte Count 1.57 X10^3/uL (0.83-4.51); Absolute Neutrophil Count 6.4 X10^3/uL (2.0-7.7); Basophil# 0.05 X10^3/uL; Basophil% 0.6 % (0-1); Eosinophil# 0.07 X10^3/uL; Eosinophils% 0.8 % (0-5); Hematocrit 36.3 % (37-47); Hemoglobin 12.6 g/dL (12.0-15.0); Lymphocyte # 1.57 X10^3/ul (0.83-4.51); Lymphocyte % 18.2 % (19-41); Mean Corp Hgb Conc 34.7 g/dL (32-36); Mean Corpuscular Hgb 30.4 pg (27.0-32.0); Mean Corpuscular Volume 87.5 fL (81-99); Mean Platelet Vol. 9.1 fl (6.2-12.0); Monocyte# 0.47 X10^3/uL; Monocyte% 5.4 % (0-10); NRBC Flagged by Analyzer 0 % (0-5); Neutrophil # 6.44 X10^3/uL (2.7-7.7); Neutrophil % 74.7 % (47-70); Platelet Count 294 K/mm3 (150-450); RBC Distribution Width CV 11.5 % (11.6-14.6); Red Blood Count 4.15 M/mm3 (4.2-5.4); White Blood Count 8.6 K/mm3 (4.4-11.0)
[2024-05-02 21:23] LABS: Color, Urine Straw (Yellow); Glucose, Dipstick Normal (Normal); Ketone-Dipstick Negative (Negative); Leukocyte Esterase-Dipstick 25 /ul (Negative); Nitrite-Dipstick Negative (Negative); Occult Blood-Urine Negative /ul (Negative); Protein-Dipstick Negative (Negative); Specific Gravity, Urine 1.005 (1.002-1.030); Urine Bilirubin Dipstick Negative (Negative); Urine Clarity Clear (Clear); Urine Urobilinogen Normal (Normal); Urine pH 6.5 (5.0 - 8.0)
[2024-05-02] MEDS: Ondansetron 4 MG/2 ML Vial IV (21:23)
[2024-05-02 21:46] LABS: ALB/GLOB Ratio 1.3 RATIO (0.9-2.4); AST(SGOT) 9 U/L (15-37); Alanine Aminotransfer ALT/SGPT 18 U/L (13-56); Albumin, Serum 3.9 g/dL (3.2-5.0); Alkaline Phosphatase 70 U/L (45-117); Anion Gap 7 (5-15); BUN 6 mg/dL (7-18); BUN/Creat Ratio 8.9 RATIO (10-20); Calcium,Total 8.4 mg/dL (8.5-10.1); Chloride 102 mmol/L (98-107); Creatinine, Serum 0.68 mg/dL (0.55-1.02); EST Glomerular Filtration Rate 116 mL/min (>60); Est Glom Filt Rate - Afr Amer 140 mL/min (>60); Estimated Creatinine Clearance 132.46 ml/min; Globulin 3.1 g/dL (2.2-4.2); Glucose 119 mg/dL (74-106); Lipase 25 U/L (13-75); Potassium 3.6 mmol/L (3.5-5.1); Sodium Level 133 mmol/L (136-145)
[2024-05-02 21:53] LABS: Internal QC Validated? YES +Cl - CLEAR BKGD; Pregnancy, Urine Negative Negative
[2024-05-02 21:54] LABS: Squamous Epithelial Cells - UA 0-5 SEEN /hpf (5-10)
[2024-05-02 21:55] LABS: White Blood Cells 5-10 SEEN /hpf (0-5)
[2024-05-02 22:07] VITALS: BP 127/83; PULSE 73; RESP 16; O2SAT 99
[2024-05-02 23:25] VITALS: BP 104/75; PULSE 73; RESP 16; TEMP 36.9; O2SAT 99
== END 2024-05-02 23:29 | disposition home or self-care (01) ==
PROVIDERS: Emergency Provider Emergency Medicine; PCP Family Medicine; Visit Provider Emergency Medicine
DX: Z00.00 Encounter for general adult medical examination without abnormal findings (principal); R55 Syncope and collapse; F84.5 Asperger's syndrome; F17.290 Nicotine dependence, other tobacco product, uncomplicated
CPT/HCPCS: 74177; 80053; 81001; 81025; 83690; 85025; 93005; 96374; 99285; Q9967; A4216; J2405

== ENCOUNTER 2024-05-23 23:03 | Emergency (ER) | payer OTHER, SELFPAY ==
[2024-05-23 23:05] VITALS: BP 139/88; PULSE 87; RESP 20; TEMP 36.8; O2SAT 99; BMI 27.7
--- NOTE | 2024-05-23 23:14 | ED.RN ---
Pt yelling in triage while explaining pt situation. States they have undiagnosed PTSD from an event that happened when they were 5 years old. They cannot make me fucking do anything i don't want to pt began to rip and bent pulse ox cord. This RN instructed pt to not break hospital equipment. Natasha charge entry specialist to triage, told pt they are not allowed to scream and yell due to other pts in department. Pt screamed, dropped to the floor began to hyperventilate. Don't fucking touch me. Unable to console pt. This RN speaking to pt, asking permission to help them up and to place bracelet. Pt agreed. Still breathing fast. This RN explained pt will receive help for SI and medial attention for wounds on L FA. Pt escorted to ED room 5.
--- NOTE | 2024-05-23 23:34 | EX.ED.VIS.PS ---
HPI HPI - Psych History of Present Illness Chief Complaint: Suicidal Informant: patient Narrative Narrative: 24-year-old female presents saying that she wanted to kill herself tonight. She does not discuss any specifics or a plan. She states she called a hotline because she wanted help, she states she felt dismissed, she came here for help and feels like the triage nurse dismissed her and she is in the room just prior to my evaluation screaming at the top of her lungs cowering in the corner and crying. I was able to get her to talk with me. She states that she has undiagnosed PTSD, she speaks with a therapist online but she does not specialize in PTSD and does not think that she is really helping her. She states she does not trust anybody because she has had people betrayed her over and over such as her parents when she was a kid. States she has a boyfriend who is in [place] who has similar issues with his parents, but she has no support system around here, and feels lost, depressed, and as a result of all of the suicidal. She states calling the hotline and coming to the ER is a major event in her life because she has done everything she could to suppress suicidality for years until tonight. She states everything that has occurred tonight has made her feel more triggered and she does not know what to do or how to calm down. She goes by the name Ron. [facility] Medical History (Updated 05/24/24 @ 00:[address] Kelby Reynaga MD) Interstitial cystitis Lichen sclerosus Marijuana use Recurrent urinary tract infection Asperger syndrome IBS (irritable bowel syndrome) Gastroparesis Home Medications ?Medication ?Instructions ?Recorded ?Last Taken ?Type tizanidine 4 mg tablet 4 mg PO QHS 09/26/18 09/25/18 History albuterol sulfate 90 mcg/actuation 2 inh inhalation Q4H PRN shortness 10/22/23 Unknown History aerosol inhaler of breath or wheezing gabapentin 100 mg capsule 300 mg PO QHS 05/02/24 Unknown History Allergy/AdvReac Type Severity Reaction Status Date / Time Bleach (Sodium Hypochlorite) Allergy Mild Other Verified 05/23/24 23:05 latex Allergy Mild Itching Verified 05/23/24 23:05 Food Allergies: Uncoded Allergy Other Verified 05/02/24 20:11 honey Allergy Rash Verified 05/02/24 20:11 prochlorperazine (From Allergy Vomiting Verified 05/02/24 20:11 Compazine) nitrofurantoin (From AdvReac Vomiting Verified 05/02/24 20:11 Macrobid) Surgical History Hx of appendectomy Social History (Updated 05/23/24 @ 23:[address] Kelby Reynaga MD) household members: none housing: other current occupational status: student Smoking Status: Current some day smoker tobacco type: e-cigarettes substance use type: does not use ROS ROS ED Constitutional Constitutional ED: Denies chills or fever(s) Eyes Eyes: Denies change in vision or diplopia ENT ENT ED: Denies rhinorrhea or sore throat Cardiovascular Cardiovascular: Denies chest pain or palpitations Respiratory/Chest Respiratory/Chest: Denies cough or dyspnea Gastrointestinal Gastrointestinal: Denies abdominal pain, diarrhea, nausea or vomiting Genitourinary Genitourinary ED: Denies dysuria or hematuria Musculoskeletal Musculoskeletal: Denies back pain or neck pain Integumentary Denies abscess or rash Neurologic Neurologic: Denies headache(s), paresthesias or weakness Psychiatric Psychiatric: Reports anxiety, depression, suicidal ideation and suicidal thoughts; Denies homicidal ideation EXAM Physical Exam Const Vital Signs: 05/23/24 23:05 Temperature 98.2 F Temperature Source Temporal Pulse Rate 87 Respiratory Rate 20 H Blood Pressure 139/88 H Blood Pressure Mean 105 Pulse Ox 99 Oxygen Delivery Method Room Air Positive well nourished and well developed General Appearance ED: well developed and NAD HEENT Reports moist mucous membranes normocephalic and atraumatic Eyes PERRL and EOMs intact bilaterally General Eye ED: Negative for scleral icterus Neck supple Resp normal respiratory effort Cardio Rate: regular rate Rhythm: regular rhythm GI non-tender and non-distended Palpation: soft Back/Spine normal ROM Extremity normal to inspection General Extremety ED: Negative for edema General Extremity: Negative for edema Neuro oriented x3, CN's II-XII intact bilaterally, no sensory deficits noted and gait normal Sensorium / Orientation: alert Motor Exam: strength 5/5 throughout Psych denies homicidal ideation Attitude: other hysterical, crying, cowering on floor attempting to avoid caretakers Activity / Motor Behavior: avoids eye contact Speech: normal speech Mood & Affect: depressed, anxious, tearful, fearful and labile affect Thought Content: suicidality Attention / Concentration: attention grossly intact Memory / Cognition: memory grossly intact Insight: insight good Judgement: questionable Skin Lesions: no lesions Rashes: no rashes MDM MDM MDM Narrative Medical decision making narrative: Labs and toxicology reviewed negative, alcohol negative, labs unremarkable. She is medically cleared for psychiatric evaluation and I think she should be placed. Spoke with mental health who evaluated the patient at length and agrees. I allowed the patient to have her nighttime medications at her request. Lab Data Attestation: I reviewed the patient's lab results. Labs: Laboratory Results - last 24 hr 05/23/24 05/24/24 23:55 00:05 WBC 8.5 RBC 4.52 Hgb 13.4 Hct 39.6 MCV 87.6 MCH 29.6 MCHC 33.8 RDW Std Deviation 38.3 RDW Coeff of Jake 11.9 Plt Count 334 MPV 9.5 Immature Gran % (Auto) 1.600 H Neut % (Auto) 59.8 Lymph % (Auto) 30.1 [place] % (Auto) 6.1 Eos % (Auto) 1.6 Baso % (Auto) 0.8 Absolute Neuts (auto) 5.1 Absolute Lymphs (auto) 2.57 Nucleated RBC % 0 Sodium 136 Potassium 3.4 L Chloride 107 Carbon Dioxide 22.0 Anion Gap 8 BUN 7 Creatinine 0.68 Estim Creat Clear Calc 127.30 Est GFR (MDRD) Af Amer 138 Est GFR (MDRD) Non-Af 114 BUN/Creatinine Ratio 10.2 Glucose 98 Calcium 9.4 Serum , Qual NEGATIVE Urine Opiates Screen NEGATIVE Urine Methadone Screen NEGATIVE Ur Barbiturates Screen NEGATIVE Ur Phencyclidine Scrn NEGATIVE Ur Amphetamines Screen NEGATIVE MDMA (Ecstasy) Screen NEGATIVE U Benzodiazepines Scrn NEGATIVE Urine Cocaine Screen NEGATIVE U Cannabinoids Screen NEGATIVE Ur Drug Screen Comment Ethyl Alcohol < 3.0 Management Discussion w/another healthcare provider: Behavioral health Discharge Plan Triage Chief Complaint: Suicidal ED Provider: Kelby Reynaga Dx/Rx/DC Orders Clinical Impression: Suicidal ideation Prescriptions: No Action tizanidine 4 MG tablet 4 mg PO QHS albuterol sulfate 90 mcg/actuation HFA aerosol inhaler 2 inh inhalation Q4H PRN (Reason: shortness of breath or wheezing) gabapentin 100 mg capsule 300 mg PO QHS Primary Care Provider: Travis Siddiqi Referrals: Travis Siddiqi DO [Primary Care Provider] - Print Language: Bolivian Disposition Disposition: Psychiatric Hospital or Unit
[2024-05-24 00:30] LABS: Alcohol, Blood (Medical)-Serum < 3.0 mg/dL
[2024-05-24 00:32] LABS: Absolute Lymphocyte Count 2.57 X10^3/uL (0.83-4.51); Absolute Neutrophil Count 5.1 X10^3/uL (2.0-7.7); Basophil# 0.07 X10^3/uL; Basophil% 0.8 % (0-1); Eosinophil# 0.14 X10^3/uL; Eosinophils% 1.6 % (0-5); Hematocrit 39.6 % (37-47); Hemoglobin 13.4 g/dL (12.0-15.0); Lymphocyte # 2.57 X10^3/ul (0.83-4.51); Lymphocyte % 30.1 % (19-41); Mean Corp Hgb Conc 33.8 g/dL (32-36); Mean Corpuscular Hgb 29.6 pg (27.0-32.0); Mean Corpuscular Volume 87.6 fL (81-99); Mean Platelet Vol. 9.5 fl (6.2-12.0); Monocyte# 0.52 X10^3/uL; Monocyte% 6.1 % (0-10); NRBC Flagged by Analyzer 0 % (0-5); Neutrophil # 5.09 X10^3/uL (2.7-7.7); Neutrophil % 59.8 % (47-70); Platelet Count 334 K/mm3 (150-450); RBC Distribution Width CV 11.9 % (11.6-14.6); RBC Distribution Width SD 38.3 fl (35.1-43.9); Red Blood Count 4.52 M/mm3 (4.2-5.4); White Blood Count 8.5 K/mm3 (4.4-11.0)
[2024-05-24 00:34] LABS: Anion Gap 8 (5-15); BUN 7 mg/dL (7-18); BUN/Creat Ratio 10.2 RATIO (10-20); Calcium,Total 9.4 mg/dL (8.5-10.1); Chloride 107 mmol/L (98-107); Creatinine, Serum 0.68 mg/dL (0.55-1.02); EST Glomerular Filtration Rate 114 mL/min (>60); Est Glom Filt Rate - Afr Amer 138 mL/min (>60); Glucose 98 mg/dL (74-106); Potassium 3.4 mmol/L (3.5-5.1); Sodium Level 136 mmol/L (136-145)
[2024-05-24 00:42] LABS: Internal QC Validated? YES +Cl - CLEAR BKGD; Pregnancy, Serum, hCG Quali. NEGATIVE Negative; Record Kit Lot#, Serum Preg. 869294
[2024-05-24 00:59] LABS: Amphetamine Urine VISTA NEGATIVE (<1000 ng/mL); Barbiturate Urine VISTA NEGATIVE (< 200 ng/mL); Benzodiazepine Urine VISTA NEGATIVE (< 200 ng/mL); Cocaine Urine VISTA NEGATIVE (< 300 ng/mL); Ecstacy Urine VISTA NEGATIVE (< 500 ng/mL); Methadone Urine VISTA NEGATIVE (< 300 ng/mL); PCP Urine VISTA NEGATIVE (< 25 ng/mL); THC Urine VISTA NEGATIVE (< 50 ng/mL); Vista UDS pH Range 7
[2024-05-24] MEDS: Gabapentin 300 MG Capsule PO (01:34)
[2024-05-24] MEDS: tiZANidine HCl 2 MG Tablet 4 MG PO (05:28)
[2024-05-24 08:29] VITALS: BP 126/84; PULSE 81; RESP 16; O2SAT 99
[2024-05-24 08:40] VITALS: BP 126/84; PULSE 81; RESP 16; TEMP 36.6; O2SAT 99
== END 2024-05-24 08:44 ==
PROVIDERS: Emergency Provider Emergency Medicine; PCP Family Medicine; Visit Provider Emergency Medicine
DX: R45.851 Suicidal ideations (principal); F17.290 Nicotine dependence, other tobacco product, uncomplicated; Z79.899 Other long term (current) drug therapy
CPT/HCPCS: 80048; 80307; 82077; 84703; 85025; 99285

== ENCOUNTER 2024-05-31 14:52 | Emergency (ER) | payer OTHER, SELFPAY ==
[2024-05-31 14:53] VITALS: BP 127/86; PULSE 96; RESP 18; TEMP 35.7; O2SAT 98; BMI 28.3
--- NOTE | 2024-05-31 15:26 | EKG12_ITS ---
Test Reason : PLACEMENT Blood Pressure : */* mmHG Vent. Rate : 74 BPM Atrial Rate : 74 BPM P-R Int : 112 ms QRS Dur : 90 ms QT Int : 362 ms P-R-T Axes : 52 49 47 degrees QTcB Int : 401 ms Normal sinus rhythm Normal ECG Confirmed by ADA GUTIÉRREZ, OLIVER ([id number]), features editor VALERY CHOU ([id number]) on 06/02/2024 8:04:03 AM Referred By: Confirmed By: OLIVER CABALLERO MD
[2024-05-31] MEDS: Ondansetron ODT 4 MG Tablet PO (15:40)
--- NOTE | 2024-05-31 16:15 | EDS_ITS ---
HPI <PATRICIA Pratt - Last Filed: 05/31/24 16:47> History of Present Illness Chief Complaint: Mental Health Narrative Narrative: Patient is a 24-year-old female with history of chronic neck pain, neuropathy, major depression who presents to the emergency department for side effect from medication. Patient states she was seen here a week to within 0.5 weeks ago. She was transferred to a facility in [place]. She has been placed on Effexor 75 mg daily for 5 days. Over the last couple days, she has been feeling a lot of the side effects such as nausea, dizziness, headaches, dry mouth. Patient states she just is concerned today because she feels like she is feeling all of the symptoms today and wants to make sure that she is safe. She does not have any suicidal homicidal ideation. Patient dates she is still working through her depression and is currently trying to find a doctor in this area. [facility] <PATRICIA Pratt - Last Filed: 05/31/24 16:47> [facility] Medical History (Updated 05/31/24 @ 16:28 by PATRICIA Pratt) Interstitial cystitis Lichen sclerosus Marijuana use Recurrent urinary tract infection Asperger syndrome IBS (irritable bowel syndrome) Gastroparesis Home Medications ?Medication ?Instructions ?Recorded ?Last Taken ?Type tizanidine 4 mg tablet 4 mg PO QHS 09/26/18 09/25/18 History albuterol sulfate 90 mcg/actuation 2 inh inhalation Q4H PRN shortness 10/22/23 Unknown History aerosol inhaler of breath or wheezing gabapentin 100 mg capsule 300 mg PO QHS 05/02/24 Unknown History ondansetron 4 mg disintegrating 4 mg PO Q8H PRN PRN Nausea #10 tabs 05/31/24 Unknown Rx tablet Allergy/AdvReac Type Severity Reaction Status Date / Time Bleach (Sodium Hypochlorite) Allergy Mild Other Verified 05/31/24 14:53 latex Allergy Mild Itching Verified 05/31/24 14:53 Food Allergies: Uncoded Allergy Other Verified 05/31/24 14:53 honey Allergy Rash Verified 05/31/24 14:53 prochlorperazine (From Allergy Vomiting Verified 05/31/24 14:53 Compazine) nitrofurantoin (From AdvReac Vomiting Verified 05/31/24 14:53 Macrobid) Surgical History Hx of appendectomy Social History (Updated 05/23/24 @ 23:[address] Kelby Reynaga MD) household members: none housing: other current occupational status: student Smoking Status: Current some day smoker tobacco type: e-cigarettes substance use type: does not use ROS <PATRICIA Pratt - Last Filed: 05/31/24 16:47> ROS ED ROS Narrative Constitutional: Negative for fever, chills, weight loss, weakness Eyes: Negative for vision loss, vision change, double vision ENT: Negative for any sore throat, ear pain, congestion Cardiovascular: Negative for any chest pain, tightness, palpitations Respiratory: Negative for any cough, sputum production, hemoptysis, dyspnea, dyspnea on exertion, orthopnea Gastrointestinal: Negative for any abdominal pain, nausea, vomiting, diarrhea, constipation, blood in stool, blood in vomit : Negative for any urinary frequency, dysuria, retention, blood in urine Muscle skeletal: Negative for any neck pain, back pain Neurological: Negative for any headache, syncope, dizziness Skin: Negative for any rashes, itching, abrasions, lacerations Psychiatric: Negative for any suicidal ideation, homicidal ideation. Positive for stress reaction, anxiety and depression Hematologic: Negative for any excessive bruising, easy bleeding EXAM <PATRICIA Pratt - Last Filed: 05/31/24 16:47> Physical Exam Narrative Exam Narrative: Vital signs reviewed. Patient is alert and orient x 4, patient does seem to be on edge. Patient is annoyed when having to answer several questions in a row. Patient has no signs or symptoms of psychosis, no suicidal homicidal ideation HEET: Head normocephalic atraumatic, TMs clear bilaterally. Posterior pharynx is clear, moist mucous membranes. Nares clear bilaterally. Neck: Supple with no lymphadenopathy or tenderness. No signs of meningismus. Cardiac: Regular rate and rhythm no murmurs gallops or rubs, equal peripheral pulses bilaterally. Respiratory: Lungs clear to auscultation bilaterally. No chest tenderness. Abdomen: Soft, nontender, nondistended. No abdominal bruit or pulsatile masses. No hepatosplenomegaly Extremities: No peripheral edema, no signs of gross trauma or deformity. Active full range of motion of all extremities. Neuro: Cranial nerves II through XII intact, no focal neurological deficits. Skin: Clean dry and intact with no rash, purpura, petechiae, vesicles or pustules. Backs/flank: No CVA tenderness, no midline spinal tenderness, no deformity. Psych: Normal mood and affect. No SI, HI or acute psychosis. Const Vital Signs: 05/31/24 14:53 Temperature 96.3 F L Temperature Source Temporal Pulse Rate 96 Respiratory Rate 18 Blood Pressure 127/86 H Blood Pressure Mean 99 Pulse Ox 98 Oxygen Delivery Method Room Air Positive well nourished and well developed General Appearance ED: well developed <Dr. Fernie Bragg, - Last Filed: 05/31/24 16:37> Physical Exam Const Vital Signs: 05/31/24 14:53 Temperature 96.3 F L Temperature Source Temporal Pulse Rate 96 Respiratory Rate 18 Blood Pressure 127/86 H Blood Pressure Mean 99 Pulse Ox 98 Oxygen Delivery Method Room Air MDM <PATRICIA Pratt - Last Filed: 05/31/24 16:47> [facility] Treatment and Re-Evaluation :: Differential diagnosis includes however is not limited to: Medication reaction, depression, PTSD, suicidal ideation, homicidal ideation Patient appears to be in no obvious distress, patient's vital signs are stable. Patient presents to the [facility] for concerns of side effects from her Effexor. Patient will receive an EKG which showed normal sinus rhythm, no evidence to suggest psychosis, no evidence suspect any suicidal, homicidal ideation. Patient is acting appropriate. I did reach out to social work who did come down and evaluate the patient. The patient be given multiple follow-up appointments, as well as different specialist. Patient does have an appointment tomorrow. Patient is agreeable this plan. She does feel safe to go home. <Dr. Fernie Bragg, - Last Filed: 05/31/24 16:37> [facility] Narrative Medical decision making narrative: I have personally performed a face to face assessment of the patient and have reviewed the WILLIE Note. I performed a substantive portion of the visit including all aspects of the following. My goyal findings include: History: Patient presents with side effects from Effexor. Patient states she was recently started on this medication. Patient states that over the past few days, she has been developing headache, nausea, brain fog shaking, and blurry vision. Patient also admits to diffuse pain from her head to her toes. Patient denies any trauma or injury. Patient denies any fevers or chills. Patient denies any vomiting but admits to some nausea. Exam: Vital signs are stable. Patient is afebrile. Patient is in no acute distress. Oral mucosa is pink and moist. Neck is supple. Trachea is midline. No JVD. Heart was regular rate and rhythm. Lungs are clear and equal bilaterally. Abdomen is soft. Bowel sounds are normal. There is no tenderness. Cranial nerves II through XII are intact. There are no focal motor or sensory deficits noted. Patient denies any suicidal or homicidal ideations. Patient denies any paranoid ideations. Patient denies any visual or auditory hallucinations. Medical Decision Making: Differential diagnosis includes anxiety, medication side effect, and QTc prolongation. EKG will be obtained to assess for QTc prolongation secondary to the Effexor. EKG was obtained. On my independent interpretation, it showed a normal sinus rhythm with a rate of 74. IA interval, QRS interval, and QTc intervals were all normal. [place] was normal. There are no acute ST or T wave changes. iron worker apprentice was in to evaluate the patient. She felt patient could be discharged home safely. I am agreeable with this. Patient was given resources. Patient was instructed to follow-up with her primary care physician in 3 to 5 days. Patient was instructed to return if worse in any way. Patient understood and was agreeable with the plan. All questions were answered. Discharge Plan Triage Chief Complaint: Mental Health ED Midlevel Provider: Eder Johnson ED Provider: Fernie Bragg Dx/Rx/DC Orders Clinical Impression: Depression, Medication adverse effect Instructions: Depression Chem Balance, ED Drug Reaction, Other Prescriptions: New ondansetron 4 mg tablet,disintegrating 4 mg PO Q8H PRN PRN (Reason: Nausea) Qty: 10 0RF No Action tizanidine 4 MG tablet 4 mg PO QHS albuterol sulfate 90 mcg/actuation HFA aerosol inhaler 2 inh inhalation Q4H PRN (Reason: shortness of breath or wheezing) gabapentin 100 mg capsule 300 mg PO QHS Primary Care Provider: Travis Siddiqi Referrals: Travis Siddiqi DO [Primary Care Provider] - Activity Restrictions/Additional Instructions: Please use your follow-up with the social work has given you today. I do know you have appointment tomorrow, continue to follow-up. Print Language: Uzbek Disposition Disposition: Home, Self Care
--- NOTE | 2024-05-31 16:25 | CM.ED ---
Date of referral: 05/31/2024 Reason for referral: Mental Health Referred by: ED Doctor Patient provided consent for social work visit. Patient sitting upright in hospital bed during visit. Patient recently seen in the [facility] ED for suicidal ideation on 05/23/2024 and was subsequently placed at [facility]. Patient complaining of side effects with current medication and presented to the ED in hopes of getting dosage lowred. Patient reported feeling safe, denied any suicidal ideation (SI) or homicidal ideation (HI). Patient currently connected with an online therapist who patient described as being not a good fit just because current therapist doesn't specialize in PTSD and/or trauma informed care. Patient seeking PTSD diagnosis, mental health therapy that can provide Cognitive Behavior Therapy (CBT), Dialectal Behavior Therapy (DBT) and Eye Movement Desensitization and Reprocessing (EMDR). Patient seeking a local Psychiatrist who can help provide long-term medication management. Patient is currently a student at [employer] and is also seeking a therapist who can provide an emotional support animal letter so patient can get a hamster. Patient reported she's been struggling for the past two years and has had some self-harming behavior but denied any current self-harming behavior. Patient has an appointment tomorrow, 06/[address] Praveen Downey through [facility] and patient is also going to inquire about what services they will be able to offer patient. Patient lacks transportation. At the end of the visit, one of patient's college friends arrived and was in the room. Patient continued to provide consent for conversations to take place. wood and wood products factory worker left and returned with additional mental health resources for patient that provides psychiatry, and trauma informed therapy. wood and wood products factory worker also provided ample coping strategies and techniques as well as numbers for Crisis. No other information needed at this time. Chelo Win, UPSTAIRS MAID, RESTAURANT ATTENDANT
[2024-05-31 16:52] VITALS: RESP 18
== END 2024-05-31 17:03 | disposition home or self-care (01) ==
PROVIDERS: Emergency Provider Emergency Medicine; PCP Family Medicine; Visit Provider Emergency Medicine
DX: F32.A Depression, unspecified (principal); R11.0 Nausea; R42 Dizziness and giddiness; R51.9 Headache, unspecified; R68.2 Dry mouth, unspecified; T43.215A Adverse effect of selective serotonin and norepinephrine reuptake inhibitors, initial encounter; G62.9 Polyneuropathy, unspecified; F17.290 Nicotine dependence, other tobacco product, uncomplicated; Z79.899 Other long term (current) drug therapy
CPT/HCPCS: 93005; 99284

== ENCOUNTER 2024-06-15 08:00 | Outpatient (RCR) | payer OTHER, SELFPAY ==
--- NOTE | 2024-06-15 09:00 | BH.SGPN.GN ---
Behaviors/Verbalizations/Mental Status: [] Client alert and oriented, casual appearance. Eye contact fair. Motor activity appropriate. Speech within normal limits. Affect congruent, mood anxious Thoughts linear, logical, no signs of hallucinations or delusions. Reviewed client's symptom tracker, no risk for suicidal ideation, plan, or intent. Client Response/Progress/Benefit: [] Client responded well to session AEB listening to others and sharing thoughts/feelings. Per daily symptom tracker client reported a 3/5, with 5 representing severe, for depression and a 4/5 for anxiety. Client reported mental health positive as letting himself cry over the weekend instead of holding it in. Client reported additional mental health positive as showing up to IOP today despite wanting to stay home. Client reported current stressor is not knowing anyone in the program and being around several new people in the group programming. Appeared to benefit from support from peers. Will continue IOP tx to improve daily functioning, increase healthy coping skills, and prevent decompensation. Narrative Note: []
--- NOTE | 2024-06-15 10:10 | BH.SGPN.GN ---
Behaviors/Verbalizations/Mental Status: [] Client alert and oriented, casually dressed and groomed. Eye contact good to avoidant. Motor activity appropriate. Speech within normal limits. Full affect with at times crying/shaking in group, mood anxious and dysthymic. Thoughts linear, logical, no signs of hallucinations or delusions. Client Response/Progress/Benefit: [] Client's first day in program and overall responded well to session, contributing to discussion and engaged during the activity. Client at times thought had become visibly upset due to triggering material in group. Group identified the benefits of change which included: personal growth, increased confidence, improving mental health, progressing, and becoming resilient. Worked with the group to identify barriers to change, which included: fear of failure, lack of motivation, fear of the unknown, trauma, and negative thinking. Client also reflected on past negative experiences can keep people from making changes with indicated they currently are going through making a lot of changes in their lives. Client participated along with group in activity where they discussed the emotions related to change. Benefited from increased awareness and understanding of emotions, benefits, and barriers related to change. Will continue IOP tx to increase overall functioning. Narrative Note: []
--- NOTE | 2024-06-15 10:24 | BH.COMM ---
Communication Note Communication with Client Communication Note: Met with pt to complete initial paperwork and administer the CSSR-S screening and risk assessment. Pt is a mild-moderate risk as pt has thoughts of on a daily basis currently, but he denies any active SI since he was discharged from the hospital on 05/28/24. Pt was admitted for a suicide attempt by cutting and he said ?that was the first time I ever cut to kill myself.? Pt has history of self-harm, but he had not done any cutting for about two years prior to his attempt. No other suicide attempts. No access to weapons. Pt is future oriented. Pt reports ability to maintain safety today. Discussed case with Dr. 

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
--- NOTE | 2024-06-15 11:10 | BH.SGPN.GN ---
Behaviors/Verbalizations/Mental Status: [] Client alert and oriented, casually dressed and groomed. Eye contact good. Motor activity appropriate. Speech within normal limits. Affect full, mood anxious and dysthymic. Thoughts linear, logical, no signs of hallucinations or delusions. Client Response/Progress/Benefit: [] Client responded well to session, attentive. Did well to process activity and work with group to relate the strategies used to overcome barriers in the activity to managing change in own life. Client identified a change they would like to make is accept and cope with past traumas. Client identified currently being in preparation stage for this particular change. Client stated goal is to write down details and timeline. Appeared to benefit from identifying a small goal to work towards. Client will continue IOP tx to prevent decompensation, gain healthy coping skills, and improve daily mood. Narrative Note: []
--- NOTE | 2024-06-15 14:23 | BH.MDN_ITS ---
Multi-Disciplinary Note Note 30-min Individual: Time Started:: 12:10 Date: 06/15/24 Purpose of session/treatment goals addressed:: To gather information on pt's current stressors, symptoms, triggers, history, and tx goals. Another goal was to build rapport and provide emotional support. Eye Contact:: Good and Fair Motor Activity:: Restless Appearance:: Casual Speech:: Appropriate and Tangential Mood:: Anxious, Irritable and Depressed Affect:: Congruent Thoughts:: Linear, Logical and No evidence of hallucinations/delusions n oted Staff Interventions:: psychoeducation on: (trauma and ACEs), mindfulness skills, rapport building, strengths perspective, treatment planning and complete d risk assessment / safety planning Client Response:: Pt responded well to session, open to meeting with therapist. Pt entered session anxious and irritable due to PTSD triggers and report of distrust for the medical field. Pt shared he has not had good experiences in the past and has often been invalidated. Pt has numerous chronic conditions that impact pt on a daily basis as well as anger and resentment due to these conditions. Pt stated he has trauma and he believes he has c-ptsd as well, but pt reported that no one has diagnosed him with this and that leads to more anger and mistrust. Pt responded well to emotional support from therapist as well as psychoeducation on c-ptsd and the physical components that occur with trauma. Pt was given resources on trauma therapists in the area as well as informational materials to learn more about the impact trauma has on the body/mind. Pt shared he was very grateful because he was being taken seriously and not dismissed. Pt stated he has been struggling with his mental health for a long time and he wants to learn how to manage his emotions and learn how to check in with myself. Pt has never done an IOP before and has only been hospitalized once. 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 Pt reports feeling less anxious when he left session. Risks/Concerns:: Pt reports having daily thoughts of , but no active SI, plan or intent since his discharge from the hospital. Pt reports history of self-harm, but prior to his attempt he had not self-harmed for two years. Pt has no access to weapons and he reports ability to maintain safety. Progress Toward Goals/Plan:: Pt's first day of IOP tx, so no progress to document. 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 Pt responded well to emotional validation and reassurance from therapist which appeared to increase pt's confidence in IOP. Pt will see Dr. Magallanes on 06/18/24 for a psychiatric evaluation and he will continue IOP tx to prevent decompensation and rehospitalization. Time Stopped:: 12:45
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
[2024-06-18 10:57] VITALS: BP 136/88; PULSE 87
--- NOTE | 2024-06-18 11:10 | BH.SGPN.GN ---
Behaviors/Verbalizations/Mental Status: [] Pt alert and oriented. Appearance is casual. Eye contact good. Motor activity appropriate. Speech within normal limits. Affect is depressed. Mood is congruent. Thoughts linear, logical, no signs of hallucinations or delusions. Client Response/Progress/Benefit: [] Pt was engaged during discussion and experiential activity. Completed the worksheet challenging them to develop a personal SMART goal. Pt chose a SMART goal related to her education. Able to identify how this will benefit her mental health as well as barrier to completing her SMART goals. Benefited from this group by developing a short-term SMART goal related to mental health. Will continue IOP to prevent decompensation/re-admission to psych unit, maintain safety, increase healthy coping, and maintain safety. Narrative Note: []
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
--- NOTE | 2024-06-18 12:14 | BH.DR.ITP ---
Initial Treatment Plan Patient Information Visit Information: ADMISSION DATE: EXPECTED LOS: 4-6 weeks Problems/Symptoms Problem #1:: Depression Symptom:: Sadness, hopelessness, worthlessness, guilt, irritability, anhedonia, biological disruption of sleep, low energy, decreased concentration, passive suicidal ideation, recent self-harm Problem #2:: Anxiety Symptom:: Worry, rumination, panic attacks, nightmares, flashbacks and trauma triggers
--- NOTE | 2024-06-19 09:00 | BH.SGPN.GN ---
Behaviors/Verbalizations/Mental Status: [] Eye contact is good. Motor activity is appropriate. Appearance is casual. Speech is Appropriate. Mood is euthymic. Affect is full. Thoughts are linear and logical. No evidence of psychosis. Reviewed daily check in sheet and no reports of suicidal ideations or intent. Client Response/Progress/Benefit: [] Pt participated at times. Attentive. ? I?m feeling pretty good?. Reports that he getting comfortable with the structure and people at [facility]. Briefly discussed how support has been beneficial. Engaged and active for the past few days. Decreased isolation and increased energy. Limited support as he is living on college campus with the majority of the students gone for the holiday. Estranged from family. Significant conflict with his mother. Progress noted. Benefited from group support, encouragement, and feedback. Will continue in [facility] to maintain safety, stabilize mood, and improve functioning. Narrative Note: []
--- NOTE | 2024-06-19 10:10 | BH.SGPN.GN ---
Behaviors/Verbalizations/Mental Status: []Eye contact is fair. Motor activity is appropriate. Appearance is casual. Speech is Appropriate. Mood is dysthymic. Affect is constricted. Thoughts are linear and logical. No evidence of psychosis. Client Response/Progress/Benefit: [] Pt was engaged and participating throughout, providing input and taking notes. Participated in an interactive discussion on defining anxiety and identifying cognitive and physiological symptoms of anxiety. The group discussed the role of anxiety on isolation, avoidance, and who this emotion impacts their ability to start and complete activities/goals. Pt identified their physical/physiological signs of anxiety which includes: restless, increased heart rate, and shaky hands. Benefited from increased awareness and insight on anxiety and its impact. Will continue in IOP to improve distress tolerance, challenge negative thoughts, and prevent decompensation.
--- NOTE | 2024-06-19 11:10 | BH.SGPN.GN ---
Behaviors/Verbalizations/Mental Status: []Pt alert and oriented, casually dressed and groomed. Eye contact good. Motor activity appropriate. Speech within normal limits. Affect congruent, mood anxious and engaged. Thoughts linear, logical, no signs of hallucinations or delusions. Client Response/Progress/Benefit: [] Pt was an active participant AEB pt providing input and listening attentively to peers. Attentive during psychoeducation on mindfulness coping skills and their impact on reducing anxiety and improving overall mental health wellness. Group was able to identify self-soothing and mind-based coping skills which included: 5-senses, meditation, deep breathing, TIPP, thought challenging, categories, and progressive muscle relaxation. Pt also participated with peers in practicing mindfulness skills in session including deep breathing. Pt would like to work on using the 5-senses to manage anxiety. Appeared to benefit from increasing repertoire of anxiety reduction skills. Pt will continue in IOP tx to improve distress tolerance, increase use of healthy coping skills, and prevent decompensation. Narrative Note: []
--- NOTE | 2024-06-23 09:05 | BH.SGPN.GN ---
Behaviors/Verbalizations/Mental Status: [] Pt alert and oriented, casually dressed and groomed. Eye contact good. Motor activity appropriate. Speech within normal limits. Affect congruent, mood depressed. Thoughts linear, logical, no signs of hallucinations or delusions. Reviewed pt?s symptom tracker, no risk for suicidal ideation, plan, or intent 06/23/24 Client Response/Progress/Benefit: [] Pt was an active participant in group discussions. Attentive. Able to identify mental health wins including beginning to process his trauma in individual counseling. Shared that as important as doing so is, he is feeling sad and drained today. Did well to identify self-care activities to begin incorporating on days he has therapy. Additional win noted as maintaining a boundary with his mom by remaining on campus during the holiday break. Stressor noted as not being able to completely sever ties with mom for financial reasons. Receptive of discussion on acceptance and self-care. Benefited from group support, encouragement, and feedback. Will continue in IOP to prevent decompensation, promote mood stability, and continue to improve use of thought challenging. Narrative Note: []
--- NOTE | 2024-06-23 10:10 | BH.SGPN.GN ---
Behaviors/Verbalizations/Mental Status: [] Eye contact is fair. Motor activity is appropriate. Appearance is casual. Speech is Appropriate. Mood is dysthymic. Affect is congruent. Thoughts are linear and logical. No evidence of psychosis. Client Response/Progress/Benefit: [] Pt was an active participant in group discussions. Attentive during psychoeducation. Contributed during interactive discussions in which peers attempted to define crisis. Group identified crisis examples. Group also worked together to identify warning signs and unhealthy responses to crisis which included shutting down, isolation, avoidance, over-thinking, disordered eating, and self-harm. Pt identified top 3 warning signs as: self-harm urges, isolation, and sleeping less than usual. Benefited from increased understanding of crisis and awareness of personal responses to crisis. Pt will continue IOP tx to improve distress tolerance, increase healthy coping, and prevent decompensation.
--- NOTE | 2024-06-23 11:15 | BH.SGPN.GN ---
Behaviors/Verbalizations/Mental Status: []Pt alert and oriented, appropriate grooming/appearance. Eye contact fair. Motor activity appropriate. Speech within normal limits. Affect congruent, mood dysthymic. Thoughts linear, logical, no signs of hallucinations or delusions. Client Response/Progress/Benefit: [] Pt was an active participant in group discussions. Attentive during psychoeducation. In small group pt along with peers developed an active plan for their crisis warning signs. Pt identified three crisis warning signs as well as an action plan for each. One crisis warning sign was urges to self-harm. Pt identified strategies to help with this such as: getting a lock box, reaching out to a friend when pt wants to cut, and writing out reasons why pt wants to reduce self-harm.?Benefited from increased awareness of crisis warning signs and by developing crisis intervention strategies. Will continue in IOP to improve distress tolerance, reduce isolation, and prevent decompensation.? Narrative Note: []
== END 2024-06-23 23:59 ==
LOC: BHIOP 08:00
PROVIDERS: PCP Family Medicine; Referring Provider Psychiatry & Neurology Psychiatry; Visit Provider Psychiatry & Neurology Psychiatry
DX: F33.2 Major depressive disorder, recurrent severe without psychotic features (principal); F41.0 Panic disorder [episodic paroxysmal anxiety]; F43.10 Post-traumatic stress disorder, unspecified; F84.0 Autistic disorder
CPT/HCPCS: S9480; 90832; 90853

== ENCOUNTER 2024-06-25 07:09 | Outpatient (RCR) | payer OTHER, SELFPAY ==
[2024-06-24 00:54] VITALS: BP 136/88; PULSE 87
--- NOTE | 2024-06-26 09:05 | BH.SGPN.GN ---
Behaviors/Verbalizations/Mental Status: [] Eye contact is poor. Motor activity is appropriate. Appearance is casual. Speech is Appropriate. Mood is irritable. Affect is congruent. Thoughts are linear and logical. No evidence of psychosis. Reviewed daily check in sheet and no reports of suicidal ideations or intent. Client Response/Progress/Benefit: [] Pt participated when prompted. Distracted. Daily symptom tracker notes 3/5 for anxiety and irritability as well as /5 for self-harm urges. Reports panic attacks yesterday and believing he is on the ?edge of crisis? and ?I?m not sure what skills to apply?. He reports ?grief and trauma? however did not elaborate. No recent triggers. Group was empathetic and provided support as well as suggestions on skills to utilize. Pt was mainly dismissive of suggestions inferring that his situation was much different than peers. Limited benefit from group. He requested to speak with a therapist individually sometime today. No progress noted. Will continue in IOP to prevent decompensation, stabilize mood, increase healthy coping skills, , and improve functioning. Narrative Note: []
--- NOTE | 2024-06-26 11:15 | BH.SGPN.GN ---
Behaviors/Verbalizations/Mental Status: []Eye contact is fair. Motor activity is appropriate. Appearance is casual. Speech is Appropriate. Mood is dysthymic. Affect is congruent. Thoughts are linear and logical. No evidence of psychosis. Client Response/Progress/Benefit: [] Pt responded well to session, attentive and engaged in group discussions and activity. Actively engaged in continued discussion about up activities and down activities. Active participant as group discussed values and the benefits that knowing one's values can have on one's mental health. Pt completed personal cognitive triangle negative loop. Pt shared value would like to improve is education/personal growth. Pt set opposite action goal to learn new things and do challenging things to increase growth. Benefited from increased awareness of their personal values and how incorporating their values into behavioral activation goals can positive impact mental health. Will continue in IOP to challenge distorted thoughts, improve distress tolerance, and prevent decompensation.
--- NOTE | 2024-06-26 14:28 | BH.MDN ---
Multi-Disciplinary Note Note 60-min Individual: Time Started:: 10:05 Date: 06/26/24 Purpose of session/treatment goals addressed:: Purpose of session was to address treatment plan goal #1 obj #2 and goal #2 obj #1 & #2. Eye Contact:: Intense Motor Activity:: Appropriate Appearance:: Casual Speech:: Pressured Mood:: Irritable and Depressed Affect:: Labile Thoughts:: Linear, Logical and No evidence of hallucinations/delusions noted Staff Interventions:: motivational interviewing, psychoeducation on: (window of tolerance), CBT techniques, strengths perspective, goal setting and taught coping skills Client Response:: Pt requested a session and was willing to meet with this therapist as his individual therapist was out for the day. Noted struggling with significant anxiety the past several days, most often when trying to sleep, which has led to increased irritability and emotion dysregulation. Stated that he missed IOP groups yesterday due to not sleeping much the night before because of his anxiety. Shared that although he finds the group environment helpful and informative, he also feels exhausted and worries he will not be able to truly connect with others in the program. Went on to explain beliefs that he has not met anyone who has experienced the type of trauma he has been through and fears others will not be able to understand or provide the support he needs. Disappointed the IOP program is not a trauma specific program. Therapist validated pt?s concerns and discussed that although the program does not discuss trauma specifically, many of the group topics can be used to better manage trauma related sx. Pt receptive, went on to discuss that he ?masks? all day to fit into societal norms and not allow his trauma to impact his relationships or interactions with others. Shared that in the past he was not received well if he did not mask who he really is. Feels angry and exhausted by the end of the day as a result. Struggled to identify emotional release activities he engages in to manage these emotions and believes this is causing nighttime anxiety. Does draw and write but shared these are not always effective. Receptive of reviewing the benefits of physical activity and gross motor activities in regulating emotions. Pt noted he has done martial arts in the past and found it to be beneficial. Reports interest in finding a local martial arts gym, as well as look into [employer] swimming pool hours for emotional release. Risks/Concerns:: Pt denies SI, plan, or intent as of this date, 06/26/24. Future oriented. Progress Toward Goals/Plan:: Progress minimal as pt reports his overall mood and symptoms have not improved since admission. Pt is showing progress with increased insight into helpful coping skills and reduced suicidal ideation. Pt's stressors with family and coping with prior trauma are his biggest ongoing stressors. Receptive of incorporating nighttime self-care and exercise routines to improve mood stability and reduce nighttime anxiety. Pt will continue IOP tx to prevent decompensation, gain distress tolerance skills, and improve daily functioning. Time Stopped:: 11:05
--- NOTE | 2024-07-01 09:05 | BH.SGPN.GN ---
Behaviors/Verbalizations/Mental Status: []? Pt alert and oriented, casually dressed and groomed. Eye contact fair to good. Motor activity appropriate. Speech within normal limits. Affect congruent, mood depressed and agitated. Thoughts linear, logical, no signs of hallucinations or delusions. Reviewed pt?s symptom tracker, no risk for suicidal ideation, plan, or intent 07/01/24.? ? Client Response/Progress/Benefit: []Pt was an active participant in group discussions. Attentive. Able to identify mental health wins including finishing cleaning and decorating his room. Reports this feels more comfortable and inviting now. Additional win noted as getting up with an alarm rather than his phone and found he was not up on his phone as late as a result. Pt's stressor today is?feeling overwhelmed by upcoming communication regarding student loans with his mom. Receptive of group suggestions. Pt receptive to feedback from peers which pt reported was helpful. Progress noted. Benefited from group support, encouragement, and feedback. Will continue in IOP tx to prevent decompensation, promote mood stability, and increase distress tolerance.? Narrative Note: []
--- NOTE | 2024-07-01 10:10 | BH.SGPN.GN ---
Behaviors/Verbalizations/Mental Status: [] Eye contact is good. Motor activity is appropriate. Appearance is casual. Speech is Appropriate. Mood is depressed. Affect is constricted. Thoughts are linear and logical. No evidence of psychosis. Client Response/Progress/Benefit: [] Pt was an active participant in group discussions. Attentive during psychoeducation on the 4 communication styles (Passive, Passive-Aggressive, Aggressive, and Assertive) and the obstacles to effective communication. ?Self-identified a barrier they personally struggle with not knowing how to ask for help. Contributed during interactive discussion on the benefits of communicating effectively which included; having one's needs met, decreases stress and uncertainty, improved relationships, healthier boundaries, and avoids unnecessary conflict. Worked well with peers to identify the benefits and disadvantages to the different communication styles. Benefited from increased understanding of communication styles and how these can impact effective communication. Will continue in IOP to prevent decompensation, gain healthy coping skills, and reduce irritability. Narrative Note: []
--- NOTE | 2024-07-01 11:10 | BH.SGPN.GN ---
Behaviors/Verbalizations/Mental Status: []Pt alert and oriented, casually dressed. Eye contact fair. Motor activity appropriate. Speech within normal limits. Affect congruent, mood dysthymic. Thoughts linear, logical, no signs of hallucinations or delusions. Client Response/Progress/Benefit: [] Pt responded well to session AEB Pt listening attentively to others and providing input during group discussion on the pay offs and costs of the different communication styles. Pt able to connect how current communication style impacts mental health. Connected with peers? comments about importance of using assertive communication. Pt did well with practicing being assertive in the group activity and worked with group to identify potential skills for improving communication skills. Pt seemed to benefit from increasing awareness of healthy strategies to improve communication. Will continue IOP tx to challenge distorted thought patterns, increase use of healthy coping skills, and prevent decompensation.
--- NOTE | 2024-07-01 14:02 | BH.MDN_ITS ---
Multi-Disciplinary Note Note 60-min Individual: Time Started:: 12:00 Date: 07/01/24 Purpose of session/treatment goals addressed:: To work on goal #2 of pt's tx plan and to address pt's frustrations. Eye Contact:: Fair Motor Activity:: Restless Appearance:: Casual Speech:: Appropriate and Rambling Mood:: Euthymic, Anxious, Irritable, Depressed and Other (Throughout session, pt's emotions change quickly depending on the topic being discussed.) Affect:: Constricted Thoughts:: Circular and No evidence of hallucinations/delusions noted Staff Interventions:: thought challenging, mindfulness skills, rapport building, strengths perspective and other (used pt's passion for art as a way for coping and processing. ) Client Response:: Pt responded well to session, open to meeting with therapist. Pt expressed his frustration with IOP staff and the IOP program for not being more PTSD and trauma focused. Pt shared he feels like no one understands and that he has been invalidated. Processed this with pt and discussed how pain and trauma are subjective, so everyone experiences them differently and processes/milvia at different rates. Pt reminded that although IOP is not trauma specific, a lot of pts have experienced trauma and not everyone is ready to talk about it openly in a group setting. Therapist offered to discuss c-PTSD and had worksheets ready, but pt stated he did not want to do this today because it might be too difficult. Pt appeared receptive to working on this during another session as this was something pt shared he needed to work on. Pt did well with the ocean/ship metaphor used by therapist to describe trauma. Pt played a song for therapist that pt feels gives him emotional validation towards his depression and mental health. After listening to the song and using a grounding skill in session, pt was more hopeful and less agitated. Pt receptive to using art and music to help explore his resilience traits and trauma. Pt encouraged to draw for homework. Risks/Concerns:: Pt denies any suicidal ideations, plan, or intent. Pt denies any thoughts of . Progress Toward Goals/Plan:: Limited progress as pt reports feeling frust rated with the IOP program not being trauma-specific which pt has shared makes him feel like no one understands. Pt has reported benefitting from group topics and learning from peers. Pt's functioning continues to be impaired by his symptoms of PTSD and depression. Pt has been given options for trauma-specific individual counseling, but we will continue to discuss these options next session. Pt will continue IOP tx to prevent decompensation, improve daily functioning, and gain healthy coping skills. Time Stopped:: 13:00
--- NOTE | 2024-07-02 09:05 | BH.SGPN.GN ---
Behaviors/Verbalizations/Mental Status: [] Pt alert and oriented, wearing the same clothes pt had on yesterday. Eye contact good. Motor activity appropriate. Speech within normal limits. Affect congruent, mood euthymic. Thoughts linear, logical, no signs of hallucinations or delusions. Reviewed pt?s symptom tracker, no risk for suicidal ideation, plan, or intent 07/02/24. Client Response/Progress/Benefit: []Pt was an active participant in group discussions. Attentive. Able to identify mental health wins including feeling like myself finally the past two days and getting into a healthy sleep cycle. Pt feels the medication he is on is helping with this. Pt's stressor today is there is a friend that wants pt's help with moving, but this friend is sick and pt feels uncomfortable being around her. Pt feels anxious about setting boundaries, but the group was supportive. Pt stated pt is feeling happy and anxious this morning. Pt receptive to feedback from peers which pt reported was helpful. Progress noted. Benefited from group support, encouragement, and feedback. Will continue in IOP tx to prevent decompensation, promote mood stability, and increase distress tolerance. Narrative Note: []
--- NOTE | 2024-07-02 10:15 | BH.SGPN.GN ---
Behaviors/Verbalizations/Mental Status: [] Eye contact is fair. Motor activity is appropriate. Appearance is casual. Speech is Appropriate. Mood is dysthymic. Affect is congruent. Thoughts are linear and logical. No evidence of psychosis. Client Response/Progress/Benefit: [] Pt engaged participant AEB listening to others, engaging in activity, and providing feedback at times. Attentive during psychoeducation and provided insight into obstacles that impede mental wellness. Pt chose to not share with group current mental health reality and desired mental health reality. Did appear attentive to others that shared. Identified barriers to desired reality include: grief, anger, self-harm thoughts, and fear of failure. Benefited from taking look at current mental health state and obstacles for progress. Pt to continue IOP tx to improve emotion regulation, challenge negative/distorted thoughts, and prevent decompensation. Narrative Note: []
--- NOTE | 2024-07-02 11:10 | BH.SGPN.GN ---
Behaviors/Verbalizations/Mental Status: [] Eye contact is good. Motor activity is appropriate. Appearance is casual. Speech is Appropriate. Mood is anxious and dysthymic. Affect is congruent. Thoughts are linear and logical. No evidence of psychosis. Client Response/Progress/Benefit: [] Pt was engaged in group discussions and activity. Worked with peers to identify strategies to help overcome barriers and obstacles to desired reality. Group worked together to develop strategies for the common barriers. Identified personal barriers to desired reality and choose one obstacle to work. Pt stated pt wants to work on barrier of perfectionism wtih the strategy to set very small goal. Elaborated on how this will be helpful. Pt seemed to benefit from increased knowledge of practical strategies to overcome common barriers to moving forward. Will continue in IOP to prevent decompensation/re-admission to psych unit, stabilize mood, increase healthy coping ,and improve functioning. Narrative Note: []
--- NOTE | 2024-07-03 09:05 | BH.SGPN.GN ---
Behaviors/Verbalizations/Mental Status: [] Eye contact is good. Motor activity is appropriate. Appearance is casual. Speech is Appropriate. Mood is depressed/irritable. Affect is congruent. Thoughts are linear and logical. No evidence of psychosis. Reviewed daily check in sheet and no reports of suicidal ideations or intent. Client Response/Progress/Benefit: [] Pt participated at times. Daily symptom tracker notes 08/26 for depression and anxiety. He volunteered to help a friend move stating ? it was really fucking stressful?. Unclear on exactly why this event was stressful however it appears to impact him the whole weekend. Poor sleep, depression, and irritability. ? It?s really fucking bad?. ? I?m not doing great today?. Reports being irritable stating ?its just best not to fucking talk to me?. IOP staff have noticed that she struggles on Fridays. Difficult to redirect to insight and skills discussion due to irritability and being dismissive to staff/peers attempts. Perhaps benefited from venting frustrations with her mental health. Limited progress. Will continue in IOP to prevent decompensation, stabilize mood, increase healthy coping. ? Narrative Note: []
--- NOTE | 2024-07-03 10:10 | BH.SGPN.GN ---
Behaviors/Verbalizations/Mental Status: [] Eye contact is fair to good, at times looking at phone. Motor activity is appropriate. Appearance is casual. Speech within normal limits. Mood is dysthymic. Affect is congruent. Thoughts are linear and logical. No evidence of psychosis. ? ? Client Response/Progress/Benefit: [] Client was an active participant in group discussion and experiential activity. Attentive during psychoeducation on resilience and provided input throughout. Participated in interactive discussion with peers on the definition of resilience and where it comes from. Group identified that resiliency can be impacted by; past experiences, upbringing, and current mental health state. Group also worked together to identify the benefits of being resilient and how it is related to mental health. Reflected on own use of resilience given past trauma hx and difficulties they have had in developing personal resilience. Able to relate experiential activity of group juggle to topics of resilience. Worked with peers in small group in which they identified factors that contribute to resilience. Benefited from increased awareness of resilience and the factors that contribute to building resilience. Will continue in IOP tx today to increase healthy thought patterns and further promote mood stability. Narrative Note: []
--- NOTE | 2024-07-03 14:03 | BH.MDN ---
Multi-Disciplinary Note Note 30-min Individual: Time Started:: 11:20 Date: 07/03/24 Purpose of session/treatment goals addressed:: Pt was crying and visibly upset. Pt's IOP individual therapist was unavailable, this scenario writer offered to meet with pt to provide support. Eye Contact:: Fair Motor Activity:: Restless Appearance:: Casual Speech:: Rambling Mood:: Anxious, Irritable and Depressed Affect:: Labile Thoughts:: Logical, Racing and No evidence of hallucinations/delusions noted Staff Interventions:: thought challenging, CBT techniques, rapport building, strengths perspective and other (Provided emotional support and helped create plan for rest of today.) Client Response:: Client agreed to meet with therapist offered a support session since client appeared to be struggling as evidenced by uncontrollable crying. Client shared he is struggling because he has a bad dream last night that triggered a lot of grief this morning. Client stated part of him wanted to stay home today instead of coming to [facility] because of how he felt this morning. Client shared his dream was about his dog that has , which triggered grief and guilt. Client stated he feels guilty about his dogs because he should've known that his dog was sick. Client expressed feelings about his loss and stated he has avoided dealing with it. Client stated he wasn't sure he could stay for the rest of group today because he can't focus and does not think he could keep his emotions managed during group. This scenario writer encouraged client to reach out to a support person that he could spend time with to have a healthy distraction. Client reported he decided he was going to reach out to a friend to come pick him up early from group because he didn't think he was in a place to finish the group. Client was irritable off and on throughout session. Client expressed frustration with the group topic of resilience, stating he didn't think people could improve their resilience so simply. Client also became agitated towards this scenario writer at one point when the scenario writer paraphrased back what the client had said about difficulty of crying. Client told this scenario writer that no one in the program understands trauma. Eventually client calmed back down and talked about his struggles of dealing with grief today. Client and this scenario writer talked about his plan for today to be hanging out with his friend so he isn't alone and has support throughout the day. Risks/Concerns:: Denies suicidal ideation, plan, or intention to date. future oriented. Progress Toward Goals/Plan:: Client progress variable. Client was open to support from therapist and recognized current mood state was not conducive for group environment. Client created plan with IOP therapist to help him cope the rest of the day. Client is to continue IOP to improve daily functioning, increase consistent use of healthy coping skills, and prevent decompensation. Time Stopped:: 11:50
--- NOTE | 2024-07-06 09:00 | BH.SGPN.GN ---
Behaviors/Verbalizations/Mental Status: [] Eye contact is good. Motor activity is appropriate. Appearance is casual. Speech is Appropriate. Mood is anxious and irritable. Affect is congruent. Thoughts are linear and logical. No evidence of psychosis. Reviewed daily check in sheet and no reports of suicidal ideations or intent. Client Response/Progress/Benefit: [] Pt participated at times during the group discussion. Attentive. Daily symptom tracker notes 2/5 for anxiety and irritability. Mood and functioning are ?better? than last week. Reports panic attacks last night which lasted ?forever?. Hopeless that her symptoms will continue to significantly impact her functioning. Shared her hypervigilance in most settings and gave examples. Group was support and empathetic which was beneficial. Despite struggles this weekend she is not currently in distress. Limited progress as he continues to be dismissive and irritable with feedback and suggestions regarding coping interventions. Will continue in IOP to prevent decompensation/re-admission, maintain safety, and increase healthy coping. Narrative Note: []
--- NOTE | 2024-07-06 10:10 | BH.SGPN.GN ---
Behaviors/Verbalizations/Mental Status: []Client alert and oriented, casually dressed and groomed. Eye contact good. Motor activity appropriate. Speech within normal limits. Affect congruent, mood content. Thoughts linear, logical, no signs of hallucinations or delusions. Client Response/Progress/Benefit: []Pt responded well to session AEB actively participating throughout group. Pt was attentive throughout group activity discussing famous individuals and how they overcame failure to be successful. Pt helped group identify how fear of failure can impact mental health and relationships. 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 Participated in experiential activity, working with group members to problem solve. Appeared to benefit from increased knowledge of what causes fear of failure and how it impacts people. Will continue IOP tx to prevent decompensation, increase distress tolerance, and improve daily functioning. Narrative Note: []
--- NOTE | 2024-07-06 11:10 | BH.SGPN.GN ---
Behaviors/Verbalizations/Mental Status: []Pt alert and oriented, casually dressed and groomed. Eye contact fair. Motor activity appropriate. Speech within normal limits. Affect congruent, mood dysthymic. Thoughts linear, logical, no signs of hallucinations or delusions. Client Response/Progress/Benefit: [] Pt responded well to session, engaged in the experiential activity and attentive throughout group processing. Pt reported fear of failure has kept pt from putting his art online. Pt completed fear of failure worksheet and was able to identify thoughts and behaviors that reinforce personal fear of failure. Pt participated in small group discussion regarding strategies to overcome fear of failure. Identified wanting to work on self-compassion and setting goals. Appeared to benefit from increased knowledge of strategies to combat fear of failure and gaining self-awareness. Pt will continue IOP tx to increase consistent use of healthy coping skills, improve distress tolerance, and prevent decompensation.
--- NOTE | 2024-07-07 09:05 | BH.SGPN.GN ---
Behaviors/Verbalizations/Mental Status: [] Eye contact is good. Motor activity is appropriate. Appearance is casual. Speech is Appropriate. Mood is irritable and anxious. Affect is congruent. Thoughts are linear and logical. No evidence of psychosis. Reviewed daily check in sheet and no reports of suicidal ideations or intent. Client Response/Progress/Benefit: [] Pt participated at times during the group discussion. Attentive. Daily symptom tracker notes 2/5 for anxiety and 1/5 for irritability. States that he slept last night and at less intense nightmares. He is reframing and challenging this thoughts/perspectives regarding stressors and obstacles. He also advocated for himself in assertive way which was met with positively. Also reports preparing more for upcoming semester to reduce stress and set himself up success. Progress noted. Benefited from group support, encouragement, and feedback. Will continue in IOP to maintain safety, stabilize mood, prevent decompensation/re-admission, increase healthy coping. Narrative Note: []
--- NOTE | 2024-07-07 10:15 | BH.SGPN.GN ---
Behaviors/Verbalizations/Mental Status: [] Client alert and oriented, casually dressed and groomed. Eye contact good. Motor activity appropriate. Speech within normal limits. Affect congruent, mood euthymic. Thoughts linear, logical, no signs of hallucinations or delusions. Client Response/Progress/Benefit: [] Pt responded well to session AEB sharing and listening attentively to others. Group provided examples of benefits of having social support, including: validation, help in coping with stressors, company, and accountability. Pt also participated in group discussion regarding the barriers to accessing support identifying examples to include: negative thinking, lack of communication, and fear of being a burden or judgement. Shared struggling personally with isolation and lack of effective communication. Pt participated in experiential activity illustrating the impact communication, boundaries, and patience play in creating healthy support systems. Pt appeared to benefit from increased knowledge of the benefits of social support and greater self-awareness. Pt to continue IOP to improve mood stability, increase consistent use of healthy coping skills to improve mood stability, and prevent decompensation. Narrative Note: []
--- NOTE | 2024-07-07 11:15 | BH.SGPN.GN ---
Behaviors/Verbalizations/Mental Status: [] Eye contact is good. Motor activity is appropriate. Appearance is casual. Speech is Appropriate. Mood is euthymic. Affect is full. Thoughts are linear and logical. No evidence of psychosis. Client Response/Progress/Benefit: [] Pt participated throughout AEB contributing to discussion, providing personal examples, and taking notes. Attentive and provided input on types and examples of support (emotional, tangible, informational, and social). Pt able to identify current support system and barriers that get in the way of using supports (poor follow-through, isolation, cancelling appointments). Able to identify aspects in his life which provide support in all areas however feels that he needs to find ways to properly utilize the support he has. Will continue in IOP to prevent decompensation/re-admissions, stabilize mood, improve functioning to return to work, and increase healthy coping. Narrative Note: []
--- NOTE | 2024-07-08 10:16 | BH.MTP_ITS ---
Treatment Plan Review Demographics Date of Admission:: 06/15/24 Date of Treatment Plan Review:: 07/08/24 Admitting Diagnoses:: Major depressive disorder, recurrent, severe without psychosis F 33.2; Panic disorder; PTSD; Autism spectrum disorder Current Diagnoses:: Major depressive disorder, recurrent, severe without psychosis F 33.2 ; Panic disorder; PTSD; Autism spectrum disorder Patient Status Patient's Response to Treatment:: Pt has responded mostly well to IOP treatment AEB consistently attending IOP and engaging in both individual and group therapy sessions. However, pt has expressed on several occasions that the program has not been what pt hoped it would be to treat his PTSD and trauma. Pt encouraged to find an outpatient therapist that could work on pt's symptoms and trauma long-term as IOP is a short-term program. Pt contributes during group discussions, takes notes, appears to listen to others, and engages in group activities. Some group topics have been more difficult for pt and pt has had to leave a few sessions due to emotional responses. Pt's overall DSM-5 scores have decreased by 34% since admission. Status of Current Problems and Symptoms: Pt's symptoms are ongoing and continue to impact pt's functioning, however per pt's DSM-5 he is improving in areas of depression, anxiety, and thoughts of hurting himself. Pt will be starting college classes back up again this week which is a stressor. Pt's symptoms of PTSD impact pt on a daily basis and pt reports still feeling hopelessness several days a week. Progress Problem #1: Problem Name:: Depression, hopelessness, and recent SI. Status of Goals:: Objective 1- complete with ongoing work encouraged. Pt reports a 38% reduction in depressive symptoms since admission and a 50% reduction in SI. Pt is actively using opposite action, engaging in outpatient therapy, and spending time with supports. Objective 2- in progress. Pt is working on improving his emotional regulation skills and being proactive with emotion regulation. Pt is encouraged throughout group sessions to use skills w hen needed and to talk with his healthy supports outside of IOP. Team Recommendations:: Team recommends continued goals and objectives to reinforce skills and maintain gains made. Team recommends pt continue working on combating distortions, dialectical thinking, and maintaining a routine. Problem #2: Problem Name:: PTSD, anxeity, and irritability. Status of Goals:: Objective 1- in progress. Pt working on riding the wave when he feels strong emotions. Pt is also gaining insight to his triggers and appears to benefit from emotional validation towards his diagnoses and symptoms. Objective 2- complete with ongoing work encouraged. Pt reports a 25% reduction in anxiety symptoms since admission. Team Recommendations:: treatment team encourages pt to continue working on distress tolerance skills and learning how to manage his triggers. Therapist attempted to work on c-ptsd with pt, but pt reported in a recent session he was not yet ready. Pt will need an outpatient trauma therapist.
--- NOTE | 2024-07-10 09:05 | BH.SGPN.GN ---
Behaviors/Verbalizations/Mental Status: []? Eye contact is good. Motor activity is appropriate. Appearance is casual. Speech is Appropriate. Mood is content. Affect is congruent. Thoughts are linear and logical. No evidence of psychosis. Reviewed daily check in sheet and no reports of suicidal ideations or intent.? Client Response/Progress/Benefit: []? Pt was an active participant in group discussion. Attentive. Shared with the group mental health wins including getting more consistent with going to bed on time and has found this is continuing to promote mood stability. Additional win noted as working on not over thinking the upcoming conversation with his mother. Discussed that their relationship is tense. Did well to problem solve with the group and identify communication skills to reduce conflict. Stressor noted as concern that setting a boundary with his mother will result in increased financial burden.Progress noted. Benefited from group support, encouragement, and feedback. Will continue in IOP to prevent decompensation, increase healthy coping, and improve communication.? Narrative Note: []
--- NOTE | 2024-07-10 10:10 | BH.SGPN.GN ---
Behaviors/Verbalizations/Mental Status: [] Pt alert and oriented, casually dressed and groomed. Eye contact good. Motor activity appropriate. Speech within normal limits. Affect congruent, mood anxious,Thoughts linear, logical, no signs of hallucinations or delusions. Client Response/Progress/Benefit: [] Pt receptive to session AEB contributing to group discussion, as well as listening attentively to others, and taking notes. Worked with group to brainstorm the positive and negative aspects of stress on physical and mental health as well as the impact of distress on performance, relationships, and mental health. Pt shared their top stressors to be: PTSD, fiances, and communication. Shared when feeling overwhelmed with stress pt will have increased anger and irritability. Benefited from increased awareness of positive and negative stress as well as how stress impact individuals. Will continue in IOP to increase consistent use of healthy coping skills, challenge distorted/negative thoughts, and increase emotional regulation skills. Narrative Note: [] Behaviors/Verbalizations/Mental Status: [] Pt alert and oriented, casually dressed and groomed. Eye contact good. Motor activity appropriate. Speech within normal limits. Affect congruent, mood anxious,Thoughts linear, logical, no signs of hallucinations or delusions. Client Response/Progress/Benefit: [] Pt receptive to session AEB contributing to group discussion, as well as listening attentively to others, and taking notes. Worked with group to brainstorm the positive and negative aspects of stress on physical and mental health as well as the impact of distress on performance, relationships, and mental health. Pt shared their top stressors to be: PTSD, fiances, and communication. Shared when feeling overwhelmed with stress pt will have increased anger and irritability. Benefited from increased awareness of positive and negative stress as well as how stress impact individuals. Will continue in IOP to increase consistent use of healthy coping skills, challenge distorted/negative thoughts, and increase emotional regulation skills. Narrative Note: []
--- NOTE | 2024-07-10 11:30 | BH.MDN ---
Multi-Disciplinary Note Note 30-min Individual: Time Started:: 11:25 Date: 07/10/24 Purpose of session/treatment goals addressed:: To address current stressor, symptoms, and plan for aftercare. Eye Contact:: Good Motor Activity:: Appropriate Appearance:: Neat Speech:: Appropriate Mood:: Euthymic Affect:: Full Thoughts:: Linear, Logical and No evidence of hallucinations/delusions noted Staff Interventions:: thought challenging, CBT techniques, mindfulness skills, discharge planning and strengths perspective Client Response:: Pt responded well to session, open to meeting with therapist. Pt reports feeling better and shared so far the semester is going well. Pt feels he is benefitting from skills and peer support in IOP. Pt plans to continue with outpatient therapy and has scheduled an intake with [facility] to hopefully begin trauma therapy. 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 Pt shared it is very loud and overstimulating and it really triggers me. Pt reports he becomes anxious and also very angry so pt is worried he will lash out on other students. Pt stated few things help him cope in those situations, he tries deep breathing and mindfulness, but pt shared he ultimately just has to leave when he becomes too overwhelmed. Pt shared there are services available for students including a service called [employer] and pt asked if he could have a letter recommending this service for him. Pt shared this service would reduce the number of times he would have to go to the dinning [employer] and pt feels it will prevent unnecessary distress. Risks/Concerns:: Pt denies any suicidal ideations, plan, or intent. Pt denies any thoughts of . Progress Toward Goals/Plan:: Pt is making progress towards tx goals AEB pt's reduction in DSM-5 scores since admission, see treatment plan review. Pt would like to discharge the last week of June as pt feels he is benefitting from IOP, but he is also beginning to feel burnout with the new semester starting and having therapy 9 hours a week. Pt asked this therapist for a letter to give his school regarding accommodations for the dinning [employer]. Pt reports his PTSD is highly triggered when he is in the dinning feldman and would like to avoid this. Pt will get a letter next week and continue IOP tx to promote mood stability, increase distress tolerance, and improve daily functioning. Time Stopped:: 11:45
--- NOTE | 2024-07-13 09:05 | BH.SGPN.GN ---
Behaviors/Verbalizations/Mental Status: [] Eye contact is good. Motor activity is appropriate. Appearance is casual. Speech is Appropriate. Mood is anxious/irritable. Affect is congruent. Thoughts are linear and logical. No evidence of psychosis. Reviewed daily check in sheet and no reports of suicidal ideations or intent. Client Response/Progress/Benefit: [] Pt participated at times. Attentive. Daily symptom tracker notes 06/28 for anxiety and irritability. ? I?ve been drawing more recently?. Increase in pleasurable activities. More engaged in projects which has improved mood and energy. Currently more hopeful about himself and his future. Started college semester and at this point is managing the stressors well. Progress noted. Benefited from group support, encouragement, and feedback. Will continue in [facility] to maintain safety, prevent decompensation/re-admission to psych unit, and to increase daily functioning. Narrative Note: []
--- NOTE | 2024-07-13 10:15 | BH.SGPN.GN ---
Behaviors/Verbalizations/Mental Status: []Client alert and oriented, casually dressed and groomed. Eye contact good. Motor activity appropriate. Speech within normal limits. Affect congruent, mood anxious. Thoughts linear, logical, no signs of hallucinations or delusions. Client Response/Progress/Benefit: [] Pt was an active participant AEB taking notes and engaging in group activity. Connected with the topic of pitfalls and listened to group discussion on barriers that prevent from choosing a healthier path to mental wellness. Group worked together to identify examples of personal pitfalls. These examples included; shutting down, not asking for help, negative thinking patterns, and difficulty managing emotions. Pt benefited from group as Pt learned to better identify potential barriers to improving mental health symptoms. Pt will continue IOP tx to prevent decompensation, improve distress tolerance skills, and increase ability to function at school. Narrative Note: []
--- NOTE | 2024-07-13 11:15 | BH.SGPN.GN ---
Behaviors/Verbalizations/Mental Status: []Client alert and oriented, casually dressed and groomed. Eye contact good. Motor activity appropriate. Speech within normal limits. Affect congruent, mood content. Thoughts linear, logical, no signs of hallucinations or delusions. Client Response/Progress/Benefit: [] Pt receptive of session, engaged throughout AEB Pt actively listening and contributing to discussion as well as taking notes.? Pt participated in the experiential activity and did well to communicate ideas with peers and manage emotions. Pt attentive as group processed how the emotions and perspective of the group impacted the activity. Group worked together to identify different coping skills to help manage pitfalls. Pt identified a pitfall they struggle with as pushing things down and not talking about them. Pt plans to work on their pitfall by using opposite action, asking for help, and giving self credit when he does. Benefited from identifying personal pitfalls and strategies to overcome these pitfalls. Pt will continue IOP tx to prevent decompensation, improve daily functioning, and gain skills to maintain gains. Narrative Note: []
--- NOTE | 2024-07-15 09:00 | BH.SGPN.GN ---
Behaviors/Verbalizations/Mental Status: [] Eye contact is good. Motor activity is appropriate. Appearance is casual. Speech is Appropriate. Mood is euthymic. Affect is full. Thoughts are linear and logical. No evidence of psychosis. Reviewed daily check in sheet and no reports of suicidal ideations or intent. Client Response/Progress/Benefit: [] Pt was an active participant in group discussion. Attentive. Daily symptom tracker notes 2/5 for anxiety and irritability. Feels exhausted today. College is kicking my ass. States that he is too busy and needs a vacation. Semester just started a couple weeks ago. Irritable at times that his therapist is out ill today No point in being here which could be interpreted as dismissive to peers and other staff. Vented frustrations for a majority of the check-in. At times able to reframe and challenge negative automatic thoughts at times. Verbalized desire to leave IOP early today. Limited progress noted. Benefited from group support, encouragement, and feedback. Will continue in IOP to maintain safety, prevent decompensation/re-admission to psych units, and increase healthy coping. Narrative Note: []
--- NOTE | 2024-07-15 11:15 | BH.SGPN.GN ---
Behaviors/Verbalizations/Mental Status: []Client alert and oriented, casually dressed and groomed. Eye contact fair. Motor activity appropriate. Speech within normal limits. Affect congruent, mood euthymic. Thoughts linear, logical, no signs of hallucinations or delusions. Client Response/Progress/Benefit: []Pt was engaged throughout AEB contributing to group discussion and activity. Group processed how they each responded to the intentionally difficult task they were asked to completed and described the physical and emotional anger cues experienced throughout, as well as strategies used for managing these frustrations. Pt contributed as group brainstormed healthy coping skills for better managing anger which included: music, walking/exercise, taking a break, healthy venting, avoiding unnecessary stressors, reflection, and journaling. Pt cooperative with working in small groups to identify what strategy wants to work on to help interrupt personal anger cycle. Pt to continue IOP to challenge distorted/negative thoughts, promote use of distress tolerance skills, and prevent decompensation.
--- NOTE | 2024-07-15 11:52 | PCM.BH.PN_ITS ---
Progress Note Progress Note: History of Present Illness/Interim History: The patient is a 24-year-old biological female who identifies as a transgender male since 2023. She is seen in follow-up at the [facility] behavioral health [facility] where he has a history of depression, anxiety, autism spectrum disorder and possible PTSD. 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 The patient is back in school at the [employer] and feels she is doing okay and is enjoying her art work again. She does state however that I feel exhausted due to the IOP commitment and the school classes but she feels she is functioning well in school. She is using skills that she learned in the [facility] to deal with her occasional trauma triggers and panic attacks. She denies any self-harm, passive thoughts of , suicidal ideation, homicidal ideation, hallucinations or delusions. She states that she her hopelessness is much less than before although she remains depressed. Current Psychiatric Medications: [] Effexor XR 75 mg p.o. daily (x 6 weeks); trazodone 50 mg p.o. nightly; Zyprexa 2.5 mg p.o. nightly; prazosin 1 mg p.o. nightly; hydroxyzine 25 mg up to 3 times a day for panic attacks Mental Status Examination: [] The patient is a 24-year-old biological female who identifies as a trans male and is dressed like a tomboy or young male and has her hair in a stocking. He is casually dressed and groomed with good hygiene. He is cooperative during the interview. He is ambulatory with a normal gait and has no psychomotor agitation or retardation. Eye contact is good and speech is normal rate and rhythm and fluent with no pressure. Mood is anxious. Affect is full and normal. Thought process is goal-directed and organized. Thought content: There is no evidence of passive thoughts of , suicidal ideation, plan for suicide, homicidal ideation, hallucinations or delusions. Reality testing is intact. Intelligence is average or above. Judgment is intact. Insight is fair and improving. Diagnoses: [] 1. Major depressive disorder, recurrent, moderate 2. Panic disorder 3. PTSD 4. Borderline personality disorder 5. Autism spectrum disorder 6. Primary support and school issues Plan: [] The patient will continue the IOP in behavioral health at [facility] as the structure, support, education and group therapy has helped the patient's symptoms to improve. He felt safe during the interview and if it anytime he does not feel safe he has agreed to let us know or go to the emergency room. No medication changes were made today as the patient refuses any medication changes and feels they are working well. He will continue to follow-up with his outpatient providers and I will see the patient in follow-up while in the IOP. A letter is given to the patient regarding his status at school.
--- NOTE | 2024-07-15 15:00 | BH.SGPN.GN ---
Behaviors/Verbalizations/Mental Status: [] Eye contact is good. Motor activity is appropriate. Appearance is casual. Speech is Appropriate. Mood is content. Affect is congruent. Thoughts are linear and logical. No evidence of psychosis Client Response/Progress/Benefit: [] Pt responded well to session AEB contributing to small group discussion, taking notes, and listening attentively to others. Group defined anger and discussed the benefits of managed anger and anger as a secondary emotion. Group shared perspective on benefits of anger as advocating for self and getting needs met, as well as a catalyst for change. Pt engaged in group discussion on common underlying emotions that mask as anger. Identified feeling dismissed or misunderstood as a common secondary emotion to anger. Appeared to benefit from increased knowledge of the anger cycle as well as personal triggers. Will continue IOP to increase healthy coping, prevent decompensation, and continue to improve functioning. Narrative Note: []
--- NOTE | 2024-07-17 10:10 | BH.SGPN.GN ---
Behaviors/Verbalizations/Mental Status: [] Eye contact is fair. Motor activity is appropriate. Appearance is casual. Speech is Appropriate. Mood is dysthymic. Affect is constricted. Thoughts are linear and logical. No evidence of psychosis. Client Response/Progress/Benefit: [] Pt receptive of session, actively engaged throughout AEB taking notes, providing input, and contributing in small group discussion. Appeared to connect with group topic of automatic thoughts and cognitive distortions, as well as the impact of thought patterns on mental health, coping behaviors, and relationships. This particular group is very heavy on psychoeducation and pt appeared to connect with distortions and how they can impact functioning. Client stated cognitive distortions that impact him the most are all or nothing thinking and mental filter. Pt appeared to benefit from gaining insight on distorted thinking patterns and how this impacts overall mental health. Will continue IOP to improve distress tolerance, challenge negative thoughts, and prevent decompensation.
--- NOTE | 2024-07-17 10:28 | BH.MDN ---
Multi-Disciplinary Note Note 45-min Individual: Time Started:: 09:25 Date: 07/17/24 Purpose of session/treatment goals addressed:: To address current stressors and discuss strategies to help cope with these stressors. Another goal was to discuss discharge and aftercare. Eye Contact:: Good Motor Activity:: Appropriate Appearance:: Neat Speech:: Appropriate Mood:: Euthymic Affect:: Full Thoughts:: Linear, Logical and No evidence of hallucinations/delusions noted Staff Interventions:: thought challenging, CBT techniques, mindfulness skills, discharge planning, strengths perspective and other (maintenance plan) Client Response:: Pt responded well to session, open to meeting with therapist. Pt reports he is functioning better and overall doing better than when he started IOP. However, pt is beginning to feel burnout from daytime caregiver class and IOP three days a week. Pt stated once IOP ends pt feels he will not feel burnout anymore, because pt shared he planned this semester to be less busy. Pt plans to discharge next week and we discussed pt discharging a day earlier to allow pt more time for self-care. Pt has an outpatient therapist, but pt needs medication management and trauma therapy. Pt receptive to getting these appointments scheduled today with therapist. Pt able to get an appointment to see providers through [facility] in July and August. Pt stated he wants to continue working on his PTSD and reducing his triggers. Pt feels he is getting better with using calming skills like deep breathing. Pt receptive to working on a maintenance plan for homework and we will review this together next session. Risks/Concerns:: Pt denies any suicidal ideations, plan, or intent. Pt denies any thoughts of . Progress Toward Goals/Plan:: Pt continues to report progress made in IOP tx and feels ready to discharge from IOP tx next week. Pt can benefit from ongoing trauma therapy and medication management. Pt and therapist got appointments scheduled through [facility]. Pt will continue IOP tx for two more days to reinforce healthy coping skills and promote gains. Time Stopped:: 10:05
--- NOTE | 2024-07-17 11:15 | BH.SGPN.GN ---
Behaviors/Verbalizations/Mental Status: []Pt alert and oriented, casually dressed and groomed. Eye contact fair. Motor activity appropriate. Speech within normal limits. Affect congruent, mood dysthymic. Thoughts linear, logical, no signs of hallucinations or delusions Client Response/Progress/Benefit: [] Pt was an active participant during group discussion. Pt was placed in a smaller group and participated in combatting example distortions with peers. Pt was engaged in the smaller group, participated in group interactions to brainstorm answers, and appeared to be comprehending cognitive distortions. Attentive and appeared to connect with psychoeducation about different strategies to reframe/challenge distortions. Identified wanting to use dialectical thinking to better challenge personal distorted thoughts. Benefited from gaining further insight and awareness of cognitive distortions as well as practicing ways to reframe and challenge thoughts. Will continue in IOP to improve daily functioning, increase healthy coping, and prevent decompensation.
--- NOTE | 2024-07-20 09:05 | BH.SGPN.GN ---
Behaviors/Verbalizations/Mental Status: [] Eye contact is good. Motor activity is appropriate. Appearance is casual. Speech is Appropriate. Mood is irritable. Affect is congruent. Thoughts are linear and logical. No evidence of psychosis. Reviewed daily check in sheet and no reports of suicidal ideations or intent. Client Response/Progress/Benefit: [] Pt participated at times during the group discussions. Daily symptom tracker notes 06/28 for anxiety. Attentive. Reports feeling really tired today as well as frustrated. Described a recent event that cause intense anger, however from his perspective it was beneficial as he found it very cathartic. I was so fucking angry/ Described how it felt normal to just be angry at a specific concrete event rather than anger related to his past experiences (trauma). While the anger impacted him for the whole day it reportedly was not as distressful as his existential anger. Significant insight and awareness as well as acceptance of the anger trigger. Was able to reframe and problem solve. He also reported improved appetite. Beneifted from group support, encouragment, and feedback. Will continue in IOP to maintain safety, prevent decompensation/re-admission to psych unit, and increase healthy coping. Narrative Note: []
--- NOTE | 2024-07-20 10:10 | BH.SGPN.GN ---
Behaviors/Verbalizations/Mental Status: []Client alert and oriented, casually dressed and groomed. Eye contact good. Motor activity appropriate. Speech within normal limits. Affect congruent, mood content. Thoughts linear, logical, no signs of hallucinations or delusions. Client Response/Progress/Benefit: [] Pt was an attentive and active participant, AEB taking notes and providing input in group discussion. Attentive during psychoeducation. Pt engaged during interactive discussion in which the group defined self-care and discussed its benefits. Group discussed barriers to engaging in self-care. Group members together came up with guilt, time, ?people pleasing?, not knowing what to do, and perception that its unproductive as barriers to engage in self-care. Pt identified personal barrier as lack of energy and time. Pt participated in small groups where they worked to identify and challenged common self-care ?myths?. Benefited from increased awareness of self-care, its benefits, and the consequences of not utilizing self-care strategies. Will continue IOP tx to improve mood stability, promote use of healthy coping skills, and prevent decompensation. Narrative Note: []
--- NOTE | 2024-07-20 11:10 | BH.SGPN.GN ---
Behaviors/Verbalizations/Mental Status: []Client alert and oriented, casually dressed and groomed. Eye contact fair. Motor activity appropriate. Speech within normal limits. Affect congruent, mood anxious. Thoughts linear, logical, no signs of hallucinations or delusions. Client Response/Progress/Benefit: [] Pt taking notes during discussion reviewing different areas of self-care and completing self-assessment of current self-care, as well as providing input throughout discussion. Did well to complete self-care self-assessment worksheet. Pt identified how pt is doing in each category and what self-care activities pt wants to start using. Pt selected financial self-care to begin practicing more consistently. Pt plans to do this by saving money for future goals. Appeared to benefit from completing the self-care evaluation and gaining insights into current self-care practices, as well as identifying areas in which pt would like to improve upon. Pt will continue IOP tx to promote use of healthy coping skills and establish aftercare. Narrative Note: []
--- NOTE | 2024-07-22 08:59 | BH.DS_ITS ---
Discharge Summary Demographics Date of Admission:: 06/15/24 Discharge Date: 07/22/24 Presenting Problems at Admission:: Pt is a 24 year-old transman with a history of MDD, anxiety, PTSD, and autism spectrum disorder. Pt was referred to [facility] tx following a recent psychiatric admission at [facility] from 05/25/24-05/28/24 for suicide attempt by cutting. Pt stated he has been struggling for over a month at least with his depression and mood swings. At admission, pt endorses a depressed mood, irritability, daily panic attacks, restlessness, worthlessness, guilt, hopelessness, crying spells, nightmares, and intrusive thoughts. Pt's symptoms are impacting his daily functioning as well as his ability to function at his baseline at college. Discharge Diagnoses:: Major depressive disorder, recurrent, severe without psychosis F 33.2; Panic disorder; PTSD; Autism spectrum disorder Reason for Discharge:: Pt has accomplished his tx goals AEB his reduction of DMS-5 symptoms and self-report of improved functioning and mood. Pt no longer meets criteria for [facility] level of care and will discharge to outpatient counseling. Treatment Progress During Treatment & Response: Pt has responded well to treatment as evidenced by Pt consistently attending IOP sessions and his reduction of DSM-5 scores since admission. Pt was always attentive and receptive to learning during group and individual sessions. Pt actively applied coping skills outside of IOP and reports overall his mood is improved and he is functioning better than he was several months ago. Pt?s overall symptom reduction is 66% since admission with anger decreasing by 67%, depression decreasing by 75%, and anxiety decreasing by 58%. Pt has increased self-compassion and faced many hard things. Most importantly, Pt has become more vulnerable, flexible, and confident in her abilities. Pt will follow up with [facility] for medication management with Rhoda and therapist with [facility]. Issues Still to be Addressed:: Pt can benefit from continuing to work on managing his PTSD symptoms and pt is looking forward to getting trauma-focused therapy. Pt can also benefit from ongoing medication management and distress tolerance skills. Discharge Recommendations/Instructions:: Pt will follow up with Angela Cast at [facility] for medication management. Pt has an appointment on 08/19/24. Pt also, by request, will see Chelo Yi for individual therapy at [facility]. Pt's first appointment is 08/28/24. Discharge Handout
--- NOTE | 2024-07-22 08:59 | BH.IGGP_ITS ---
Aftercare Plan Demographics Treatment End Date:: 07/22/24 Psychiatrist:: Salima Magallanes Psychiatrist Office #:: [phone] [facility]/IOP Therapist:: Deloris Hairston Therapist Phone #:: [phone] Medications Home Medications tizanidine 4 mg tablet 4 mg PO QHS 09/26/18 albuterol sulfate 90 mcg/actuation aerosol inhaler 2 inh inhalation Q4H PRN shortness of breath or wheezing 10/22/23 gabapentin 100 mg capsule 100 - 300 mg PO QHS 05/02/24 ondansetron 4 mg disintegrating tablet 4 mg PO Q8H PRN PRN Nausea #10 tabs 05/31/24 hydroxyzine pamoate 25 mg capsule 25 mg PO TID PRN panic attacks #90 caps 06/18/24 olanzapine 2.5 mg tablet (Zyprexa) 2.5 mg PO QHS 30 days #30 tabs 07/15/24 prazosin 1 mg capsule 1 mg PO QHS 30 days #30 caps 07/15/24 trazodone 50 mg tablet 50 mg PO QHS 30 days #30 tabs 07/15/24 venlafaxine 75 mg capsule,extended release 24 hr (Effexor XR) 75 mg PO DAILY 30 days #30 caps 07/15/24 Plan Details Progress/Aftercare Plan Details:: Vidal has responded well to treatment as evidenced by Vidal consistently attending IOP sessions and his reduction of DSM- 5 scores since admission. Vidal was always attentive and receptive to learning during group and individual sessions. Vidal actively applied coping skills outside of IOP and reports overall his mood is improved and he is functioning better than he was several months ago. Vidal?s overall symptom reduction is 66% since admission with anger decreasing by 67%, depression decreasing by 75%, and anxiety decreasing by 58%. Vidal has increased self-compassion and faced many hard things. Most importantly, Vidal has become more vulnerable, flexible, and confident in her abilities. Vidal will follow up with [facility] for medication management with Rhoda and therapist with [facility]. Strategies for Success:: 1. Opposite action! Continue to break that cycle of anxiety, guilt, and depression by not letting emotions be the only drivers of your bus. 2. Remember that thoughts are thoughts NOT facts! You have power in if you give thoughts the time of day or not. 3. self-care! You deserve to take time for you and you also deserve to face the not so fun self-care like delegating tasks and advocating for yourself 4. Self-compassion! You are human and you will make a mistake?BUT that doesn?t mean you are a failure or not good enough. Remember there are no bad parts! 5. Continue to practice self-soothing like breathing, sound therapy, and art. 6. Practice positive self-talk and keep track of your wins. 7. Remember progress isn?t linear! You may have a setback or bump in the road, but that doesn?t mean you?ve lost all progress. 8. self- reflection and self-awareness. 9. Be understanding with yourself and try to see the whole picture, not just the snapshot. 10. Live in the lew!! Appointments Appointments/Referrals to Other Services:: 1. [facility] Yi for individual therapy first apt is 08/28/24. 2. Angela Cast for medication management/psych first appointment is 08/19/24.
--- NOTE | 2024-07-22 10:15 | BH.SGPN.GN ---
Behaviors/Verbalizations/Mental Status: []Pt alert and oriented, neatly dressed and groomed. Eye contact good. Motor activity appropriate. Speech within normal limits. Affect congruent, mood euthymic. Thoughts linear, logical, no signs of hallucinations or delusions. Client Response/Progress/Benefit: [] Pt was attentive during psychoeducation and participated in group activity. Group discussed what contributes to a person?s perspective and how perspective can positively or negatively impact mental health treatment. Pt reflected on their perspective today and how it is impacting them. Pt shared their perspective is positive now that he has completed IOP tx. Pt shared being more positive has helped pt be more consistent with his skills. Pt appeared to benefit from increasing awareness of different perspectives and how they can affect mental health. Pt will discharge from IOP tx today as pt has accomplished his tx goals and no longer meets criteria for IOP level of care. Narrative Note: []
--- NOTE | 2024-07-22 11:15 | BH.SGPN.GN ---
Behaviors/Verbalizations/Mental Status: []Pt alert and oriented, casually dressed and groomed. Eye contact good. Motor activity appropriate. Speech within normal limits. Affect congruent, mood content. Thoughts linear, logical, no signs of hallucinations or delusions. Client Response/Progress/Benefit: []Pt was attentive and contributed to group discussion. Pt worked with group to identify strategies that can help with challenging negative perspective. Pt stated he can look at evidence for/against as a way to challenge negative perspective. Pt completed strengths exploration worksheet, identifying personal strengths. Pt able to acknowledge how these strengths are helping pt and can continue to help pt in mental health journey. Pt identified wanting to work on leaning on strength of artistic ability and love of learning. Benefited from identifying personal strengths and strategies for enhancing use of identified strengths. Pt will d/c from IOP tx and continue in outpatient counseling to maintain gains and prevent decompensation. Narrative Note: []
--- NOTE | 2024-07-22 15:00 | BH.MDN ---
Multi-Disciplinary Note Note 30-min Individual: Time Started:: 11:30 Date: 07/22/24 Purpose of session/treatment goals addressed:: To address current stressors and discuss strategies to help cope with these stressors. Another goal was to discuss discharge and aftercare. Eye Contact:: Fair Motor Activity:: Appropriate Appearance:: Neat Speech:: Appropriate Mood:: Euthymic Affect:: Full Thoughts:: Linear, Logical and No evidence of hallucinations/delusions noted Staff Interventions:: discharge planning, strengths perspective and reviewed DSM-5 Client Response:: Pt responded well to session, open to meeting with therapist. Pt shared he was talking in process group about his progress and he noticed that he made a lot more progress than he thought. Pt shared he notices his moods are more stable and he is less angry. Pt noted the perspective shift and realizing that he is not the only one to experience hardships in his life helped pt make changes. Pt noted that his perspective shift also allowed pt to trust others more and be more open-minded. Pt and therapist reviewed pt's DSM-5 numbers and pt was smiling when he heard how much his scores decreased. Pt shared he is worried about maintenance and letting things build up again but he recognizes that if he can keep up with his current routine he should do well. Pt also benefitted from talking to others and normalizing his symptoms. Pt reviewed healthy coping skills such as deep breathing, self-soothing, and thought challenging. Risks/Concerns:: Pt denies any suicidal ideations, plan, or intent. Pt denies any thoughts of . Progress Toward Goals/Plan:: Pt will discharge from IOP tx today as pt has accomplished his tx goals and no longer meets criteria for IOP level of care. Pt's overall symptom reduction is 66% since admission with anger decreasing by 67%, depression decreasing by 75%, and anxiety decreasing by 58%. Pt will continue with mental health treatment through individual counseling and medication management at [facility]. Time Stopped:: 11:50
== END 2024-07-22 12:31 | disposition home or self-care (01) ==
LOC: BHIOP 07:09
PROVIDERS: PCP Family Medicine; Referring Provider Psychiatry & Neurology Psychiatry; Visit Provider Psychiatry & Neurology Psychiatry
DX: F33.2 Major depressive disorder, recurrent severe without psychotic features (principal); F41.0 Panic disorder [episodic paroxysmal anxiety]; F43.10 Post-traumatic stress disorder, unspecified; F84.0 Autistic disorder
CPT/HCPCS: S9480; 90832; 90834; 90837; 90853

== ENCOUNTER 2024-10-25 00:02 | Emergency (ER) | payer OTHER, SELFPAY ==
[2024-10-25 00:03] VITALS: BP 121/82; PULSE 116; RESP 19; TEMP 36.6; O2SAT 98; BMI 32.5
--- NOTE | 2024-10-25 00:30 | EKG12_ITS ---
Test Reason : PALPITATIONS Blood Pressure : */* mmHG Vent. Rate : 97 BPM Atrial Rate : 97 BPM P-R Int : 150 ms QRS Dur : 96 ms QT Int : 358 ms P-R-T Axes : 58 33 40 degrees QTcB Int : 454 ms Normal sinus rhythm Incomplete right bundle branch block Borderline ECG Confirmed by Nelson Longoria ([id number]), purchasing expeditor VALERY CHOU ([id number]) on 10/30/2024 1:01:44 PM Referred By: NEISHA Confirmed By: Nelson Longoria
--- NOTE | 2024-10-25 00:34 | ED.VIS.CHEST ---
HPI History of Present Illness Chief Complaint: Palpitations Narrative Narrative: Chief complaint and HPI: Palpitations. 24-year-old female with past medical history of PCOS, PTSD, depression with psychosis presents for evaluation of palpitations. Patient states she recently got a cat in which she is allergic to. She states that she has been taking Claritin twice daily instead of daily per box directions. She states this evening she developed a episode of palpitations. She states the symptoms have since resolved. She denies any fever, chills, shortness of breath, chest pain, abdominal pain, diarrhea, constipation, dysuria. States she did have an episode of nausea with the palpitations but this has resolved as well. Prior to arrival she did take her nighttime medication. Review of systems: See HPI Medications: As listed on the chart Allergies: As listed on the chart PFSH: Per chart Vital signs: As listed on the chart. Reviewed. Physical exam: Gen: A&O x3, NAD Head: Normocephalic, atraumatic Eyes: No sclera icterus, conjunctiva clear ENT: Moist mucous membranes Neck: Trachea midline, No JVD CV: RRR, no murmurs, no peripheral edema Resp: Lungs CTA BL, no w/r/c GI: Abd soft, non-distended, non-tender, no r/r/g Musc: Full ROM, no deformity Skin: Warm, dry Neuro: Alert, oriented, grossly intact, sensation intact Psych: Cooperative, appropriate mood and affect [facility] Medical History (Updated 08/19/24 @ 10:38 by PATRICIA Larsen) PCOS (polycystic ovarian syndrome) Endometriosis Borderline personality disorder PTSD (post-traumatic stress disorder) Panic disorder Major depressive disorder, recurrent severe without psychotic features Interstitial cystitis Lichen sclerosus Marijuana use Recurrent urinary tract infection Asperger syndrome IBS (irritable bowel syndrome) Gastroparesis Home Medications ?Medication ?Instructions ?Recorded ?Last Taken ?Type tizanidine 4 mg tablet 4 mg PO QHS 09/26/18 09/25/18 History albuterol sulfate 90 mcg/actuation 2 inh inhalation Q4H PRN shortness 10/22/23 Unknown History aerosol inhaler of breath or wheezing gabapentin 100 mg capsule 100 - 300 mg PO QHS 05/02/24 Unknown History ondansetron 4 mg disintegrating 4 mg PO Q8H PRN PRN Nausea #10 tabs 05/31/24 Unknown Rx tablet hydroxyzine pamoate 25 mg capsule 25 mg PO TID PRN panic attacks #90 06/18/24 Unknown Rx caps olanzapine 2.5 mg tablet (Zyprexa) 2.5 mg PO QHS 30 days #30 tabs 07/15/24 Unknown Rx prazosin 1 mg capsule 1 mg PO QHS 30 days #30 caps 07/15/24 Unknown Rx venlafaxine 75 mg capsule,extended 75 mg PO DAILY 30 days #30 caps 07/15/24 Unknown Rx release 24 hr (Effexor XR) trazodone 50 mg tablet 50 mg PO QHS PRN sleep 10/25/24 Unknown History Allergy/AdvReac Type Severity Reaction Status Date / Time Bleach (Sodium Hypochlorite) Allergy Mild Other Verified 10/25/24 00:03 latex Allergy Mild Itching Verified 10/25/24 00:03 Food Allergies: Uncoded Allergy Other Verified 10/25/24 00:03 honey Allergy Rash Verified 10/25/24 00:03 prochlorperazine (From Allergy Vomiting Verified 10/25/24 00:03 Compazine) diphenhydramine (From AdvReac Severe Behavioral Verified 10/25/24 00:03 Benadryl) change nitrofurantoin (From AdvReac Vomiting Verified 10/25/24 00:03 Macrobid) Surgical History Hx of appendectomy Social History (Updated 05/23/24 @ 23:[address] Kelby Reynaga MD) household members: none housing: other current occupational status: student Smoking Status: Current some day smoker tobacco type: e-cigarettes substance use type: does not use EXAM Physical Exam Const Vital Signs: 10/25/24 00:03 10/25/24 00:03 Temperature 97.9 F Temperature Source Oral Pulse Rate 116 H Respiratory Rate 19 H Respiratory Effort Normal Non-Labored Blood Pressure 121/82 H Blood Pressure Mean 95 Pulse Ox 98 Oxygen Delivery Method Room Air MDM MDM MDM Narrative Medical decision making narrative: 24-year-old female with past medical history of PCOS, PTSD, depression with psychosis presents for evaluation of palpitations. Palpitations happened prior to arrival and since resolved. Patient states that she has been taking Claritin incorrectly and overdosing herself. She denies any symptoms currently. Differential diagnosis includes but is not limited to medication side effect, electrolyte abnormality, anemia. Patient not having any chest pain or shortness of breath. Will obtain basic labs with EKG. Low suspicion for ACS and therefore I do not think she needs an extensive cardiac workup. On presentation, patient was tachycardic however on my exam she is RRR. EKG was personally reviewed and interpreted by me, ED physician. Normal sinus rhythm. Heart rate 97. No acute ischemic changes. This is similar to her previous EKG. CBC without leukocytosis or anemia. BMP unremarkable. Magnesium unremarkable. At this point in time, patient has no anemia or electrolyte abnormality to cause her episode of palpitations. Suspect that it was secondary to her overdosing Claritin. I did explain to her that she needs to follow the box directions. Follow-up with PCP. Return precautions explained. She confirmed understanding of plan. Patient able to discharge home. Impression: 1. Palpitations, resolved 2. Medication side effect Lab Data Labs: Laboratory Results - last 24 hr 10/25/24 00:36 WBC 9.0 RBC 4.22 Hgb 12.6 Hct 36.7 L MCV 87.0 MCH 29.9 MCHC 34.3 RDW Std Deviation 38.6 RDW Coeff of Jake 12.0 Plt Count 259 MPV 9.5 Immature Gran % (Auto) 0.200 Neut % (Auto) 66.0 Lymph % (Auto) 28.0 [place] % (Auto) 4.3 Eos % (Auto) 1.2 Baso % (Auto) 0.3 Absolute Neuts (auto) 5.9 Absolute Lymphs (auto) 2.52 Nucleated RBC % 0 Sodium 136 Potassium 3.8 Chloride 104 Carbon Dioxide 21.9 Anion Gap 10 BUN 13 Creatinine 0.76 Estim Creat Clear Calc 123.14 Est GFR (MDRD) Non-Af 114 BUN/Creatinine Ratio 17.2 Glucose 179 H Calcium 9.0 Magnesium 2.2 Discharge Plan Triage Chief Complaint: Palpitations ED Provider: Jesús Albarran Dx/Rx/DC Orders Prescriptions: No Action tizanidine 4 MG tablet 4 mg PO QHS albuterol sulfate 90 mcg/actuation HFA aerosol inhaler 2 inh inhalation Q4H PRN (Reason: shortness of breath or wheezing) venlafaxine [Effexor XR] 75 mg capsule,extended release 24hr 75 mg PO DAILY 30 Days Qty: 30 1RF prazosin 1 mg capsule 1 mg PO QHS 30 Days Qty: 30 2RF olanzapine [Zyprexa] 2.5 mg tablet 2.5 mg PO QHS 30 Days Qty: 30 2RF gabapentin 100 mg capsule 100 - 300 mg PO QHS ondansetron 4 mg tablet,disintegrating 4 mg PO Q8H PRN PRN (Reason: Nausea) Qty: 10 0RF hydroxyzine pamoate 25 mg capsule 25 mg PO TID PRN (Reason: panic attacks) Qty: 90 1RF trazodone 50 mg tablet 50 mg PO QHS PRN (Reason: sleep) Primary Care Provider: Travis Siddiqi Referrals: Travis Siddiqi DO [Primary Care Provider] - Print Language: [place]
[2024-10-25 00:43] LABS: Absolute Lymphocyte Count 2.52 X10^3/uL (0.83-4.51); Absolute Neutrophil Count 5.9 X10^3/uL (2.0-7.7); Basophil# 0.03 X10^3/uL; Basophil% 0.3 % (0-1); Eosinophil# 0.11 X10^3/uL; Eosinophils% 1.2 % (0-5); Hematocrit 36.7 % (37-47); Hemoglobin 12.6 g/dL (12.0-15.0); Lymphocyte # 2.52 X10^3/ul (0.83-4.51); Mean Corp Hgb Conc 34.3 g/dL (32-36); Mean Corpuscular Hgb 29.9 pg (27.0-32.0); Mean Platelet Vol. 9.5 fl (6.2-12.0); Monocyte# 0.39 X10^3/uL; Monocyte% 4.3 % (0-10); NRBC Flagged by Analyzer 0 % (0-5); Neutrophil # 5.92 X10^3/uL (2.7-7.7); Platelet Count 259 K/mm3 (150-450); RBC Distribution Width SD 38.6 fl (35.1-43.9); Red Blood Count 4.22 M/mm3 (4.2-5.4)
[2024-10-25 00:58] LABS: Anion Gap 10 (5-15); BUN 13 mg/dL (4-19); BUN/Creat Ratio 17.2 RATIO (10-20); Carbon Dioxide 21.9 mmol/L (21.0-32.0); Chloride 104 mmol/L (98-108); Creatinine, Serum 0.76 mg/dL (0.70-1.20); EST Glomerular Filtration Rate 114 (>60); Estimated Creatinine Clearance 123.14 ml/min (50-250); Glucose 179 mg/dL (70-99); Magnesium 2.2 mg/dL (1.5-2.2); Potassium 3.8 mmol/L (3.3-5.1); Sodium Level 136 mmol/L (133-145)
[2024-10-25 01:02] VITALS: BP 108/67; PULSE 84; RESP 14; TEMP 36.6; O2SAT 97
== END 2024-10-25 01:03 | disposition home or self-care (01) ==
PROVIDERS: Emergency Provider Surgery; PCP Family Medicine; Visit Provider Surgery
DX: R00.2 Palpitations (principal); F60.3 Borderline personality disorder; F33.2 Major depressive disorder, recurrent severe without psychotic features; T45.0X5A Adverse effect of antiallergic and antiemetic drugs, initial encounter; F17.290 Nicotine dependence, other tobacco product, uncomplicated; Z79.899 Other long term (current) drug therapy
CPT/HCPCS: 80048; 83735; 85025; 93005; 99284; A4216

== ENCOUNTER 2024-12-23 08:00 | Outpatient (RCR) | payer OTHER, SELFPAY ==
--- NOTE | 2024-12-23 09:15 | BH.COMM ---
Communication Note Communication with Client Communication Note: Met with pt to complete paperwork, update any changes to pre-admission screening, and complete risk assessment. Moderate risk on [place] Suicide Screening. Denies active SI, plan, or intent. Last suicidal thought occurred 2 weeks ago. Consulted with Dr. Nolasco regarding current symptoms with orders to admit to IOP with dx of F33.2
--- NOTE | 2024-12-23 10:10 | BH.SGPN.GN ---
Behaviors/Verbalizations/Mental Status: [] Client alert and oriented, casually dressed and groomed. Eye contact fair. Motor activity appropriate. Speech within normal limits. Affect congruent, mood dysthymic. Thoughts linear, logical, no signs of hallucinations or delusions. Client Response/Progress/Benefit: [] Pt engaged in session AEB client listening attentively to peers and providing input. Attentive and contributed to discussion as group worked on defining self-forgiveness and identifying mental health benefit. Identified benefits as: reduce guilt/shame, increase self-confidence, decrease negative self-talk, healthier relationships, ect. ?Worked in small groups to identify factors that can make self-forgiveness difficult. Pt identified a personal barrier to self-forgiveness. Benefited from increased education on self-forgiveness, benefits, and what effects it. Pt will continue IOP tx to improve emotion regulation, challenge distortions, and prevent decompensation.
--- NOTE | 2024-12-23 11:15 | BH.SGPN.GN ---
Behaviors/Verbalizations/Mental Status: [] Client alert and oriented, casually dressed and groomed. Eye contact fair. Motor activity appropriate. Speech within normal limits. Affect congruent, mood depressed. Thoughts linear, logical, no signs of hallucinations or delusions. Client Response/Progress/Benefit: [] Pt engaged in session AEB client listening attentively to peers and providing input. Attentive during psychoeducation on the 4 R?s of Self-Forgiveness (Responsibility, Remorse, Presybeterian, Renewal). Contributed to discussion as group worked on identifying strategies for improving ability to practice self-forgiveness. Reports wanting to practice thought challenging and practicing self-care. Engaged in self-forgiveness activity and benefited from increased education on self-forgiveness building skills. Pt will continue IOP tx to improve mood stability, increase healthy coping repertoire, and prevent decompensation. Narrative Note: []
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
--- NOTE | 2024-12-24 09:05 | BH.SGPN.GN ---
Behaviors/Verbalizations/Mental Status: [] Eye contact is good. Motor activity is appropriate. Appearance is casual. Speech is Appropriate. Mood is dysthymic and irritable. Affect is congruent. Thoughts are linear and logical. No evidence of psychosis. Reviewed daily check in sheet and no reports of suicidal ideations or intent. Client Response/Progress/Benefit: [] Pt participated when prompted. Attentive. Daily symptom tracker notes 3/5 for anxiety and irritability as well as 2/5 for depression. Pt reports currently struggling due to ? lots of traumatic shit?. States its? ?really stressful? and he is ? very depressed?. Difficulty using skills in current state. Several cognitive distortions. Unable to identify mental health wins. Regression noted. Limited benefit from group as he appeared distracted and dismissive of suggestions. Will continue in IOP to maintain safety, stabilize mood, and increase health coping. Narrative Note: []
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
[2024-12-24 11:10] VITALS: BP 122/84; PULSE 98
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
--- NOTE | 2024-12-24 11:50 | BH.DR.ITP ---
Initial Treatment Plan Patient Information Visit Information: ADMISSION DATE: EXPECTED LOS: 6-8 weeks Problems/Symptoms Problem #1:: MDD Symptom:: Recent difficulties with depressed mood, ADLs, lack of motivation, poor hygiene with low energy and increased irritability with recent fleeting SI Problem #2:: PTSD Symptom:: Recent recurrence of some flashbacks and nightmares with visual hallucinations of eyes in the dark or someone trying to grab his leg
--- NOTE | 2024-12-30 09:00 | BH.SGPN.GN ---
Behaviors/Verbalizations/Mental Status: []Pt alert and oriented, neatly dressed and groomed. Eye contact fair. Motor activity restless. Speech within normal limits. Affect congruent, mood depressed. Thoughts linear, logical, no signs of hallucinations or delusions. Reviewed pt?s symptom tracker, no risk for suicidal ideation, plan, or intent 12/30/24. Client Response/Progress/Benefit: []Pt was an active participant in group discussions. Attentive. Able to identify mental health wins including going for nightly walks and allowing himself to get rest without completely avoiding tasks. Pt's stressor today is ?I think my friend is upset with me and insurance sucks.? The group offered pt encouragement and emotional support which pt reported was helpful. Pt is feeling tired.? this morning. Pt receptive to feedback from peers. Benefited from group support, encouragement, and feedback. Progress noted. Will continue IOP tx to prevent decompensation, improve daily functioning, and increase use of healthy coping skills. ?? Narrative Note: []
--- NOTE | 2024-12-30 10:15 | BH.SGPN.GN ---
Behaviors/Verbalizations/Mental Status: [] Client alert and oriented, casually dressed and groomed. Eye contact fair. Motor activity appropriate. Speech within normal limits. Affect congruent, mood irritable. Thoughts linear, logical, no signs of hallucinations or delusions. Client Response/Progress/Benefit: [] Client responded well to session AEB contributing to discussion, taking notes, and listening attentively to others. Group discussed the benefits of managed anger and anger as a secondary emotion. Client participated in anger iceberg discussion. Group reported outward personal signs of anger as lashing out verbally, physical fights, destruction of property, self-harm, and self-sabotage. Group Identified underlying emotions that contribute to anger including being dismissed, rejection, assumptions, being lied too, and micromanaging. Appeared to benefit from increased knowledge of the underlying emotions that impact anger and increased self-awareness of the internal and external consequences of anger. Client will continue IOP program to maintain safety, prevent decompensation, and increase healthy coping. Narrative Note: []
--- NOTE | 2024-12-30 11:15 | BH.SGPN.GN ---
Behaviors/Verbalizations/Mental Status: [] client alert and oriented, casually dressed and groomed. Eye contact fair. Motor activity appropriate. Speech within normal limits. Affect congruent, mood dysthymic. Thoughts linear, logical, no signs of hallucinations or delusions. Client Response/Progress/Benefit: [] Client was an engaged participant throughout group AEB client providing input throughout discussion. Client contributed to the continued discussion of how people express anger as well as the underlying emotions of anger. Client participated in group activity that highlighted strategies to cope with anger. Group brainstormed healthy coping skills to help prevent anger and cope with it in the moment which included: mindfulness, deep breathing, journaling, going outside, and music. Client stated something he learned from today's group is that he does have more coping skills than he thought. Client appeared to benefit from brainstorming with the group potential strategies to manage anger in healthy ways. Recommended continued IOP to improve emotion regulation, challenge distortions, and prevent decompensation.
--- NOTE | 2024-12-30 15:31 | BH.MDN_ITS ---
Multi-Disciplinary Note Note 30-min Individual: Time Started:: 12:05 Date: 12/30/24 Purpose of session/treatment goals addressed:: To work on self- forgiveness, self-compassion, and distress tolerance. Eye Contact:: Fair Motor Activity:: Restless Appearance:: Casual Speech:: Appropriate Mood:: Euthymic Affect:: Bright Thoughts:: Linear, Logical and No evidence of hallucinations/delusions noted Staff Interventions:: motivational interviewing, CBT techniques, mindfulness skills, strengths perspective and goal setting Client Response:: Pt responded well to session, open to meeting with therapist. Pt reports he is doing well today and he is excited about the crystals he recently purchased. Pt stated he has been trying to get back to doing things he used to find ely in and it is working. Pt shared one of the things he has been wanting to do is be more self-compassionate and be able to forgive himself for past choices and struggles he has gone through. 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 Pt stated I'm al lowing myself to create things I used to as a kid and it's very comforting. Pt shared he used to be more critical and selective of what he made, but he is noticing now the importance of healing his inner child. Pt and therapist discussed all the ways this can be helpful as well as highlighted pt's progress in using healthy skills such as the ones noted above and taking walks daily. Pt and therapist also noted that pt did well in group today with using healthy calming skills. Pt is encouraged to reflect on what his emotional urges are for different emotions so we can review distress tolerance more in depth next session. Risks/Concerns:: Pt denies any suicidal ideations, plan, or intent. Pt denies any thoughts of . Progress Toward Goals/Plan:: Pt is responding well to IOP tx AEB his engagement in group and report of enjoying the topics. Pt stated he is still having episodes of depression and anxiety, but the symptoms are less intense than they were a few weeks ago. 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 Pt will continue IOP tx to promote mood stability, reduce negative thinking patterns, and increase distress tolerance. Time Stopped:: 12:35
--- NOTE | 2025-01-04 09:00 | BH.SGPN.GN ---
Behaviors/Verbalizations/Mental Status: [] Pt alert and oriented, neatly dressed and groomed. Eye contact good. Motor activity appropriate. Speech within normal limits. Affect congruent, mood euthymic. Thoughts linear, logical, no signs of hallucinations or delusions. Reviewed pt?s symptom tracker, no risk for suicidal ideation, plan, or intent 01/04/25. Client Response/Progress/Benefit: []Pt was an active participant in group discussions. Attentive. Able to identify mental health wins including feeling more awake because he is taking his medications on time and having a good talk with his partner about their relationship. Pt's stressor today is ?the fall semester is coming up and I?m worried how I?ll handle it.? The group offered pt encouragement and emotional support which pt reported was helpful. Pt is feeling calm this morning. Pt receptive to feedback from peers. Progress noted. Benefited from group support, encouragement, and feedback. Will continue IOP tx to increase distress tolerance skills, reduce negative thinking patterns, and improve daily functioning. ?? Narrative Note: []
--- NOTE | 2025-01-04 10:00 | BH.SGPN.GN ---
Behaviors/Verbalizations/Mental Status: [] Client alert and oriented, casually dressed and groomed. Eye contact good. Motor activity appropriate. Speech within normal limits. Mood is irritable. Affect is congruent. Thoughts linear, logical, no signs of hallucinations or delusions. Client Response/Progress/Benefit: [] Pt responded well to session AEB sharing and listening attentively to others. Group provided examples of types of support (professional, pets, hobbies, community, spouse, tana, etc) as well as benefits of having social support, including: validation, get perspective, and accountability. Pt also participated in group discussion regarding the barriers to accessing support identifying examples to include: negative thinking, lack of communication, and lack of trust. Pt participated in experiential activity illustrating the impact communication, boundaries, and patience play in creating healthy support systems. Pt appeared to benefit from increased knowledge of the benefits of social support and greater self-awareness. Pt to continue IOP to prevent decompensation, stablize mood, and increase healthy coping. Narrative Note: []
--- NOTE | 2025-01-04 11:05 | BH.SGPN.GN ---
Behaviors/Verbalizations/Mental Status: []Client alert and oriented, casually dressed and groomed. Eye contact good. Motor activity appropriate. Speech within normal limits. Affect congruent, mood dysthymic. Thoughts linear, logical, no signs of hallucinations or delusions. Client Response/Progress/Benefit: [] Pt participated throughout AEB contributing to discussion, providing examples, and taking notes. Pt provided input during discussion on the types of support our supports can provide. Pt able to identify current support system and barriers that get in the way of using supports. Pt reported after identifying what type of supports pt receives, pt gained awareness that pt could benefit from more social and emotional support by putting more effort into consistently reaching out and challenging unrealistic expectations of supports. Pt seemed to benefit from identifying the type of support pt needs to work on improving. Pt recommended to continue IOP tx to promote increase positive self-talk, improve sleep hygiene, and prevent decompensation. Narrative Note: []
--- NOTE | 2025-01-15 09:05 | BH.SGPN.GN ---
Behaviors/Verbalizations/Mental Status: [] Pt alert and oriented, neatly dressed and groomed. Eye contact good. Motor activity appropriate. Speech within normal limits. Affect constricted, mood agitated. Thoughts linear, logical, no signs of hallucinations or delusions. Reviewed pt?s symptom tracker, no risk for suicidal ideation, plan, or intent 01/15/25. Client Response/Progress/Benefit: []Pt was an active participant in group discussions. Attentive. Able to identify mental health wins including ?I got here even though it?s been hard to get up? and pt shared he has been much more creative lately. Pt's stressor today is ?there?s so many greedy [employer] out there that just want money and I?m having sleep issues again.? The group offered pt encouragement and emotional support which pt reported was helpful. Pt is feeling dark.? this morning. Pt receptive to feedback from peers. Benefited from group support, encouragement, and feedback. Progress noted as pt's anger and frustration does not become all consuming like it used to. Will continue IOP tx to promote use of healthy coping skills, reduce avoidance, and increase distress tolerance skills. Narrative Note: []
--- NOTE | 2025-01-15 10:03 | PCM.BH.PN ---
Intake Vital Signs 12/16/24 11:28 12/24/24 11:10 12/24/24 11:22 01/15/25 10:13 Height 5 ft 4 in 5 ft 4.57 in 5 ft 4.57 in 5 ft 4 in Weight: 186 lb BP 122/84 H Pulse 98 Intake Visit Reasons: follow up Allergies Bleach (Sodium Hypochlorite) Allergy (Mild, Verified 12/24/24 14:11) Other latex Allergy (Mild, Verified 12/24/24 14:11) Itching Food Allergies: Uncoded Allergy (Verified 12/24/24 14:11) Other honey Allergy (Verified 12/24/24 14:11) Rash prochlorperazine (From Compazine) Allergy (Verified 12/24/24 14:11) Vomiting diphenhydramine (From Benadryl) Adverse Reaction (Severe, Verified 12/24/24 14:11) Behavioral change nitrofurantoin (From Macrobid) Adverse Reaction (Verified 12/24/24 14:11) Vomiting Medications ?Medication ?Instructions ?Recorded ?Confirmed ?Type tizanidine 4 mg tablet 4 mg PO QHS 09/26/18 12/24/24 History albuterol sulfate 90 mcg/actuation 2 inh inhalation Q4H PRN shortness 10/22/23 12/24/24 History aerosol inhaler of breath or wheezing gabapentin 100 mg capsule 100 - 300 mg PO QHS 05/02/24 12/24/24 History trazodone 50 mg tablet 50 mg PO QHS PRN sleep 10/25/24 12/24/24 History olanzapine 2.5 mg tablet (Zyprexa) 2.5 mg PO QHS 30 days #30 tabs 10/26/24 12/24/24 Rx prazosin 1 mg capsule 1 mg PO QHS 30 days #30 caps 10/26/24 12/24/24 Rx venlafaxine 75 mg capsule,extended 75 mg PO DAILY 30 days #30 caps 11/19/24 12/24/24 Rx release 24 hr clobetasol 0.05 % topical ointment topical 12/24/24 History propranolol 20 mg tablet 20 mg PO TID #90 tabs 12/30/24 Rx HPI () History of Present Illness History provided by: patient Chief complaint: Recent stressors with depressive symptoms HPI: Vidal Jamison is a 24-y/o transgender male who presents today for follow up evaluation. Patient reports that he remains fairly tired, but this has been doing better since reducing dose of olanzapine to 2.5 mg. Still having some trouble getting up in the morning but not quite as tired later in the day. Finds that olanzapine works very well for PTSD symptoms and controlling psychotic symptoms. Had continued to have intrusive thoughts but they are less real or debilitating that they had been previously. Appetite has been not great. Does have some safe foods but believes that this is due to Autism. Elaborates that part of this is a trauma response to gastroparesis and also related to texture concerns. Has found IOP helpful to this point. Describes having some difficulty with motivation. Believes that this is related to ADHD. Review of systems () Constitutional Denies: fever(s), chills, change in weight or fatigue Eyes Denies: change in vision or blurry vision Ears, Nose, Mouth, Throat Denies: throat pain, neck pain or change in hearing Cardiovascular Denies: chest pain, palpitations or dyspnea Respiratory Denies: dyspnea, cough or wheezing Gastrointestinal Denies: abdominal pain, nausea, vomiting, diarrhea or constipation Genitourinary Denies: dysuria or urinary frequency Musculoskeletal Denies: back pain, neck pain, joint pain or muscle weakness Integumentary/Breast Denies: rash or new lesions Neurological Denies: headache(s), dizziness or confusion Endocrine Denies: fatigue or excessive sweating Hematologic/Lymphatic Denies: easy bruising or easy bleeding Allergic/Immunologic Denies: wheezing Exam Mental Status Exam- Psych () Appearance casually dressed, adequately groomed and no apparent distress Attitude cooperative and other (somewhat odd) Activity/Motor Behavior MSE activity/motor behavior finding no adventitious movements and intense eye contact Speech regular rate and regular volume Mood OK Affect full range Thought Process linear and logical Thought Content no delusions and no hallucinations Suicidal Ideation none Homicidal Ideation none Attention intact Concentration intact Sensorium/Orientation awake and alert Memory/Cognition intact Insight fair Judgement fair Assessment & Plan () Assessment & Plan (1) Major depressive disorder, recurrent severe without psychotic features: Plan: - continue medications as previously prescribed - continue in IOP (2) PTSD (post-traumatic stress disorder): Plan: Patient reports recent PTSD trigger, seems that this has caused recurrence of some of patient's PTSD and MDD symptoms, patient participate in IOP, medications had been working fairly well before that so we will continue these at this time (3) Borderline personality disorder: Plan: Historical diagnosis, supportive care (4) Autism spectrum disorder: Plan: Historical diagnosis, supportive care Charges/Coding Multi Select Codes Behavior Health Behavior Health EST Pt E/M: 57558 Est Pt Level IV
--- NOTE | 2025-01-15 10:15 | BH.SGPN.GN ---
Behaviors/Verbalizations/Mental Status: [] Client alert and oriented, casual appearance. Eye contact poor. Motor activity appropriate. Speech within normal limits. Affect constricted, mood dysthymic. Thoughts linear, logical, no signs of hallucinations or delusions. Client Response/Progress/Benefit: []Client responded well to session AEB listening attentively to peers, taking notes, and engaging in discussions. Client attentive to psychoeducation about different styles of decision making. Client engaged in discussion about internal and external influences that impact decision making. Group identified internal influences that impact decision making to include self-talk, anxiety, mood, and past experiences. Group identified external influences that impact decision making to include opinions from others, peer pressure, societal or cultural norms, and finances. Client seemed to benefit from increased awareness and understanding of different decision making styles. Plan is for client to continue IOP to improve emotional regulation, challenge negative in-store thoughts, and prevent decompensation.
--- NOTE | 2025-01-15 11:15 | BH.SGPN.GN ---
Behaviors/Verbalizations/Mental Status: []Pt alert and oriented, casually dressed and groomed. Eye contact good. Motor activity appropriate. Speech within normal limits. Affect congruent, mood euthymic. Thoughts linear, logical, no signs of hallucinations or delusions. Client Response/Progress/Benefit: [] Pt took notes and contributed to group discussions and was an active participant in activity. Pt engaged in continued discussion on decision making styles and pros and cons of each. Pt actively participated in experiental activity in which the group was given a scenario and prompted to decide what they would do. Did well to actively reflect on the various factors influencing their identified decisions as well. Pt worked with group to then identify several strategies for improving healthy decision making skills. Pt shared wanting to work on improving ability to use self-reflection before making decisions. Pt appeared to benefit from learning about building healthy decision making processes. Will continue IOP tx to improve mood stability, increase distress tolerance, and maintain progress. ? Narrative Note: []
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
--- NOTE | 2025-01-15 14:38 | BH.TPR ---
Treatment Plan Review Demographics Date of Admission:: 12/21/24 Date of Treatment Plan Review:: 01/15/25 Admitting Diagnoses:: Major depressive disorder, recurrent, severe without psychosis; PTSD; Autism spectrum disorder Current Diagnoses:: Major depressive disorder, recurrent, severe without psychosis; PTSD; Autism spectrum disorder Patient Status Patient's Response to Treatment:: Pt has responded mostly well to IOP treatment. Pt's attendance has been inconsistent, but when pt does attend pt is engaged and provides feedback. Pt does well with peers and reports benefitting from the group topics. However, as noted above, pt struggles with attendance as pt reports waking up in the mornings has been challenging and pt feels groggy. Pt engages well individually and is open to ideas. Status of Current Problems and Symptoms: Pt's biggest barrier to treatment right now is issues with sleep and getting up in the morning. Pt reports he has been trying to stick with a sleep schedule, but it has been challenging to wake up at his alarm. Pt will meet with the psychiatrist this week. Per pt's DSM-5 he is experiencing some symptoms of depression, but this is improving. Pt's biggest mental health symptoms at treatment plan review are for anger, anxiety, and feeling detached from his body. Psychosocial stressors include the new school year beginning soon, the state of the world, and the art community. Progress Problem #1: Problem Name:: Depression, lack of motivation, anhedonia, and recent SI Status of Goals:: Objective 1- in progress. Pt reports having some fleeting SI this week triggered by frustrations with the state of the world/[employer]. Prior to this, pt was not reporting any SI. Pt?s scores for depression have decreased by 33% since admission. Pt reports getting back into art and walking consistently. Objective 2- complete with ongoing work encouraged. Pt reports walking almost on a nightly basis and he has been drawing more. Additionally, pt is improving his sleep routine at night. Team Recommendations:: Team recommends continued goals and objectives as pt's scores have decreased, but pt continues to report lack of motivation, increased sleep, and difficulty functioning in the mornings. Team recommends pt continue working on combating distortions, dialectical thinking, and self-forgiveness. Problem #2: Problem Name:: Anxiety, PTSD, and mood dysregulation Status of Goals:: Objective 1- in progress. Pt noted that he is gaining more confidence and insight that he does have skills to manage anger and anxiety. Pt has learned about riding the wave and DDD to help improve distress tolerance. Objective 2- not complete. Pt?s scores for anxiety and irritability have slightly increased since admission. Pt as previously noted, pt?s mood has fluctuated this week due to frustrations with greedy [employer]. Team Recommendations:: Team recommends pt to continue working on increasing distress tolerance and improving ability to regulate when experiencing triggers.
--- NOTE | 2025-01-18 09:00 | BH.SGPN.GN ---
Behaviors/Verbalizations/Mental Status: [] Client alert and oriented, casual appearance. Eye contact poor. Motor activity appropriate. Speech within normal limits. Affect congruent, mood slightly irritable. Thoughts linear, logical, no signs of hallucinations or delusions. Reviewed client's symptom tracker, no risk for suicidal ideation, plan, or intent. Client Response/Progress/Benefit: [] Client responded well to session AEB listening to others and sharing thoughts/feelings. Per daily symptom tracker client reported a 0/5 for depressed mood and a 2/5 for anxious mood. Client noted on symptom tracker that that his ability to function is improved. Client stated mental health positive as sleeping much better and having more energy since having his sleep medication. Client stated additional months of positive as being given the option to be on ADHD medication which is something he thinks could be helpful especially when he gets back into starting classes. Client noted deciding to take ADHD medication as a somewhat stressor because he is worried of the potential side effects or interactions with his current medications. Client appeared to benefit from support from peers. Will continue IOP tx to promote use of healthy coping skills, challenge distortions, and prevent decompensation. Narrative Note: []
--- NOTE | 2025-01-18 10:00 | BH.SGPN.GN ---
Behaviors/Verbalizations/Mental Status: [] Eye contact is good. Motor activity is appropriate. Appearance is casual. Speech is Appropriate. Mood is dysthymic and irritable. Affect is congruent. Thoughts are linear and logical. No evidence of psychosis. Client Response/Progress/Benefit: [] Pt did not participate in gropu discussions however was attentive AEB taking notes. Attentive during psychoeducation on SMART Goal Setting. Attentive as group provided common barriers to goal setting which included; mental health struggles, energy/motivation, limited support, change to routine, limited knowledge how to set goals, having unrealistic goals, and our internal expectations. Group also identified benefits of goals, which included: can map progress, it challenges one, can boast confidence, and can cause positive change/growth. Pt identified personal benefits to goal setting. Benefited from increased awareness of mental health benefits of goals as well as psychoeducation on SMART goal criteria. Will continue in IOP to prevent decompensation, increase healthy coping, and improve functioning. Narrative Note: []
--- NOTE | 2025-01-18 11:05 | BH.SGPN.GN ---
Behaviors/Verbalizations/Mental Status: []Pt alert and oriented. Appearance is casual, hygiene is appropriate. Eye contact good. Motor activity appropriate. Speech within normal limits. Affect is apathetic. Mood is constricted. Thoughts linear, logical, no signs of hallucinations or delusions. Client Response/Progress/Benefit: [] Pt was engaged during discussion and experiential activity. Completed the worksheet challenging them to develop a personal SMART goal. Pt chose a SMART goal to ?go for a walk at the of the day for three nights this week.? Pt believes this goal will benefit pt through it will improve sleep and my physical health. Identified obstacles such as college schedule, physical exhaustion, and weather. Pt was able to identify solutions including making a specific time, go on the treadmill if it rains, and being more consistent. Benefited from this group by developing a short-term SMART goal related to mental health. Will continue IOP to improve distress tolerance skills, reduce isolation, and improve school-related functioning. Narrative Note: []
--- NOTE | 2025-01-18 14:24 | BH.MDN ---
Multi-Disciplinary Note Note 30-min Individual: Time Started:: 12:00 Date: 01/18/25 Purpose of session/treatment goals addressed:: To review progress and discuss strategies to promote a successful college semester. Eye Contact:: Fair Motor Activity:: Restless Appearance:: Casual Speech:: Appropriate Mood:: Euthymic and Other (tired) Affect:: Congruent Thoughts:: Linear, Logical and No evidence of hallucinations/delusions noted Staff Interventions:: thought challenging, CBT techniques, mindfulness skills, discharge planning and strengths perspective Client Response:: Pt responded well to session, open to meeting with therapist. Pt reports feeling better today and that he was able to wake up to his alarm which was positive. Pt had been struggling with getting to group in the morning due to fatigue and feeling groggy. Pt reports today that he is feeling motivated and more stable. Pt shared he spent time with his boyfriend over the weekend virtually. 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 Pt shared he had been anxious about the school year, but he was able to look at things that will help pt this year. Pt identified these supports as having the most accommodations I've ever had, spending the summer taking care of myself, and taking easier classes. Pt did ask about a medication suggestion made by Dr. Blackman and this therapist will reach out to Dr. Blackman for pt. Pt feels that this medication (Strattera) could help pt when he begins the semester at the end of January. Pt shared he wants to go for a walk tonight and that is his goal for the rest of the week. Pt also is looking into changing therapists because his previous EMDR therapist was too expensive. Pt declined needing help finding an EMDR therapist. Risks/Concerns:: Pt denies any suicidal ideations, plan, or intent. Pt denies any thoughts of . Progress Toward Goals/Plan:: Pt self-reports improved mood and functioning to therapist today, however, pt's DSM-5 that pt completed on 01/15/25 indicate worsening symptoms of anxiety. Pt shared he feels more capable to cope with stressors. Pt acknowledges that his mood stability is associated with the stressors of the day and when pt completed the DSM-5 he was irritable and anxious that day per his report. Pt will continue IOP tx to reduce symptoms, improve distress tolerance, and improve daily functioning. Time Stopped:: 12:20
--- NOTE | 2025-01-20 09:05 | BH.SGPN.GN ---
Behaviors/Verbalizations/Mental Status: [] Eye contact is good. Motor activity is appropriate. Appearance is casual. Speech is Appropriate. Mood is euthymic. Affect is full. Thoughts are linear and logical. No evidence of psychosis. Reviewed daily check in sheet and no reports of suicidal ideations or intent. Client Response/Progress/Benefit: [] Pt participated at times during the group discussions. Attentive. Daily symptom tracker notes minimal distress. Able to identify mental rosa wins and healthy habits. Shared with the group the use of several internal and external coping strategies he was able to utilize yesterday evening. Was also able to give himself permission to appreciate ? down time?. These efforts significantly benefited his mental health and perhaps prevented decompensation. Progress noted. Benefited from group support, encouragement, and feedback. Will continue in IOP to maintain gains and increase healthy coping. Narrative Note: []
--- NOTE | 2025-01-20 10:10 | BH.SGPN.GN ---
Behaviors/Verbalizations/Mental Status: [] Eye contact is good. Motor activity is appropriate. Appearance is casual. Speech is Appropriate. Mood is content. Affect is congruent. Thoughts are linear and logical. No evidence of psychosis. Client Response/Progress/Benefit: [] Client engaged participant at times during group session as evidenced by contributions during group discussions, appearing to listen to others, and taking notes. Client engaged in discussion about barriers that keep people from having difficult confrontations. Group identified potential reasons individuals avoid difficult conversations which included; feeling uncomfortable, reaction of others, fear, and avoiding conflict. Group also identified benefits to having crucial conversations. Pt identified things they do that impact their communication shutting down or personalizing. Client seemed to benefit from increased awareness and education about importance of having difficult conversations and recognizing the impact of avoiding such conversations. Client to continue IOP to prevent decompensation, increase healthy coping, and improve functioning. Narrative Note: []
--- NOTE | 2025-01-20 11:10 | BH.SGPN.GN ---
Behaviors/Verbalizations/Mental Status: [] Eye contact is good. Motor activity is appropriate. Appearance is casual. Speech is Appropriate. Mood is euthymic. Affect is full. Thoughts are linear and logical. Client Response/Progress/Benefit: [] Pt was an active participant, engaged in activities and discussion. Pt able to identify ways they negatively contribute to crucial conversations and pt was engaged during psychoeducation of the different ways to build interpersonal effectiveness skills. Pt and peers practiced mirroring and active listening with assigned partners. Group reviewed DEAR MAN and used the handout to help map out how they would like a crucial conversation in their life to go. Pt identified an upcoming crucial conversation with an unhealthy friends and completed worksheet adhering to DEAR MAN strategies . Pt appeared to benefit from learning and practicing interpersonal effectiveness skills. Pt will continue IOP tx to maintain safety, prevent decompensation, and stabilize mood. Narrative Note: []
== END 2025-01-21 23:59 ==
LOC: BHIOP 08:00
PROVIDERS: PCP Family Medicine; Referring Provider Internal Medicine; Visit Provider Internal Medicine
DX: F33.2 Major depressive disorder, recurrent severe without psychotic features (principal); F43.10 Post-traumatic stress disorder, unspecified; F60.3 Borderline personality disorder; F84.0 Autistic disorder
CPT/HCPCS: S9480; 90832; 90834; 90853

== ENCOUNTER 2024-12-24 14:10 | Emergency (ER) | payer OTHER, SELFPAY ==
[2024-12-24 14:12] VITALS: BP 123/72; PULSE 80; RESP 20; TEMP 36.3; O2SAT 100; BMI 32.4
--- NOTE | 2024-12-24 14:37 | ED.RN ---
states they inhaled a piece of boba, and they can feel it in their airway now. Oxygenating at 99% on room air, able to clear secretions and no apparent signs of distress at this time.
--- NOTE | 2024-12-24 14:42 | EX.ED.DYSGE1 ---
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 Feels discomfort mid chest, denies coughing, denies dyspnea, denies any other systemic symptoms but knows I inhaled it accidentally. No vomiting, no excessive secretions, no odynophagia. PFSH PFSH Medical History PCOS (polycystic ovarian syndrome) Endometriosis Borderline personality disorder PTSD (post-traumatic stress disorder) Panic disorder Major depressive disorder, recurrent severe without psychotic features Interstitial cystitis Lichen sclerosus Marijuana use Recurrent urinary tract infection Asperger syndrome IBS (irritable bowel syndrome) Gastroparesis Home Medications ?Medication ?Instructions ?Recorded ?Last Taken ?Type tizanidine 4 mg tablet 4 mg PO QHS 09/26/18 09/25/18 History albuterol sulfate 90 mcg/actuation 2 inh inhalation Q4H PRN shortness 10/22/23 Unknown History aerosol inhaler of breath or wheezing gabapentin 100 mg capsule 100 - 300 mg PO QHS 05/02/24 Unknown History trazodone 50 mg tablet 50 mg PO QHS PRN sleep 10/25/24 Unknown History olanzapine 2.5 mg tablet (Zyprexa) 2.5 mg PO QHS 30 days #30 tabs 10/26/24 Unknown Rx prazosin 1 mg capsule 1 mg PO QHS 30 days #30 caps 10/26/24 Unknown Rx propranolol 10 mg tablet 10 mg PO TID #90 tabs 11/04/24 Unknown Rx venlafaxine 75 mg capsule,extended 75 mg PO DAILY 30 days #30 caps 11/19/24 Unknown Rx release 24 hr clobetasol 0.05 % topical ointment topical 12/24/24 Unknown History Allergy/AdvReac Type Severity Reaction Status Date / Time Bleach (Sodium Hypochlorite) Allergy Mild Other Verified 12/24/24 14:11 latex Allergy Mild Itching Verified 12/24/24 14:11 Food Allergies: Uncoded Allergy Other Verified 12/24/24 14:11 honey Allergy Rash Verified 12/24/24 14:11 prochlorperazine (From Allergy Vomiting Verified 12/24/24 14:11 Compazine) diphenhydramine (From AdvReac Severe Behavioral Verified 12/24/24 14:11 Benadryl) change nitrofurantoin (From AdvReac Vomiting Verified 12/24/24 14:11 Macrobid) Surgical History Hx of appendectomy Social History (Updated 05/23/24 @ 23:[address] Kelby Reynaga MD) household members: none housing: other current occupational status: student Smoking Status: Never smoker substance use type: does not use ROS ROS ED Constitutional Constitutional ED: Denies chills or fever(s) Eyes Eyes: Denies change in vision or diplopia ENT ENT ED: Denies rhinorrhea or sore throat Cardiovascular Cardiovascular: Reports chest pain; Denies palpitations Respiratory/Chest Respiratory/Chest: Denies cough or dyspnea Gastrointestinal Gastrointestinal: Denies abdominal pain, diarrhea, nausea or vomiting Genitourinary Genitourinary ED: Denies dysuria or hematuria Musculoskeletal Musculoskeletal: Denies back pain or neck pain Integumentary Denies abscess or rash Neurologic Neurologic: Denies headache(s), paresthesias or weakness Psychiatric Psychiatric: Denies anxiety or suicidal thoughts EXAM Physical Exam Const Vital Signs: 12/24/24 14:12 12/24/24 14:32 Temperature 97.3 F L Temperature Source Temporal Pulse Rate 80 Respiratory Rate 20 H Respiratory Effort Normal Respiratory Pattern Normal Blood Pressure 123/72 H Blood Pressure Mean 89 Pulse Ox 100 Oxygen Delivery Method Room Air Positive well nourished and well developed Constitutional Narrative: Well-appearing no distress conversive in full sentences General Appearance ED: well developed and NAD HEENT Reports moist mucous membranes normocephalic and atraumatic Eyes PERRL and EOMs intact bilaterally Neck full ROM and supple Resp normal respiratory effort and clear to auscultation bilaterally Resp Narrative: Equal breath sounds bilaterally. Trachea midline. Cardio regular rate, regular rhythm and no murmurs GI non-tender and non-distended Auscultation: normoactive bowel sounds Palpation: soft Back/Spine no CVA tenderness General Back: other FROM Extremity normal to inspection General Extremety ED: Negative for edema, pulses abnormal or tenderness General Extremity: Negative for edema or pulses abnormal Neuro oriented x3, CN's II-XII intact bilaterally and no sensory deficits noted Sensorium / Orientation: awake and alert Motor Exam: strength 5/5 throughout Skin no rashes or lesions noted and no wounds MDM MDM MDM Narrative Medical decision making narrative: 2 view chest x-ray was obtained and is normal on my interpretation, radiology was in agreement. There is no sign of aspiration pneumonitis, there is no sign of unilateral abnormal hyperinflation compared with the contralateral side to suggest a bronchial or airway obstruction. I discussed with sukhjinder Tran, he advises supportive care and return precautions, and not placing the patient on prophylactic antibiotics for this. I reevaluated patient, and in the meantime he states that he thinks he coughed it out and now his symptoms are better. Given return precautions, including increasing cough, dyspnea, fevers or chills. He is comfortable with that plan. Radiography Diagnostic Testing: Clinical Impression(s) from Imaging Studies Chest X-Ray 12/24/24 14:50 IMPRESSION: No acute pulmonary process Reading Location: [facility] Discharge Plan Triage Chief Complaint: Foreign Body ED Provider: Kelby Reynaga Dx/Rx/DC Orders Clinical Impression: Aspiration of foreign body in respiratory tract Instructions: Dysphagia Aspiration Prescriptions: No Action propranolol 10 mg tablet 10 mg PO TID Qty: 90 1RF tizanidine 4 MG tablet 4 mg PO QHS albuterol sulfate 90 mcg/actuation HFA aerosol inhaler 2 inh inhalation Q4H PRN (Reason: shortness of breath or wheezing) clobetasol 0.05 % ointment topical gabapentin 100 mg capsule 100 - 300 mg PO QHS trazodone 50 mg tablet 50 mg PO QHS PRN (Reason: sleep) olanzapine [Zyprexa] 2.5 mg tablet 2.5 mg PO QHS 30 Days Qty: 30 2RF prazosin 1 mg capsule 1 mg PO QHS 30 Days Qty: 30 2RF venlafaxine 75 mg capsule,extended release 24hr 75 mg PO DAILY 30 Days Qty: 30 1RF Primary Care Provider: Travis Siddiqi Referrals: Travis Siddiqi, [Primary Care Provider] - Activity Restrictions/Additional Instructions: Return to ER for symptoms of aspiration including cough that continues to worsen over the next 2 or 3 days, shortness of breath, and/or fever/chills. Print Language: Setswana Disposition Disposition: Home, Self Care
--- NOTE | 2024-12-24 14:50 | RAD_ITS ---
PROCEDURE: CHEST PA AND LATERAL 12/24/2024 REASON FOR EXAM: CHEST DISCOMFORT AFTER FB ASPIRATION TECHNIQUE: CHEST PA AND LATERAL COMPARISON: 03/19/2024 FINDINGS: Hardware: None Heart: The heart size is normal. Mediastinum: The mediastinal contour is unremarkable. Lungs: The lungs are clear. Bones: The bones are unremarkable. RAD/Chest PA and Lateral IMPRESSION: No acute pulmonary process Reading Location: [id number]
--- NOTE | 2024-12-24 14:50 | RAD_ITS ---
PROCEDURE: CHEST PA AND LATERAL 12/24/2024 REASON FOR EXAM: CHEST DISCOMFORT AFTER FB ASPIRATION TECHNIQUE: CHEST PA AND LATERAL COMPARISON: 03/19/2024 FINDINGS: Hardware: None Heart: The heart size is normal. Mediastinum: The mediastinal contour is unremarkable. Lungs: The lungs are clear. Bones: The bones are unremarkable. RAD/Chest PA and Lateral IMPRESSION: No acute pulmonary process Reading Location: [id number]
[2024-12-24 15:55] VITALS: BP 137/78; PULSE 77; RESP 15; TEMP 36.6; O2SAT 100
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
== END 2024-12-24 15:56 | disposition home or self-care (01) ==
PROVIDERS: Emergency Provider Emergency Medicine; PCP Family Medicine; Referring Provider Emergency Medicine; Visit Provider Emergency Medicine
DX: T17.928A Food in respiratory tract, part unspecified causing other injury, initial encounter (principal); W44.F3XA Food entering into or through a natural orifice, initial encounter; F64.0 Transsexualism; F84.5 Asperger's syndrome; Z79.899 Other long term (current) drug therapy
CPT/HCPCS: 71046; 99282

== ENCOUNTER 2025-01-22 07:50 | Outpatient (RCR) | payer OTHER, SELFPAY ==
--- NOTE | 2025-01-28 10:15 | BH.SGPN.GN ---
Behaviors/Verbalizations/Mental Status: []Client alert and oriented, casually dressed. Eye contact good. Motor activity appropriate. Speech within normal limits. Affect congruent, mood euthymic. Thoughts linear, logical, no signs of hallucinations or delusions. Client Response/Progress/Benefit: [] Pt was an active participant AEB taking notes and engaging in group activity. Connected with the topic of pitfalls and listened to group discussion on barriers that prevent from choosing a healthier path to mental wellness. Group worked together to identify examples of personal pitfalls. These examples included; shutting down, not asking for help, negative thinking patterns, avoidance, and isolation. Pt did well in the experiential activity and was able to regulate stress in healthy ways. Pt benefited from group as Pt learned to better identify potential barriers to improving mental health symptoms. Identified personal barrier of fatigue and negative thinking patterns. Pt will continue IOP tx to promote use of healthy coping skills and establish aftercare. Narrative Note: []
--- NOTE | 2025-01-28 11:15 | BH.SGPN.GN ---
Behaviors/Verbalizations/Mental Status: []Client alert and oriented, casually dressed and groomed. Eye contact good. Motor activity appropriate. Speech within normal limits. Affect congruent, mood content, dysthymic. Thoughts linear, logical, no signs of hallucinations or delusions. Client Response/Progress/Benefit: [] Pt receptive of session, engaged throughout AEB Pt actively listening and contributing to discussion as well as taking notes.? Pt participated in the experiential activity and did well to communicate ideas with peers and manage emotions. Pt attentive as group processed how the emotions and perspective of the group impacted the activity. Pt admitted that they wanted to leave the activity at times, but pt was able to complete the activity with peers. Group worked together to identify different coping skills to help manage pitfalls. Pt identified a pitfall they struggle with as ?self-forgiveness?. Pt plans to work on their pitfall by practicing self-compassion and acceptance. Benefited from identifying personal pitfalls and strategies to overcome these pitfalls. Pt will continue IOP tx to prevent decompensation, improve daily functioning, and increase distress tolerance. ? Narrative Note: []
--- NOTE | 2025-01-28 14:40 | BH.MDN ---
Multi-Disciplinary Note Note 30-min Individual: Time Started:: 12:05 Date: 01/28/25 Purpose of session/treatment goals addressed:: To address current stressors and discuss strategies to help cope with these stressors. Another goal was discussing discharge. Eye Contact:: Good Motor Activity:: Restless Appearance:: Casual Speech:: Appropriate Mood:: Euthymic Affect:: Full Thoughts:: Linear, Logical and No evidence of hallucinations/delusions noted Staff Interventions:: thought challenging (dialectical thinking, helping pt identify progress and give self credit.), mindfulness skills, discharge planning and strengths perspective Client Response:: Pt responded well to session, open to meeting with therapist. Pt reports feeling excited today because after last session pt went on to explore different groups on the internet and found a platform that he really connects with. Pt was smiling and shared he feels very welcome and I'm loving it. Pt acknowledges that he has had ups and downs in treatment, but pt able to see that he is managing stressors much better than he was weeks ago. Specifically, pt's ability to manage anger and distress without lashing out and blaming others. Pt noted that walking, being more artistically creative, and being more honest about his art has been very healing. Pt and therapist also identified strengths and coping skills that will help pt in the new school year and pt noted that he is heading into the semester confident for once. Pt also noted that he has advocated for himself, so he will have more accommodations and supports on campus as well this year. Pt plans to discharge next week prior to classes starting at [employer]. Pt was smiling and excited which is a significant change compared to the beginning of IOP. Risks/Concerns:: Pt denies any suicidal ideation, plan, or intent. Pt denies any thoughts of . Progress Toward Goals/Plan:: Pt continues to report improved mood and he feels ready to discharge next week prior to the new semester starting at [employer] [facility] [employer]. Pt's sleep is still an issue, but pt reports he has been coping with stressors and managing his depression and PTSD much better than he was several weeks ago. Pt will continue for one more week of IOP to reinforce healthy coping skills, further improve distress tolerance, and increase confidence. Time Stopped:: 12:35
--- NOTE | 2025-01-29 10:04 | BH.SGPN.GN ---
Behaviors/Verbalizations/Mental Status: [] Eye contact is good. Motor activity is appropriate. Appearance is casual. Speech is Appropriate. Mood is depressed. Affect is congruent. Thoughts are linear and logical. No evidence of psychosis. Client Response/Progress/Benefit: [] Pt engaged participant AEB listening to others, engaging in activity, and providing feedback throughout. Attentive during psychoeducation and provided insight into obstacles that impede mental wellness. Pt shared with group current mental health reality and desired mental health reality. Identified barriers to desired reality which included difficulties with communication and all or nothing thinking. Benefited from taking look at current mental health state and obstacles for progress. Pt to d/c from IOP today and continue IOP tx to prevent decompensation, stabilize mood, and improve functioning. Narrative Note: []
--- NOTE | 2025-01-29 11:00 | BH.SGPN.GN ---
Behaviors/Verbalizations/Mental Status: []Eye contact is poor. Motor activity is appropriate. Appearance is casual. Speech is Appropriate. Mood is dysthymic and tired. Affect is congruent. Thoughts are linear and logical. No evidence of psychosis. Client Response/Progress/Benefit: [] Pt reported feeling ?very tired? this morning, so pt was disengaged during group. Pt fell asleep at one point and when he woke up, he was confused. Pt declined to participate in the experiential activity. Pt is usually more engaged during group sessions and does well in activities. Pt will continue IOP tx to promote use of healthy coping skills, improve mood stability, and increase distress tolerance. Narrative Note: []
--- NOTE | 2025-02-05 10:00 | BH.SGPN.GN ---
Behaviors/Verbalizations/Mental Status: []Pt alert and oriented, casually dressed and groomed. Eye contact good. Motor activity appropriate. Speech within normal limits. Affect congruent, mood tired and agitated. Thoughts linear, logical, no signs of hallucinations or delusions. Client Response/Progress/Benefit: [] Pt was an active participant in group discussions. Attentive during psychoeducation on the CBT [employer] (Thoughts, Behaviors, Emotions). Engaged in group discussion on how thoughts and behaviors can contribute to maintaining adverse feelings, such as depression, anxiety, and irritability. Completed worksheet in which pt identified obstacles and/or thoughts that are keeping them stuck. Shared obstacles that included telling himself that things will not work out or that he cannot trust himself. Pt benefited from increased awareness of the basis of CBT therapy as well as specific thoughts that are impacting pt's progress. Will discharge from IOP tx as pt has accomplished his tx goals and no longer meets criteria for IOP level of care. ? Narrative Note: []
--- NOTE | 2025-02-05 11:00 | BH.SGPN.GN ---
Behaviors/Verbalizations/Mental Status: []Pt alert and oriented, casually dressed and groomed. Eye contact good. Motor activity appropriate. Speech within normal limits. Affect congruent, mood anxious and depressed. Thoughts linear, logical, no signs of hallucinations or delusions. Client Response/Progress/Benefit: [] Pt responded well to session, contributing to discussion and attentive throughout. Pt identified a negative thought that has kept them stuck. Pt's thought was No one understands?. Pt reported when they think this way, pt isolates, lashes out, or pushes people away. Pt worked to reframe the thought by finding more rational, realistic ways to look at the thoughts and then processed them within group setting. Pt reframed the thought to ?I have met supports who understand before and have those who will continue to try?. Pt appeared to benefit from practicing challenging negative thinking with peers and gaining coping skills. Pt will continue IOP tx to promote mood stability, increase thought challenging, and further increase self-compassion. Narrative Note: []
--- NOTE | 2025-02-05 14:09 | BH.MDN_ITS ---
Multi-Disciplinary Note Note 30-min Individual: Time Started:: 12:00 Date: 02/05/25 Purpose of session/treatment goals addressed:: To process any current stressors and discuss discharge plan and coping skills for maintenance. Eye Contact:: Fair Motor Activity:: Appropriate Appearance:: Casual Speech:: Appropriate Mood:: Euthymic and Anxious Affect:: Congruent Thoughts:: Linear, Logical and No evidence of hallucinations/delusions noted Staff Interventions:: discharge planning, strengths perspective, reviewed DSM-5 and other (reviewed progress and discussed strategies for success.) Client Response:: Pt responded well to session, open to meeting with therapist. Pt reports he had rough start this morning as his sleep continues to be a stressor. Pt has been having a difficult time regulating his sleep/wake schedule and he has been late to [facility] several times because he wakes up so groggy. However, pt stated he is proud of himself for how much I've put into to helping myself this summer. Pt stated he feels much more capable going into his last year of college than he has in the past. Pt acknowledges that he is still anxious, but he can recognize that this semester pt has academic and housing accommodations that will support pt and pt spent most of the summer taking care of myself instead of pushing myself. Pt also noted that he has been more involved with the art community and creating art has helped pt heal his inner child. Pt and therapist reviewed things pt can continue to do to maintain wellness including taking walks regularly, trying to stick to a bedtime, and practicing thought challenging to remind himself of resilience. Pt is unable to do [facility] aftercare due to his class schedule and pt will discharge today. Risks/Concerns:: Pt denies any active or passive SI, plan, or intent as of 02/05/25. Progress Toward Goals/Plan:: Pt will discharge from [facility] tx as pt has made progress in managing his symptoms, reducing intensity of depression and anger, and he reports improved functioning. 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 Pt is established with outpatient counseling and will continue seeing his providers at [facility]. Time Stopped:: 12:18
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
--- NOTE | 2025-02-05 14:13 | BH.AFTERPLAN ---
Aftercare Plan Medications Home Medications tizanidine 4 mg tablet 4 mg PO QHS 09/26/18 albuterol sulfate 90 mcg/actuation aerosol inhaler 2 inh inhalation Q4H PRN shortness of breath or wheezing 10/22/23 gabapentin 100 mg capsule 100 - 300 mg PO QHS 05/02/24 trazodone 50 mg tablet 50 mg PO QHS PRN sleep 10/25/24 clobetasol 0.05 % topical ointment topical 12/24/24 propranolol 20 mg tablet 20 mg PO TID #90 tabs 12/30/24 prazosin 1 mg capsule 1 mg PO QHS 30 days #30 caps 01/21/25 atomoxetine 40 mg capsule 40 mg PO QAM #30 caps 01/27/25 olanzapine 2.5 mg tablet (Zyprexa) 2.5 mg PO QHS 30 days #30 tabs 01/27/25 ondansetron 4 mg disintegrating tablet 4 mg PO Q6H PRN nausea and vomiting #30 tabs 01/27/25 venlafaxine 75 mg capsule,extended release 24 hr 75 mg PO DAILY 30 days #30 caps 01/27/25
== END 2025-02-08 09:05 | disposition home or self-care (01) ==
LOC: BHIOP 07:50
PROVIDERS: PCP Family Medicine; Referring Provider Internal Medicine; Visit Provider Internal Medicine
DX: F33.2 Major depressive disorder, recurrent severe without psychotic features (principal); F43.10 Post-traumatic stress disorder, unspecified; F84.0 Autistic disorder
CPT/HCPCS: S9480; 90832; 90853